=== PATIENT | male | born 1960 | race Caucasian/White ===

== ENCOUNTER → 2021-10-05 | Outpatient (CLI) | payer MEDICARE, OTHER ==
[2021-10-05 11:25] LABS: Partial Thromboplastin Time 24.7 sec (22.0-30.0); Prothrombin Time 10.7 sec (9.0-12.0)
[2021-10-05 14:18] LABS: Basophils # (A) 0.08 X 10*3/uL (0.00-0.10); Basophils % (A) 0.9 %; Eosinophils # (A) 0.23 X 10*3/uL (0.04-0.35); Eosinophils % (A) 2.4 %; HCT 45.1 % (39.6-50.0); HGB 14.7 g/dL (13.0-17.0); Lymphocytes # (A) 2.25 X 10*3/uL (0.90-5.00); MCH 28.7 pg (27.0-32.0); MCHC 32.6 g/dL (32.0-37.0); MCV 88.1 fL (80.0-97.0); Mean Platelet Volume 10.3 fL (9.5-12.2); Monocytes # (A) 0.49 X 10*3/uL (0.20-1.00); Monocytes % (A) 5.2 %; Neutrophils # (A) 6.27 X 10*3/uL (1.80-7.70); Neutrophils % (A) 66.8 %; Platelet Count 202 X 10*3/uL (140-440); RBC 5.12 X 10*6/uL (4.40-5.60); WBC 9.39 X 10*3/uL (4.50-10.00)
[2021-10-05 14:54] LABS: African American GFR (CKD) 130.3 (60.0-200.0); Albumin 3.9 g/dL (3.8-4.9); Albumin/Globulin Ratio 1.47 (1.60-3.17); Anion Gap 12.8 mmol/L (10.00-18.00); BUN/Creat Ratio 35.96 Ratio (12.00-20.00); Blood Urea Nitrogen 20.5 mg/dL (9.0-27.0); Calcium 9.9 mg/dL (8.7-10.3); Carbon Dioxide 24.4 mmol/L (20.0-27.5); Globulin 2.7 g/dL (1.6-3.3); Non-African American GFR(CKD) 112.4 (60.0-200.0); Potassium 5.1 mmol/L (3.5-5.5); Total Bilirubin 0.4 mg/dL (0.30-1.20); Total Protein 6.5 g/dL (6.2-8.2)
== END | disposition home or self-care (01) ==
LOC: LABWHC1 09:34
PROVIDERS: ATTEND Orthopaedic Surgery
DX: Z01.812 Encounter for preprocedural laboratory examination (principal); R35.0 Frequency of micturition; Z79.01 Long term (current) use of anticoagulants
CPT/HCPCS: 36415; 80053; 85025; 85610; 85730; 87070

== ENCOUNTER 2021-10-12 05:35 | Day surgery (SDC) | payer MEDICARE, OTHER ==
[2021-10-07 13:50] VITALS: BMI 24.3
[~2021-10-12 05:35] MED LIST: ACETAMINOPHEN TAB 500 MG TAB PO PRN; DEXAMETHASONE SOD PHOSPHATE 4 MG/ML 1 ML VIAL IV ONE; GABAPENTIN 300 MG CAP PO PRN; MELOXICAM 7.5 MG TAB PO PRN; ONDANSETRON 4 MG/2 ML VIAL IVP ONE; TRANEXAMIC ACID 1,000 MG in SODIUM CHLORIDE 0.9% 100 ML IVPB PRN
[2021-10-12] MEDS ORDERED: LIDOCAINE 1% (10MG/ML) FOR IV START INTRADERMA ONE (06:20)
[2021-10-12] MEDS: LACTATED RINGERS 1,000 ML IV SCH ×2 (06:20→11:21)
[2021-10-12 06:28] LABS: Glucose,Whole Blood 186 mg/dL (75-99)
[2021-10-12] MEDS ORDERED: .fentaNYL (PF) 50 MCG/ML 2 ML AMP ONE (06:53)
[2021-10-12] MEDS ORDERED: SODIUM CHLORIDE 0.9% IRRIG 1,000 ML BTL IRRIGATION ONE (06:53)
[2021-10-12] MEDS ORDERED: ROCURONIUM 10 MG/ML (5 ML VIAL) IV ONE (06:53)
[2021-10-12] MEDS ORDERED: HEPARIN SODIUM,PORCINE 10,000 UNIT/ML 1 ML VIAL ONE (06:53)
[2021-10-12] MEDS ORDERED: PROPOFOL 10 MG/ML 20 ML VIAL IV ONE (06:53)
[2021-10-12] MEDS ORDERED: SODIUM CHLORIDE 0.9% 100 ML BAG ONE (06:53)
[2021-10-12] MEDS ORDERED: TRANEXAMIC ACID 1,000 MG/10 ML VIAL ONE (06:53)
[2021-10-12] MEDS ORDERED: LIDOCAINE 1% INJ 10MG/ML (20 ML MDV) ONE (06:53)
[2021-10-12] MEDS ORDERED: MIDAZOLAM 2 MG/2 ML VIAL ONE (06:53)
[2021-10-12] MEDS ORDERED: GLYCOPYRROLATE 0.2 MG/ML 2 ML VIAL ONE (06:53)
[2021-10-12] MEDS ORDERED: NEOSTIGMINE 1 MG/ML 10 ML VIAL ONE (06:53)
[2021-10-12] MEDS ORDERED: HYDROmorphone 0.5 MG/0.5 ML SYRINGE IVP PRN ×2 (07:00→08:58)
[2021-10-12] MEDS ORDERED: ROPIVACAINE/EPI/CLONIDINE/KET 50 ML SYRINGE MISCELLANE PRN (07:29)
[2021-10-12] MEDS ORDERED: LACTATED RINGERS 1,000 ML IV ONE (08:01)
--- NOTE | 2021-10-12 08:39 | P.OP ---
Date of Procedure: 10/12/21 Preoperative Diagnosis: Severe osteoarthritis right hip Postoperative Diagnosis: Severe osteoarthritis right hip Procedure(s) Performed: Right total hip arthroplasty with a direct anterior approach Implants: [employer]hew Polarstem standard size 6 [employer]hew R3, 3 hole hemispherical acetabular shell, 58 mm [employer]hew Reflection 6.5 mm cancellus screw, 25 mm 2 [employer]hew OR30, 44 mm ID, 58 mm OD, Oxinium dual mobility liner [employer]hew OR30, 28 mm ID, 44 mm OD, XLPE Dual mobility insert [employer]hew Oxinium femoral head 28 m, +8 All components were press-fit. The articulation is Oxinium on polyethylene. Anesthesia: GETA Surgeon: Roddy Velázquez [place] Wrapper Maker #1: Lissette Spicer Estimated Blood Loss (ml): 300 (126 mL returned with Cell Saver) Pathology: other (Femoral head) Condition: stable Disposition: PACU Indications for Procedure: After failure of conservative treatment we discussed the surgical and nonsurgical treatment options at length. Patient wishes to proceed with a total hip arthroplasty with a direct anterior approach. Complications specific to this procedure were discussed at length, including but not limited to infection, leg length discrepancy, dislocation, nerve injury, and fracture. Covid-19 was also discussed at length with the patient, and they are aware of the current policies and procedures. The patient was given the option of delaying surgery, but they elect to proceed knowing these risks. Patient is aware of all these complications and informed consent was obtained Operative Findings: The operative findings are consistent with severe osteoarthritis of the right hip Description of Procedure: Patient was seen and evaluated in the preoperative area and the consent was reviewed. The operative site was marked with a skin marker. The patient was then brought to the operating room and given preoperative antibiotics intravenously. 1 g of Tranexamic acid was also given intravenously. A general anesthetic was administered by the anesthesia department. The patient was then placed on the [place] table with the bony prominences well-padded. The hip area was then prepped with a ChloraPrep solution and draped in the usual sterile fashion. A universal timeout was then performed, which confirmed the patient's name, surgical site, ALLERGIES, and procedure being performed on the consent. Next the incision site was located at 1 cm distal and 2 cm lateral to the anterior superior iliac spine. The skin and subcutaneous tissues were sharply incised. Incision was carefully dissected down to the fascia overlying the tensor fascia roseline muscle. This fascia was then incised in line with the incision. Care was taken to stay laterally in order to avoid injuring the lateral femoral cutaneous nerve. Next, using blunt finger dissection, the tensor fascia roseline muscle was dissected off its investing fascia. The muscle was then carefully retracted laterally with a cobra retractor over the lateral neck of the femur. Next, the circumflex vessels were identified and cauterized using the AquaMantis device. The anterior hip capsule was then exposed. The capsule was then opened and an inverted T fashion. Cobra retractors were then placed intracapsularly. The retractors were maintained intracapsular throughout the procedure. The proximal femur was then visualized. Fluoroscopic x-rays were then taken in order to evaluate the preoperative leg lengths. A small amount of traction was placed on the leg. The femoral neck was then osteotomized appropriate level above the lesser trochanter. A small wedge of bone was then removed from the remaining femoral head. Next, using a corkscrew the femoral head was removed from the acetabulum. On gross visual inspection, the femoral head had complete loss of articular cartilage and multiple periarticular osteophytes. The femoral head was then measured. Attention was then turned to the acetabulum. The acetabulum was exposed and any remaining labrum was excised. Sequential reaming of the acetabulum was performed using fluoroscopic guidance until there was a good bed of bleeding cancellus bone. When the appropriate size was reached, a trial was then placed. The position and fit of the trial was checked with fluoroscopy. The trial was then removed. Then, using fluoroscopic guidance, the final implant was impacted at 20 of anteversion and 40 of abduction, and fully seated in the acetabulum. 2 screws were then placed in the acetabulum. Again fluoroscopy was used to check position of the screws. Next, the liner was then impacted, with a 20 elevated liner located in the anterior superior quadrant. Component locking was confirmed. Attention was then directed to the femur. With the aid of the [place] table, the femur was externally rotated to approximately 130, extended, and adducted under the opposite leg. A side hook was then placed under the proximal femur, and the side hook elevator was used to elevate the proximal femur while releasing the capsule. Retractors were then placed. A capsular release was performed, as well as a release of the conjoined tendon, which afforded excellent visualization of the proximal femur. Next, a box osteotome was used to lateralize the proximal femur. A retail pharmacy merchandiser was then used to locate the femoral canal. Sequential broaching was then performed with appropriate size which afforded excellent fixation in the proximal femur. A trial was then placed with appropriate head and neck, and the hip was gently reduced with the aid of the [place] table. Fluoroscopy was then used to check position of the components, as well as to ensure equal leg lengths. The hip was then gently dislocated and the trials were then removed. Final implants were then impacted and the hip was again reduced. Final fluoroscopic x-rays confirmed that the components were in anatomic position, as well as equal leg lengths. The hip was also taken through range of motion, and found to be stable. The hip was then copiously irrigated with antibiotic solution with pulsatile lavage. The hip was then irrigated with Irrisept solution. The soft tissues were then injected with a ropivacaine solution, which consisted of 246.25 mg of ropivacaine, 0.5 mg of epinephrine, 30 mg of Toradol, 80 g of clonidine, and 48.45 mL of sterile water, for a total of 100 mL of fluid injected. A second dose of 1 g of Tranexamic acid was also given intravenously. Any blood collected by Cell Saver was then returned to the patient at this time. The fascia was then closed with 2-0 strata fix suture. The subcutaneous tissue was closed with 3-0 Vicryl. The subcuticular tissue was closed with 3-0 strata fix suture. The skin was then closed with Exofin skin glue. After the glue and dried, and Optifoam silver impregnated dressing was applied. The patient was then transferred to the recovery room in stable condition. The college sports assistant NANCY Atkins was required due to the complexity of surgery, and the need for skilled quality control assistant for positioning, draping, exposure, retraction, and closure of the wound.
--- NOTE | 2021-10-12 08:41 | XR ---
Fluoroscopy History: RIGHT ANTERIOR HIP 51 sec fl time used rt anterior hip
[2021-10-12] MEDS ORDERED: HYDROmorphone 0.2 MG/1 ML SYRINGE IVP PRN (08:58)
[2021-10-12] MEDS ORDERED: NALOXONE 0.4 MG/ML 1 ML VIAL IV PRN (08:58)
[2021-10-12] MEDS ORDERED: HYDROmorphone 1 MG/ML 1 ML SYRINGE IVP PRN (08:58)
[2021-10-12] MEDS ORDERED: ONDANSETRON 4 MG/2 ML VIAL IVP PRN (08:58)
[2021-10-12] MEDS ORDERED: MAGNESIUM HYDROXIDE 2,400 MG/10 ML CUP PO PRN (08:58)
[2021-10-12] MEDS ORDERED: HYDROcodone/APAP 7.5-325MG 1 EACH TAB PO PRN (09:00)
--- NOTE | 2021-10-12 09:20 | XR ---
EXAMINATION TYPE: XR Hip Limited RT DATE OF EXAM: 10/12/2021 CLINICAL HISTORY: Postoperative evaluation TECHNIQUE: Single portable view of the right hip was submitted. FINDINGS: Noted are changes of total hip arthroplasty with femoral and acetabular components appearin g well seated. Alignment is anatomic. Postsurgical soft tissue changes are evident. IMPRESSION: Satisfactory postoperative alignment
[2021-10-12 09:28] LABS: Glucose,Whole Blood 195 mg/dL (75-99)
[2021-10-12] MEDS ORDERED: SODIUM CHLORIDE 0.9% 1,000 ML IV ONE ×2 (10:33)
[2021-10-12] MEDS: SODIUM CHLORIDE 0.9% 1,000 ML IV SCH ×2 (11:20→20:20)
[2021-10-12 11:31] LABS: Glucose,Whole Blood 228 mg/dL (75-99)
[2021-10-12] MEDS ORDERED: CIPROFLOXACIN HCL 500 MG TAB PO SCH (12:00)
[2021-10-12] MEDS: INSULIN ASPART (NovoLOG) 100 UNIT/ML VIAL SQ SCH ×3 (12:16→23:45)
--- NOTE | 2021-10-12 15:28 | P.CONS ---
History of Present Illness - Reason for Consult Consult date: 10/12/21 Medical management Requesting physician: Roddy Velázquez - Chief Complaint Right hip pain - History of Present Illness This is a 60-year-old patient who follows with visiting physicians . Patient for last few months has been at rehab. He was seen by Dr. Velázquez in March 2021. He was scheduled for right hip surgery then. He subsequently fell a couple of times and not able to walk any longer. He was at [facility]. He's had trouble in the right hip for at least 9 years. Had been using a cane but prior to surgery using a wheelchair. He tried physical therapy. Patient today has undergone right total hip arthroplasty. Pain control. No nausea vomiting. No chest pain or shortness of breath. Chronic stable medical conditions include diabetes, hyperlipidemia, rheumatoid arthritis, gout, chronic gait discussion. Review of systems: GEN.: None EYES: None HEENT: None NECK: None RESPIRATORY: None CARDIOVASCULAR: None GASTROINTESTINAL: None GENITOURINARY: None MUSCULOSKELETAL: Joint pains LYMPHATICS: None HEMATOLOGICAL: None PSYCHIATRY: None NEUROLOGICAL: Using a wheelchair Past medical history to include: Diabetes mellitus, hyperlipidemia, rheumatoid arthritis, gout anxiety depression Social history: No alcohol. Patient did smoke occasional cigars but none since since earlier this year. Family history: Cancer Physical examination: VITAL SIGNS: 98, 97, 16, 99/69, 97% room air GENERAL: BMI 24.4, laying in bed, awake, tired. EYES: Pupils equal. Conjunctiva normal. HEENT: External appearance of nose and ears normal, oral cavity grossly normal. NECK: JVD not raised; masses not palpable. HEART: First and second heart sounds are normal; no edema. LUNGS: Respiratory rate normal; clear to auscultation. ABDOMEN: Soft, nontender, liver spleen not palpable, no masses palpable. PSYCH: Alert and oriented x3; mood and affect normal. MUSCULAR skeletal: Dressing over the right hip. Incision site. Evidence of OA. NEUROLOGICAL: Cranial nerves grossly intact; no facial asymmetry, power and sensation grossly intact. LYMPHATICS: No lymph nodes palpable in the axilla and neck INVESTIGATIONS, reviewed in the clinical context: Blood work from October 05: WBC 9.3 hemoglobin 14.7 weight is 2020 sodium 137 potassium 5.1 BUN 20.5 creatinine 0.6 Potassium today 4.5 UA: Negative Coronavirus [PCR]: Not detected Assessment and plan: -Right total hip arthroplasty for severe osteoarthritis Pain control. DVT prophylaxis. -Depression and anxiety not otherwise specified Zoloft 100 mg daily: Trazodone 100 mg daily at bedtime -Diabetes mellitus type 2 and oral hypoglycemic Glucophage 5 mg twice a day. Follow Accu-Cheks -Essential hypertension Currently blood pressure during the lower side. Hold lisinopril -Hyperlipidemia Lipitor 20 mg daily at bedtime Home medications resumed. Hold lisinopril. Follow blood pressure. Xarelto to be resumed when okay with orthopedics. Care was discussed with the patient. Questions answered. Thank you Dr. Velázquez Past Medical History Past Medical History: Diabetes Mellitus, Hyperlipidemia, Rheumatoid Arthritis (RA) Additional Past Medical History / Comment(s): gout, fussion margarito hips- can not move them. unable to bear wt. mostly bedridden-tranfers with mechanical lift, uses bedpan or depends due to inablity to move. per [facility]- on rx for uti. History of Any Multi-Drug Resistant Organisms: None Reported Past Surgical History: EPS Additional Past Surgical History / Comment(s): rt ear surgery Past Anesthesia/Blood Transfusion Reactions: No Reported Reaction Past Psychological History: Anxiety, Depression Smoking Status: Former smoker Past Alcohol Use History: None Reported Additional Past Alcohol Use History / Comment(s): smoked occ. cigars but not since earlier 2020 Past Drug Use History: None Reported - Past Family History Father Family Medical History: Cancer Medications and Allergies Home Medications Medication Instructions Recorded Confirmed Type Atorvastatin [Lipitor] 20 mg PO HS 10/07/21 10/07/21 History Ciprofloxacin HCl [Cipro] 500 mg PO Q12H 10/07/21 10/07/21 History Multivitamins, Thera [Multivitamin 1 tab PO DAILY 10/07/21 10/07/21 History (formulary)] Rivaroxaban [Xarelto] 20 mg PO DAILY 10/07/21 10/07/21 History Sertraline [Zoloft] 100 mg PO QAM 10/07/21 10/07/21 History lisinopriL 10 mg PO QAM 10/07/21 10/07/21 History metFORMIN HCL [Glucophage] 500 mg PO BID 10/07/21 10/07/21 History traZODone HCL 100 mg PO HS 10/07/21 10/07/21 History Calcium Carbonate/Vitamin D3 1 each PO DAILY 10/12/21 10/12/21 History [Calcium 600 mg-Vit D3 5 mcg (200 unit)] HYDROcodone/APAP 7.5-325MG [[place] 1 - 2 tab PO Q6H PRN #32 tab 10/12/21 Rx 7.5-325] Sennosides [Senokot] 2 tab PO DAILY PRN #60 tablet 10/12/21 Rx Allergies Allergy/AdvReac Type Severity Reaction Status Date / Time Penicillins Allergy Unknown Verified 10/12/21 06:21 Physical Exam Vitals: Vital Signs Temp Pulse Pulse Pulse Resp BP BP 10/12/21 14:06 98 F 97 16 99/69 10/12/21 13:00 101 H 108/73 10/12/21 12:45 92 102/72 10/12/21 12:30 90 117/75 10/12/21 12:15 86 114/80 10/12/21 12:00 83 102/69 10/12/21 11:45 80 103/62 10/12/21 11:30 91 110/69 10/12/21 11:15 97.5 F L 66 16 100/65 10/12/21 10:45 80 16 98/65 10/12/21 10:30 78 16 95/60 10/12/21 10:15 77 16 90/56 10/12/21 10:00 78 16 87/54 10/12/21 09:45 79 17 87/51 10/12/21 09:30 81 16 92/56 10/12/21 09:15 82 16 90/55 10/12/21 09:00 80 16 98/56 10/12/21 08:47 96.8 F L 79 14 104/65 10/12/21 06:20 97.8 F 95 16 124/69 Pulse Ox 10/12/21 14:06 97 10/12/21 13:00 98 10/12/21 12:45 95 10/12/21 12:30 99 10/12/21 12:15 92 L 10/12/21 12:00 91 L 10/12/21 11:45 90 L 10/12/21 11:30 93 L 10/12/21 11:15 98 10/12/21 10:45 97 10/12/21 10:30 98 10/12/21 10:15 97 10/12/21 10:00 97 10/12/21 09:45 99 10/12/21 09:30 98 10/12/21 09:15 98 10/12/21 09:00 99 10/12/21 08:47 100 10/12/21 06:20 99 Intake and Output 10/12/21 10/12/21 10/12/21 06:59 14:59 22:59 Intake Total 1050 1336 Output Total 300 Balance 1050 1036 Intake: IV 1050 1100 Oral 236 Output: Estimated Blood Loss 300 Other: Weight 86.183 kg Results CBC & Chem 7: 10/12/21 06:25 Labs: Abnormal Lab Results - Last 24 Hours (Table) 10/12/21 10/12/21 10/12/21 Range/Units 06:24 09:26 11:30 POC Glucose (mg/dL) 186 H 195 H 228 H (75-99) mg/dL
[2021-10-12 16:14] LABS: Glucose,Whole Blood 318 mg/dL (75-99)
[2021-10-12] MEDS: metFORMIN 500 MG TAB PO SCH (16:58)
[2021-10-12] MEDS ORDERED: RIVAROXABAN 20 MG TAB PO SCH (17:30)
[2021-10-12] MEDS: traZODone HCL 100 MG TAB PO SCH (20:19)
[2021-10-12] MEDS: SENNOSIDES-DOCUSATE SODIUM 1 EACH TAB PO SCH (20:19)
[2021-10-12] MEDS: ATORVASTATIN 20 MG TAB PO SCH (20:19)
[2021-10-12 20:57] LABS: Glucose,Whole Blood 277 mg/dL (75-99)
[2021-10-13] MEDS: HYDROcodone/APAP 7.5-325MG 1 EACH TAB PO PRN ×2 (07:30→20:53)
[2021-10-13 07:36] LABS: Glucose,Whole Blood 231 mg/dL (75-99)
[2021-10-13] MEDS: INSULIN ASPART (NovoLOG) 100 UNIT/ML VIAL SQ SCH ×4 (07:57→20:49)
[2021-10-13] MEDS: RIVAROXABAN 20 MG TAB PO SCH (07:58)
[2021-10-13] MEDS: CALCIUM CARB-VIT D 500 MG-5 MCG TAB PO SCH (07:58)
[2021-10-13] MEDS: SERTRALINE 100 MG TAB PO SCH (07:58)
[2021-10-13] MEDS: MULTIVITAMINS, THERA 1 EACH TAB PO SCH (07:58)
[2021-10-13] MEDS: metFORMIN 500 MG TAB PO SCH ×2 (07:58→17:11)
[2021-10-13 09:17] LABS: Basophils # (A) 0.03 X 10*3/uL (0.00-0.10); Basophils % (A) 0.3 %; Eosinophils # (A) 0.12 X 10*3/uL (0.04-0.35); Eosinophils % (A) 1.1 %; HCT 33.7 % (39.6-50.0); HGB 10.6 g/dL (13.0-17.0); Lymphocytes # (A) 1.48 X 10*3/uL (0.90-5.00); Lymphocytes % (A) 13.1 %; MCH 28.5 pg (27.0-32.0); MCHC 31.5 g/dL (32.0-37.0); MCV 90.6 fL (80.0-97.0); Mean Platelet Volume 9.9 fL (9.5-12.2); Monocytes % (A) 9.7 %; Neutrophils # (A) 8.52 X 10*3/uL (1.80-7.70); Neutrophils % (A) 75.2 %; Platelet Count 143 X 10*3/uL (140-440); RBC 3.72 X 10*6/uL (4.40-5.60); RDW 14.2 % (11.5-14.5); WBC 11.32 X 10*3/uL (4.50-10.00)
[2021-10-13 12:14] LABS: Glucose,Whole Blood 268 mg/dL (75-99)
[2021-10-13] MEDS: SODIUM CHLORIDE 0.9% 1,000 ML IV SCH (12:22)
[2021-10-13] MEDS: LACTATED RINGERS 1,000 ML IV SCH (12:22)
--- NOTE | 2021-10-13 12:31 | P.PN ---
Subjective Progress Note Date: 10/13/21 This is a 60-year-old male who is status post right total hip arthroplasty. This is postoperative day #1 and patient is seen and evaluated at bedside with Dr. Roddy Velázquez. Per nursing, the patient hasn't been able to void on his own. Otherwise, the patient denies any new complaints today. Objective - Vital Signs Vital signs: Vital Signs Temp 98.4 F 10/13/21 07:44 Pulse 75 10/13/21 07:44 Resp 17 10/13/21 07:44 BP 95/60 10/13/21 07:44 Pulse Ox 97 10/13/21 07:44 Intake & Output 10/12/21 10/13/21 10/13/21 18:59 06:59 18:59 Intake Total 2162 Output Total 300 450 350 Balance 1862 -450 -350 Weight 86.183 kg Intake: IV 1100 Intake, IV Titration 50 Amount ceFAZolin 2 gm In Sodium 50 Chloride 0.9% 50 ml @ 100 mls/hr IVPB Q8H [facility] Rx#: [id number] Oral 1012 Output: Urine 450 350 Straight 450 350 Estimated Blood Loss 300 Other: Voiding Method Urinal Urinal # Voids 1 - Exam Vital signs are stable. Patient is in no acute distress and is alert and oriented 3. Calf is soft and nontender to palpation. Dressing is clean, dry, and intact. Patient has full foot and ankle motion without pain or difficulty. Sensation intact. Neurovascular status and circulatory status are intact. - Labs CBC & Chem 7: 10/13/21 03:49 10/12/21 06:25 Labs: Abnormal Lab Results - Last 24 Hours (Table) 10/12/21 10/12/21 10/13/21 Range/Units 16:13 20:55 03:49 WBC 11.32 H (4.50-10.00) X 10*3/uL RBC 3.72 L (4.40-5.60) X 10*6/uL Hgb 10.6 L (13.0-17.0) g/dL Hct 33.7 L (39.6-50.0) % MCHC 31.5 L (32.0-37.0) g/dL Immature Gran # 0.07 H (0.00-0.04) X 10*3/uL Neutrophils # 8.52 H (1.80-7.70) X 10*3/uL Monocytes # 1.10 H (0.20-1.00) X 10*3/uL POC Glucose (mg/dL) 318 H 277 H (75-99) mg/dL 10/13/21 10/13/21 Range/Units 07:35 12:12 WBC (4.50-10.00) X 10*3/uL RBC (4.40-5.60) X 10*6/uL Hgb (13.0-17.0) g/dL Hct (39.6-50.0) % MCHC (32.0-37.0) g/dL Immature Gran # (0.00-0.04) X 10*3/uL Neutrophils # (1.80-7.70) X 10*3/uL Monocytes # (0.20-1.00) X 10*3/uL POC Glucose (mg/dL) 231 H 268 H (75-99) mg/dL Assessment and Plan (1) Osteoarthritis of right hip Current Visit: Yes Status: Acute Code(s): M16.11 - UNILATERAL PRIMARY OSTEOARTHRITIS, RIGHT HIP SNOMED Code(s): 195874653077059 (2) S/P total right hip arthroplasty Current Visit: Yes Status: Acute Code(s): Z96.641 - PRESENCE OF RIGHT ART IFICIAL HIP JOINT SNOMED Code(s): 602231941444 Plan: Continue routine postop care and pain control. Resume Xarelto. Weightbearing as tolerated with a walker/lift. Leave dressing in place for 7 days. Appreciate input from medicine. Anticipate discharge back to [facility] tomorrow
--- NOTE | 2021-10-13 15:00 | P.PN ---
Progress Note - Text Progress Note Date: 10/13/21 - Chief Complaint Right hip pain This is a 60-year-old patient who follows with visiting physicians . Patient for last few months has been at rehab. He was seen by Dr. Velázquez in March 2021. He was scheduled for right hip surgery then. He subsequently fell a couple of times and not able to walk any longer. He was at rehab [facility]. He's had trouble in the right hip for at least 9 years. Had been using a cane but prior to surgery using a wheelchair. He tried physical therapy. Patient today has undergone right total hip arthroplasty. Pain control. No nausea vomiting. No chest pain or shortness of breath. Chronic stable medical conditions include diabetes, hyperlipidemia, rheumatoid arthritis, gout, chronic gait discussion. October 13: Did eat to breakfast. No chest pain or shortness of breath. Tired. Did work with physical therapy. Blood pressure running on the lower side. Review of systems: Was done for constitutional, cardiovascular, GI, pulmonary. relevant finding as above Active Medications Hydrocodone Bitart/Acetaminophen (Hydrocodone/Apap 7.5-325mg 1 Each Tab) 1 each PO Q6H PRN PRN Reason: Pain Scale 1 to 5 Stop: 11/11/21 09:01 Last Admin: 10/13/21 07:30 Dose: 1 each Documented by: Hydrocodone Bitart/Acetaminophen (Hydrocodone/Apap 7.5-325mg 1 Each Tab) 2 each PO Q6H PRN PRN Reason: Pain Scale 6 to 10 Stop: 11/11/21 09:01 Atorvastatin Calcium (Atorvastatin 20 Mg Tab) 20 mg PO HS [facility] Last Admin: 10/12/21 20:19 Dose: 20 mg Documented by: Calcium Carbonate (Calcium Carb-Vit D 500 Mg-5 Mcg Tab) 1 each PO DAILY [facility] Last Admin: 10/13/21 07:58 Dose: 1 each Documented by: Ferrous Sulfate (Ferrous Sulfate 325 Mg Tab) 325 mg PO BID-W/MEALS [facility] Hydromorphone HCl (Hydromorphone 0.2 Mg/1 Ml Syringe) 0.2 mg IVP Q3HR PRN PRN Reason: Pain Scale 1 to 3 Stop: 11/11/21 08:59 Hydromorphone HCl (Hydromorphone 0.5 Mg/0.5 Ml Syringe) 0.5 mg IVP Q3HR PRN PRN Reason: Pain Scale 4 to 6 Stop: 11/11/21 08:59 Hydromorphone HCl (Hydromorphone 1 Mg/Ml 1 Ml Syringe) 1 mg IVP Q3HR PRN PRN Reason: Pain Scale 7 to 10 Stop: 11/11/21 08:59 Lactated Ringer's (Lactated Ringers) 1,000 mls @ 20 mls/hr IV .Q24H [facility] Stop: 11/10/21 17:31 Last Admin: 10/13/21 12:22 Dose: Not Given Documented by: Sodium Chloride (Saline 0.9%) 1,000 mls @ 65 mls/hr IV .[id number] [facility] Stop: 11/11/21 09:01 Last Admin: 10/13/21 12:22 Dose: Not Given Documented by: Insulin Aspart (Insulin Aspart (Novolog) 100 Unit/Ml Vial) 0 unit SQ ACHS [facility]; Protocol Last Admin: 10/13/21 12:22 Dose: 4 unit Documented by: Magnesium Hydroxide (Magnesium Hydroxide 2,400 Mg/10 Ml Cup) 2,400 mg PO DAILY PRN PRN Reason: Constipation Stop: 11/11/21 08:59 Metformin HCl (Metformin 500 Mg Tab) 500 mg PO BID-W/MEALS [facility] Last Admin: 10/13/21 07:58 Dose: 500 mg Documented by: Multivitamins (Multivitamins, Thera 1 Each Tab) 1 each PO DAILY [facility] Last Admin: 10/13/21 07:58 Dose: 1 each Documented by: Naloxone HCl (Naloxone 0.4 Mg/Ml 1 Ml Vial) 0.2 mg IV Q2M PRN PRN Reason: Opioid Reversal Stop: 11/11/21 08:59 Ondansetron HCl (Ondansetron 4 Mg/2 Ml Vial) 4 mg IVP Q8H PRN PRN Reason: Nausea And Vomiting Stop: 11/11/21 08:59 Rivaroxaban (Rivaroxaban 20 Mg Tab) 20 mg PO DAILY [facility]; Protocol Stop: 11/12/21 09:01 Last Admin: 10/13/21 07:58 Dose: 20 mg Documented by: Senna/Docusate Sodium (Sennosides-Docusate Sodium 1 Each Tab) 2 each PO HS [facility] Stop: 11/11/21 21:01 Last Admin: 10/12/21 20:19 Dose: 2 each Documented by: Sertraline HCl (Sertraline 100 Mg Tab) 100 mg PO [facility] Last Admin: 10/13/21 07:58 Dose: 100 mg Documented by: Trazodone HCl (Trazodone Hcl 100 Mg Tab) 100 mg PO [facility] Last Admin: 10/12/21 20:19 Dose: 100 mg Documented by: Past medical history to include: Diabetes mellitus, hyperlipidemia, rheumatoid arthritis, gout anxiety depression Social history: No alcohol. Patient did smoke occasional cigars but none since since earlier this year. Family history: Cancer Physical examination: VITAL SIGNS: 98.4, 75, 17, 95 x 60, 97% room air GENERAL: Sitting up in a chair, tired. EYES: Pupils equal. Conjunctiva normal. HEENT: External appearance of nose and ears normal, oral cavity grossly normal. NECK: JVD not raised; masses not palpable. HEART: First and second heart sounds are normal; no edema. LUNGS: Respiratory rate normal; clear to auscultation. ABDOMEN: Soft, nontender, liver spleen not palpable, no masses palpable. PSYCH: Alert and oriented x3; mood and affect normal. MUSCULAR skeletal: Dressing over the right hip. Incision site. Evidence of OA. INVESTIGATIONS, reviewed in the clinical context: October 13: White count 11.3 hemoglobin 10.6 platelets 143. Accu-Chek 231, 268 Blood work from October 05: WBC 9.3 hemoglobin 14.7 weight is 2020 sodium 137 potassium 5.1 BUN 20.5 cre atinine 0.6 Potassium today 4.5 UA: Negative Coronavirus [PCR]: Not detected Assessment and plan: -Right total hip arthroplasty for severe osteoarthritis Pain control. DVT prophylaxis. -Depression and anxiety not otherwise specified Zoloft 100 mg daily: Trazodone 100 mg daily at bedtime -Diabetes mellitus type 2 and oral hypoglycemic, uncontrolled with hyperglycemia Increase Glucophage 1000 mg twice a day. Follow Accu-Cheks -Essential hypertension, continues to run low Hold lisinopril -Acute postprocedure blood loss anemia expected from surgery Follow H&H. Add ferrous sulfate -Hyperlipidemia Lipitor 20 mg daily at bedtime Repeat H&H in the morning. Add ferrous sulfate. Continue to hold lisinopril. Discussed with the patient. Thank you Dr. Velázquez
[2021-10-13 17:04] LABS: Glucose,Whole Blood 221 mg/dL (75-99)
[2021-10-13] MEDS: FERROUS SULFATE 325 MG TAB PO SCH (17:11)
[2021-10-13 20:15] LABS: Glucose,Whole Blood 193 mg/dL (75-99)
[2021-10-13] MEDS: traZODone HCL 100 MG TAB PO SCH (20:49)
[2021-10-13] MEDS: SENNOSIDES-DOCUSATE SODIUM 1 EACH TAB PO SCH (20:49)
[2021-10-13] MEDS: ATORVASTATIN 20 MG TAB PO SCH (20:50)
[2021-10-13] MEDS ORDERED: INSULIN ASPART (NovoLOG) 100 UNIT/ML VIAL SQ SCH (22:31)
[2021-10-14 06:23] LABS: African American GFR (CKD) >90 (>60 ml/min/1.73 sqM); Anion Gap 4 mmol/L; Blood Urea Nitrogen 26 mg/dL (9-20); Calcium 8.2 mg/dL (8.4-10.2); Carbon Dioxide 26 mmol/L (22-30); Chloride 103 mmol/L (98-107); Glucose 153 mg/dL (74-99); Non-African American GFR(CKD) >90 (>60 ml/min/1.73 sqM); Potassium 4.1 mmol/L (3.5-5.1); Sodium 133 mmol/L (137-145)
[2021-10-14 07:11] LABS: Glucose,Whole Blood 175 mg/dL (75-99)
[2021-10-14] MEDS: INSULIN ASPART (NovoLOG) 100 UNIT/ML VIAL SQ SCH ×3 (08:10→17:16)
[2021-10-14] MEDS: CALCIUM CARB-VIT D 500 MG-5 MCG TAB PO SCH (08:11)
[2021-10-14] MEDS: MULTIVITAMINS, THERA 1 EACH TAB PO SCH (08:11)
[2021-10-14] MEDS: RIVAROXABAN 20 MG TAB PO SCH (08:11)
[2021-10-14] MEDS: FERROUS SULFATE 325 MG TAB PO SCH ×2 (08:11→17:17)
[2021-10-14] MEDS: metFORMIN 500 MG TAB PO SCH ×2 (08:11→17:17)
[2021-10-14] MEDS: SERTRALINE 100 MG TAB PO SCH (08:11)
[2021-10-14] MEDS: SODIUM CHLORIDE 0.9% 1,000 ML IV SCH (08:12)
[2021-10-14 11:43] LABS: Glucose,Whole Blood 187 mg/dL (75-99)
[2021-10-14] MEDS: HYDROcodone/APAP 7.5-325MG 1 EACH TAB PO PRN (14:08)
[2021-10-14 14:38] VITALS: BP 100/66; PULSE 104; RESP 17; TEMP 98.3
--- NOTE | 2021-10-14 16:03 | P.DS ---
Providers Expected date of discharge: 10/14/21 Attending physician: Roddy Velázquez Consults: 10/12/21 08:58 Consult Physician Routine Consulting Provider: Matthew Antony Consult Reason/Comments: medical management Do you want consulting provider notified?: Yes Primary care physician: Clint Baez MD - Discharge Diagnosis(es) (1) Osteoarthritis of right hip Current Visit: Yes Status: Acute (2) S/P total right hip arthroplasty Current Visit: Yes Status: Acute Hospital Course: This is a 60-year-old male with known history of degenerative arthritis of the right hip. The patient presents for evaluation. After discussion and consideration patient elects to proceed with total hip arthroplasty with direct anterior approach. The patient is seen preoperatively by primary care physician and cleared for surgery. Patient is admitted to [facility] on 10/12/2021 for total hip arthroplasty with direct anterior approach. The procedure is performed without complication or sequelae. The patient is doing fairly well postoperatively. He did have difficulty voiding on his own on postoperative day #1. Martin catheter was placed. Labs and vital signs are stable. On postoperative day #2 patient's dressing is clean, dry and intact. He has full foot and ankle motion without difficulty or pain. Neurovascular status to the lower extremity is intact. Patient is discharged to home in good condition if cleared medically. He will be discharged to [facility] with the martin catheter. We will hopefully be able to discontinue the catheter at rehabilitation. Please see med rec for accurate list of home medications. Patient Condition at Discharge: Stable Plan - Discharge Summary Discharge Rx Participant: No New Discharge Prescriptions: New Sennosides [Senokot] 2 tab PO DAILY PRN #60 tablet PRN Reason: Constipation INSULIN ASPART (NovoLOG) [NovoLOG (formulary)] 0 unit SQ ACHS ml HYDROcodone/APAP 7.5-325MG [[place] 7.5-325] 1 - 2 tab PO Q6H PRN #32 tab PRN Reason: Pain metFORMIN HCL [Glucophage] 1,000 mg PO BID-W/MEALS tab Ferrous Sulfate [Iron (65 MG Elemental)] 325 mg PO BID-W/MEALS tab Continue Atorvastatin [Lipitor] 20 mg PO HS traZODone HCL 100 mg PO HS Rivaroxaban [Xarelto] 20 mg PO DAILY Sertraline [Zoloft] 100 mg PO QAM Calcium Carbonate/Vitamin D3 [Calcium 600 mg-Vit D3 5 mcg (200 unit)] 1 each PO DAILY Multivitamins, Thera [Multivitamin (formulary)] 1 tab PO DAILY Discontinued lisinopriL 10 mg PO QAM Ciprofloxacin HCl [Cipro] 500 mg PO Q12H metFORMIN HCL [Glucophage] 500 mg PO BID Discharge Medication List Atorvastatin [Lipitor] 20 mg PO HS 10/07/21 [History] Multivitamins, Thera [Multivitamin (formulary)] 1 tab PO DAILY 10/07/21 [History] Rivaroxaban [Xarelto] 20 mg PO DAILY 10/07/21 [History] Sertraline [Zoloft] 100 mg PO QAM 10/07/21 [History] traZODone HCL 100 mg PO HS 10/07/21 [History] Calcium Carbonate/Vitamin D3 [Calcium 600 mg-Vit D3 5 mcg (200 unit)] 1 each PO DAILY 10/12/21 [History] HYDROcodone/APAP 7.5-325MG [[place] 7.5-325] 1 - 2 tab PO Q6H PRN #32 tab 10/12/21 [Rx] Sennosides [Senokot] 2 tab PO DAILY PRN #60 tablet 10/12/21 [Rx] Ferrous Sulfate [Iron (65 MG Elemental)] 325 mg PO BID-W/MEALS tab 10/14/21 [Rx] INSULIN ASPART (NovoLOG) [NovoLOG (formulary)] 0 unit SQ ACHS ml 10/14/21 [Rx] metFORMIN HCL [Glucophage] 1,000 mg PO BID-W/MEALS tab 10/14/21 [Rx] Follow up Appointment(s)/Referral(s): Ever Bermudez MD [REFERRING] - 1 Week [address]ody Velázquez DO [Doctor of Osteopathic Medicine] - 2 Weeks Activity/Diet/Wound Care/Special Instructions: Weightbearing as tolerated with walker. Leave dressing intact. Dressing may be removed by home care nurse or by patient in 7 days. Then change dressing twice daily until follow up. May shower with initial dressing intact and after removal. If dressing become saturated, please remove. Please resume Xarelto. Recommend use of compression stockings daily until follow up to help prevent swelling and blood clots. May remove at night before sleeping. Please follow-up with [facility] in 2 weeks and call with any questions or concerns, . Discharge Disposition: TRANSFER TO SNF/ECF
[2021-10-14 16:32] LABS: Glucose,Whole Blood 213 mg/dL (75-99)
--- NOTE | 2021-10-14 21:25 | P.PN ---
Progress Note - Text Progress Note Date: 10/14/21 - Chief Complaint Right hip pain This is a 60-year-old patient who follows with visiting physicians . Patient for last few months has been at rehab. He was seen by Dr. Velázquez in March 2021. He was scheduled for right hip surgery then. He subsequently fell a couple of times and not able to walk any longer. [facility]. He's had trouble in the right hip for at least 9 years. Had been using a cane but prior to surgery using a wheelchair. He tried physical therapy. Patient today has undergone right total hip arthroplasty. Pain control. No nausea vomiting. No chest pain or shortness of breath. Chronic stable medical conditions include diabetes, hyperlipidemia, rheumatoid arthritis, gout, chronic gait discussion. October 13: Did eat to breakfast. No chest pain or shortness of breath. Tired. Did work with physical therapy. Blood pressure running on the lower side. October 14: Sitting up. Comfortable. Breathing to the ER today. Pain control. Oral intake good. No chest pain or shortness of breath. Review of systems: Was done for constitutional, cardiovascular, GI, pulmonary. relevant finding as above Current medications reviewed in today's electronic records Past medical history to include: Diabetes mellitus, hyperlipidemia, rheumatoid arthritis, gout anxiety depression Social history: No alcohol. Patient did smoke occasional cigars but none since since earlier this year. Family history: Cancer Physical examination: VITAL SIGNS: 98.2, 100, 20, 99.63, 98% room air GENERAL: Sitting up in a chair, comfortable EYES: Pupils equal. Conjunctiva normal. HEENT: External appearance of nose and ears normal, oral cavity grossly normal. NECK: JVD not raised; masses not palpable. HEART: First and second heart sounds are normal; no edema. LUNGS: Respiratory rate normal; clear to auscultation. ABDOMEN: Soft, nontender, liver spleen not palpable, no masses palpable. PSYCH: Alert and oriented x3; mood and affect normal. MUSCULAR skeletal: Dressing over the right hip. Incision site. Evidence of OA. INVESTIGATIONS, reviewed in the clinical context: October 14: Potassium 4.1 creatinine 0.76 October 13: White count 11.3 hemoglobin 10.6 platelets 143. Accu-Chek 231, 268 Blood work from October 05: WBC 9.3 hemoglobin 14.7 weight is 2020 sodium 137 potassium 5.1 BUN 20.5 creatinine 0.6 Potassium today 4.5 UA: Negative Coronavirus [PCR]: Not detected Assessment and plan: -Right total hip arthroplasty for severe osteoarthritis Pain control. DVT prophylaxis. -Depression and anxiety not otherwise specified Zoloft 100 mg daily: Trazodone 100 mg daily at bedtime -Diabetes mellitus type 2 and oral hypoglycemic, uncontrolled with hyperglycemia Glucophage 1000 mg twice a day. Follow Accu-Cheks -Essential hypertension, continues to run low Hold lisinopril -Acute postprocedure blood loss anemia expected from surgery Follow H&H. Add ferrous sulfate -Hyperlipidemia Lipitor 20 mg daily at bedtime Patient to return to ECF. Thank you Dr. Velázquez
== END 2021-10-14 18:25 ==
LOC: OR 05:35 → 4SSUR 08:46 → OR 10-14 18:25
PROVIDERS: ATTEND Orthopaedic Surgery
DX: M16.11 Unilateral primary osteoarthritis, right hip (principal); M25.751 Osteophyte, right hip; I10 Essential (primary) hypertension; E78.5 Hyperlipidemia, unspecified; R00.2 Palpitations; E11.9 Type 2 diabetes mellitus without complications; Z20.822 Contact with and (suspected) exposure to COVID-19; N40.0 Benign prostatic hyperplasia without lower urinary tract symptoms; M06.9 Rheumatoid arthritis, unspecified; F41.9 Anxiety disorder, unspecified; Z87.891 Personal history of nicotine dependence; R63.4 Abnormal weight loss; Z97.3 Presence of spectacles and contact lenses; Z98.890 Other specified postprocedural states; Z87.440 Personal history of urinary (tract) infections; Z83.3 Family history of diabetes mellitus; Z82.49 Family history of ischemic heart disease and other diseases of the circulatory system; Z80.9 Family history of malignant neoplasm, unspecified; Z79.4 Long term (current) use of insulin; Z79.01 Long term (current) use of anticoagulants; Z79.899 Other long term (current) drug therapy; Z88.6 Allergy status to analgesic agent; Z88.0 Allergy status to penicillin
CPT/HCPCS: 97530 ×2; 97162; 97166; 86891; 80048; 84132; 85025; 88300; 87635; 73501; 27130; C1776; J2250; J1644; J1100; J2710; J0690; J2405; J2001; J3010; J2704; 86850; 86900; 86901

== ENCOUNTER 2022-01-19 09:24 | Day surgery (SDC) | payer MEDICARE, OTHER ==
[2022-01-15 12:19] VITALS: BMI 24.5
[~2022-01-19 09:24] MED LIST changes: -GABAPENTIN 300 MG CAP PO PRN; +HEPARIN SODIUM,PORCINE/PF 5,000 UNIT/0.5 ML SYRINGE SQ PRN; +HYDROmorphone 0.5 MG/0.5 ML SYRINGE IVP PRN; +LACTATED RINGERS 1,000 ML IV SCH; -MELOXICAM 7.5 MG TAB PO PRN; +Pre Op ABX Message 1 EACH MISC MISCELLANE ONE; -TRANEXAMIC ACID 1,000 MG in SODIUM CHLORIDE 0.9% 100 ML IVPB PRN
[2022-01-19 10:34] VITALS: TEMP 97
[2022-01-19 10:44] LABS: Glucose,Whole Blood 133 mg/dL (75-99)
[2022-01-19] MEDS ORDERED: MIDAZOLAM 2 MG/2 ML VIAL ONE (11:00)
[2022-01-19] MEDS ORDERED: LIDOCAINE 1% INJ 10MG/ML (20 ML MDV) ONE (11:00)
[2022-01-19] MEDS ORDERED: fentaNYL (PF) 50 MCG/ML 2 ML AMP ONE (11:00)
[2022-01-19] MEDS ORDERED: PROPOFOL 10 MG/ML 20 ML VIAL IV ONE (11:00)
[2022-01-19] MEDS ORDERED: SODIUM CHLORIDE 0.9% 100 ML with ceFAZolin 2,000 MG IV ONE ×2 (11:18)
[2022-01-19] MEDS ORDERED: BUPIVACAIN-EPI 0.25%-1:200,000 30 ML VIAL SQ ONE ×2 (11:19)
[2022-01-19] MEDS ORDERED: NALOXONE 0.4 MG/ML 1 ML VIAL IV PRN (11:51)
--- NOTE | 2022-01-19 11:53 | P.OP ---
Date of Procedure: 01/19/22 Procedure(s) Performed: PREOPERATIVE DIAGNOSIS: Muscular weakness POSTOPERATIVE DIAGNOSIS: Same PROCEDURE: Left quadriceps muscle biopsy SURGEON: Estevan EBL: 5 mL ANESTHESIA: Sedation plus local COMPLICATIONS: None OPERATIVE PROCEDURE: Patient placed in the operative table in the supine position. He was sedated per anesthesia. The left eye was prepped and draped sterilely. A longitudinal incision was made overlying the left thigh. The subcutaneous fat and fascia were divided using electrocautery. The quadriceps muscle was dissected with a right angle or since. A 3 cm x 1 cm length of muscle was excised sharply. This was then cut into 3 pieces and placed in the appropriate containers for sampling. Small area of bleeding was controlled with a 3-0 Vicryl stitch. Subcutaneous sutures were closed with 3-0 Vicryl sutures and the skin with a running 4-0 Monocryl subcuticular suture. Skin glue and sterile dressings were then applied. DISPOSITION: Stable to recovery room
[2022-01-19 12:20] VITALS: BP 128/81; PULSE 76; RESP 18
== END 2022-01-19 12:47 ==
LOC: OR 09:24
PROVIDERS: ATTEND Surgery
DX: M62.81 Muscle weakness (generalized) (principal); Z20.822 Contact with and (suspected) exposure to COVID-19; I10 Essential (primary) hypertension; E78.5 Hyperlipidemia, unspecified; E11.9 Type 2 diabetes mellitus without complications; N42.9 Disorder of prostate, unspecified; Z79.84 Long term (current) use of oral hypoglycemic drugs; Z79.01 Long term (current) use of anticoagulants
CPT/HCPCS: 20205; 87635; J2250; J1100; J2405; J0690; J2001; J3010; J2704; J1644

== ENCOUNTER 2025-04-09 20:53 | Inpatient (IN) | payer MEDICARE, OTHER ==
--- NOTE | 2025-04-09 21:42 | ED ---
General Adult HPI - General Chief complaint: Recheck/Abnormal Lab/Rx Stated complaint: blood in urine Time Seen by Provider: 04/09/25 21:30 Source: EMS Mode of arrival: EMS Limitations: altered mental status - History of Present Illness Initial comments: This patient is a 64-year-old man sent here from [facility] to have evaluation for suspected urinary tract infection. It was reported that they had attempted to place a catheter at the [facility] and it had resulted in no urine output and then when the catheter was taken out there was bleeding from the urethral meatus. The patient himself states that he normally does not have a urinary catheter in. He states that 1 was placed today because he had large amount of scrotal edema and could not use the urinal in the bed. He states that when they attempted to place the catheter there was some pain at the time of placement. The patient states that he also feels shaky. He denies other pain. No dyspnea or cough. He denies having fever but states that he does feel chilled. -: hour(s) Radiation: other (Urethra) Quality: sharp Consistency: now resolved Improves with: none Worsens with: none Associated Symptoms: fever/chills Treatments Prior to Arrival: none - Related Data Home Medications Medication Instructions Recorded Confirmed Dulaglutide [Trulicity] 4.5 mg SQ TH 04/10/25 04/10/25 Gabapentin [Neurontin] 100 mg PO TID 04/10/25 04/10/25 Insulin Glargine,Hum.rec.anlog 40 unit SQ DAILY 04/10/25 04/10/25 [Insulin Glargine Solostar] Insulin Lispro-Aabc [Lyumjev See Protocol SQ ACHS 04/10/25 04/10/25 Kwikpen U-100] Loperamide [Imodium] 2 - 4 mg PO QID PRN 04/10/25 04/10/25 Loratadine 10 mg PO DAILY 04/10/25 04/10/25 Phenyleph/Pramoxin/Glycr/W.pet 1 applic RECTAL Q6H PRN 04/10/25 04/10/25 [Preparation H Cream] Promethazine [Phenergan] 25 mg PO Q6H PRN 04/10/25 04/10/25 gemfibroziL [Lopid] 600 mg PO BID 04/10/25 04/10/25 lisinopriL [Zestril] 20 mg PO DAILY 04/10/25 04/10/25 Previous Rx's Medication Instructions Recorded Acetaminophen Tab [Tylenol] 650 mg PO Q6HR PRN tab 04/22/25 Aspirin 81 mg PO DAILY tab 04/22/25 Atorvastatin [Lipitor] 40 mg PO HS tab 04/22/25 Folic Acid 1 mg PO DAILY tab 04/22/25 Magnesium Oxide [Mag-Ox] 400 mg PO DAILY tab 04/22/25 Sodium Bicarbonate Tab 650 mg PO DAILY tab 04/22/25 Tamsulosin [Flomax] 0.4 mg PO PC-SUPPER cap 04/22/25 Torsemide [Demadex] 20 mg PO DAILY #0 04/22/25 Allergies Allergy/AdvReac Type Severity Reaction Status Date / Time Penicillins Allergy Unknown Verified 04/22/25 17:11 Review of Systems ROS Statement: Those systems with pertinent positive or pertinent negative responses have been documented in the HPI. ROS Other: All systems not noted in ROS Statement are negative. Constitutional: Reports: chills, weakness. Denies: fever Respiratory: Denies: cough, dyspnea Cardiovascular: Reports: edema (Chronic). Denies: chest pain, palpitations Gastrointestinal: Denies: abdominal pain, nausea, vomiting, diarrhea Genitourinary: Reports: as per HPI, hematuria, other (Scrotal edema). Denies: dysuria, frequency, testicular pain, testicular mass Musculoskeletal: Denies: back pain Skin: Denies: rash Neurological: Denies: headache, weakness Past Medical History Past Medical History: Diabetes Mellitus, GERD/Reflux, Hyperlipidemia, Hypertensi on, Osteoarthritis (OA), Prostate Disorder, Rheumatoid Arthritis (RA), Skin Disorder Additional Past Medical History / Comment(s): NO BP MEDS., GOUT., IRON DEFICIENCY ANEMIA, OPEN AREA ON COCCYX (SUPERFICIAL)., INCONTINENT, NEEDS [facility]ORENE LIFT FOR TRANSFERS. , RESIDES AT [facility] History of Any Multi-Drug Resistant Organisms: None Reported Past Surgical History: Ear Surgery, Joint Replacement Additional Past Surgical History / Comment(s): 10/12/21 TOTAL RIGHT HIP ANTERIOR APPROACH, 11/10/21 I & D RIGHT HIP INCISION. Past Anesthesia/Blood Transfusion Reactions: Unable to Obtain Past Psychological History: No Psychological Hx Reported Smoking Status: Never smoker Past Alcohol Use History: Unable to Obtain Past Drug Use History: None Reported General Exam Limitations: no limitations General appearance: alert, in no apparent distress Head exam: Present: atraumatic, normocephalic Eye exam: Present: normal appearance. Absent: scleral icterus, conjunctival injection Neck exam: Present: normal inspection Respiratory exam: Present: normal lung sounds bilaterally. Absent: respiratory distress, wheezes, rales, rhonchi, stridor Cardiovascular Exam: Present: tachycardia, normal heart sounds. Absent: systolic murmur, diastolic murmur, rubs, gallop GI/Abdominal exam: Present: soft. Absent: distended, tenderness, guarding, rebound, rigid, mass Extremities exam: Present: normal capillary refill, pedal edema. Absent: calf tenderness Neurological exam: Present: alert. Absent: motor sensory deficit Skin exam: Present: warm, dry, intact, normal color, other (Decubitus ulcers). Absent: rash Course Vital Signs 04/09/25 04/09/25 04/10/25 20:56 22:03 00:00 Temperature 98.6 F Pulse Rate 117 H 98 114 H Pulse Rate [ Training Manager ] Respiratory 20 16 20 Rate Blood Pressure 140/69 140/69 121/68 Blood Pressure [Right Arm] O2 Sat by Pulse 97 96 97 Oximetry 04/10/25 04/10/25 04/10/25 01:04 05:33 09:42 Temperature 99.2 F Pulse Rate 112 H 107 H Pulse Rate [ 111 H Training Manager ] Respiratory 19 18 20 Rate Blood Pressure 112/66 134/71 Blood Pressure 138/103 [Right Arm] O2 Sat by Pulse 96 96 95 Oximetry 04/10/25 04/10/25 04/10/25 14:00 19:54 20:00 Temperature 102.5 F H 99.6 F Pulse Rate Pulse Rate [ 128 H 117 H 112 H Training Manager ] Respiratory 20 20 Rate Blood Pressure Blood Pressure 130/70 98/64 [Right Arm] O2 Sat by Pulse 95 96 Oximetry EKG Findings - EKG Results: EKG: interpreted by ERMDiana, sinus rhythm, normal axis, normal QRS, normal ST/T, no acute changes EKG shows: tachycardia (Rate 121 bpm) Medical Decision Making - Medical Decision Making The patient had chest x-ray that I interpreted as negative for acute infiltrate, pneumothorax, congestive heart failure Was pt. sent in by a medical professional or institution (, NANCY, [employer] CONSULTANT, urgent care, hospital, or fpc...) When possible be specific @ -[The patient is sent from fpc to have evaluation for decreased urine output Did you speak to anyone other than the patient for history (EMS, parent, family, police, friend...)? What history was obtained from this source @ -[No] Did you review nursing and triage notes (agree or disagree)? Why? @ -[I reviewed and agree with nursing and triage notes] Were old charts reviewed (outside hosp., previous admission, EMS record, old EKG, old radiological studies, urgent care reports/EKG's, fpc records)? Report findings @ -[S, old charts were reviewed] Differential Diagnosis (chest pain, altered mental status, abdominal pain women, abdominal pain men, vaginal bleeding, weakness, fever, dyspnea, syncope, headache, dizziness, GI bleed, back pain, seizure, CVA, palpatations, mental health, musculoskeletal)? @ -[Differential: Hypoglycemia, shock, sepsis, hyponatremia, anemia, infection, MD, ETOH, adverse medicine reaction, overdose, stroke, this is not meant to be an all-inclusive list. EKG interpreted by me (3pts min.). @ -[I interpreted as above] X-rays interpreted by me (1pt min.). @ -[I interpreted as above CT interpreted by me (1pt min.). @ -[None done] U/S interpreted by me (1pt. min.). @ -[None done] What testing was considered but not performed or refused? (CT, X-rays, U/S, labs)? Why? @ -[None] What meds were considered but not given or refused? Why? @ -[None] Did you discuss the management of the patient with other professionals (professionals i.e. NANCY Mcnulty, [employer] CONSULTANT, lab, RT, psych nurse, public health social worker, campus manager, teacher, commercial credit officer, case planner)? Give summary @ -[Case discussed with admitting physician and treatment recommendations incorporated Was smoking cessation discussed for >3mins.? @ -[No] Was critical care preformed (if so, how long)? @ -[Yes, 35 minutes Were there social determinants of health that impacted care today? How? (Homele ssness, low income, unemployed, alcoholism, drug addiction, transportation, low edu. Level, literacy, decrease access to med. care, [place] [facility], rehab)? @ -[No] Was there de-escalation of care discussed even if they declined (Discuss DNR or withdrawal of care, Hospice)? DNR status @ -[No] What co-morbidities impacted this encounter? (DM, HTN, Smoking, COPD, CAD, Cancer, CVA, ARF, Chemo, Hep., AIDS, mental health diagnosis, sleep apnea, morbid obesity)? @ -[Diabetes, hypertension Was patient admitted / discharged? Hospital course, mention meds given and route, prescriptions, significant lab abnormalities, going to OR and other pertinent info. @ -[This patient is 64-year-old man sent from [facility] to have evaluation after not having urinary output despite East catheter placement. The patient is found to have urinary tract infection and probable sepsis. The patient is started on antibiotic and fluid. Patient will be admitted for further evaluation and treatment Undiagnosed new problem with uncertain prognosis? @ -[No] Drug Therapy requiring intensive monitoring for toxicity (Heparin, Nitro, Insulin, Cardizem)? @ -[No] Were any procedures done? @ -[No] Diagnosis/symptom? @ -Acute urinary tract infection Sepsis Acute kidney injury Acute, or Chronic, or Acute on Chronic? @ -[Acute Uncomplicated (without systemic symptoms) or Complicated (systemic symptoms)? @ -[Uncomplicated Side effects of treatment? @ -[No] Exacerbation, Progression, or Severe Exacerbation? @ -[No] Poses a threat to life or bodily function? How? (Chest pain, USA, MD, pneumonia, PE, COPD, DKA, ARF, appy, cholecystitis, CVA, Diverticulitis, Homicidal, Suicidal, threat to staff... and all critical care pts) @ -[Yes there is significant risk of morbidity and mortality related to severe infection/sepsis All treatments are based on ideal body weight as in ED triage - Lab Data Result diagrams: 04/20/25 09:03 04/22/25 05:58 Lab Results 04/09/25 04/09/25 04/09/25 Range/Units 21:54 21:54 21:54 WBC 16.08 H (4.50-10.00) 10*3/uL RBC 3.58 L (4.40-5.60) 10*6/uL Hgb 10.1 L (13.0-17.0) g/dL Hct 30.7 L (39.6-50.0) % MCV 85.8 (80.0-97.0) fL MCH 28.2 (27.0-32.0) pg MCHC 32.9 (32.0-37.0) g/dL Plt Count 148 (140-440) 10*3/uL MPV 9.9 (9.5-12.2) fL Immature Gran % (Auto) 0.6 % Neutrophils % 93.0 % Lymphocytes % 1.6 % Monocytes % 4.5 % Eosinophils % 0.1 % Basophils % 0.2 % Immature Gran # 0.10 H (0.00-0.04) 10*3/uL Neutrophils # 14.96 H (1.80-7.70) 10*3/uL Lymphocytes # 0.25 L (0.90-5.00) 10*3/uL Monocytes # 0.72 (0.20-1.00) 10*3/uL Eosinophils # 0.01 L (0.04-0.35) 10*3/uL Basophils # 0.04 (0.00-0.10) 10*3/uL PT 12.1 (10.0-12.5) sec INR 1.1 (<1.2) APTT 22.6 (22.0-30.0) sec Sodium 133 L (137-145) mmol/L Potassium 4.8 (3.5-5.1) mmol/L Chloride 108 H (98-107) mmol/L Carbon Dioxide 12 L (22-30) mmol/L Anion Gap 13 mmol/L BUN 49 H (9-20) mg/dL Creatinine 2.73 H (0.66-1.25) mg/dL Est GFR (CKD-EPI)AfAm 27 (>60 ml/min/1.73 sqM) Est GFR (CKD-EPI)NonAf 24 (>60 ml/min/1.73 sqM) Glucose 199 H (74-99) mg/dL Plasma Lactic Acid Jose (0.7-2.0) mmol/L Calcium 8.1 L (8.4-10.2) mg/dL Total Bilirubin 0.8 (0.2-1.3) mg/dL AST 20 (17-59) U/L ALT 14 (4-49) U/L Alkaline Phosphatase 98 (38-126) U/L Troponin I (0.000-0.034) ng/mL Total Protein 5.7 L (6.3-8.2) g/dL Albumin 2.7 L (3.5-5.0) g/dL Urine Color Urine Appearance (Clear) Urine pH (5.0-8.0) Ur Specific [place] (1.001-1.035) Urine Protein (Negative) Urine Glucose (UA) (Negative) Urine Ketones (Negative) Urine Blood (Negative) Urine Nitrite (Negative) Urine Bilirubin (Negative) Urine Urobilinogen (<2.0) mg/dL Ur Leukocyte Esterase (Negative) Urine RBC (0-5) /hpf Urine WBC (0-5) /hpf Ur Squamous Epith Cells (0-4) /hpf Urine Bacteria (None) /hpf Urine Mucus (None) /hpf 04/09/25 04/09/25 04/10/25 Range/Units 21:54 21:54 00:52 WBC (4.50-10.00) 10*3/uL RBC (4.40-5.60) 10*6/uL Hgb (13.0-17.0) g/dL Hct (39.6-50.0) % MCV (80.0-97.0) fL MCH (27.0-32.0) pg MCHC (32.0-37.0) g/dL Plt Count (140-440) 10*3/uL MPV (9.5-12.2) fL Immature Gran % (Auto) % Neutrophils % % Lymphocytes % % Monocytes % % Eosinophils % % Basophils % % Immature Gran # (0.00-0.04) 10*3/uL Neutrophils # (1.80-7.70) 10*3/uL Lymphocytes # (0.90-5.00) 10*3/uL Monocytes # (0.20-1.00) 10*3/uL Eosinophils # (0.04-0.35) 10*3/uL Basophils # (0.00-0.10) 10*3/uL PT (10.0-12.5) sec INR (<1.2) APTT (22.0-30.0) sec Sodium (137-145) mmol/L Potassium (3.5-5.1) mmol/L Chloride (98-107) mmol/L Carbon Dioxide (22-30) mmol/L Anion Gap mmol/L BUN (9-20) mg/dL Creatinine (0.66-1.25) mg/dL Est GFR (CKD-EPI)AfAm (>60 ml/min/1.73 sqM) Est GFR (CKD-EPI)NonAf (>60 ml/min/1.73 sqM) Glucose (74-99) mg/dL Plasma Lactic Acid Jose 1.6 (0.7-2.0) mmol/L Calcium (8.4-10.2) mg/dL Total Bilirubin (0.2-1.3) mg/dL AST (17-59) U/L ALT (4-49) U/L Alkaline Phosphatase (38-126) U/L Troponin I <0.012 (0.000-0.034) ng/mL Total Protein (6.3-8.2) g/dL Albumin (3.5-5.0) g/dL Urine Color Red Urine Appearance Turbid (Clear) Urine pH 6.0 (5.0-8.0) Ur Specific [place] 1.016 (1.001-1.035) Urine Protein 3+ H (Negative) Urine Glucose (UA) 3+ H (Negative) Urine Ketones Negative (Negative) Urine Blood Large H (Negative) Urine Nitrite Negative (Negative) Urine Bilirubin Negative (Negative) Urine Urobilinogen <2.0 (<2.0) mg/dL Ur Leukocyte Esterase Small H (Negative) Urine RBC >182 H (0-5) /hpf Urine WBC 76 H (0-5) /hpf Ur Squamous Epith Cells 4 (0-4) /hpf Urine Bacteria Occasional H (None) /hpf Urine Mucus Rare H (None) /hpf 04/10/25 Range/Units 01:00 WBC (4.50-10.00) 10*3/uL RBC (4.40-5.60) 10*6/uL Hgb (13.0-17.0) g/dL Hct (39.6-50.0) % MCV (80.0-97.0) fL MCH (27.0-32.0) pg MCHC (32.0-37.0) g/dL Plt Count (140-440) 10*3/uL MPV (9.5-12.2) fL Immature Gran % (Auto) % Neutrophils % % Lymphocytes % % Monocytes % % Eosinophils % % Basophils % % Immature Gran # (0.00-0.04) 10*3/uL Neutrophils # (1.80-7.70) 10*3/uL Lymphocytes # (0.90-5.00) 10*3/uL Monocytes # (0.20-1.00) 10*3/uL Eosinophils # (0.04-0.35) 10*3/uL Basophils # (0.00-0.10) 10*3/uL PT (10.0-12.5) sec INR (<1.2) APTT (22.0-30.0) sec Sodium (137-145) mmol/L Potassium (3.5-5.1) mmol/L Chloride (98-107) mmol/L Carbon Dioxide (22-30) mmol/L Anion Gap mmol/L BUN (9-20) mg/dL Creatinine (0.66-1.25) mg/dL Est GFR (CKD-EPI)AfAm (>60 ml/min/1.73 sqM) Est GFR (CKD-EPI)NonAf (>60 ml/min/1.73 sqM) Glucose (74-99) mg/dL Plasma Lactic Acid Jose (0.7-2.0) mmol/L Calcium (8.4-10.2) mg/dL Total Bilirubin (0.2-1.3) mg/dL AST (17-59) U/L ALT (4-49) U/L Alkaline Phosphatase (38-126) U/L Troponin I <0.012 (0.000-0.034) ng/mL Total Protein (6.3-8.2) g/dL Albumin (3.5-5.0) g/dL Urine Color Urine Appearance (Clear) Urine pH (5.0-8.0) Ur Specific [place] (1.001-1.035) Urine Protein (Negative) Urine Glucose (UA) (Negative) Urine Ketones (Negative) Urine Blood (Negative) Urine Nitrite (Negative) Urine Bilirubin (Negative) Urine Urobilinogen (<2.0) mg/dL Ur Leukocyte Esterase (Negative) Urine RBC (0-5) /hpf Urine WBC (0-5) /hpf Ur Squamous Epith Cells (0-4) /hpf Urine Bacteria (None) /hpf Urine Mucus (None) /hpf Disposition Clinical Impression: Sepsis, UTI (urinary tract infection) Disposition: ADMITTED IP TO THIS HOSP Condition: Good Is patient prescribed a controlled substance at d/c from ED?: No
[2025-04-09 22:11] LABS: Basophils # (A) 0.04 10*3/uL (0.00-0.10); Basophils % (A) 0.2 %; Eosinophils # (A) 0.01 10*3/uL (0.04-0.35); Eosinophils % (A) 0.1 %; HCT 30.7 % (39.6-50.0); HGB 10.1 g/dL (13.0-17.0); Lymphocytes # (A) 0.25 10*3/uL (0.90-5.00); Lymphocytes % (A) 1.6 %; MCH 28.2 pg (27.0-32.0); MCHC 32.9 g/dL (32.0-37.0); MCV 85.8 fL (80.0-97.0); Mean Platelet Volume 9.9 fL (9.5-12.2); Monocytes # (A) 0.72 10*3/uL (0.20-1.00); Monocytes % (A) 4.5 %; Neutrophils # (A) 14.96 10*3/uL (1.80-7.70); Platelet Count 148 10*3/uL (140-440); RBC 3.58 10*6/uL (4.40-5.60); RDW 14.6 % (11.5-14.5); WBC 16.08 10*3/uL (4.50-10.00)
[2025-04-09] MEDS: LACTATED RINGERS 1,000 ML IV SCH ×2 (22:16→23:35)
[2025-04-09 22:24] LABS: INR 1.1 (<1.2); Partial Thromboplastin Time 22.6 sec (22.0-30.0); Prothrombin Time 12.1 sec (10.0-12.5)
[2025-04-09 22:27] LABS: ALT 14 U/L (4-49); AST 20 U/L (17-59); African American GFR (CKD) 27 (>60 ml/min/1.73 sqM); Albumin 2.7 g/dL (3.5-5.0); Alkaline Phosphatase 98 U/L (38-126); Anion Gap 13 mmol/L; Blood Urea Nitrogen 49 mg/dL (9-20); Calcium 8.1 mg/dL (8.4-10.2); Carbon Dioxide 12 mmol/L (22-30); Chloride 108 mmol/L (98-107); Glucose 199 mg/dL (74-99); Non-African American GFR(CKD) 24 (>60 ml/min/1.73 sqM); Potassium 4.8 mmol/L (3.5-5.1); Sodium 133 mmol/L (137-145); Total Bilirubin 0.8 mg/dL (0.2-1.3); Total Protein 5.7 g/dL (6.3-8.2)
--- NOTE | 2025-04-09 22:44 | XR ---
EXAMINATION TYPE: XR chest 1V portable DATE OF EXAM: 04/09/2025 9:55 PM COMPARISON: None. CLINICAL INDICATION: Male, 64 years old with history of Fever, TECHNIQUE: XR chest 1V portable view(s) obtained. FINDINGS: The heart size is mildly prominent. The pulmonary vasculature is mildly prominent. There appears to be diffuse alveolar infiltrate present. Atypical pneumonia could be considered. IMPRESSION: 1. Clinical correlation recommended for congestive heart failure. [facility], , 04/09/2025 10:42 PM
[2025-04-10 01:58] LABS: Appearance,Urine Turbid (Clear); Bacteria,Urine Occasional /hpf; Bilirubin,Urine Negative (Negative); Blood,Urine Large (Negative); Color,Urine Red; Glucose,Urine (UA) 3+ (Negative); Ketones,Urine Negative (Negative); Leukocyte Esterase,Urine Small (Negative); Mucus,Urine Rare /hpf; Nitrite,Urine Negative (Negative); Protein,Urine 3+ (Negative); RBC,Urine >182 /hpf (0-5); Specific Gravity,Urine 1.016 (1.001-1.035); Squamous Epithelial Cell,Urine 4 /hpf (0-4); Urobilinogen,Urine <2.0 mg/dL (<2.0); WBC,Urine 76 /hpf (0-5)
--- NOTE | 2025-04-10 08:06 | P.HPIM ---
History of Present Illness H&P Date: 04/10/25 History of Presenting Illness: Patient is a pleasant 64-year-old male with a past medical history hypertension, hyperlipidemia, CHF on daily diuretic with torsemide, insulin-dependent diabetes mellitus, CKD stage IIIb, anemia, chronic diarrhea on daily Imodium, BPH with urinary incontinence, and rheumatoid arthritis. He is a resident of [facility] and is wheelchair/bedbound requiring Jessi lift for transfers at baseline. He presented to our facility secondary to reports of concerns of urinary tract infection, scrotal edema, and urinary retention. Per transfer documentation, a East catheter was placed and patient pulled out resulting in significant bleeding from meatus. Patient alert and oriented x 3 and currently reports feeling urinary retention and need to urinate but unable at this time. Bladder scan completed at bedside resulting at he reported 151 mL at this time. Patient does have noted dribbling of urine and positive hematuria. He denies having any scrotal pain. He has been using urinal and small amounts. Patient also reports feeling shaky but denies any known fevers, chills, diaphoresis, headache, lightheadedness, dizziness, chest pain, palpitations, shortness of breath, abdominal pain or discomfort, nausea, vomiting, or experiencing any numbness/weakness/tingling in his extremities. Upon arrival to our facility, patient underwent evaluation in the emergency department. Vital signs upon arrival show blood pressure 140/69, heart rate 117, respiratory rate 20, temp 98.6 F, and SpO2 of 97% on room air. EKG completed showing sinus tachycardia 121 bpm. Chest x-ray showing mild pulmonary vascular congestion consistent with mild CHF. Labs completed and reviewed. CBC showing leukocytosis with WBC count of 16.08 and normocytic anemia with hemoglobin of 10.1. Coagulation profile unremarkable. BMP showing hyponatremia with sodium of 133 and high anion gap metabolic acidosis with chloride of 108, bicarb of 12, and anion gap of 13 and renal function consistent with known CKD with BUN of 49, creatinine 2.73, and GFR of 24 with baseline creatinine around 2.7. Blood glucose 199. Lactic acid 1.6. Liver profile unremarkable with exception of low total protein of 5.7 and albumin of 2.7. Troponin was negative at less than 0.012. Urinalysis red in color turbid appearance positive for protein, glucose, blood, leukocyte esterase, greater than 182 RBCs and 76 WBCs. Patient was started on IV antibiotics with Rocephin and admitted under services with consultation to urology. We were notified of admission at 6:53 AM. Review of systems: Pertinent positives and negatives as discussed in HPI, a complete review of systems was performed and all other systems are negative. Physical exam: Vital signs reviewed and stable. General: Nontoxic, no distress and appears stated age. Derm: Skin warm and dry, normal coloration for ethnicity. Head: Atraumatic, normocephalic and symmetric. Eyes: EOM's intact, no lid lag, and anicteric sclera Mouth: no lip lesions, mucus membranes moist Cardiovascular: regular rate and rhythm with normal S1S2, no murmur, positive posterior tibial pulses bilaterally, and cap refill < 2 seconds. Lungs: Respirations even, regular, and unlabored on room air. Lungs CTA bilaterally, no rhonchi, no rales, no wheezing, and no accessory muscle usage. GI/: soft, nontender to palpation, no guarding, no appreciable organomegaly. Scrotal edema present. Patient denied tenderness to scrotum on exam. Ext: ROM intact. No gross muscle atrophy, bilateral lower extremity edema, no contractures Neuro: Speech clear, face symmetrical and CN II-XII grossly intact with no noted focal neuro deficits Psych: Alert and oriented to person, place, time, and situation. Appropriate and pleasant affect. Assessment and Plan of Care: Urinary retention Penile trauma secondary to forceful removal of East catheter Acute hematuria Possible UTI Leukocytosis, suspect reactive however cannot rule out infectious process Sinus tachycardia, likely secondary to above BPH -Continue IV antibiotic with Rocephin 1 g daily pending urine culture results. -Bladder scan and monitor closely for urinary retention. Will hold off on insertion of East catheter pending evaluation by urology as long as urinary retention is not greater than 350 cc -Urology consulted, appreciate recommendation -Close monitoring of I's and O's -Will start patient on Flomax 0.4 mg daily. Insulin-dependent diabetes mellitus with hyperglycemia -Hold Trulicity and metformin. Continue insulin glargine 40 units daily along with glycemic protocol and NovoLog sliding scale. Congestive heart failure, unknown type as no echo is on file Hypertension Hyperlipidemia Continue daily medication regiment with fenofibrate 160 mg daily, lisinopril 20 mg daily, and torsemide 40 mg daily CKD stage IIIb Anemia of chronic disease Currently at baseline. Will monitor closely Pressure ulcer of sacrum/coccyx, present on admission Consult placed to wound care. Data and imaging reviewed: As stated above in HPI The patient is admitted with an anticipated greater than 2 midnight stay for evaluation of penile trauma with acute hematuria and UTI CODE STATUS: Full code DVT prophylaxis: OPAL mckenzie and SCDs Anticipated discharge date: Pending clinical course Anticipated discharge place: Return to [facility] Patient was seen independently by Nurse Practitioner. This document was prepared using [employer] dictation software. Please allow for errors in database programmer analyst while rare they do occur. Florentino Sun NP rendered care for this patient independently, reviewed the findings and plan as documented in the note above and agree with plan. I did not physically speak with or examine the patient on this date. Past Medical History Past Medical History: Diabetes Mellitus, GERD/Reflux, Hyperlipidemia, Hypertension, Osteoarthritis (OA), Prostate Disorder, Rheumatoid Arthritis (RA), Skin Disorder Additional Past Medical History / Comment(s): NO BP MEDS., GOUT., IRON DEFICIENCY ANEMIA, OPEN AREA ON COCCYX (SUPERFICIAL)., INCONTINENT, NEEDS JESSI LIFT FOR TRANSFERS. , RESIDES AT [facility] History of Any Multi-Drug Resistant Organisms: None Reported Past Surgical History: Ear Surgery, Joint Replacement Additional Past Surgical History / Comment(s): 10/12/21 TOTAL RIGHT HIP ANTERIOR APPROACH, 11/10/21 I & D RIGHT HIP INCISION. Past Anesthesia/Blood Transfusion Reactions: Unable to Obtain Past Psychological History: No Psychological Hx Reported Smoking Status: Never smoker Past Alcohol Use History: Unable to Obtain Past Drug Use History: None Reported Medications and Allergies Home Medications Medication Instructions Recorded Confirmed Type metFORMIN HCL [Glucophage] 1,000 mg PO BID 11/09/21 04/10/25 History Ibuprofen [Motrin] 600 mg PO Q8H PRN 01/15/22 04/10/25 History Cephalexin [Keflex] 500 mg PO Q8H 04/10/25 04/10/25 History Dulaglutide [Trulicity] 4.5 mg SQ TH 04/10/25 04/10/25 History Gabapentin [Neurontin] 100 mg PO TID 04/10/25 04/10/25 History Insulin Glargine,Hum.rec.anlog 40 unit SQ DAILY 04/10/25 04/10/25 History [Insulin Glargine Solostar] Insulin Lispro-Aabc [Lyumjev See Protocol SQ ACHS 04/10/25 04/10/25 History Kwikpen U-100] Loperamide [Imodium] 2 - 4 mg PO QID PRN 04/10/25 04/10/25 History Loratadine 10 mg PO DAILY 04/10/25 04/10/25 History Phenyleph/Pramoxin/Glycr/W.pet 1 applic RECTAL Q6H PRN 04/10/25 04/10/25 History [Preparation H Cream] Promethazine [Phenergan] 25 mg PO Q6H PRN 04/10/25 04/10/25 History Torsemide [Demadex] 40 mg PO DAILY 04/10/25 04/10/25 History gemfibroziL [Lopid] 600 mg PO BID 04/10/25 04/10/25 History lisinopriL [Zestril] 20 mg PO DAILY 04/10/25 04/10/25 History Allergies Allergy/AdvReac Type Severity Reaction Status Date / Time Penicillins Allergy Unknown Verified 04/10/25 08:15 Physical Exam Vitals: Vital Signs Temp Pulse Resp BP Pulse Ox 04/10/25 05:33 107 H 18 134/71 96 04/10/25 01:04 112 H 19 112/66 96 04/10/25 00:00 114 H 20 121/68 97 04/09/25 22:03 98 16 140/69 96 04/09/25 20:56 98.6 F 117 H 20 140/69 97 Intake and Output 04/09/25 04/10/25 04/10/25 22:59 06:59 14:59 Other: Voiding Method Urinal Weight 127.006 kg Results CBC & Chem 7: 04/10/25 08:27 04/10/25 08:27 Labs: Abnormal Lab Results - Last 24 Hours (Table) 04/09/25 04/09/25 04/10/25 Range/Units 21:54 21:54 00:52 WBC 16.08 H (4.50-10.00) 10*3/uL RBC 3.58 L (4.40-5.60) 10*6/uL Hgb 10.1 L (13.0-17.0) g/dL Hct 30.7 L (39.6-50.0) % Immature Gran # 0.10 H (0.00-0.04) 10*3/uL Neutrophils # 14.96 H (1.80-7.70) 10*3/uL Lymphocytes # 0.25 L (0.90-5.00) 10*3/uL Eosinophils # 0.01 L (0.04-0.35) 10*3/uL Sodium 133 L (137-145) mmol/L Chloride 108 H (98-107) mmol/L Carbon Dioxide 12 L (22-30) mmol/L BUN 49 H (9-20) mg/dL Creatinine 2.73 H (0.66-1.25) mg/dL Glucose 199 H (74-99) mg/dL Calcium 8.1 L (8.4-10.2) mg/dL Total Protein 5.7 L (6.3-8.2) g/dL Albumin 2.7 L (3.5-5.0) g/dL Urine Protein 3+ H (Negative) Urine Glucose (UA) 3+ H (Negative) Urine Blood Large H (Negative) Ur Leukocyte Esterase Small H (Negative) Urine RBC >182 H (0-5) /hpf Urine WBC 76 H (0-5) /hpf Urine Bacteria Occasional H (None) /hpf Urine Mucus Rare H (None) /hpf
[2025-04-10 08:37] LABS: HCT 26.7 % (39.6-50.0); MCH 28.9 pg (27.0-32.0); MCHC 33.7 g/dL (32.0-37.0); MCV 85.9 fL (80.0-97.0); Platelet Count 117 10*3/uL (140-440); RBC 3.11 10*6/uL (4.40-5.60); RDW 14.6 % (11.5-14.5); WBC 9.62 10*3/uL (4.50-10.00)
[2025-04-10 08:54] LABS: African American GFR (CKD) 27 (>60 ml/min/1.73 sqM); Anion Gap 11 mmol/L; Blood Urea Nitrogen 49 mg/dL (9-20); Calcium 7.5 mg/dL (8.4-10.2); Carbon Dioxide 14 mmol/L (22-30); Chloride 109 mmol/L (98-107); Glucose 207 mg/dL (74-99); Magnesium 1.3 mg/dL (1.6-2.3); Non-African American GFR(CKD) 23 (>60 ml/min/1.73 sqM); Potassium 4.4 mmol/L (3.5-5.1); Sodium 134 mmol/L (137-145)
[2025-04-10] MEDS: LOPERAMIDE 2 MG CAP PO STA (09:26)
[2025-04-10] MEDS: HEPARIN SODIUM,PORCINE 5,000 UNIT/ML 1 ML VIAL SQ SCH (09:27)
[2025-04-10] MEDS ORDERED: BENZOCAINE 20% HEMORRHOIDAL OINT 28GM RECTAL PRN (14:17)
[2025-04-10] MEDS ORDERED: PROMETHAZINE 25 MG TAB PO PRN (14:17)
[2025-04-10] MEDS ORDERED: DEXTROSE 50% SYRINGE 50 ML IVP PRN ×2 (14:19)
[2025-04-10] MEDS: TORSEMIDE 20 MG TAB PO SCH (14:45)
[2025-04-10] MEDS: GABAPENTIN 100 MG CAP PO SCH (15:50)
[2025-04-10] MEDS: ACETAMINOPHEN TAB 325 MG TAB PO PRN (15:50)
--- NOTE | 2025-04-10 16:13 | P.CON ---
Consult Note - . Consult date: 04/10/25 Assessment/Plan:: wound care consultation: Reason for consultation: Sacral decubitus and ulcer left heel Date of consultation: 04/10/2025 History chief complaint: This 64-year-old gentleman is a nonambulatory patient, essentially bedbound at [facility]. He has reported ulcers on his sacrum and posterior left heel. The patient has a plethora of medical issues including diabetes, dyslipidemia, hyper tension, rheumatoid arthritis, and he appears to be bedbound for reasons that are not readily apparent. He is severely obese. Relevant examination: The patient has an ulcer over the upper portion of his sacrum about 3 cm in length and about 0.5 cm in width. It is about 0.3 cm in depth. There is a smaller ulceration almost punctate on the posterior aspect of the left heel. Recommendation: I have discussed treatment with the nursing staff. The biggest issue with the heel is to maintain heel protection. He does have heel protecting foam boots to do so. likewise the sacral wound is best dealt with if 1 can maintain some offloading utilizing wedges as much as possible switching from [id number] and utilizing a Roho cushion when necessary. Both wounds could at this time be dealt with utilizing [employer] silver and covered with bordered foam for protection. If there are any further questions in regards to wound care during his hospitalization, please feel free to contact us in wound care
[2025-04-10 17:57] LABS: Glucose,Whole Blood 181 mg/dL (70-110)
[2025-04-10] MEDS: TAMSULOSIN 0.4 MG CAP.ER.24H PO SCH (18:35)
[2025-04-10] MEDS: INSULIN LISPRO (HumaLOG) 100 UNIT/ML 10 mL VL SQ SCH (18:35)
[2025-04-10] MEDS: ACETAMINOPHEN IV (For NPO) 1,000 MG in EMPTY BAG 1 BAG IVPB ONE (20:16)
[2025-04-10 20:35] LABS: Glucose,Whole Blood 234 mg/dL (70-110)
[2025-04-11 06:17] LABS: Glucose,Whole Blood 205 mg/dL (70-110)
[2025-04-11] MEDS: INSULIN GLARGINE (LANTUS) 100 UNIT/ML SYR SQ SCH (06:23)
[2025-04-11 06:53] LABS: HCT 26.7 % (39.6-50.0); HGB 8.6 g/dL (13.0-17.0); MCH 27.9 pg (27.0-32.0); MCHC 32.2 g/dL (32.0-37.0); MCV 86.7 fL (80.0-97.0); Mean Platelet Volume 10.2 fL (9.5-12.2); Platelet Count 106 10*3/uL (140-440); RBC 3.08 10*6/uL (4.40-5.60); RDW 14.8 % (11.5-14.5)
[2025-04-11 07:19] LABS: African American GFR (CKD) 20 (>60 ml/min/1.73 sqM); Anion Gap 12 mmol/L; Blood Urea Nitrogen 55 mg/dL (9-20); Calcium 7.7 mg/dL (8.4-10.2); Carbon Dioxide 14 mmol/L (22-30); Chloride 106 mmol/L (98-107); Glucose 188 mg/dL (74-99); Magnesium 1.5 mg/dL (1.6-2.3); Non-African American GFR(CKD) 18 (>60 ml/min/1.73 sqM); Potassium 4.5 mmol/L (3.5-5.1); Sodium 132 mmol/L (137-145)
[2025-04-11] MEDS: FENOFIBRATE 160 MG TAB PO SCH (08:58)
[2025-04-11] MEDS: lisinopriL 20 MG TAB PO SCH (09:02)
[2025-04-11] MEDS ORDERED: ONDANSETRON 4 MG/2 ML VIAL IVP PRN (09:21)
--- NOTE | 2025-04-11 10:07 | XR ---
EXAMINATION TYPE: XR chest 1V portable DATE OF EXAM: 04/11/2025 9:55 AM COMPARISON: 04/09/2025 CLINICAL INDICATION: Male, 64 years old with history of possible aspiration, TECHNIQUE: XR chest 1V portable view(s) obtained. FINDINGS: The heart size is mildly prominent. The pulmonary vasculature is normal. There may be some minimal alveolar infiltrate present. No suspicious focal consolidation is evident. Follow-up can be performed as clinically indicated. IMPRESSION: 1. Clinical consideration for mild congestive heart failure. [facility], , 04/11/2025 10:05 AM
[2025-04-11] MEDS: SODIUM CHLORIDE 0.9% 1,000 ML IV ONE (10:44)
--- NOTE | 2025-04-11 11:35 | P.GSCN ---
History of Present Illness Consult date: 04/11/25 Reason for Consult: Gross hematuria, traumatic East removal History of present illness: This is a 64-year-old male multiple comorbidities he currently resides in a fpc. Patient had a East catheter inserted for scrotal edema, subseq uently the patient traumatically removed his catheter and noticed to be having gross hematuria. He is incontinent of urine and he has been able to void after catheter removal. He indicated his gross hematuria has resolved now. No previous known history of urinary retention. The catheter was placed for scrotal edema. Since dramatically moving the catheter his postvoid residuals have been trending down most recently was 30 mL. No previous history of gross hematuria. Review of Systems - Constitutional Denies fever, Denies weight loss - Cardiovascular Reports leg edema, Denies chest pain - Respiratory Denies cough, Denies 7 - Gastrointestinal Reports as per HPI - Genitourinary Reports hematuria, Denies dysuria - Integumentary Denies rash, Denies unusual bruising - Neurological Denies headaches, Denies syncope Past Medical History Past Medical History: Diabetes Mellitus, GERD/Reflux, Hyperlipidemia, Hypertension, Osteoarthritis (OA), Prostate Disorder, Rheumatoid Arthritis (RA), Skin Disorder Additional Past Medical History / Comment(s): NO BP MEDS., GOUT., IRON DEFICIENCY ANEMIA, OPEN AREA ON COCCYX (SUPERFICIAL)., INCONTINENT, NEEDS LORENE LIFT FOR TRANSFERS. , RESIDES AT [facility] History of Any Multi-Drug Resistant Organisms: None Reported Past Surgical History: Ear Surgery, Joint Replacement Additional Past Surgical History / Comment(s): 10/12/21 TOTAL RIGHT HIP ANTERIOR APPROACH, 11/10/21 I & D RIGHT HIP INCISION. Past Anesthesia/Blood Transfusion Reactions: Unable to Obtain Past Psychological History: No Psychological Hx Reported Smoking Status: Never smoker Past Alcohol Use History: Unable to Obtain Past Drug Use History: None Reported Medications and Allergies Home Medications Medication Instructions Recorded Confirmed Type metFORMIN HCL [Glucophage] 1,000 mg PO BID 11/09/21 04/10/25 History Ibuprofen [Motrin] 600 mg PO Q8H PRN 01/15/22 04/10/25 History Cephalexin [Keflex] 500 mg PO Q8H 04/10/25 04/10/25 History Dulaglutide [Trulicity] 4.5 mg SQ TH 04/10/25 04/10/25 History Gabapentin [Neurontin] 100 mg PO TID 04/10/25 04/10/25 History Insulin Glargine,Hum.rec.anlog 40 unit SQ DAILY 04/10/25 04/10/25 History [Insulin Glargine Solostar] Insulin Lispro-Aabc [Lyumjev See Protocol SQ ACHS 04/10/25 04/10/25 History Kwikpen U-100] Loperamide [Imodium] 2 - 4 mg PO QID PRN 04/10/25 04/10/25 History Loratadine 10 mg PO DAILY 04/10/25 04/10/25 History Phenyleph/Pramoxin/Glycr/W.pet 1 applic RECTAL Q6H PRN 04/10/25 04/10/25 History [Preparation H Cream] Promethazine [Phenergan] 25 mg PO Q6H PRN 04/10/25 04/10/25 History Torsemide [Demadex] 40 mg PO DAILY 04/10/25 04/10/25 History gemfibroziL [Lopid] 600 mg PO BID 04/10/25 04/10/25 History lisinopriL [Zestril] 20 mg PO DAILY 04/10/25 04/10/25 History Allergies Allergy/AdvReac Type Severity Reaction Status Date / Time Penicillins Allergy Unknown Verified 04/10/25 08:15 Surgical - Exam Vital Signs Temp Pulse Resp BP Pulse Ox 98.6 F 117 H 20 140/69 97 04/09/25 20:56 04/09/25 20:56 04/09/25 20:56 04/09/25 20:56 04/09/25 20:56 - General no distress, no pain - Eyes normal ocular movement, no pale - ENT normal nares, normal mucosa - Respiratory normal expansion, normal respiratory effort - Abdomen Abdomen: soft, non tender, no distended - Genitourinary Scrotal edema, penis is buried secondary to scrotal edema. No blood noticed at the meatus Results - Labs 04/11/25 05:41 04/11/25 05:41 Abnormal Lab Results - Last 24 Hours (Table) 04/10/25 04/10/25 04/11/25 Range/Units 17:56 20:34 05:41 RBC (4.40-5.60) 10*6/uL Hgb (13.0-17.0) g/dL Hct (39.6-50.0) % Plt Count (140-440) 10*3/uL Sodium (137-145) mmol/L Carbon Dioxide (22-30) mmol/L BUN (9-20) mg/dL Creatinine (0.66-1.25) mg/dL Glucose (74-99) mg/dL POC Glucose (mg/dL) 181 H 234 H (70-110) mg/dL Hemoglobin A1c 6.6 H (<=6.0) % Plasma Lactic Acid Jose (0.7-2.0) mmol/L Calcium (8.4-10.2) mg/dL Magnesium (1.6-2.3) mg/dL 04/11/25 04/11/25 04/11/25 Range/Units 05:41 05:41 06:16 RBC 3.08 L (4.40-5.60) 10*6/uL Hgb 8.6 L (13.0-17.0) g/dL Hct 26.7 L (39.6-50.0) % Plt Count 106 L (140-440) 10*3/uL Sodium 132 L (137-145) mmol/L Carbon Dioxide 14 L (22-30) mmol/L BUN 55 H (9-20) mg/dL Creatinine 3.50 H (0.66-1.25) mg/dL Glucose 188 H (74-99) mg/dL POC Glucose (mg/dL) 205 H (70-110) mg/dL Hemoglobin A1c (<=6.0) % Plasma Lactic Acid Jose (0.7-2.0) mmol/L Calcium 7.7 L (8.4-10.2) mg/dL Magnesium 1.5 L (1.6-2.3) mg/dL 04/11/25 Range/Units 09:21 RBC (4.40-5.60) 10*6/uL Hgb (13.0-17.0) g/dL Hct (39.6-50.0) % Plt Count (140-440) 10*3/uL Sodium (137-145) mmol/L Carbon Dioxide (22-30) mmol/L BUN (9-20) mg/dL Creatinine (0.66-1.25) mg/dL Glucose (74-99) mg/dL POC Glucose (mg/dL) (70-110) mg/dL Hemoglobin A1c (<=6.0) % Plasma Lactic Acid Jose 3.4 H* (0.7-2.0) mmol/L Calcium (8.4-10.2) mg/dL Magnesium (1.6-2.3) mg/dL Microbiology - Last 24 Hours (Table) 04/09/25 21:54 Blood Culture Gram Stain - Preliminary Blood Blood Culture - Preliminary Proteus mirabilis Molecular ID Diabetes panel 04/11/25 04/11/25 Range/Units 05:41 05:41 Sodium 132 L (137-145) mmol/L Potassium 4.5 (3.5-5.1) mmol/L Chloride 106 (98-107) mmol/L Carbon Dioxide 14 L (22-30) mmol/L BUN 55 H (9-20) mg/dL Creatinine 3.50 H (0.66-1.25) mg/dL Glucose 188 H (74-99) mg/dL Hemoglobin A1c 6.6 H (<=6.0) % Calcium 7.7 L (8.4-10.2) mg/dL Calcium panel 04/11/25 Range/Units 05:41 Calcium 7.7 L (8.4-10.2) mg/dL Pituitary panel 04/11/25 Range/Units 05:41 Sodium 132 L (137-145) mmol/L Potassium 4.5 (3.5-5.1) mmol/L Chloride 106 (98-107) mmol/L Carbon Dioxide 14 L (22-30) mmol/L BUN 55 H (9-20) mg/dL Creatinine 3.50 H (0.66-1.25) mg/dL Glucose 188 H (74-99) mg/dL Calcium 7.7 L (8.4-10.2) mg/dL Adrenal panel 04/11/25 Range/Units 05:41 Sodium 132 L (137-145) mmol/L Potassium 4.5 (3.5-5.1) mmol/L Chloride 106 (98-107) mmol/L Carbon Dioxide 14 L (22-30) mmol/L BUN 55 H (9-20) mg/dL Creatinine 3.50 H (0.66-1.25) mg/dL Glucose 188 H (74-99) mg/dL Calcium 7.7 L (8.4-10.2) mg/dL Assessment and Plan Assessment: 64-year-old male with history of scrotal edema, traumatic East catheter remov al, his catheter was placed for scrotal edema. He is incontinent of urine at baseline, his PVR are now within normal limits. Hematuria has resolved. From urology standpoint do not recommend reinserting the catheter, can continue with Flomax. His scrotal edema is from fluid overload management per primary.
[2025-04-11 11:49] LABS: Glucose,Whole Blood 194 mg/dL (70-110)
[2025-04-11] MEDS: LACTATED RINGERS 1,000 ML IV ONE ×2 (12:10→14:00)
--- NOTE | 2025-04-11 13:18 | P.PN ---
Subjective Progress Note Date: 04/11/25 Hospital Course: Patient is a pleasant 64-year-old male with a past medical history hypertension, hyperlipidemia, CHF on daily diuretic with torsemide, insulin-dependent diabetes mellitus, CKD stage IIIb, anemia, chronic diarrhea on daily Imodium, BPH with urinary incontinence, and rheumatoid arthritis. He is a resident of [facility] and is wheelchair/bedbound requiring Jessi lift for transfers at baseline. He presented to our facility secondary to reports of concerns of urinary tract infection, scrotal edema, and urinary retention. Per transfer documentation, a East catheter was placed and patient pulled out resulting in significant bleeding from meatus. Patient alert and oriented x 3 and currently reports feeling urinary retention and need to urinate but unable at this time. Bladder scan completed at bedside resulting at he reported 151 mL at this time. Patient does have noted dribbling of urine and positive hematuria. He denies having any scrotal pain. He has been using urinal and small amounts. Patient also reports feeling shaky but denies any known fevers, chills, diaphoresis, headache, lightheadedness, dizziness, chest pain, palpitations, shortness of breath, abdominal pain or discomfort, nausea, vomiting, or experiencing any numbness/weakness/tingling in his extremities. Upon arrival to our facility, patient underwent evaluation in the emergency department. Vital signs upon arrival show blood pressure 140/69, heart rate 117, respiratory rate 20, temp 98.6 F, and SpO2 of 97% on room air. EKG completed showing sinus tachycardia 121 bpm. Chest x-ray showing mild pulmonary vascular congestion consistent with mild CHF. Labs completed and reviewed. CBC showing leukocytosis with WBC count of 16.08 and normocytic anemia with hemoglobin of 10.1. Coagulation profile unremarkable. BMP showing hyponatremia with sodium of 133 and high anion gap metabolic acidosis with chloride of 108, bicarb of 12, and anion gap of 13 and renal function consistent with known CKD with BUN of 49, creatinine 2.73, and GFR of 24 with baseline creatinine around 2.7. Blood glucose 199. Lactic acid 1.6. Liver profile unremarkable with exception of low total protein of 5.7 and albumin of 2.7. Troponin was negative at less than 0.012. Urinalysis red in color turbid appearance positive for protein, glucose, blood, leukocyte esterase, greater than 182 RBCs and 76 WBCs. Patient was started on IV antibiotics with Rocephin and admitted under services with consultation to urology. Urinary retention improved and bladder scans currently showing less than 30 cc. Patient reports continued urinary incontinence (but this is his baseline) and currently denies difficulties with urination or feeling as though he is retaining. Renal function worsening from yesterday with BUN of 49, creatinine 2.79 and today BUN of 55, creatinine 3.50, GFR of 18. Nephrology consulted. Blood culture preliminarily positive for Proteus mirabillis. Patient is on Rocephin 2 g daily. Infectious disease consulted. Physical exam: Patient seen and fully evaluated at bedside this morning. He reports having chills and rigors throughout the night and morning along with episodes of diaphoresis. Oral temp personally checked at bedside at this time and was 99.9 F, but patient did have a document elevated temp as high as 102.5 F over the past 24 hours. He denies having abdominal pain or discomfort or suprapubic pain at this time. He reports that he was having some mild back pain but is improved with repositioning and assisted with pillow beneath him. He did have an episode of nausea and vomiting this morning. RN notified provider stating she was concerned that patient asked related and a chest x-ray was completed again showing mild congestive heart failure with no suspicious focal consolidation or signs of aspiration. Patient denies shortness of breath, dysphagia, chest pain or tightness or any other complaints at this time. Updated patient on lab findings of worsening renal function and plan of care going forward. All questions answered at this time. Vital signs reviewed and stable. General: Nontoxic, no distress and appears stated age. Derm: Skin warm and dry, normal coloration for ethnicity. Head: Atraumatic, normocephalic and symmetric. Eyes: EOM's intact, no lid lag, and anicteric sclera Mouth: no lip lesions, mucus membranes moist Cardiovascular: regular rate and rhythm with normal S1S2, no murmur, positive posterior tibial pulses bilaterally, and cap refill < 2 seconds. Lungs: Respirations even, regular, and unlabored on room air. Lungs CTA bilaterally, no rhonchi, no rales, no wheezing, and no accessory muscle usage. GI/: soft, nontender to palpation, no guarding, no appreciable organomegaly. Scrotal edema present. Ext: ROM intact. No gross muscle atrophy, 2+ bilateral lower extremity edema and venous stasis dermatitis, no contractures Neuro: Speech clear, face symmetrical and CN II-XII grossly intact with no noted focal neuro deficits Psych: Alert and oriented to person, place, time, and situation. Appropriate and pleasant affect. Assessment and Plan of Care: Acute hematuria Pyelonephritis with Sepsis on arrival Bacteremia, likely secondary to above Leukocytosis and pyrexia, likely secondary to above Sinus tachycardia, likely secondary to above BPH with urinary incontinence Urinary retention, resolved -Continue IV antibiotic with Rocephin 2 g daily pending urine culture results. -Blood culture preliminarily positive for Proteus mirabillis. -Consult placed to infectious disease -Bladder scan and monitor closely for urinary retention. Will hold off on insertion of East catheter pending evaluation by urology as long as urinary retention is not greater than 350 cc -Urology consulted, discussed plan of care in detail with Dr. Nick -Close monitoring of I's and O's -Continue Flomax 0.4 mg daily. Acute kidney injury on CKD stage IIIb High anion gap metabolic acidosis Anemia of chronic disease Hold lisinopril secondary to acute kidney injury and mild hypotension. At this time we will continue torsemide 40 mg daily, pending further recommendations from consulting analyst. Order placed for ultrasound kidneys/ureters/bladder. Consult placed to nephrology, appreciate recommendations Strict monitoring of I's and O's. Hypomagnesemia Magnesium 1.5. Orders placed for magnesium sulfate 2 g IVPB. We will continue to monitor closely with repeat a.m. labs and place additional orders if indicated based upon these findings. Insulin-dependent diabetes mellitus with hyperglycemia -Hold Trulicity and metformin. Continue insulin glargine 40 units daily along with glycemic protocol and NovoLog sliding scale. Chronic Congestive heart failure, unknown type as no echo report is available for review at our facility Hypertension Hyperlipidemia Continue daily medication regiment with fenofibrate 160 mg daily and torsemide 40 mg daily. Lisinopril held at this time secondary to worsening renal function and hypotension. Pressure ulcer of sacrum/coccyx and left heel, present on admission Consult placed to wound care. Data and imaging reviewed: Labs completed and reviewed. CBC showing bicytopenia with hemoglobin of 8.6 and platelet count of 106. BMP showing hyponatremia with sodium of 132 and continued but improving high anion gap metabolic acidosis with chloride of 106, bicarb of 14, and anion gap of 12 with worsening renal function with BUN of 55, creatinine 3.50, GFR of 18. Blood glucose 188. Hemoglobin A1c 6.6. Calcium was low at 7.7 with corrected calcium of 8.7. Magnesium low at 1.5. Chest x-ray ordered and reviewed secondary to RN reports of concerns of aspiration. Chest x-ray showing mild congestive heart failure with no s ignificant changes from admission. Physical assessment also showing no signs of aspiration lungs clear patient denies dysphagia, CP, or SOB but does admit to episode of nausea and vomiting this morning. Vital signs reviewed. Blood pressure 103/63, respiratory rate tachypneic at 28, heart rate 121, temp 98.7 F, and SpO2 of 91% on room air. CODE STATUS: Full code DVT prophylaxis: OPAL mckenzie and SCDs Anticipated discharge date: Pending clinical course Anticipated discharge place: Return to [facility] Patient was seen independently by Nurse Practitioner. This document was prepared using [employer] dictation software. Please allow for errors in director of environmental services while rare they do occur. Florentino Sun NP rendered care for this patient independently, reviewed the findings and plan as documented in the note above and agree with plan. I did not physically speak with or examine the patient on this date. Objective - Vital Signs Vital signs: Vital Signs Temp 98.9 F 04/11/25 04:00 Pulse 90 04/11/25 04:00 Resp 20 04/11/25 04:00 BP 114/80 04/11/25 04:00 Pulse Ox 95 04/11/25 04:00 FiO2 Intake & Output 04/10/25 04/11/25 04/11/25 18:59 06:59 18:59 Intake Total 237 Balance 237 Weight 141.5 kg Intake: Oral 237 Other: # Bowel Movements 1 - Labs CBC & Chem 7: 04/11/25 05:41 04/11/25 05:41 Labs: Abnormal Lab Results - Last 24 Hours (Table) 04/10/25 04/10/25 04/10/25 Range/Units 08:27 08:27 17:56 RBC 3.11 L (4.40-5.60) 10*6/uL Hgb 9.0 L (13.0-17.0) g/dL Hct 26.7 L (39.6-50.0) % RDW 14.6 H (11.5-14.5) % Plt Count 117 L (140-440) 10*3/uL MPV 9.0 L (9.5-12.2) fL Sodium 134 L (137-145) mmol/L Chloride 109 H (98-107) mmol/L Carbon Dioxide 14 L (22-30) mmol/L BUN 49 H (9-20) mg/dL Creatinine 2.79 H (0.66-1.25) mg/dL Glucose 207 H (74-99) mg/dL POC Glucose (mg/dL) 181 H (70-110) mg/dL Calcium 7.5 L (8.4-10.2) mg/dL Magnesium 1.3 L (1.6-2.3) mg/dL 04/10/25 04/11/25 04/11/25 Range/Units 20:34 05:41 05:41 RBC 3.08 L (4.40-5.60) 10*6/uL Hgb 8.6 L (13.0-17.0) g/dL Hct 26.7 L (39.6-50.0) % RDW (11.5-14.5) % Plt Count 106 L (140-440) 10*3/uL MPV (9.5-12.2) fL Sodium 132 L (137-145) mmol/L Chloride (98-107) mmol/L Carbon Dioxide 14 L (22-30) mmol/L BUN 55 H (9-20) mg/dL Creatinine 3.50 H (0.66-1.25) mg/dL Glucose 188 H (74-99) mg/dL POC Glucose (mg/dL) 234 H (70-110) mg/dL Calcium 7.7 L (8.4-10.2) mg/dL Magnesium 1.5 L (1.6-2.3) mg/dL 04/11/25 Range/Units 06:16 RBC (4.40-5.60) 10*6/uL Hgb (13.0-17.0) g/dL Hct (39.6-50.0) % RDW (11.5-14.5) % Plt Count (140-440) 10*3/uL MPV (9.5-12.2) fL Sodium (137-145) mmol/L Chloride (98-107) mmol/L Carbon Dioxide (22-30) mmol/L BUN (9-20) mg/dL Creatinine (0.66-1.25) mg/dL Glucose (74-99) mg/dL POC Glucose (mg/dL) 205 H (70-110) mg/dL Calcium (8.4-10.2) mg/dL Magnesium (1.6-2.3) mg/dL Microbiology - Last 24 Hours (Table) 04/09/25 21:54 Blood Culture Gram Stain - Preliminary Blood Blood Culture - Preliminary Molecular ID
[2025-04-11] MEDS: MAGNESIUM SULFATE-D5W PMX 1 GM in DEXTROSE/WATER 1 100ML.BAG IVPB SCH (13:21)
--- NOTE | 2025-04-11 14:09 | P.PN ---
Progress Note - Text Progress Note Date: 04/11/25 Indication: Hypotension, sepsis Received notification from RN at 11:58 PM that patient's blood pressure decreased from previous 103/68 down to 75/51 with manual pressure of 80/50 and that patient was asymptomatic. Order placed for 1 L bolus of lactated Ringer's and instructed RN to repeat manual pressure. Again notified at 1:20 PM that patient's blood pressure is now hypotensive 80/50 manually and 85/56 with automatic cuff. Order placed for an additional 1 L lactated Ringer's bolus and went to bedside to assess patient. Lactate drawn this morning resulting at 3.4 with repeat lactate of 2.6 for 1 L bolus will repeat after additional bolus. Patient currently resting comfortably in bed despite hypotensive pressure showing no signs of acute distress. Discussed with patient concerns for severe sepsis secondary to UTI and bacteremia. Patient Financial Services Manager consult placed and plan of care discussed with Dr. Villar and at bedside. Will trend lactate and monitor for resolution. Patient to be placed on bicarb infusion at 75 cc/h with 2 A of bicarb. East catheter to be inserted, discussed with urology and patient to have a coud catheter placed. General: Nontoxic, no distress and appears stated age. Derm: Skin warm and dry, normal coloration for ethnicity. Head: Atraumatic, normocephalic and symmetric. Eyes: EOM's intact, no lid lag, and anicteric sclera Mouth: no lip lesions, mucus membranes moist Cardiovascular: regular rate and rhythm with normal S1S2, no murmur, positive posterior tibial pulses bilaterally, and cap refill < 2 seconds. Lungs: Respirations even, regular, and unlabored on room air. Lungs CTA bilaterally, no rhonchi, no rales, no wheezing, and no accessory muscle usage. GI/: soft, nontender to palpation, no guarding, no appreciable organomegaly. Scrotal edema present. Ext: ROM intact. No gross muscle atrophy, 2+ bilateral lower extremity edema and venous stasis dermatitis, no contractures Neuro: Speech clear, face symmetrical and CN II-XII grossly intact with no noted focal neuro deficits Psych: Alert and oriented to person, place, time, and situation. Appropriate and pleasant affect. Assessment and plan: Severe sepsis secondary to UTI and bacteremia Plan: - Order placed for an additional 1 L lactated Ringer's along - Bicarb infusion -Continued close monitoring of lactic acidosis for resolution -Continue close monitoring of blood pressures, if worsen or patient becomes symptomatic will likely need transfer to ICU - Consult placed to foreign service teacher and discussed plan of care in detail at bedside with patient. - Continue IV antibiotics with Rocephin 2 g daily. Patient was seen independently by Nurse Practitioner. This document was prepared using [employer] dictation software. Please allow for errors in medical transcription radiology while rare they do occur. A Total of 35 minutes of critical care time was spent on the complex care of th is patient.
--- NOTE | 2025-04-11 14:40 | P.NPCON ---
History of Present Illness - Reason for Consult acute renal failure - History of Present Illness Patient is a 64-year-old male with history of hypertension, CHF, chronic kidney disease stage IIIa with previous creatinine 1.3 in May 2024 and as high as 3.1 on 09/17/2024 most likely from acute kidney injury. Patient is admitted from [facility] due to significant scrotal edema and concern for urinary retention and urine infection. Patient initially had a East catheter placed however he had pulled it out and had developed hematuria which has now improved. Postvoid residual was only 30 mL. Patient was noted to have bacteremia with blood cultures growing Proteus mirabilis Blood pressure has been low with systolic in the 90s Serum creatinine was 2.7 and increased to 3.5 today. CO2 was 14. Lactic acid is elevated at 3.4. Patient denies shortness of breath. Chest x-ray on admission showed findings of mild CHF Past Medical History Past Medical History: Diabetes Mellitus, GERD/Reflux, Hyperlipidemia, Hypertension, Osteoarthritis (OA), Prostate Disorder, Rheumatoid Arthritis (RA), Skin Disorder Additional Past Medical History / Comment(s): NO BP MEDS., GOUT., IRON DEFICIENCY ANEMIA, OPEN AREA ON COCCYX (SUPERFICIAL)., INCONTINENT, NEEDS LORENE LIFT FOR TRANSFERS. , RESIDES AT [facility] History of Any Multi-Drug Resistant Organisms: None Reported Past Surgical History: Ear Surgery, Joint Replacement Additional Past Surgical History / Comment(s): 10/12/21 TOTAL RIGHT HIP ANTERIOR APPROACH, 11/10/21 I & D RIGHT HIP INCISION. Past Anesthesia/Blood Transfusion Reactions: Unable to Obtain Past Psychological History: No Psychological Hx Reported Smoking Status: Never smoker Past Alcohol Use History: Unable to Obtain Past Drug Use History: None Reported Medications and Allergies Home Medications Medication Instructions Recorded Confirmed Type metFORMIN HCL [Glucophage] 1,000 mg PO BID 11/09/21 04/10/25 History Ibuprofen [Motrin] 600 mg PO Q8H PRN 01/15/22 04/10/25 History Cephalexin [Keflex] 500 mg PO Q8H 04/10/25 04/10/25 History Dulaglutide [Trulicity] 4.5 mg SQ TH 04/10/25 04/10/25 History Gabapentin [Neurontin] 100 mg PO TID 04/10/25 04/10/25 History Insulin Glargine,Hum.rec.anlog 40 unit SQ DAILY 04/10/25 04/10/25 History [Insulin Glargine Solostar] Insulin Lispro-Aabc [Lyumjev See Protocol SQ ACHS 04/10/25 04/10/25 History Kwikpen U-100] Loperamide [Imodium] 2 - 4 mg PO QID PRN 04/10/25 04/10/25 History Loratadine 10 mg PO DAILY 04/10/25 04/10/25 History Phenyleph/Pramoxin/Glycr/W.pet 1 applic RECTAL Q6H PRN 04/10/25 04/10/25 History [Preparation H Cream] Promethazine [Phenergan] 25 mg PO Q6H PRN 04/10/25 04/10/25 History Torsemide [Demadex] 40 mg PO DAILY 04/10/25 04/10/25 History gemfibroziL [Lopid] 600 mg PO BID 04/10/25 04/10/25 History lisinopriL [Zestril] 20 mg PO DAILY 04/10/25 04/10/25 History Allergies Allergy/AdvReac Type Severity Reaction Status Date / Time Penicillins Allergy Unknown Verified 04/10/25 08:15 Physical Exam Vitals: Vital Signs Temp Pulse Resp BP BP BP BP 04/11/25 13:33 70/50 78/52 04/11/25 13:18 97.4 F L 80/50 85/56 04/11/25 12:06 80/50 04/11/25 11:55 97.5 F L 109 H 24 80/55 04/11/25 08:41 98.7 F 121 H 28 H 103/63 04/11/25 04:00 98.9 F 90 20 114/80 04/10/25 23:39 98.8 F 104 H 22 109/66 04/10/25 20:00 112 H 04/10/25 19:54 99.6 F 117 H 20 98/64 Pulse Ox 04/11/25 13:33 04/11/25 13:18 04/11/25 12:06 04/11/25 11:55 96 04/11/25 08:41 91 L 04/11/25 04:00 95 04/10/25 23:39 95 04/10/25 20:00 04/10/25 19:54 96 Intake and Output 04/10/25 04/11/25 04/11/25 22:59 06:59 14:59 Intake Total 237 0 Output Total 400 Balance 237 -400 Intake: Oral 237 0 Output: Urine 400 Other: # Voids 0 # Bowel Movements 1 1 Weight 127.006 kg 141.5 kg Patient is awake, comfortable, no acute distress Examination of the heart S1 and S2 Examination of the lungs decreased breath sounds at the bases Abdomen is soft obese Examination lower extremity shows edema 3+ bilaterally with chronic skin changes and scrotal edema Results - Lab Results Most recent lab results Calcium 7.7 mg/dL (8.4-10.2) L 04/11/25 05:41 Magnesium 1.5 mg/dL (1.6-2.3) L 04/11/25 05:41 04/11/25 05:41 04/11/25 05:41 Assessment and Plan Assessment: 1. Acute kidney injury, ATN, nonoliguric secondary to hypotension and sepsis. UA suggestive of UTI. Check ultrasound of the kidneys 2. Gram-negative bacteremia from urinary tract infection maintained on IV antibiotics, hemodynamically stable 3. Metabolic acidosis associated with acute kidney injury and lactic acidosis 4. Hypomagnesemia 5. Anemia with no active bleeding noted, recent episode of hematuria after patient pulling out East catheter Plan: Start IV bicarb, decreased to 50 cc an hour due to significant edema Patient receiving fluid bolus currently Add oral sodium bicarb Continue with antibiotics May continue without East catheter
--- NOTE | 2025-04-11 14:44 | US ---
EXAMINATION TYPE: US kidneys/renal and bladder DATE OF EXAM: 04/11/2025 COMPARISON: NONE CLINICAL INDICATION: Male, 64 years old with history of GENARO on CKD; GENARO on CKD TECHNIQUE: Grayscale imaging of the bilateral kidneys and urinary bladder: FINDINGS: EXAM MEASUREMENTS: Right Kidney: 12.5 x 6.8 x 6.0 cm Left Kidney: 11.2 x 6.0 x 5.2 cm Right Kidney: portions visualized wnl Left Kidney: portions visualized wnl Bladder: not visualized Bilateral Jets seen: No Exam very limited due to patient body habitus and bowel gas. IMPRESSION: 1. Renal ultrasound as visualized appears unremarkable [facility] Victoria Drake, , 04/11/2025 2:41 PM
[2025-04-11] MEDS: DEXTROSE 5% IN WATER 1,000 ML with SODIUM BICARB (1 MEQ/ML) 50 ML IV SCH (15:13)
--- NOTE | 2025-04-11 15:44 | P.CNPUL ---
History of Present Illness Consult date: 04/11/25 Chief complaint: Hypotension History of present illness: This is a morbidly obese 64-year-old male patient, group home resident who resides at the [facility]. The patient is essentially bedridden. He states that his legs have given up and the patient has not walked for the past 1 year at least. The patient is morbidly obese. The patient also has history of hypertension and hyperlipidemia and history of congestive heart failure in addit ion to significant diabetes mellitus and chronic stage III kidney disease.. He also suffers from chronic anemia and chronic lower extremity edema and urinary retention related to BPH and rheumatoid arthritis. The patient is essentially bedbound requiring a Jessi lift to be transferred around. The patient apparently had a East catheter inserted at the group home and this catheter was accidentally pulled out and the patient sustained some bleeding through his urethral meatus. He was still producing some urine with positive hematuria. Denies having any scrotal pain. His urine output was quite minimal. At the same time, the patient generalized weakness and fatigue and increased chills and shakiness and there was no documented temperature. The patient was found to be initially normotensive. Tachycardic. His chest x-ray showed mild pulm vascular congestion and his white cell count was elevated at 16 with a hemoglobin 10.1 and a platelet count of 148. Normal coagulation profile. He did have an acute on top of chronic kidney injury and initial creatinine was at 2.7 and this mo rning is up to 3.5. He also has an anion gap metabolic acidosis with serum bicarb of 14 and a gap of 12. Most recent sodium is at 142 and potassium is at 4.5. Initial lactic acid level was 1.6) of 2.6. UA is obviously abnormal consistent with blood and elevated white cells and there is also +3 protein, +3 glucose and occasional bacteria. I was involved in the patient's case as the patient became progressively more hypotensive and septic. Blood pressure is on the positive for Proteus mirabilis and the patient was started on IV Rocephin given 2 g. He was already given a liter of normal saline and liter of lactated Ringer. At time of arrival to the bedside, the patient had a blood pressure of 85/56. He was on room air oxygen. Heart rate was 109. He was afebrile. He was awake and alert and communicating. He did have increased edema lower extremity and some superficial wounds in his lower extremities with fluid seeping out and weeping skin. He had a stage II heel ulcer and a stage II coccygeal ulcer. His troponins were negative. Patient was seen by urology and recommendations were not to put a East catheter especially with his recent traumatic incidents with a East catheter removal. Review of Systems Constitutional: Reports chills, Reports daytime sleepiness, Reports fatigue, Reports lethargy, Reports poor appetite, Reports weakness, Reports weight gain Eyes: denies as per HPI, denies blurred vision, denies bulging eye, denies decreased vision, denies diplopia, denies discharge, denies dry eye, denies irritation, denies itching, denies pain, denies photophobia, denies loss of peripheral vision, denies loss of vision, denies tunnel vision/blind spots Ears: deny: decreased hearing, ear discharge, earache, tinnitus Ears, nose, mouth and throat: Reports as per HPI Breasts: absent: as per HPI, gynecomastia Cardiovascular: Reports as per HPI Respiratory: Reports as per HPI Gastrointestinal: Reports as per HPI Genitourinary: Reports flank pain, Reports hematuria, Reports urinary frequency, Reports urinary hesitancy, Reports urinary retention Musculoskeletal: bilateral: ankle swelling, absent: ankle pain, ankle stiffness, as per HPI, elbow pain, elbow stiffness, elbow swelling, foot pain, foot stiffness, foot swelling, hand pain, hand stiffness, hand swelling, hip pain, hip stiffness, hip swelling, knee pain, knee stiffness, knee swelling, shoulder pain, shoulder stiffness, shoulder swelling, wrist pain, wrist stiffness, wrist swelling Integumentary: Reports as per HPI, Reports wounds Neurological: Reports as per HPI, Reports gait dysfunction Psychiatric: Reports as per HPI Endocrine: Reports fatigue Hematologic/Lymphatic: Reports as per HPI Allergic/Immunologic: Reports as per HPI Past Medical History Past Medical History: Diabetes Mellitus, GERD/Reflux, Hyperlipidemia, Hypertension, Osteoarthritis (OA), Prostate Disorder, Rheumatoid Arthritis (RA), Skin Disorder Additional Past Medical History / Comment(s): NO BP MEDS., GOUT., IRON DEFICIENCY ANEMIA, OPEN AREA ON COCCYX (SUPERFICIAL)., INCONTINENT, NEEDS JESSI LIFT FOR TRANSFERS. , RESIDES AT [facility] History of Any Multi-Drug Resistant Organisms: None Reported Past Surgical History: Ear Surgery, Joint Replacement Additional Past Surgical History / Comment(s): 10/12/21 TOTAL RIGHT HIP ANTERIOR APPROACH, 11/10/21 I & D RIGHT HIP INCISION. Past Anesthesia/Blood Transfusion Reactions: Unable to Obtain Past Psychological History: No Psychological Hx Reported Smoking Status: Never smoker Past Alcohol Use History: Unable to Obtain Past Drug Use History: None Reported Medications and Allergies Home Medications Medication Instructions Recorded Confirmed Type metFORMIN HCL [Glucophage] 1,000 mg PO BID 11/09/21 04/10/25 History Ibuprofen [Motrin] 600 mg PO Q8H PRN 01/15/22 04/10/25 History Cephalexin [Keflex] 500 mg PO Q8H 04/10/25 04/10/25 History Dulaglutide [Trulicity] 4.5 mg SQ TH 04/10/25 04/10/25 History Gabapentin [Neurontin] 100 mg PO TID 04/10/25 04/10/25 History Insulin Glargine,Hum.rec.anlog 40 unit SQ DAILY 04/10/25 04/10/25 History [Insulin Glargine Solostar] Insulin Lispro-Aabc [Lyumjev See Protocol SQ ACHS 04/10/25 04/10/25 History Kwikpen U-100] Loperamide [Imodium] 2 - 4 mg PO QID PRN 04/10/25 04/10/25 History Loratadine 10 mg PO DAILY 04/10/25 04/10/25 History Phenyleph/Pramoxin/Glycr/W.pet 1 applic RECTAL Q6H PRN 04/10/25 04/10/25 History [Preparation H Cream] Promethazine [Phenergan] 25 mg PO Q6H PRN 04/10/25 04/10/25 History Torsemide [Demadex] 40 mg PO DAILY 04/10/25 04/10/25 History gemfibroziL [Lopid] 600 mg PO BID 04/10/25 04/10/25 History lisinopriL [Zestril] 20 mg PO DAILY 04/10/25 04/10/25 History Allergies Allergy/AdvReac Type Severity Reaction Status Date / Time Penicillins Allergy Unknown Verified 04/10/25 08:15 Physical Exam Vitals: Vital Signs Temp Pulse Resp BP BP BP BP 04/11/25 13:33 70/50 78/52 04/11/25 13:18 97.4 F L 80/50 85/56 04/11/25 12:06 80/50 04/11/25 11:55 97.5 F L 109 H 24 80/55 04/11/25 08:41 98.7 F 121 H 28 H 103/63 04/11/25 04:00 98.9 F 90 20 114/80 04/10/25 23:39 98.8 F 104 H 22 109/66 04/10/25 20:00 112 H 04/10/25 19:54 99.6 F 117 H 20 98/64 Pulse Ox 04/11/25 13:33 04/11/25 13:18 04/11/25 12:06 04/11/25 11:55 96 04/11/25 08:41 91 L 04/11/25 04:00 95 04/10/25 23:39 95 04/10/25 20:00 04/10/25 19:54 96 Intake and Output 04/11/25 04/11/25 04/11/25 06:59 14:59 22:59 Intake Total 0 Output Total 400 Balance -400 Intake: Oral 0 Output: Urine 400 Other: # Voids 0 # Bowel Movements 1 1 Weight 141.5 kg Vital signs reviewed and stable. Morbidly obese and the patient is currently on room air oxygen, awake and alert and communicating. He is morbidly obese with a BMI of 42.3. Does not seem to be in any respiratory distress. General: Nontoxic, no distress and appears stated age. Derm: Skin warm and dry, normal coloration for ethnicity. Head: Atraumatic, normocephalic and symmetric. Eyes: EOM's intact, no lid lag, and anicteric sclera Mouth: no lip lesions, mucus membranes moist Cardiovascular: regular rate and rhythm with normal S1S2, no murmur, positive posterior tibial pulses bilaterally, and cap refill < 2 seconds. Lungs: Respirations even, regular, and unlabored on room air. Lungs CTA bilaterally, no rhonchi, no rales, no wheezing, and no accessory muscle usage. GI/: soft, nontender to palpation, no guarding, no appreciable organomegaly. Scrotal edema present. Patient denied tenderness to scrotum on exam. Ext: ROM intact. No gross muscle atrophy, bilateral lower extremity edema, no contractures, stage II left heel ulcer, noninfected and another stage I-II sacral decub ulcer. Neuro: Speech clear, face symmetrical and CN II-XII grossly intact with no noted focal neuro deficits Psych: Alert and oriented to person, place, time, and situation. Appropriate and pleasant affect. Results - Laboratory Findings CBC and BMP: 04/11/25 05:41 04/11/25 05:41 PT/INR, D-dimer PT 12.1 sec (10.0-12.5) 04/09/25 21:54 INR 1.1 (<1.2) 04/09/25 21:54 Abnormal lab findings: Abnormal Labs 04/09/25 04/09/25 04/10/25 21:54 21:54 00:52 WBC 16.08 H RBC 3.58 L Hgb 10.1 L Hct 30.7 L RDW Plt Count MPV Immature Gran # 0.10 H Neutrophils # 14.96 H Lymphocytes # 0.25 L Eosinophils # 0.01 L Sodium 133 L Chloride 108 H Carbon Dioxide 12 L BUN 49 H Creatinine 2.73 H Glucose 199 H POC Glucose (mg/dL) Hemoglobin A1c Plasma Lactic Acid Jose Calcium 8.1 L Magnesium Total Protein 5.7 L Albumin 2.7 L Urine Protein 3+ H Urine Glucose (UA) 3+ H Urine Blood Large H Ur Leukocyte Esterase Small H Urine RBC >182 H Urine WBC 76 H Urine Bacteria Occasional H Urine Mucus Rare H 04/10/25 04/10/25 04/10/25 08:27 08:27 17:56 WBC RBC 3.11 L Hgb 9.0 L Hct 26.7 L RDW 14.6 H Plt Count 117 L MPV 9.0 L Immature Gran # Neutrophils # Lymphocytes # Eosinophils # Sodium 134 L Chloride 109 H Carbon Dioxide 14 L BUN 49 H Creatinine 2.79 H Glucose 207 H POC Glucose (mg/dL) 181 H Hemoglobin A1c Plasma Lactic Acid Jose Calcium 7.5 L Magnesium 1.3 L Total Protein Albumin Urine Protein Urine Glucose (UA) Urine Blood Ur Leukocyte Esterase Urine RBC Urine WBC Urine Bacteria Urine Mucus 04/10/25 04/11/25 04/11/25 20:34 05:41 05:41 WBC RBC 3.08 L Hgb 8.6 L Hct 26.7 L RDW Plt Count 106 L MPV Immature Gran # Neutrophils # Lymphocytes # Eosinophils # Sodium Chloride Carbon Dioxide BUN Creatinine Glucose POC Glucose (mg/dL) 234 H Hemoglobin A1c 6.6 H Plasma Lactic Acid Jose Calcium Magnesium Total Protein Albumin Urine Protein Urine Glucose (UA) Urine Blood Ur Leukocyte Esterase Urine RBC Urine WBC Urine Bacteria Urine Mucus 04/11/25 04/11/25 04/11/25 05:41 06:16 09:21 WBC RBC Hgb Hct RDW Plt Count MPV Immature Gran # Neutrophils # Lymphocytes # Eosinophils # Sodium 132 L Chloride Carbon Dioxide 14 L BUN 55 H Creatinine 3.50 H Glucose 188 H POC Glucose (mg/dL) 205 H Hemoglobin A1c Plasma Lactic Acid Jose 3.4 H* Calcium 7.7 L Magnesium 1.5 L Total Protein Albumin Urine Protein Urine Glucose (UA) Urine Blood Ur Leukocyte Esterase Urine RBC Urine WBC Urine Bacteria Urine Mucus 04/11/25 04/11/25 11:47 13:01 WBC RBC Hgb Hct RDW Plt Count MPV Immature Gran # Neutrophils # Lymphocytes # Eosinophils # Sodium Chloride Carbon Dioxide BUN Creatinine Glucose POC Glucose (mg/dL) 194 H Hemoglobin A1c Plasma Lactic Acid Jose 2.6 H* Calcium Magnesium Total Protein Albumin Urine Protein Urine Glucose (UA) Urine Blood Ur Leukocyte Esterase Urine RBC Urine WBC Urine Bacteria Urine Mucus Assessment and Plan Plan: Acute gram-negative sepsis with Proteus Mirabella's, likely of urinary source. The patient has a soft blood pressure. His most recent systolic blood pressure in the mid 80s. Tachycardia is improving and the patient has a mild degree of sinus tachycardia. He was given a total of 2 L of IV fluid including a liter of lactated Ringer and a liter of normal saline and was started on IV Rocephin. No altered mentation. Lactic acid level is currently at 2.6. Acute leukocytosis secondary to above Acute on top of chronic kidney disease, likely secondary to urinary retention and ultrasound of the kidneys obtained on 04/11/2025 showed no evidence of any hydronephrosis. East catheter was removed and the this was a traumatic East catheter insertion/removal complicated by some hematuria. Patient is currently oliguric. Nephrology on the case. Rule out underlying ATN secondary urine tract infection/sepsis None anion gap metabolic acidosis secondary to above Anemia of chronic disease Thrombocytopenia Hematuria, due to complicated insertion/removal of East catheter. Morbid obesity with a BMI of 42.3 Chronic lower extremity edema with lower extremity skin ulceration and weeping skin in addition to a stage II heel ulcer on the left and decub ulcer. Congestive heart failure, baseline left leg ejection fraction is unknown, echocardiogram is in progress Diabetes mellitus type 2 Chronic stage III kidney disease BPH Rheumatoid arthritis Bedridden and the patient has been nonambulatory for the past 1 year and the patient is a group home resident Hyperlipidemia Osteoarthritis Gout Obstructive sleep apnea Plan Will give the patient another liter of normal saline and following this we will start the patient on bicarb infusion and a rate of 75 cc an hour Continue IV Rocephin Monitor hemodynamics and maintain ICU care if there is no stabilization and his blood pressure and requiring pressors. For now, he is being monitored very closely on the telemetry and is for now. Blood cultures were noted Echocardiogram Patient currently on room air oxygen Avoid nephrotoxic agents and consult nephrology. No evidence of any hydronephrosis. Consult with urology regarding the possibility and need for another East catheter insertion. Continue Lantus insulin 40 units daily and sliding scale coverage Consult urology and nephrology CODE STATUS is full and will continue to follow. Time with Patient: Greater than 30
[2025-04-11 17:00] LABS: Glucose,Whole Blood 231 mg/dL (70-110)
[2025-04-11] MEDS: DEXTROSE 5% IN WATER 1,000 ML with SODIUM BICARB (1 MEQ/ML) 150 ML IV SCH (18:18)
[2025-04-11] MEDS: MIDODRINE 5 MG TAB PO SCH (18:31)
[2025-04-11 19:52] LABS: Glucose,Whole Blood 285 mg/dL (70-110)
--- NOTE | 2025-04-11 22:23 | P.CONS ---
History of Present Illness - Reason for Consult Consult date: 04/11/25 UTI sepsis bacteremia Requesting physician: Florentino Sun - Chief Complaint blood in the urine x 1 day on admission - History of Present Illness Patient is a 64-year-old male with a past medical history significant for Diabetes Mellitus, GERD/Reflux, Hyperlipidemia, Hypertension, Osteoarthritis (OA), Prostate Disorder, Rheumatoid Arthritis (RA), Skin Disorder resident of the local [facility] resident patient did have a chronic indwelling East catheter which apparently got accidentally pulled out and the patient did have some bleeding from the urethral meatus with the patient has been brought into the hospital on presentation to the hospital patient was initially febrile subsequently he did spike a fever yesterday afternoon of 102.5 F patient was tachycardic mildly hypertensive but not hypoxic no need for supplemental oxygen patient did have elevated lactic acid did have elevated white count of 16.08 BUN and creatinine has been elevated liver enzymes are normal urine has been positive patient blood cultures came back positive with Proteus that apparently sensitive pathogen patient started on Rocephin 2 g daily infectious he was consulted for further management of antibiotic therapy most information has been obtained from review the chart as the patient himself adamantly good historian, patient did have renal ultrasound unremarkable Review of Systems Positive points has been mentioned in HPI complete review could not be obtained because of his underlying mental status Past Medical History Past Medical History: Diabetes Mellitus, GERD/Reflux, Hyperlipidemia, Hypertensi on, Osteoarthritis (OA), Prostate Disorder, Rheumatoid Arthritis (RA), Skin Disorder Additional Past Medical History / Comment(s): NO BP MEDS., GOUT., IRON DEFICIENCY ANEMIA, OPEN AREA ON COCCYX (SUPERFICIAL)., INCONTINENT, NEEDS LORENE LIFT FOR TRANSFERS. , RESIDES AT [facility] History of Any Multi-Drug Resistant Organisms: None Reported Past Surgical History: Ear Surgery, Joint Replacement Additional Past Surgical History / Comment(s): 10/12/21 TOTAL RIGHT HIP ANTERIOR APPROACH, 11/10/21 I & D RIGHT HIP INCISION. Past Anesthesia/Blood Transfusion Reactions: Unable to Obtain Past Psychological History: No Psychological Hx Reported Smoking Status: Never smoker Past Alcohol Use History: Unable to Obtain Past Drug Use History: None Reported Medications and Allergies Home Medications Medication Instructions Recorded Confirmed Type metFORMIN HCL [Glucophage] 1,000 mg PO BID 11/09/21 04/10/25 History Ibuprofen [Motrin] 600 mg PO Q8H PRN 01/15/22 04/10/25 History Cephalexin [Keflex] 500 mg PO Q8H 04/10/25 04/10/25 History Dulaglutide [Trulicity] 4.5 mg SQ TH 04/10/25 04/10/25 History Gabapentin [Neurontin] 100 mg PO TID 04/10/25 04/10/25 History Insulin Glargine,Hum.rec.anlog 40 unit SQ DAILY 04/10/25 04/10/25 History [Insulin Glargine Solostar] Insulin Lispro-Aabc [Lyumjev See Protocol SQ ACHS 04/10/25 04/10/25 History Kwikpen U-100] Loperamide [Imodium] 2 - 4 mg PO QID PRN 04/10/25 04/10/25 History Loratadine 10 mg PO DAILY 04/10/25 04/10/25 History Phenyleph/Pramoxin/Glycr/W.pet 1 applic RECTAL Q6H PRN 04/10/25 04/10/25 History [Preparation H Cream] Promethazine [Phenergan] 25 mg PO Q6H PRN 04/10/25 04/10/25 History Torsemide [Demadex] 40 mg PO DAILY 04/10/25 04/10/25 History gemfibroziL [Lopid] 600 mg PO BID 04/10/25 04/10/25 History lisinopriL [Zestril] 20 mg PO DAILY 04/10/25 04/10/25 History Allergies Allergy/AdvReac Type Severity Reaction Status Date / Time Penicillins Allergy Unknown Verified 04/10/25 08:15 Physical Exam Vitals: Vital Signs Temp Pulse Resp BP Pulse Ox 04/11/25 08:41 98.7 F 121 H 28 H 103/63 91 L 04/11/25 04:00 98.9 F 90 20 114/80 95 04/10/25 23:39 98.8 F 104 H 22 109/66 95 04/10/25 20:00 112 H 04/10/25 19:54 99.6 F 117 H 20 98/64 96 04/10/25 14:00 102.5 F H 128 H 20 130/70 95 Intake and Output 04/10/25 04/11/25 04/11/25 22:59 06:59 14:59 Intake Total 237 0 Output Total 400 Balance 237 -400 Intake: Oral 237 0 Output: Urine 400 Other: # Voids 0 # Bowel Movements 1 1 Weight 127.006 kg 141.5 kg GENERAL DESCRIPTION: Middle-age male lying in bed, no distress. No tachypnea or accessory muscle of respiration use. HEENT: Shows Pallor , no scleral icterus. Oral mucous membrane is dry. Neck trachea central LUNGS: Unlabored breathing. He has breath on the base HEART: S1, S2, regular rate and rhythm. No loud murmur ABDOMEN: Soft, no tenderness , guarding or rigidity, no organomegaly EXTREMITIES swelling to bilateral lower extremity SKIN: No rash, no masses palpable. NEUROLOGICAL: The patient is sleepy but arousable Results CBC & Chem 7: 04/11/25 05:41 04/11/25 05:41 Labs: Abnormal Lab Results - Last 24 Hours (Table) 04/10/25 04/10/25 04/11/25 Range/Units 17:56 20:34 05:41 RBC (4.40-5.60) 10*6/uL Hgb (13.0-17.0) g/dL Hct (39.6-50.0) % Plt Count (140-440) 10*3/uL Sodium (137-145) mmol/L Carbon Dioxide (22-30) mmol/L BUN (9-20) mg/dL Creatinine (0.66-1.25) mg/dL Glucose (74-99) mg/dL POC Glucose (mg/dL) 181 H 234 H (70-110) mg/dL Hemoglobin A1c 6.6 H (<=6.0) % Plasma Lactic Acid Jose (0.7-2.0) mmol/L Calcium (8.4-10.2) mg/dL Magnesium (1.6-2.3) mg/dL 04/11/25 04/11/25 04/11/25 Range/Units 05:41 05:41 06:16 RBC 3.08 L (4.40-5.60) 10*6/uL Hgb 8.6 L (13.0-17.0) g/dL Hct 26.7 L (39.6-50.0) % Plt Count 106 L (140-440) 10*3/uL Sodium 132 L (137-145) mmol/L Carbon Dioxide 14 L (22-30) mmol/L BUN 55 H (9-20) mg/dL Creatinine 3.50 H (0.66-1.25) mg/dL Glucose 188 H (74-99) mg/dL POC Glucose (mg/dL) 205 H (70-110) mg/dL Hemoglobin A1c (<=6.0) % Plasma Lactic Acid Jose (0.7-2.0) mmol/L Calcium 7.7 L (8.4-10.2) mg/dL Magnesium 1.5 L (1.6-2.3) mg/dL 04/11/25 04/11/25 Range/Units 09:21 11:47 RBC (4.40-5.60) 10*6/uL Hgb (13.0-17.0) g/dL Hct (39.6-50.0) % Plt Count (140-440) 10*3/uL Sodium (137-145) mmol/L Carbon Dioxide (22-30) mmol/L BUN (9-20) mg/dL Creatinine (0.66-1.25) mg/dL Glucose (74-99) mg/dL POC Glucose (mg/dL) 194 H (70-110) mg/dL Hemoglobin A1c (<=6.0) % Plasma Lactic Acid Jose 3.4 H* (0.7-2.0) mmol/L Calcium (8.4-10.2) mg/dL Magnesium (1.6-2.3) mg/dL Microbiology - Last 24 Hours (Table) 04/09/25 21:54 Blood Culture Gram Stain - Preliminary Blood Blood Culture - Preliminary Proteus mirabilis Molecular ID Assessment and Plan (1) Bacteremia Current Visit: Yes Status: Acute Code(s): R78.81 - BACTEREMIA SNOMED Code(s): 4096510 (2) Penicillin allergy Current Visit: Yes Status: Acute Code(s): Z88.0 - ALLERGY STATUS TO PENICILLIN SNOMED Code(s): 27517261 (3) Sepsis Current Visit: Yes Status: Acute Code(s): A41.9 - SEPSIS, UNSPECIFIED ORGANISM SNOMED Code(s): 86395017 (4) UTI (urinary tract infection) Current Visit: Yes Status: Acute Code(s): N39.0 - URINARY TRACT INFECTION, SITE NOT SPECIFIED SNOMED Code(s): 93181032 Plan: 1patient with sepsis in this patient who did have fever tachycardia hypotension elevated white count elevated lactic acid meeting currently//sepsis now with evidence of gram-negative bacteremia source likely urinary 2-penicillin allergy that we will limit number of antibiotic safe use 2-patient will be treated with Rocephin 2 g daily while waiting for the culture to finalize We will follow on clinical condition and cultures to further adjust medication if needed Thank you for this consultation we will follow the patient along with you Dictation was produced using [employer] dictation software. please excuse any grammatical, word or spelling errors. Time with Patient: Less than 30
[2025-04-12 05:57] LABS: Glucose,Whole Blood 212 mg/dL (70-110)
[2025-04-12] MEDS ORDERED: TORSEMIDE 20 MG TAB PO SCH (09:00)
[2025-04-12 11:57] LABS: Glucose,Whole Blood 212 mg/dL (70-110)
--- NOTE | 2025-04-12 12:40 | P.PN ---
Subjective East catheter was placed yesterday for accurate I's and O's. Urine is clear, no bleeding around the catheter. Objective - Vital Signs Vital signs: Vital Signs Temp 98.5 F 04/12/25 12:20 Pulse 109 H 04/12/25 12:20 Resp 14 04/12/25 12:20 BP 87/50 04/12/25 12:20 Pulse Ox 92 L 04/12/25 12:20 FiO2 Intake & Output 04/11/25 04/12/25 04/12/25 18:59 06:59 18:59 Intake Total 780 Output Total 450 Balance 330 Weight 145 kg Intake: Oral 780 Output: Urine 450 Other: Voiding Method Urinal Urinal # Voids 0 # Bowel Movements 1 - Constitutional General appearance: Present: no acute distress - Gastrointestinal General gastrointestinal: Present: soft. Absent: distended, tenderness - Labs CBC & Chem 7: 04/11/25 05:41 04/11/25 05:41 Labs: Abnormal Lab Results - Last 24 Hours (Table) 04/11/25 04/11/25 04/11/25 Range/Units 13:01 16:59 19:51 POC Glucose (mg/dL) 231 H 285 H (70-110) mg/dL Plasma Lactic Acid Jose 2.6 H* (0.7-2.0) mmol/L 04/12/25 04/12/25 Range/Units 05:55 11:55 POC Glucose (mg/dL) 212 H 212 H (70-110) mg/dL Plasma Lactic Acid Jose (0.7-2.0) mmol/L Microbiology - Last 24 Hours (Table) 04/11/25 00:52 Urine Culture - Preliminary Urine,Clean Catch Proteus mirabilis 04/09/25 21:54 Blood Culture Gram Stain - Preliminary Blood Blood Culture - Preliminary Proteus mirabilis Molecular ID Assessment and Plan Assessment: 64-year-old male with history of scrotal edema, traumatic Aest catheter removal, his catheter was placed for scrotal edema. He is incontinent of urine at baseline, hematuria has resolved. His scrotal edema is from fluid overload management per primary. East was reinserted to monitor I's and O's. Urine is clear. From urology standpoint the East catheter can be removed when no longer needed by the primary team
[2025-04-12 12:42] LABS: HCT 24.4 % (39.6-50.0); HGB 8.1 g/dL (13.0-17.0); MCH 28.1 pg (27.0-32.0); MCHC 33.2 g/dL (32.0-37.0); MCV 84.7 fL (80.0-97.0); RBC 2.88 10*6/uL (4.40-5.60); RDW 14.9 % (11.5-14.5); WBC 5.47 10*3/uL (4.50-10.00)
[2025-04-12 13:03] LABS: African American GFR (CKD) 21 (>60 ml/min/1.73 sqM); Anion Gap 13 mmol/L; Blood Urea Nitrogen 61 mg/dL (9-20); Calcium 7.3 mg/dL (8.4-10.2); Carbon Dioxide 12 mmol/L (22-30); Chloride 105 mmol/L (98-107); Glucose 177 mg/dL (74-99); Magnesium 1.5 mg/dL (1.6-2.3); Non-African American GFR(CKD) 18 (>60 ml/min/1.73 sqM); Potassium 3.6 mmol/L (3.5-5.1); Sodium 130 mmol/L (137-145)
[2025-04-12 14:02] LABS: Platelet Count 72 10*3/uL (140-440)
--- NOTE | 2025-04-12 14:11 | P.PN ---
Subjective Progress Note Date: 04/12/25 Hospital Course: Patient is a pleasant 64-year-old male with a past medical history hypertension, hyperlipidemia, CHF on daily diuretic with torsemide, insulin-dependent diabetes mellitus, CKD stage IIIb, anemia, chronic diarrhea on daily Imodium, BPH with urinary incontinence, and rheumatoid arthritis. He is a resident of [facility] and is wheelchair/bedbound requiring Jessi lift for transfers at baseline. He presented to our facility secondary to reports of concerns of urinary tract infection, scrotal edema, and urinary retention. Per transfer documentation, a East catheter was placed and patient pulled out resulting in significant bleeding from meatus. Upon arrival to our facility, patient underwent evaluation in the emergency department. Vital signs upon arrival show blood pressure 140/69, heart rate 117, respiratory rate 20, temp 98.6 F, and SpO2 of 97% on room air. EKG completed showing sinus tachycardia 121 bpm. Chest x-ray showing mild pulmonary vascular congestion consistent with mild CHF. Labs completed and reviewed. CBC showing leukocytosis with WBC count of 16.08 and normocytic anemia with hemoglobin of 10.1. Coagulation profile unremarkable. BMP showing hyponatremia with sodium of 133 and high anion gap metabolic acidosis with chloride of 108, bicarb of 12, and anion gap of 13 and renal function consistent with known CKD with BUN of 49, creatinine 2.73, and GFR of 24 with baseline creatinine around 2.7. Blood glucose 199. Lactic acid 1.6. Liver profile unremarkable with exception of low total protein of 5.7 and albumin of 2.7. Troponin was negative at less than 0.012. Urinalysis red in color turbid appearance positive for protein, glucose, blood, leukocyte esterase, greater than 182 RBCs and 76 WBCs. Patient was started on IV antibiotics with Rocephin and admitted under services with consultation to urology. Urinary retention improved and bladder scans currently showing less than 30 cc. Patient reports continued urinary incontinence (but this is his baseline) and currently denies difficulties with urination or feeling as though he is retaining. Renal function worsening from yesterday with BUN of 49, creatinine 2.79 and today BUN of 55, creatinine 3.50, GFR of 18. Nephrology consulted. Blood culture preliminarily positive for Proteus mirabillis. Patient is on Rocephin 2 g daily. Infectious disease consulted. On 04/11/25 patient's sepsis worsening and he developed GENARO on CKD with oliguria. His blood pressures also worsened with pt becoming significantly hypotensive with BP decreasing as low as 70/50. Pt was given fluid resuscitation, Retail Wireless Sales Consultant consulted and pt started on Bicarb infusion. After discussion with urology, Coude East catheter inserted for strict monitoring of I's and O's with worsening sepsis, GENARO and oliguria. Physical exam: Patient seen and fully evaluated at bedside this morning. He was resting comfortably in bed currently denies having any complaints at this time. Patient slightly agitated per RN patient refused morning lab draw. Discussed with patient importance of following up on his labs secondary to worsening sepsis, hypotension and acute kidney injury. Patient educated that he is on the bicarb infusion and we are monitoring his renal function closely. Patient states he is now in agreement to have labs drawn. Discussed with RN and will follow-up on results once available. Vital signs reviewed General: Nontoxic, no distress and appears stated age. Derm: Skin warm and dry, normal coloration for ethnicity. Head: Atraumatic, normocephalic and symmetric. Eyes: EOM's intact, no lid lag, and anicteric sclera Mouth: no lip lesions, mucus membranes moist Cardiovascular: regular rate and rhythm with normal S1S2, no murmur, positive posterior tibial pulses bilaterally, and cap refill < 2 seconds. Lungs: Respirations even, regular, and unlabored on room air. Lungs CTA bilaterally, no rhonchi, no rales, no wheezing, and no accessory muscle usage. GI/: soft, nontender to palpation, no guarding, no appreciable organomegaly. Scrotal edema present. Ext: ROM intact. No gross muscle atrophy, 2+ bilateral lower extremity edema and venous stasis dermatitis, no contractures Neuro: Speech clear, face symmetrical and CN II-XII grossly intact with no noted focal neuro deficits Psych: Alert and oriented to person, place, time, and situation. Appropriate and pleasant affect. Assessment and Plan of Care: UTI with Sepsis on arrival Bacteremia, likely secondary to above Thrombocytopenia, suspect reactive secondary to sepsis Sinus tachycardia, likely secondary to above Leukocytosis, resolved BPH with urinary incontinence Urinary retention, resolved Acute hematuria, resolved -Continue IV antibiotic with Rocephin 2 g daily pending urine culture results. -Blood culture preliminarily positive for Proteus mirabillis. -Infectious disease following, reviewed documentation in chart -On 04/11/25 patient's sepsis worsening and he developed GENARO on CKD with oliguria. His blood pressures also worsened with pt becoming significantly hypotensive with BP decreasing as low as 70/50. Pt was given fluid resuscitation, Retail Wireless Sales Consultant consulted and pt started on Bicarb infusion and oral midodrine. -Coude East catheter inserted for strict monitoring of I's and O's secondary to worsening sepsis, GENARO and oliguria. -Urology following, discussed plan of care in detail with Dr. Nick -Close monitoring of I's and O's -Continue Flomax 0.4 mg daily. Acute kidney injury on CKD stage IIIb, likely secondary to sepsis Oliguria High anion gap metabolic acidosis Acute on chronic anemia of chronic disease Hold lisinopril and torsemide secondary to acute kidney injury and mild hypotension. -Nephrology following Order placed for ultrasound kidneys/ureters/bladder. Consult placed to nephrology, appreciate recommendations Strict monitoring of I's and O's. Hypomagnesemia Magnesium 1.5. Orders placed for magnesium sulfate 2 g IVPB. We will continue to monitor closely with repeat a.m. labs and place additional orders if i ndicated based upon these findings. Insulin-dependent diabetes mellitus with hyperglycemia -Hold Trulicity and metformin. Continue insulin glargine 40 units daily along with glycemic protocol and NovoLog sliding scale. Chronic Congestive heart failure, unknown type as no echo report is available for review at our facility Hypertension Hyperlipidemia Continue daily medication regiment with fenofibrate 160 mg daily. Lisinopril and torsemide held at this time secondary to worsening renal function and hypotension. Pressure ulcer of sacrum/coccyx and left heel, present on admission Consult placed to wound care. Data and imaging reviewed: Labs are pending. Ultrasound kidneys/ureters/bladder was reviewed reporting to be unremarkable with no signs of hydronephrosis. Vital signs reviewed. Blood pressure 90/55, heart rate 98, respiratory rate 14, temp 98.2 F, and SpO2 of 95% on room air. CODE STATUS: Full code DVT prophylaxis: OPAL hose and SCDs Anticipated discharge date: Pending clinical course Anticipated discharge place: Return to [facility] Patient was seen independently by Nurse Practitioner. This document was prepared using [employer] dictation software. Please allow for errors in lead caster helper while rare they do occur. Florentino Sun NP rendered care for this patient independently, reviewed the findings and plan as documented in the note above and agree with plan. I did not physically speak with or examine the patient on this date. Objective - Vital Signs Vital signs: Vital Signs Temp 98.6 F 04/11/25 20:00 Pulse 100 04/12/25 03:32 Resp 16 04/12/25 03:32 BP 95/58 04/12/25 03:32 Pulse Ox 95 04/12/25 03:32 FiO2 Intake & Output 04/11/25 04/12/25 04/12/25 18:59 06:59 18:59 Intake Total 780 Output Total 450 Balance 330 Weight 145 kg Intake: Oral 780 Output: Urine 450 Other: Voiding Method Urinal Urinal # Voids 0 # Bowel Movements 1 - Labs CBC & Chem 7: 04/12/25 12:21 04/12/25 12:21 Labs: Abnormal Lab Results - Last 24 Hours (Table) 04/11/25 04/11/25 04/11/25 Range/Units 05:41 09:21 11:47 POC Glucose (mg/dL) 194 H (70-110) mg/dL Hemoglobin A1c 6.6 H (<=6.0) % Plasma Lactic Acid Jose 3.4 H* (0.7-2.0) mmol/L 04/11/25 04/11/25 04/11/25 Range/Units 13:01 16:59 19:51 POC Glucose (mg/dL) 231 H 285 H (70-110) mg/dL Hemoglobin A1c (<=6.0) % Plasma Lactic Acid Jose 2.6 H* (0.7-2.0) mmol/L 04/12/25 Range/Units 05:55 POC Glucose (mg/dL) 212 H (70-110) mg/dL Hemoglobin A1c (<=6.0) % Plasma Lactic Acid Jose (0.7-2.0) mmol/L Microbiology - Last 24 Hours (Table) 04/09/25 21:54 Blood Culture Gram Stain - Preliminary Blood Blood Culture - Preliminary Proteus mirabilis Molecular ID
[2025-04-12] MEDS: MAGNESIUM SULFATE-D5W PMX 1 GM in DEXTROSE/WATER 1 100ML.BAG IVPB SCH (14:37)
[2025-04-12] MEDS: MAGNESIUM OXIDE 400 MG TAB PO STA (15:59)
--- NOTE | 2025-04-12 16:26 | P.PN ---
Subjective Progress Note Date: 04/12/25 Principal diagnosis: Reason for follow-up is UTI/bacteremia Patient is a 64-year-old male with a past medical history significant for Diabetes Mellitus, GERD/Reflux, Hyperlipidemia, Hypertension, Osteoarthritis (OA), Prostate Disorder, Rheumatoid Arthritis (RA), Skin Disorder resident of the [facility] [place] [facility] resident patient did have a chronic indwelling East cath eter brought to the hospital after accidentally pulling out his East with hematuria did have a positive blood culture with Proteus probably this consultation. On today's evaluation that is 04/12/2025, the patient continues to be afebrile, the patient is on room air and breathing comfortably, the Pt is sleepy has been complaining of feeling cold did not answer any other question no vomiting or arlene rrhea has been reported by the nursing staff. Patient white count is 5.47, creatinine 3.47 blood and urine with Proteus that is intermediate to ceftriaxone Objective - Vital Signs Vital signs: Vital Signs Temp 98.5 F 04/12/25 12:20 Pulse 109 H 04/12/25 12:20 Resp 14 04/12/25 12:20 BP 87/50 04/12/25 12:20 Pulse Ox 92 L 04/12/25 12:20 FiO2 Intake & Output 04/11/25 04/12/25 04/12/25 18:59 06:59 18:59 Intake Total 780 Output Total 450 Balance 330 Weight 145 kg Intake: Oral 780 Output: Urine 450 Other: Voiding Method Urinal Urinal # Voids 0 # Bowel Movements 1 - Exam GENERAL DESCRIPTION: Middle-age male lying in bed in no distress RESPIRATORY SYSTEM: Unlabored breathing , decreased breath sounds at bases HEART: S1 S2 regular rate and rhythm , ABDOMEN: Soft , no tenderness EXTREMITIES: Diffuse swelling to bilateral lower extremity - Labs CBC & Chem 7: 04/12/25 12:21 04/12/25 12:21 Labs: Abnormal Lab Results - Last 24 Hours (Table) 04/11/25 04/11/25 04/11/25 Range/Units 13:01 16:59 19:51 RBC (4.40-5.60) 10*6/uL Hgb (13.0-17.0) g/dL Hct (39.6-50.0) % Sodium (137-145) mmol/L Carbon Dioxide (22-30) mmol/L BUN (9-20) mg/dL Creatinine (0.66-1.25) mg/dL Glucose (74-99) mg/dL POC Glucose (mg/dL) 231 H 285 H (70-110) mg/dL Plasma Lactic Acid Jose 2.6 H* (0.7-2.0) mmol/L Calcium (8.4-10.2) mg/dL Magnesium (1.6-2.3) mg/dL 04/12/25 04/12/25 04/12/25 Range/Units 05:55 11:55 12:21 RBC 2.88 L (4.40-5.60) 10*6/uL Hgb 8.1 L (13.0-17.0) g/dL Hct 24.4 L (39.6-50.0) % Sodium (137-145) mmol/L Carbon Dioxide (22-30) mmol/L BUN (9-20) mg/dL Creatinine (0.66-1.25) mg/dL Glucose (74-99) mg/dL POC Glucose (mg/dL) 212 H 212 H (70-110) mg/dL Plasma Lactic Acid Jose (0.7-2.0) mmol/L Calcium (8.4-10.2) mg/dL Magnesium (1.6-2.3) mg/dL 04/12/25 Range/Units 12:21 RBC (4.40-5.60) 10*6/uL Hgb (13.0-17.0) g/dL Hct (39.6-50.0) % Sodium 130 L (137-145) mmol/L Carbon Dioxide 12 L (22-30) mmol/L BUN 61 H (9-20) mg/dL Creatinine 3.47 H (0.66-1.25) mg/dL Glucose 177 H (74-99) mg/dL POC Glucose (mg/dL) (70-110) mg/dL Plasma Lactic Acid Jose (0.7-2.0) mmol/L Calcium 7.3 L (8.4-10.2) mg/dL Magnesium 1.5 L (1.6-2.3) mg/dL Microbiology - Last 24 Hours (Table) 04/11/25 00:52 Urine Culture - Preliminary Urine,Clean Catch Proteus mirabilis 04/09/25 21:54 Blood Culture Gram Stain - Preliminary Blood Blood Culture - Preliminary Proteus mirabilis Molecular ID Assessment and Plan (1) Bacteremia Current Visit: Yes Status: Acute Code(s): R78.81 - BACTEREMIA SNOMED Code(s): 2775105 (2) Penicillin allergy Current Visit: Yes Status: Acute Code(s): Z88.0 - ALLERGY STATUS TO PENICILLIN SNOMED Code(s): 98856815 (3) Sepsis Current Visit: Yes Status: Acute Code(s): A41.9 - SEPSIS, UNSPECIFIED ORGANISM SNOMED Code(s): 63050403 (4) UTI (urinary tract infection) Current Visit: Yes Status: Acute Code(s): N39.0 - URINARY TRACT INFECTION, SITE NOT SPECIFIED SNOMED Code(s): 17600819 Plan: 1patient with sepsis in this patient who did have fever tachycardia hypotension elevated white count elevated lactic acid meeting currently//sepsis now with evidence of gram-negative bacteremia source likely urinary 2-penicillin allergy that we will limit number of antibiotic safe use 2-patient culture have been now finalized with more resistant Proteus I will discontinue Rocephin and start the patient on cefepime, [employer] results has been discussed with the pharmacist Dictation was produced using [employer] dictation software. please excuse any grammatical, word or spelling errors. Time with Patient: Less than 30
--- NOTE | 2025-04-12 16:43 | P.PN ---
Subjective Patient is seen for follow-up for acute kidney injury. He is maintained on bicarb drip for significant metabolic acidosis. Blood pressure remains low with systolic in the 80s and 90s Started on midodrine yesterday Labs are pending from today No significant complaints today. No complaints of shortness of breath. Objective - Vital Signs Vital signs: Vital Signs Temp 98.6 F 04/12/25 15:56 Pulse 106 H 04/12/25 15:56 Resp 16 04/12/25 15:56 BP 87/55 04/12/25 15:56 Pulse Ox 91 L 04/12/25 15:56 FiO2 Intake & Output 04/11/25 04/12/25 04/12/25 18:59 06:59 18:59 Intake Total 780 Output Total 450 Balance 330 Weight 145 kg Intake: Oral 780 Output: Urine 450 Other: Voiding Method Urinal Urinal Indwelling Catheter # Voids 0 # Bowel Movements 1 - Exam Patient is awake, comfortable, no acute distress Obese Examination of the heart S1 and S2 Examination of the lungs decreased breath sounds at the bases Abdomen is soft obese Examination lower extremity shows edema 3+ bilaterally with chronic skin changes and scrotal edema - Labs CBC & Chem 7: 04/12/25 12:21 04/12/25 12:21 Labs: Abnormal Lab Results - Last 24 Hours (Table) 04/11/25 04/11/25 04/12/25 Range/Units 16:59 19:51 05:55 RBC (4.40-5.60) 10*6/uL Hgb (13.0-17.0) g/dL Hct (39.6-50.0) % Plt Count (140-440) 10*3/uL Sodium (137-145) mmol/L Carbon Dioxide (22-30) mmol/L BUN (9-20) mg/dL Creatinine (0.66-1.25) mg/dL Glucose (74-99) mg/dL POC Glucose (mg/dL) 231 H 285 H 212 H (70-110) mg/dL Calcium (8.4-10.2) mg/dL Magnesium (1.6-2.3) mg/dL 04/12/25 04/12/25 04/12/25 Range/Units 11:55 12:21 12:21 RBC 2.88 L (4.40-5.60) 10*6/uL Hgb 8.1 L (13.0-17.0) g/dL Hct 24.4 L (39.6-50.0) % Plt Count 72 L (140-440) 10*3/uL Sodium 130 L (137-145) mmol/L Carbon Dioxide 12 L (22-30) mmol/L BUN 61 H (9-20) mg/dL Creatinine 3.47 H (0.66-1.25) mg/dL Glucose 177 H (74-99) mg/dL POC Glucose (mg/dL) 212 H (70-110) mg/dL Calcium 7.3 L (8.4-10.2) mg/dL Magnesium 1.5 L (1.6-2.3) mg/dL Microbiology - Last 24 Hours (Table) 04/09/25 21:54 Blood Culture Gram Stain - Final Blood Blood Culture - Final Proteus mirabilis Molecular ID 04/11/25 00:52 Urine Culture - Preliminary Urine,Clean Catch Proteus mirabilis Assessment and Plan Assessment: 1. Acute kidney injury, ATN, nonoliguric secondary to hypotension and sepsis. UA suggestive of UTI. No obstruction noted on ultrasound of the kidneys 2. Gram-negative bacteremia from urinary tract infection maintained on IV antibiotics 3. Metabolic acidosis associated with acute kidney injury and lactic acidosis 4. Hypomagnesemia 5. Anemia with no active bleeding noted, recent episode of hematuria after p atient pulling out East catheter. Now resolved 6. Significant lower extremity edema and scrotal edema Plan: Continue with IV bicarb Follow-up on labs from today Increase midodrine Add oral sodium bicarb Continue with antibiotics May continue without East catheter
[2025-04-12 17:00] LABS: Glucose,Whole Blood 204 mg/dL (70-110)
[2025-04-12] MEDS: MIDODRINE 5 MG TAB PO SCH (17:38)
[2025-04-12] MEDS: CEFEPIME 2 GM in SODIUM CHLORIDE 0.9% 100 ML IVPB STA (17:40)
[2025-04-12 20:24] LABS: Glucose,Whole Blood 276 mg/dL (70-110)
[2025-04-12] MEDS: SODIUM BICARBONATE TAB 650 MG TAB PO SCH (20:27)
--- NOTE | 2025-04-12 21:10 | P.PN ---
Subjective Progress Note Date: 04/12/25 This is a morbidly obese 64-year-old male patient, senior living resident who resides at the [facility]. The patient is essentially bedridden. He states that his legs have given up and the patient has not walked for the past 1 year at least. The patient is morbidly obese. The patient also has history of hypertension and hyperlipidemia and history of congestive heart failure in addition to significant diabetes mellitus and chronic stage III kidney disease.. He also suffers from chronic anemia and chronic lower extremity edema and urinary retention related to BPH and rheumatoid arthritis. The patient is essentially bedbound requiring a Jessi lift to be transferred around. The patient apparently had a East catheter inserted at the senior living and this catheter was accidentally pulled out and the patient sustained some bleeding through his urethral meatus. He was still producing some urine with positive hematuria. Denies having any scrotal pain. His urine output was quite minimal. At the same time, the patient generalized weakness and fatigue and increased chills and shakiness and there was no documented temperature. The patient was found to be initially normotensive. Tachycardic. His chest x-ray showed mild pulm vascular congestion and his white cell count was elevated at 16 with a hemoglobin 10.1 and a platelet count of 148. Normal coagulation profile. He did have an acute on top of chronic kidney injury and initial creatinine was at 2.7 and this morning is up to 3.5. He also has an anion gap metabolic acidosis with serum bicarb of 14 and a gap of 12. Most recent sodium is at 142 and potassium is at 4.5. Initial lactic acid level was 1.6) of 2.6. UA is obvio usly abnormal consistent with blood and elevated white cells and there is also +3 protein, +3 glucose and occasional bacteria. I was involved in the patient's case as the patient became progressively more hypotensive and septic. Blood pressure is on the positive for Proteus mirabilis and the patient was started on IV Rocephin given 2 g. He was already given a liter of normal saline and liter of lactated Ringer. At time of arrival to the bedside, the patient had a blood pressure of 85/56. He was on room air oxygen. Heart rate was 109. He was afebrile. He was awake and alert and communicating. He did have increased edema lower extremity and some superficial wounds in his lower extremities with fluid seeping out and weeping skin. He had a stage II heel ulcer and a stage II coccygeal ulcer. His troponins were negative. Patient was seen by urology and recommendations were not to put a East catheter especially with his recent traumatic incidents with a East catheter removal. On 04/12/2025, the patient is being seen for a follow-up. On today's evaluation, the patient is arousable and awake. He remains overall lethargic and weak. Nevertheless, hemodynamically stable and the patient has not required any pressors. Most recent BP is 88/57 and a pulse ox 95% room air oxygen. The patient has a East catheter and the patient is producing urine output. BUN 61 with a creatinine of 3.4. Serum bicarbonate 12 with a sodium level of 130. Potassium is at 3.6. The white cell count of 5.4 with a hemoglobin of 8.1 and a platelet count of 72. The patient remains on IV cefepime. The patient remains on a bicarb infusion at rate of 75 cc an hour. He is afebrile. Urine culture is positive for Proteus mirabilis. Blood cultures also positive for Proteus mirabilis, sensitive to his IV cefepime. He continues to have increased edema lower extremities with weeping skin and wound care is being provided by infectious disease. Respiratory status is stable to the patient remains on room air oxygen with a pulse ox of 95%. He is afebrile. ID is on the case. Started on midodrine for a blood pressure between 80-90 systolic. Started on oral bicarb in addition. Urology is also on the case. He continues to have scrotal edema and a East catheter has been reinserted for accurate I's and O's. Urine is clear. Objective - Vital Signs Vital signs: Vital Signs Temp 98.2 F 04/12/25 09:02 Pulse 98 04/12/25 09:02 Resp 14 04/12/25 09:02 BP 90/55 04/12/25 09:02 Pulse Ox 95 04/12/25 09:02 FiO2 Intake & Output 04/11/25 04/12/25 04/12/25 18:59 06:59 18:59 Intake Total 780 Output Total 450 Balance 330 Weight 145 kg Intake: Oral 780 Output: Urine 450 Other: Voiding Method Urinal Urinal # Voids 0 # Bowel Movements 1 - Exam Vital signs reviewed and stable. Morbidly obese and the patient is currently on room air oxygen, awake and alert and communicating. He is morbidly obese with a BMI of 42.3. Does not seem to be in any respiratory distress. General: Nontoxic, no distress and appears stated age. Derm: Skin warm and dry, normal coloration for ethnicity. Head: Atraumatic, normocephalic and symmetric. Eyes: EOM's intact, no lid lag, and anicteric sclera Mouth: no lip lesions, mucus membranes moist Cardiovascular: regular rate and rhythm with normal S1S2, no murmur, positive posterior tibial pulses bilaterally, and cap refill < 2 seconds. Lungs: Respirations even, regular, and unlabored on room air. Lungs CTA bilaterally, no rhonchi, no rales, no wheezing, and no accessory muscle usage. GI/: soft, nontender to palpation, no guarding, no appreciable organomegaly. Scrotal edema present. Patient denied tenderness to scrotum on exam. Ext: ROM intact. No gross muscle atrophy, bilateral lower extremity edema, no contractures, stage II left heel ulcer, noninfected and another stage I-II sacral decub ulcer. Neuro: Speech clear, face symmetrical and CN II-XII grossly intact with no noted focal neuro deficits Psych: Alert and oriented to person, place, time, and situation. Appropriate and pleasant affect. - Labs CBC & Chem 7: 04/12/25 12:21 04/12/25 12:21 Labs: Abnormal Lab Results - Last 24 Hours (Table) 04/11/25 04/11/25 04/11/25 Range/Units 11:47 13:01 16:59 POC Glucose (mg/dL) 194 H 231 H (70-110) mg/dL Plasma Lactic Acid Jose 2.6 H* (0.7-2.0) mmol/L 04/11/25 04/12/25 Range/Units 19:51 05:55 POC Glucose (mg/dL) 285 H 212 H (70-110) mg/dL Plasma Lactic Acid Jose (0.7-2.0) mmol/L Microbiology - Last 24 Hours (Table) 04/09/25 21:54 Blood Culture Gram Stain - Preliminary Blood Blood Culture - Preliminary Proteus mirabilis Molecular ID Assessment and Plan Plan: Acute gram-negative sepsis with Proteus, likely of urinary source. The patient has a soft blood pressure. The patient has not required any pressors. Systolic blood pressure remains between 80s and 90s and the patient is producing adequate amount of urine output. The patient remains on IV fluid. East catheter is in place. The patient is currently on IV cefepime. Acute leukocytosis secondary to above, improved and the white cell count has normalized. Acute on top of chronic kidney disease, likely secondary to urinary retention and ultrasound of the kidneys obtained on 04/11/2025 showed no evidence of any hydronephrosis. East catheter was removed and the this was a traumatic East catheter insertion/removal complicated by some hematuria. Patient is currently oliguric. Nephrology on the case. Rule out underlying ATN secondary urine tract infection/sepsis, East catheter is in place and the patient has producing clear urine output and the patient is nonoliguric at this point. Nephrology and urology are both on the case. None anion gap metabolic acidosis secondary to above, currently on bicarb infusion Anemia of chronic disease Thrombocytopenia Hematuria, due to complicated insertion/removal of East catheter. East catheter was reinserted. No active hematuria. Morbid obesity with a BMI of 42.3 Chronic lower extremity edema with lower extremity skin ulceration and weeping skin in addition to a stage II heel ulcer on the left and decub ulcer. Congestive heart failure, baseline left leg ejection fraction is unknown, echocardiogram is in progress Diabetes mellitus type 2 Chronic stage III kidney disease BPH Rheumatoid arthritis Bedridden and the patient has been nonambulatory for the past 1 year and the patient is a senior living resident Hyperlipidemia Osteoarthritis Gout Obstructive sleep apnea Plan Continue bicarb infusion and a rate of 75 cc an hour, in addition to oral bicarb and repeat electrolytes in a.m. Continue IV cefepime Monitor hemodynamics and no need for pressors and the patient is is on midodrine. Blood cultures were noted Renal ultrasound shows no evidence of any hydronephrosis East catheter is in place Patient currently on room air oxygen Avoid nephrotoxic agents and consult nephrology. No evidence of any hydronephrosis. Consult with urology regarding the possibility and need for another East catheter insertion. Continue Lantus insulin 40 units daily and sliding scale coverage Consult urology and nephrology CODE STATUS is full and will continue to follow. Time with Patient: Greater than 30
[2025-04-13 03:51] LABS: Glucose,Whole Blood 218 mg/dL (70-110)
[2025-04-13] MEDS: LACTATED RINGERS 500 ML IV ONE (04:18)
[2025-04-13] MEDS: CEFEPIME 1 GM in SODIUM CHLORIDE 0.9% 50 ML IVPB SCH (05:05)
[2025-04-13 05:39] LABS: HCT 25.8 % (39.6-50.0); HGB 8.4 g/dL (13.0-17.0); MCH 27.6 pg (27.0-32.0); MCHC 32.6 g/dL (32.0-37.0); MCV 84.9 fL (80.0-97.0); RBC 3.04 10*6/uL (4.40-5.60); RDW 15.1 % (11.5-14.5)
[2025-04-13 05:54] LABS: Platelet Count 76 10*3/uL (140-440)
[2025-04-13 06:09] LABS: Glucose,Whole Blood 240 mg/dL (70-110)
[2025-04-13 06:11] LABS: African American GFR (CKD) 20 (>60 ml/min/1.73 sqM); Anion Gap 14 mmol/L; Blood Urea Nitrogen 64 mg/dL (9-20); Calcium 7.3 mg/dL (8.4-10.2); Carbon Dioxide 11 mmol/L (22-30); Chloride 103 mmol/L (98-107); Glucose 195 mg/dL (74-99); Magnesium 1.7 mg/dL (1.6-2.3); Non-African American GFR(CKD) 17 (>60 ml/min/1.73 sqM); Potassium 3.8 mmol/L (3.5-5.1); Sodium 128 mmol/L (137-145)
[2025-04-13 11:41] LABS: Glucose,Whole Blood 220 mg/dL (70-110)
[2025-04-13] MEDS: PSYLLIUM HUSK 100% 6 GM PACKET PO SCH (12:14)
[2025-04-13] MEDS: SODIUM BICARB 8.4% 50 ML SYR (1 MEQ/ML) IV STA (12:14)
--- NOTE | 2025-04-13 12:39 | P.PN ---
Subjective Progress Note Date: 04/13/25 This is a morbidly obese 64-year-old male patient, residential resident who resides at the [facility]. The patient is essentially bedridden. He states that his legs have given up and the patient has not walked for the past 1 year at least. The patient is morbidly obese. The patient also has history of hypertension and hyperlipidemia and history of congestive heart failure in addition to significant diabetes mellitus and chronic stage III kidney disease.. He also suffers from chronic anemia and chronic lower extremity edema and urinary retention related to BPH and rheumatoid arthritis. The patient is essentially bedbound requiring a Jessi lift to be transferred around. The patient apparently had a East catheter inserted at the residential and this catheter was accidentally pulled out and the patient sustained some bleeding through his urethral meatus. He was still producing some urine with positive hematuria. Denies having any scrotal pain. His urine output was quite minimal. At the same time, the patient generalized weakness and fatigue and increased chills and shakiness and there was no documented temperature. The patient was found to be initially normotensive. Tachycardic. His chest x-ray showed mild pulm vascular congestion and his white cell count was elevated at 16 with a hemoglobin 10.1 and a platelet count of 148. Normal coagulation profile. He did have an acute on top of chronic kidney injury and initial creatinine was at 2.7 and this morning is up to 3.5. He also has an anion gap metabolic acidosis with serum bicarb of 14 and a gap of 12. Most recent sodium is at 142 and potassium is at 4.5. Initial lactic acid level was 1.6) of 2.6. UA is obvio usly abnormal consistent with blood and elevated white cells and there is also +3 protein, +3 glucose and occasional bacteria. I was involved in the patient's case as the patient became progressively more hypotensive and septic. Blood pressure is on the positive for Proteus mirabilis and the patient was started on IV Rocephin given 2 g. He was already given a liter of normal saline and liter of lactated Ringer. At time of arrival to the bedside, the patient had a blood pressure of 85/56. He was on room air oxygen. Heart rate was 109. He was afebrile. He was awake and alert and communicating. He did have increased edema lower extremity and some superficial wounds in his lower extremities with fluid seeping out and weeping skin. He had a stage II heel ulcer and a stage II coccygeal ulcer. His troponins were negative. Patient was seen by urology and recommendations were not to put a East catheter especially with his recent traumatic incidents with a East catheter removal. On 04/12/2025, the patient is being seen for a follow-up. On today's evaluation, the patient is arousable and awake. He remains overall lethargic and weak. Nevertheless, hemodynamically stable and the patient has not required any pressors. Most recent BP is 88/57 and a pulse ox 95% room air oxygen. The patient has a East catheter and the patient is producing urine output. BUN 61 with a creatinine of 3.4. Serum bicarbonate 12 with a sodium level of 130. Potassium is at 3.6. The white cell count of 5.4 with a hemoglobin of 8.1 and a platelet count of 72. The patient remains on IV cefepime. The patient remains on a bicarb infusion at rate of 75 cc an hour. He is afebrile. Urine culture is positive for Proteus mirabilis. Blood cultures also positive for Proteus mirabilis, sensitive to his IV cefepime. He continues to have increased edema lower extremities with weeping skin and wound care is being provided by infectious disease. Respiratory status is stable to the patient remains on room air oxygen with a pulse ox of 95%. He is afebrile. ID is on the case. Started on midodrine for a blood pressure between 80-90 systolic. Started on oral bicarb in addition. Urology is also on the case. He continues to have scrotal edema and a East catheter has been reinserted for accurate I's and O's. Urine is clear. On 04/13/2025, patient is being seen for a follow-up. The patient is awake and alert and communicating. The biggest sluggish in his response still. Continues to be an anion gap metabolic acidosis. Serum bicarb is 11 with a gap of 14. BUN is 64 with a creatinine of 3.5 and no significant improvement in renal function over the past 24 hours. Nephrology on the case. The white cell count 6.5 with a hemoglobin 8.4. Less tachycardic. Room air oxygen with a pulse ox of 93%. Most recent BP is 93/58. Continues to have edema lower extremities bilaterally. Continues to be on IV antibiotics for Proteus septicemia the patient is currently on IV cefepime. Rest of the medications remain unchanged. On midodrine 10 mg p.o. 3 times daily. He is also on oral bicarb. He is receiving bicarb infusion at rate of 75 cc an hour and rate will be increased 225 cc an hour. Integration Director on the case. Urine output is still cloudy. Objective - Vital Signs Vital signs: Vital Signs Temp 98.4 F 04/13/25 04:00 Pulse 117 H 04/13/25 04:00 Resp 24 04/13/25 04:00 BP 111/62 04/13/25 06:39 Pulse Ox 90 L 04/13/25 04:00 FiO2 Intake & Output 04/12/25 04/13/25 04/13/25 18:59 06:59 18:59 Output Total 250 200 Balance -250 -200 Weight 144.5 kg Output: Urine 250 200 Other: Voiding Method Indwelling Catheter Indwelling Catheter - Exam Vital signs reviewed and stable. Morbidly obese and the patient is currently on room air oxygen, awake and alert and communicating. He is morbidly obese with a BMI of 42.3. Does not seem to be in any respiratory distress. General: Nontoxic, no distress and appears stated age. Derm: Skin warm and dry, normal coloration for ethnicity. Head: Atraumatic, normocephalic and symmetric. Eyes: EOM's intact, no lid lag, and anicteric sclera Mouth: no lip lesions, mucus membranes moist Cardiovascular: regular rate and rhythm with normal S1S2, no murmur, positive posterior tibial pulses bilaterally, and cap refill < 2 seconds. Lungs: Respirations even, regular, and unlabored on room air. Lungs CTA bilaterally, no rhonchi, no rales, no wheezing, and no accessory muscle usage. GI/: soft, nontender to palpation, no guarding, no appreciable organomegaly. Scrotal edema present. Patient denied tenderness to scrotum on exam. Ext: ROM intact. No gross muscle atrophy, bilateral lower extremity edema, no contractures, stage II left heel ulcer, noninfected and another stage I-II sacral decub ulcer. Neuro: Speech clear, face symmetrical and CN II-XII grossly intact with no noted focal neuro deficits Psych: Alert and oriented to person, place, time, and situation. Appropriate and pleasant affect. - Labs CBC & Chem 7: 04/13/25 05:16 04/13/25 05:16 Labs: Abnormal Lab Results - Last 24 Hours (Table) 04/12/25 04/12/25 04/12/25 Range/Units 11:55 12:21 12:21 RBC 2.88 L (4.40-5.60) 10*6/uL Hgb 8.1 L (13.0-17.0) g/dL Hct 24.4 L (39.6-50.0) % Plt Count 72 L (140-440) 10*3/uL Sodium 130 L (137-145) mmol/L Carbon Dioxide 12 L (22-30) mmol/L BUN 61 H (9-20) mg/dL Creatinine 3.47 H (0.66-1.25) mg/dL Glucose 177 H (74-99) mg/dL POC Glucose (mg/dL) 212 H (70-110) mg/dL Calcium 7.3 L (8.4-10.2) mg/dL Magnesium 1.5 L (1.6-2.3) mg/dL 04/12/25 04/12/25 04/13/25 Range/Units 16:59 20:22 03:50 RBC (4.40-5.60) 10*6/uL Hgb (13.0-17.0) g/dL Hct (39.6-50.0) % Plt Count (140-440) 10*3/uL Sodium (137-145) mmol/L Carbon Dioxide (22-30) mmol/L BUN (9-20) mg/dL Creatinine (0.66-1.25) mg/dL Glucose (74-99) mg/dL POC Glucose (mg/dL) 204 H 276 H 218 H (70-110) mg/dL Calcium (8.4-10.2) mg/dL Magnesium (1.6-2.3) mg/dL 04/13/25 04/13/25 04/13/25 Range/Units 05:16 05:16 06:08 RBC 3.04 L (4.40-5.60) 10*6/uL Hgb 8.4 L (13.0-17.0) g/dL Hct 25.8 L (39.6-50.0) % Plt Count 76 L (140-440) 10*3/uL Sodium 128 L (137-145) mmol/L Carbon Dioxide 11 L (22-30) mmol/L BUN 64 H (9-20) mg/dL Creatinine 3.59 H (0.66-1.25) mg/dL Glucose 195 H (74-99) mg/dL POC Glucose (mg/dL) 240 H (70-110) mg/dL Calcium 7.3 L (8.4-10.2) mg/dL Magnesium (1.6-2.3) mg/dL Microbiology - Last 24 Hours (Table) 04/09/25 21:54 Blood Culture Gram Stain - Final Blood Blood Culture - Final Proteus mirabilis Molecular ID 04/11/25 00:52 Urine Culture - Preliminary Urine,Clean Catch Proteus mirabilis Assessment and Plan Plan: Acute gram-negative sepsis with Proteus, likely of urinary source. The patient has positive blood culture with Proteus. The patient is currently on IV cefepime. The patient has not required any pressors. Systolic blood pressure remains between 80s and 90s and the patient is producing adequate amount of urine output. The patient remains on IV fluid. East catheter is in place. The patient is currently on IV cefepime. Acute leukocytosis secondary to above, improved and the white cell count has normalized. Acute on top of chronic kidney disease, likely secondary to urinary retention and ultrasound of the kidneys obtained on 04/11/2025 showed no evidence of any hydronephrosis. East catheter was removed and the this was a traumatic East catheter insertion/removal complicated by some hematuria. Patient is currently oliguric. Nephrology on the case. Rule out underlying ATN secondary urine tract infection/sepsis, East catheter is in place and the patient has producing clear urine output and the patient is nonoliguric at this point. Nephrology and urology are both on the case. Renal function continues to be impaired and the patient continues to produce urine output, nonbloody. Mild anion gap metabolic acidosis secondary to above, currently on bicarb infusion, lactic acid level is improved and is currently down to 1.3 Anemia of chronic disease Thrombocytopenia Hematuria, due to complicated insertion/removal of East catheter. East catheter was reinserted. No active hematuria. Morbid obesity with a BMI of 42.3 Chronic lower extremity edema with lower extremity skin ulceration and weeping skin in addition to a stage II heel ulcer on the left and decub ulcer. Congestive heart failure, baseline left leg ejection fraction is unknown, echocardiogram is in progress Diabetes mellitus type 2 Chronic stage III kidney disease BPH Rheumatoid arthritis Bedridden and the patient has been nonambulatory for the past 1 year and the patient is a residential resident Hyperlipidemia Osteoarthritis Gout Obstructive sleep apnea Plan Continue bicarb infusion and a rate of 125 cc an hour Continue IV cefepime Monitor hemodynamics and no need for pressors and the patient is is on midodrine. Blood cultures were noted Renal ultrasound shows no evidence of any hydronephrosis East catheter is in place Patient currently on room air oxygen Avoid nephrotoxic agents and consult nephrology. No evidence of any hydronephrosis. Consult with urology regarding the possibility and need for another East catheter insertion. Continue Lantus insulin 40 units daily and sliding scale coverage Consult urology and nephrology CODE STATUS is full and will continue to follow. Time with Patient: Greater than 30
--- NOTE | 2025-04-13 12:45 | P.PN ---
Subjective Patient is seen for follow-up for acute kidney injury. He is maintained on bicarb drip for significant metabolic acidosis which has not improved much. Blood pressure remains low with systolic in the 80s and 90s Blood cultures and urine cultures are growing Proteus Mirabella's Maintained on midodrine Urine output remains marginal with 450 mL charted for 24 hours. Patient refused midodrine earlier this morning No significant complaints today. No complaints of shortness of breath. Objective - Vital Signs Vital signs: Vital Signs Temp 99.0 F 04/13/25 09:30 Pulse 105 H 04/13/25 09:30 Resp 16 04/13/25 09:30 BP 93/58 04/13/25 09:30 Pulse Ox 93 L 04/13/25 09:30 FiO2 Intake & Output 04/12/25 04/13/25 04/13/25 18:59 06:59 18:59 Output Total 250 200 Balance -250 -200 Weight 144.5 kg Output: Urine 250 200 Other: Voiding Method Indwelling Catheter Indwelling Catheter Indwelling Catheter - Exam Patient is awake, comfortable, no acute distress Obese Examination of the heart S1 and S2 Examination of the lungs decreased breath sounds at the bases Abdomen is soft obese Examination lower extremity shows edema 3+ bilaterally with chronic skin changes and scrotal edema - Labs CBC & Chem 7: 04/13/25 05:16 04/13/25 05:16 Labs: Abnormal Lab Results - Last 24 Hours (Table) 04/12/25 04/12/25 04/12/25 Range/Units 12:21 12:21 16:59 RBC 2.88 L (4.40-5.60) 10*6/uL Hgb 8.1 L (13.0-17.0) g/dL Hct 24.4 L (39.6-50.0) % Plt Count 72 L (140-440) 10*3/uL Sodium 130 L (137-145) mmol/L Carbon Dioxide 12 L (22-30) mmol/L BUN 61 H (9-20) mg/dL Creatinine 3.47 H (0.66-1.25) mg/dL Glucose 177 H (74-99) mg/dL POC Glucose (mg/dL) 204 H (70-110) mg/dL Calcium 7.3 L (8.4-10.2) mg/dL Magnesium 1.5 L (1.6-2.3) mg/dL 04/12/25 04/13/25 04/13/25 Range/Units 20:22 03:50 05:16 RBC 3.04 L (4.40-5.60) 10*6/uL Hgb 8.4 L (13.0-17.0) g/dL Hct 25.8 L (39.6-50.0) % Plt Count 76 L (140-440) 10*3/uL Sodium (137-145) mmol/L Carbon Dioxide (22-30) mmol/L BUN (9-20) mg/dL Creatinine (0.66-1.25) mg/dL Glucose (74-99) mg/dL POC Glucose (mg/dL) 276 H 218 H (70-110) mg/dL Calcium (8.4-10.2) mg/dL Magnesium (1.6-2.3) mg/dL 04/13/25 04/13/25 04/13/25 Range/Units 05:16 06:08 11:39 RBC (4.40-5.60) 10*6/uL Hgb (13.0-17.0) g/dL Hct (39.6-50.0) % Plt Count (140-440) 10*3/uL Sodium 128 L (137-145) mmol/L Carbon Dioxide 11 L (22-30) mmol/L BUN 64 H (9-20) mg/dL Creatinine 3.59 H (0.66-1.25) mg/dL Glucose 195 H (74-99) mg/dL POC Glucose (mg/dL) 240 H 220 H (70-110) mg/dL Calcium 7.3 L (8.4-10.2) mg/dL Magnesium (1.6-2.3) mg/dL Microbiology - Last 24 Hours (Table) 04/09/25 21:54 Blood Culture Gram Stain - Final Blood Blood Culture - Final Proteus mirabilis Molecular ID 04/11/25 00:52 Urine Culture - Preliminary Urine,Clean Catch Proteus mirabilis Assessment and Plan Assessment: 1. Acute kidney injury, ATN, oliguric secondary to hypotension and sepsis. UA suggestive of UTI. No obstruction noted on ultrasound of the kidneys 2. Gram-negative bacteremia from urinary tract infection maintained on IV antibiotics 3. Metabolic acidosis associated with acute kidney injury and lactic acidosis, maintained on bicarb drip 4. Hypomagnesemia 5. Anemia with no active bleeding noted, recent episode of hematuria after patient pulling out East catheter. Now resolved 6. Significant lower extremity edema and scrotal edema Plan: Continue with IV bicarb, IV push sodium bicarb x 2 Repeat 1 L fluid bolus today Patient will need pressors if he continues to remain hypotensive. Continue with midodrine Continue oral sodium bicarb Discussed possible need for renal replacement therapy if renal function continues to decline Continue with antibiotics
--- NOTE | 2025-04-13 15:18 | P.PN ---
Subjective Progress Note Date: 04/13/25 Hospital Course: Patient is a pleasant 64-year-old male with a past medical history hypertension, hyperlipidemia, CHF on daily diuretic with torsemide, insulin-dependent diabetes mellitus, CKD stage IIIb, anemia, chronic diarrhea on daily Imodium, BPH with urinary incontinence, and rheumatoid arthritis. He is a resident of [facility] and is wheelchair/bedbound requiring Jessi lift for transfers at baseline. He presented to our facility secondary to reports of concerns of urinary tract infection, scrotal edema, and urinary retention. Per transfer documentation, a East catheter was placed and patient pulled out resulting in significant bleeding from meatus. Upon arrival to our facility, patient underwent evaluation in the emergency department. Vital signs upon arrival show blood pressure 140/69, heart rate 117, respiratory rate 20, temp 98.6 F, and SpO2 of 97% on room air. EKG completed showing sinus tachycardia 121 bpm. Chest x-ray showing mild pulmonary vascular congestion consistent with mild CHF. Labs completed and reviewed. CBC showing leukocytosis with WBC count of 16.08 and normocytic anemia with hemoglobin of 10.1. Coagulation profile unremarkable. BMP showing hyponatremia with sodium of 133 and high anion gap metabolic acidosis with chloride of 108, bicarb of 12, and anion gap of 13 and renal function consistent with known CKD with BUN of 49, creatinine 2.73, and GFR of 24 with baseline creatinine around 2.7. Blood glucose 199. Lactic acid 1.6. Liver profile unremarkable with exception of low total protein of 5.7 and albumin of 2.7. Troponin was negative at less than 0.012. Urinalysis red in color turbid appearance positive for protein, glucose, blood, leukocyte esterase, greater than 182 RBCs and 76 WBCs. Patient was started on IV antibiotics with Rocephin and admitted under services with consultation to urology. Urinary retention improved and bladder scans currently showing less than 30 cc. Patient reports continued urinary incontinence (but this is his baseline) and currently denies difficulties with urination or feeling as though he is retaining. Renal function worsening from yesterday with BUN of 49, creatinine 2.79 and today BUN of 55, creatinine 3.50, GFR of 18. Nephrology consulted. Blood culture preliminarily positive for Proteus mirabillis. Patient is on Rocephin 2 g daily. Infectious disease consulted. On 04/11/25 patient's sepsis worsening and he developed GENARO on CKD with oliguria. His blood pressures also worsened with pt becoming significantly hypotensive with BP decreasing as low as 70/50. Pt was given fluid resuscitation, Casting Finisher consulted and pt started on Bicarb infusion. After discussion with urology, Coude East catheter inserted for strict monitoring of I's and O's with worsening sepsis, GENARO and oliguria. Physical exam: Patient seen and fully evaluated at bedside this morning. He was resting in bed, appears comfortable. He denies having any pain or complaints at this time. Patient updated on blood culture and urine culture findings and continued plan of care. All questions answered at this time. Patient asked provider to update his daughter this afternoon and inform patient will call and update her med plan. Patient denies having any further questions, needs, concerns, or complaints at this time. Vital signs reviewed General: Nontoxic, no distress and appears stated age. Derm: Skin warm and dry, normal coloration for ethnicity. Head: Atraumatic, normocephalic and symmetric. Eyes: EOM's intact, no lid lag, and anicteric sclera Mouth: no lip lesions, mucus membranes moist Cardiovascular: regular rate and rhythm with normal S1S2, no murmur, positive posterior tibial pulses bilaterally, and cap refill < 2 seconds. Lungs: Respirations even, regular, and unlabored on room air. Lungs CTA bilaterally, no rhonchi, no rales, no wheezing, and no accessory muscle usage. GI/: soft, nontender to palpation, no guarding, no appreciable organomegaly. Scrotal edema present. Ext: ROM intact. No gross muscle atrophy, 2+ bilateral lower extremity edema and venous stasis dermatitis, no contractures Neuro: Speech clear, face symmetrical and CN II-XII grossly intact with no noted focal neuro deficits Psych: Alert and oriented to person, place, time, and situation. Appropriate and pleasant affect. Assessment and Plan of Care: Proteus mirabillis UTI with Sepsis on arrival Proteus mirabillis Bacteremia, multidrug-resistant, secondary to above Hypotension and sinus tachycardia, secondary to sepsis Severe sepsis, secondary to above Thrombocytopenia, suspect reactive secondary to sepsis Leukocytosis, resolved BPH with urinary incontinence Urinary retention, resolved Acute hematuria, resolved -Blood culture and urine culture both resulting positive for multi drug resistant Proteus mirabillis. -Rocephin discontinued and patient started on cefepime 1 g every 12 hours per culture and sensitivity report. -Infectious disease following, reviewed documentation in chart -Continue bicarb infusion and midodrine increased to 10 mg 3 times daily -Coude East catheter inserted for strict monitoring of I's and O's secondary to worsening sepsis, GENARO and oliguria. -Urology following, discussed plan of care in detail with Dr. Nick -Close monitoring of I's and O's -Continue Flomax 0.4 mg daily. Acute kidney injury on CKD stage IIIb, likely secondary to sepsis and hypotension Oliguria High anion gap metabolic acidosis Acute on chronic anemia of chronic disease Hold lisinopril and torsemide secondary to acute kidney injury and mild hypotension. -Nephrology following, discussed plan of care with Dr. Packer. Ultrasound kidneys/ureters/bladder reported to be unremarkable. Strict monitoring of I's and O's. Documented output over the past 24 hours is 450 cc. -Continue bicarb infusion Hypomagnesemia Magnesium 1.7. Patient started on Mag-Ox 400 mg daily. We will continue to monitor closely with repeat a.m. labs and place additional orders if indicated based upon these findings. Insulin-dependent diabetes mellitus with hyperglycemia -Hold Trulicity and metformin. Continue insulin glargine 40 units daily along with glycemic protocol and NovoLog sliding scale. Chronic Congestive heart failure, unknown type as no echo report is available for review at our facility Hypertension Hyperlipidemia Continue daily medication regiment with fenofibrate 160 mg daily. Lisinopril and torsemide held at this time secondary to worsening renal function and hypotension. Pressure ulcer of sacrum/coccyx and left heel, present on admission Consult placed to wound care. Data and imaging reviewed: Morning labs reviewed. CBC showing bicytopenia with hemoglobin of 8.4 and platelet count of 76. BMP showing hyponatremia with sodium of 128, chloride 103, bicarb of 11, and anion gap of 14 with worsening renal function with BUN of 64, creatinine 3.59, and GFR of 17. Blood glucose was 195. Lactic acid was 1.3. Magnesium 1.7. Ultrasound kidneys/ureters/bladder was reviewed reporting to be unremarkable with no signs of hydronephrosis. Vital signs reviewed. Blood pressure 93/58, heart rate 105, respiratory rate 16, temp 99.0 F, and SpO2 of 93% on room air. CODE STATUS: Full code DVT prophylaxis: OPAL mckenzie and SCDs Anticipated discharge date: Pending clinical course Anticipated discharge place: Return to [facility] Patient was seen independently by Nurse Practitioner. This document was prepared using [employer] dictation software. Please allow for errors in photographers' model while rare they do occur. Florentino Sun NP rendered care for this patient independently, reviewed the findings and plan as documented in the note above and agree with plan. I did not physically speak with or examine the patient on this date. Objective - Vital Signs Vital signs: Vital Signs Temp 98.4 F 04/13/25 04:00 Pulse 117 H 04/13/25 04:00 Resp 24 04/13/25 04:00 BP 111/62 04/13/25 06:39 Pulse Ox 90 L 04/13/25 04:00 FiO2 Intake & Output 04/12/25 04/13/25 04/13/25 18:59 06:59 18:59 Output Total 250 200 Balance -250 -200 Weight 144.5 kg Output: Urine 250 200 Other: Voiding Method Indwelling Catheter Indwelling Catheter - Labs CBC & Chem 7: 04/13/25 05:16 04/13/25 05:16 Labs: Abnormal Lab Results - Last 24 Hours (Table) 04/12/25 04/12/25 04/12/25 Range/Units 11:55 12:21 12:21 RBC 2.88 L (4.40-5.60) 10*6/uL Hgb 8.1 L (13.0-17.0) g/dL Hct 24.4 L (39.6-50.0) % Plt Count 72 L (140-440) 10*3/uL Sodium 130 L (137-145) mmol/L Carbon Dioxide 12 L (22-30) mmol/L BUN 61 H (9-20) mg/dL Creatinine 3.47 H (0.66-1.25) mg/dL Glucose 177 H (74-99) mg/dL POC Glucose (mg/dL) 212 H (70-110) mg/dL Calcium 7.3 L (8.4-10.2) mg/dL Magnesium 1.5 L (1.6-2.3) mg/dL 04/12/25 04/12/25 04/13/25 Range/Units 16:59 20:22 03:50 RBC (4.40-5.60) 10*6/uL Hgb (13.0-17.0) g/dL Hct (39.6-50.0) % Plt Count (140-440) 10*3/uL Sodium (137-145) mmol/L Carbon Dioxide (22-30) mmol/L BUN (9-20) mg/dL Creatinine (0.66-1.25) mg/dL Glucose (74-99) mg/dL POC Glucose (mg/dL) 204 H 276 H 218 H (70-110) mg/dL Calcium (8.4-10.2) mg/dL Magnesium (1.6-2.3) mg/dL 04/13/25 04/13/25 04/13/25 Range/Units 05:16 05:16 06:08 RBC 3.04 L (4.40-5.60) 10*6/uL Hgb 8.4 L (13.0-17.0) g/dL Hct 25.8 L (39.6-50.0) % Plt Count 76 L (140-440) 10*3/uL Sodium 128 L (137-145) mmol/L Carbon Dioxide 11 L (22-30) mmol/L BUN 64 H (9-20) mg/dL Creatinine 3.59 H (0.66-1.25) mg/dL Glucose 195 H (74-99) mg/dL POC Glucose (mg/dL) 240 H (70-110) mg/dL Calcium 7.3 L (8.4-10.2) mg/dL Magnesium (1.6-2.3) mg/dL Microbiology - Last 24 Hours (Table) 04/09/25 21:54 Blood Culture Gram Stain - Final Blood Blood Culture - Final Proteus mirabilis Molecular ID 04/11/25 00:52 Urine Culture - Preliminary Urine,Clean Catch Proteus mirabilis
[2025-04-13 16:36] LABS: Glucose,Whole Blood 203 mg/dL (70-110)
[2025-04-13] MEDS: MAGNESIUM OXIDE 400 MG TAB PO SCH (17:34)
[2025-04-13 20:24] LABS: Glucose,Whole Blood 266 mg/dL (70-110)
[2025-04-14 06:16] LABS: Glucose,Whole Blood 203 mg/dL (70-110)
--- NOTE | 2025-04-14 08:39 | P.PN ---
Subjective Progress Note Date: 04/13/25 Principal diagnosis: Reason for follow-up is UTI/bacteremia Patient is a 64-year-old male with a past medical history significant for Diabetes Mellitus, GERD/Reflux, Hyperlipidemia, Hypertension, Osteoarthritis (OA), Prostate Disorder, Rheumatoid Arthritis (RA), Skin Disorder resident of the [facility] resident patient did have a chronic indwelling East cath eter brought to the hospital after accidentally pulling out his East with hematuria did have a positive blood culture with Proteus probably this consultation. On today's evaluation that is 04/13/2024, patient did have a temperature of 98.4 F this morning, the patient is more awake this morning and denies having any chills, patient is on 2 L nasal oxygen and breathing comfortably no chest pain or cough, the patient did not have any nausea vomiting abdominal pain or any diarrhea. Patient white count 6.50 blood and urine with a Proteus Mirabelis Objective - Vital Signs Vital signs: Vital Signs Temp 99.0 F 04/13/25 09:30 Pulse 105 H 04/13/25 09:30 Resp 16 04/13/25 09:30 BP 93/58 04/13/25 09:30 Pulse Ox 93 L 04/13/25 09:30 FiO2 Intake & Output 04/12/25 04/13/25 04/13/25 18:59 06:59 18:59 Output Total 250 200 Balance -250 -200 Weight 144.5 kg Output: Urine 250 200 Other: Voiding Method Indwelling Catheter Indwelling Catheter Indwelling Catheter - Exam GENERAL DESCRIPTION: Middle-age male lying in bed in no distress RESPIRATORY SYSTEM: Unlabored breathing , decreased breath sounds at bases HEART: S1 S2 regular rate and rhythm , ABDOMEN: Soft , no tenderness EXTREMITIES: Diffuse swelling to bilateral lower extremity - Labs CBC & Chem 7: 04/13/25 05:16 04/13/25 05:16 Labs: Abnormal Lab Results - Last 24 Hours (Table) 04/12/25 04/12/25 04/12/25 Range/Units 12:21 16:59 20:22 RBC (4.40-5.60) 10*6/uL Hgb (13.0-17.0) g/dL Hct (39.6-50.0) % Plt Count 72 L (140-440) 10*3/uL Sodium (137-145) mmol/L Carbon Dioxide (22-30) mmol/L BUN (9-20) mg/dL Creatinine (0.66-1.25) mg/dL Glucose (74-99) mg/dL POC Glucose (mg/dL) 204 H 276 H (70-110) mg/dL Calcium (8.4-10.2) mg/dL 04/13/25 04/13/25 04/13/25 Range/Units 03:50 05:16 05:16 RBC 3.04 L (4.40-5.60) 10*6/uL Hgb 8.4 L (13.0-17.0) g/dL Hct 25.8 L (39.6-50.0) % Plt Count 76 L (140-440) 10*3/uL Sodium 128 L (137-145) mmol/L Carbon Dioxide 11 L (22-30) mmol/L BUN 64 H (9-20) mg/dL Creatinine 3.59 H (0.66-1.25) mg/dL Glucose 195 H (74-99) mg/dL POC Glucose (mg/dL) 218 H (70-110) mg/dL Calcium 7.3 L (8.4-10.2) mg/dL 04/13/25 04/13/25 Range/Units 06:08 11:39 RBC (4.40-5.60) 10*6/uL Hgb (13.0-17.0) g/dL Hct (39.6-50.0) % Plt Count (140-440) 10*3/uL Sodium (137-145) mmol/L Carbon Dioxide (22-30) mmol/L BUN (9-20) mg/dL Creatinine (0.66-1.25) mg/dL Glucose (74-99) mg/dL POC Glucose (mg/dL) 240 H 220 H (70-110) mg/dL Calcium (8.4-10.2) mg/dL Microbiology - Last 24 Hours (Table) 04/09/25 21:54 Blood Culture Gram Stain - Final Blood Blood Culture - Final Proteus mirabilis Molecular ID 04/11/25 00:52 Urine Culture - Preliminary Urine,Clean Catch Proteus mirabilis Assessment and Plan (1) Bacteremia Current Visit: Yes Status: Acute Code(s): R78.81 - BACTEREMIA SNOMED Code (s): 6596664 (2) Penicillin allergy Current Visit: Yes Status: Acute Code(s): Z88.0 - ALLERGY STATUS TO PENICILLIN SNOMED Code(s): 43018255 (3) Sepsis Current Visit: Yes Status: Acute Code(s): A41.9 - SEPSIS, UNSPECIFIED ORGANISM SNOMED Code(s): 39840379 (4) UTI (urinary tract infection) Current Visit: Yes Status: Acute Code(s): N39.0 - URINARY TRACT INFECTION, SITE NOT SPECIFIED SNOMED Code(s): 97906657 Plan: 1patient with sepsis in this patient who did have fever tachycardia hypotension elevated white count elevated lactic acid meeting currently//sepsis now with evidence of gram-negative bacteremia source likely urinary 2-penicillin allergy that we will limit number of antibiotic safe use 2-patient blood and urine culture have been finalized with more resistant Proteus, for the patient is currently being treated with cefepime to continue and monitor clinical course closely Dictation was produced using [employer] dictation software. please excuse any grammatical, word or spelling errors. Time with Patient: Less than 30
[2025-04-14 12:02] LABS: Glucose,Whole Blood 193 mg/dL (70-110)
[2025-04-14 12:18] LABS: HCT 24.9 % (39.6-50.0); HGB 8.3 g/dL (13.0-17.0); Immature Platelet Fraction 1.8 % (1.1-6.1); MCHC 33.3 g/dL (32.0-37.0); MCV 84.1 fL (80.0-97.0); Mean Platelet Volume 10.8 fL (9.5-12.2); RBC 2.96 10*6/uL (4.40-5.60); RDW 15.2 % (11.5-14.5); WBC 9.67 10*3/uL (4.50-10.00)
[2025-04-14 12:21] LABS: Platelet Count 81 10*3/uL (140-440)
[2025-04-14 12:32] LABS: African American GFR (CKD) 22 (>60 ml/min/1.73 sqM); Anion Gap 10 mmol/L; Blood Urea Nitrogen 65 mg/dL (9-20); Carbon Dioxide 16 mmol/L (22-30); Chloride 104 mmol/L (98-107); Glucose 181 mg/dL (74-99); Magnesium 1.9 mg/dL (1.6-2.3); Non-African American GFR(CKD) 19 (>60 ml/min/1.73 sqM); Potassium 3.5 mmol/L (3.5-5.1); Sodium 130 mmol/L (137-145)
--- NOTE | 2025-04-14 13:03 | P.PN ---
Subjective Progress Note Date: 04/14/25 Hospital Course: Patient is a pleasant 64-year-old male with a past medical history hypertension, hyperlipidemia, CHF on daily diuretic with torsemide, insulin-dependent diabetes mellitus, CKD stage IIIb, anemia, chronic diarrhea on daily Imodium, BPH with urinary incontinence, and rheumatoid arthritis. He is a resident of [facility] and is wheelchair/bedbound requiring Jessi lift for transfers at baseline. He presented to our facility secondary to reports of concerns of urinary tract infection, scrotal edema, and urinary retention. Per transfer documentation, a East catheter was placed and patient pulled out resulting in significant bleeding from meatus. Upon arrival to our facility, patient underwent evaluation in the emergency department. Vital signs upon arrival show blood pressure 140/69, heart rate 117, respiratory rate 20, temp 98.6 F, and SpO2 of 97% on room air. EKG completed showing sinus tachycardia 121 bpm. Chest x-ray showing mild pulmonary vascular congestion consistent with mild CHF. Labs completed and reviewed. CBC showing leukocytosis with WBC count of 16.08 and normocytic anemia with hemoglobin of 10.1. Coagulation profile unremarkable. BMP showing hyponatremia with sodium of 133 and high anion gap metabolic acidosis with chloride of 108, bicarb of 12, and anion gap of 13 and renal function consistent with known CKD with BUN of 49, creatinine 2.73, and GFR of 24 with baseline creatinine around 2.7. Blood glucose 199. Lactic acid 1.6. Liver profile unremarkable with exception of low total protein of 5.7 and albumin of 2.7. Troponin was negative at less than 0.012. Urinalysis red in color turbid appearance positive for protein, glucose, blood, leukocyte esterase, greater than 182 RBCs and 76 WBCs. Patient was started on IV antibiotics with Rocephin and admitted under services with consultation to urology. Urinary retention improved and bladder scans currently showing less than 30 cc. Patient reports continued urinary incontinence (but this is his baseline) and currently denies difficulties with urination or feeling as though he is retaining. Renal function worsening from yesterday with BUN of 49, creatinine 2.79 and today BUN of 55, creatinine 3.50, GFR of 18. Nephrology consulted. Blood culture preliminarily positive for Proteus mirabillis. Patient is on Rocephin 2 g daily. Infectious disease consulted. On 04/11/25 patient's sepsis worsening and he developed GENARO on CKD with oliguria. His blood pressures also worsened with pt becoming significantly hypotensive with BP decreasing as low as 70/50. Pt was given fluid resuscitation, Puttier consulted and pt started on Bicarb infusion. After discussion with urology, Coude East catheter inserted for strict monitoring of I's and O's with worsening sepsis, GENARO and oliguria. Physical exam: Patient seen and fully evaluated at bedside this morning. He was resting in bed, appears comfortable. He reported some mild discomfort this morning and was assisted with repositioning in bed. He reports repositioning relieve discomfort. East catheter remains in place with cloudy yellow urine in tubing and collection bag. Patient continues to deny having any headache, lightheadedness, dizziness, chest pain, palpitations, shortness of breath, abdominal pain, nausea or vomiting. Orders were previously placed for Silvestre wraps to bilateral lower extremities and elevation, however RN reports patient refused. Discussed with patient strong recommendations of Silvestre wraps to bilateral lower extremities with mild elevation to assist with chronic lower extremity edema and seepage. Patient states he is in agreement and will allow RN to wrap legs this morning. Vital signs reviewed and stable General: Nontoxic, no distress and appears stated age. Derm: Skin warm and dry, normal coloration for ethnicity. Head: Atraumatic, normocephalic and symmetric. Eyes: EOM's intact, no lid lag, and anicteric sclera Mouth: no lip lesions, mucus membranes moist Cardiovascular: regular rate and rhythm with normal S1S2, no murmur, positive posterior tibial pulses bilaterally, and cap refill < 2 seconds. Lungs: Respirations even, regular, and unlabored on room air. Lungs CTA bilaterally, no rhonchi, no rales, no wheezing, and no accessory muscle usage. GI/: soft, nontender to palpation, no guarding, no appreciable organomegaly. Ext: ROM intact. No gross muscle atrophy, 2+ bilateral lower extremity edema and venous stasis dermatitis, no contractures Neuro: Speech clear, face symmetrical and CN II-XII grossly intact with no noted focal neuro deficits Psych: Alert and oriented to person, place, time, and situation. Appropriate and pleasant affect. Assessment and Plan of Care: Proteus mirabillis UTI with Sepsis on arrival Proteus mirabillis Bacteremia, multidrug-resistant, secondary to above Hypotension and sinus tachycardia, secondary to sepsis Severe sepsis, secondary to above Thrombocytopenia, suspect reactive secondary to sepsis Leukocytosis, resolved BPH with urinary incontinence Urinary retention, resolved Acute hematuria, resolved -Blood culture and urine culture both resulting positive for multi drug resistant Proteus mirabillis. -Rocephin discontinued and patient started on cefepime 1 g every 12 hours per culture and sensitivity report. -Infectious disease following, reviewed documentation in chart -Continue bicarb infusion and midodrine 10 mg 3 times daily -Coude East catheter inserted on 04/11/2025 for strict monitoring of I's and O's secondary to worsening sepsis, GENARO and oliguria. -Urology following, reviewed documentation in chart -Close monitoring of I's and O's -Continue Flomax 0.4 mg daily. Acute kidney injury on CKD stage IIIb, likely secondary to sepsis and hypotension Oliguria High anion gap metabolic acidosis Acute on chronic anemia of chronic disease Hold lisinopril and torsemide secondary to acute kidney injury and mild hypotension. -Nephrology following, discussed plan of care with Dr. Packer and an additional amp of bicarb to be administered today in addition to continuation of bicarb infusion Ultrasound kidneys/ureters/bladder reported to be unremarkable. Strict monitoring of I's and O's. Documented output over the past 24 hours is 750 cc. -Continue bicarb infusion Hypomagnesemia Magnesium 1.9 this morning.. Continue Mag-Ox 400 mg daily. We will continue to monitor closely with repeat a.m. labs and place additional orders if indicated based upon these findings. Insulin-dependent diabetes mellitus with hyperglycemia -Hold Trulicity and metformin. Continue insulin glargine 40 units daily along with glycemic protocol and NovoLog sliding scale. Chronic Congestive heart failure, unknown type as no echo report is available for review at our facility Chronic lower extremity edema Hypertension Hyperlipidemia Continue daily medication regiment with fenofibrate 160 mg daily. Lisinopril and torsemide held at this time secondary to worsening renal function and hy potension. Silvestre wraps to bilateral legs for compression and recommend elevation Pressure ulcer of sacrum/coccyx and left heel, present on admission Consult placed to wound care. Data and imaging reviewed: Morning labs reviewed. CBC showing bicytopenia with hemoglobin of 8.3 and platelet count of 81. BMP showing hyponatremia with sodium of 130, chloride 104, bicarb 16, and anion gap of 10 with renal function showing BUN of 65, creatinine 3.30, GFR of 19. Blood glucose 181. Magnesium 1.9. Vital signs reviewed. Blood pressure 108/65, heart rate 94, respiratory rate 16, temp 98.2 F, and SpO2 of 94% on room air CODE STATUS: Full code DVT prophylaxis: OPAL magaly and SCDs Anticipated discharge date: Pending clinical course Anticipated discharge place: Return to [facility] Patient was seen independently by Nurse Practitioner. This document was prepared using [email or web address] dictation software. Please allow for errors in regional retail sales manager while rare they do occur. Florentino Sun NP rendered care for this patient independently, reviewed the f indings and plan as documented in the note above and agree with plan. I did not physically speak with or examine the patient on this date. Objective - Vital Signs Vital signs: Vital Signs Temp 98.2 F 04/14/25 08:05 Pulse 94 04/14/25 08:05 Resp 16 04/14/25 08:05 BP 108/65 04/14/25 08:05 Pulse Ox 94 L 04/14/25 08:05 FiO2 Intake & Output 04/13/25 04/14/25 04/14/25 18:59 06:59 18:59 Weight 150.5 kg Other: Voiding Method Indwelling Catheter Indwelling Catheter Indwelling Catheter - Labs CBC & Chem 7: 04/14/25 11:49 04/14/25 11:49 Labs: Abnormal Lab Results - Last 24 Hours (Table) 04/13/25 04/13/25 04/13/25 Range/Units 11:39 16:34 20:22 POC Glucose (mg/dL) 220 H 203 H 266 H (70-110) mg/dL 04/14/25 Range/Units 06:15 POC Glucose (mg/dL) 203 H (70-110) mg/dL Microbiology - Last 24 Hours (Table) 04/11/25 00:52 Urine Culture - Final Urine,Clean Catch Proteus mirabilis
--- NOTE | 2025-04-14 13:30 | P.PN ---
Subjective Patient is seen for follow-up for acute kidney injury. He is maintained on bicarb drip for significant metabolic acidosis Blood pressure has improved. Blood cultures and urine cultures are growing Proteus Mirabillis Maintained on midodrine Urine output has improved. Serum creatinine improved to 3.3 today Objective - Vital Signs Vital signs: Vital Signs Temp 98.2 F 04/14/25 11:45 Pulse 92 04/14/25 11:45 Resp 20 04/14/25 11:45 BP 108/65 04/14/25 11:45 Pulse Ox 93 L 04/14/25 11:45 FiO2 Intake & Output 04/13/25 04/14/25 04/14/25 18:59 06:59 18:59 Output Total 750 Balance -750 Weight 150.5 kg Output: Urine 750 Other: Voiding Method Indwelling Catheter Indwelling Catheter Indwelling Catheter - Exam Patient is awake, comfortable, no acute distress Obese Examination of the heart S1 and S2 Examination of the lungs decreased breath sounds at the bases Abdomen is soft obese Examination lower extremity shows edema 3+ bilaterally with chronic skin changes and scrotal edema - Labs CBC & Chem 7: 04/14/25 11:49 04/14/25 11:49 Labs: Abnormal Lab Results - Last 24 Hours (Table) 04/13/25 04/13/25 04/14/25 Range/Units 16:34 20:22 06:15 RBC (4.40-5.60) 10*6/uL Hgb (13.0-17.0) g/dL Hct (39.6-50.0) % Plt Count (140-440) 10*3/uL Sodium (137-145) mmol/L Carbon Dioxide (22-30) mmol/L BUN (9-20) mg/dL Creatinine (0.66-1.25) mg/dL Glucose (74-99) mg/dL POC Glucose (mg/dL) 203 H 266 H 203 H (70-110) mg/dL Calcium (8.4-10.2) mg/dL 04/14/25 04/14/25 04/14/25 Range/Units 11:49 11:49 12:00 RBC 2.96 L (4.40-5.60) 10*6/uL Hgb 8.3 L (13.0-17.0) g/dL Hct 24.9 L (39.6-50.0) % Plt Count 81 L (140-440) 10*3/uL Sodium 130 L (137-145) mmol/L Carbon Dioxide 16 L (22-30) mmol/L BUN 65 H (9-20) mg/dL Creatinine 3.30 H (0.66-1.25) mg/dL Glucose 181 H (74-99) mg/dL POC Glucose (mg/dL) 193 H (70-110) mg/dL Calcium 7.0 L (8.4-10.2) mg/dL Microbiology - Last 24 Hours (Table) 04/11/25 00:52 Urine Culture - Final Urine,Clean Catch Proteus mirabilis Assessment and Plan Assessment: 1. Acute kidney injury, ATN, oliguric secondary to hypotension and sepsis. UA suggestive of UTI. No obstruction noted on ultrasound of the kidneys 2. Gram-negative bacteremia from urinary tract infection maintained on IV antibiotics cultures are growing Proteus Mirabillis 3. Metabolic acidosis associated with acute kidney injury and lactic acidosis, maintained on bicarb drip 4. Hypomagnesemia 5. Anemia with no active bleeding noted, recent episode of hematuria after patient pulling out East catheter. Now resolved 6. Significant lower extremity edema and scrotal edema Plan: Continue with IV bicarb Continue with midodrine Continue oral sodium bicarb Continue with antibiotics Repeat labs in a.m.
--- NOTE | 2025-04-14 14:38 | P.PN ---
Subjective Progress Note Date: 04/14/25 This is a morbidly obese 64-year-old male patient, residential resident who resides at the [facility]. The patient is essentially bedridden. He states that his legs have given up and the patient has not walked for the past 1 year at least. The patient is morbidly obese. The patient also has history of hypertension and hyperlipidemia and history of congestive heart failure in addition to significant diabetes mellitus and chronic stage III kidney disease.. He also suffers from chronic anemia and chronic lower extremity edema and urinary retention related to BPH and rheumatoid arthritis. The patient is essentially bedbound requiring a Jessi lift to be transferred around. The patient apparently had a East catheter inserted at the residential and this catheter was accidentally pulled out and the patient sustained some bleeding through his urethral meatus. He was still producing some urine with positive hematuria. Denies having any scrotal pain. His urine output was quite minimal. At the same time, the patient generalized weakness and fatigue and increased chills and shakiness and there was no documented temperature. The patient was found to be initially normotensive. Tachycardic. His chest x-ray showed mild pulm vascular congestion and his white cell count was elevated at 16 with a hemoglobin 10.1 and a platelet count of 148. Normal coagulation profile. He did have an acute on top of chronic kidney injury and initial creatinine was at 2.7 and this morning is up to 3.5. He also has an anion gap metabolic acidosis with serum bicarb of 14 and a gap of 12. Most recent sodium is at 142 and potassium is at 4.5. Initial lactic acid level was 1.6) of 2.6. UA is obvio usly abnormal consistent with blood and elevated white cells and there is also +3 protein, +3 glucose and occasional bacteria. I was involved in the patient's case as the patient became progressively more hypotensive and septic. Blood pressure is on the positive for Proteus mirabilis and the patient was started on IV Rocephin given 2 g. He was already given a liter of normal saline and liter of lactated Ringer. At time of arrival to the bedside, the patient had a blood pressure of 85/56. He was on room air oxygen. Heart rate was 109. He was afebrile. He was awake and alert and communicating. He did have increased edema lower extremity and some superficial wounds in his lower extremities with fluid seeping out and weeping skin. He had a stage II heel ulcer and a stage II coccygeal ulcer. His troponins were negative. Patient was seen by urology and recommendations were not to put a East catheter especially with his recent traumatic incidents with a East catheter removal. On 04/12/2025, the patient is being seen for a follow-up. On today's evaluation, the patient is arousable and awake. He remains overall lethargic and weak. Nevertheless, hemodynamically stable and the patient has not required any pressors. Most recent BP is 88/57 and a pulse ox 95% room air oxygen. The patient has a East catheter and the patient is producing urine output. BUN 61 with a creatinine of 3.4. Serum bicarbonate 12 with a sodium level of 130. Potassium is at 3.6. The white cell count of 5.4 with a hemoglobin of 8.1 and a platelet count of 72. The patient remains on IV cefepime. The patient remains on a bicarb infusion at rate of 75 cc an hour. He is afebrile. Urine culture is positive for Proteus mirabilis. Blood cultures also positive for Proteus mirabilis, sensitive to his IV cefepime. He continues to have increased edema lower extremities with weeping skin and wound care is being provided by infectious disease. Respiratory status is stable to the patient remains on room air oxygen with a pulse ox of 95%. He is afebrile. ID is on the case. Started on midodrine for a blood pressure between 80-90 systolic. Started on oral bicarb in addition. Urology is also on the case. He continues to have scrotal edema and a East catheter has been reinserted for accurate I's and O's. Urine is clear. On 04/13/2025, patient is being seen for a follow-up. The patient is awake and alert and communicating. The biggest sluggish in his response still. Continues to be an anion gap metabolic acidosis. Serum bicarb is 11 with a gap of 14. BUN is 64 with a creatinine of 3.5 and no significant improvement in renal function over the past 24 hours. Nephrology on the case. The white cell count 6.5 with a hemoglobin 8.4. Less tachycardic. Room air oxygen with a pulse ox of 93%. Most recent BP is 93/58. Continues to have edema lower extremities bilaterally. Continues to be on IV antibiotics for Proteus septicemia the patient is currently on IV cefepime. Rest of the medications remain unchanged. On midodrine 10 mg p.o. 3 times daily. He is also on oral bicarb. He is receiving bicarb infusion at rate of 75 cc an hour and rate will be increased 225 cc an hour. [employer] on the case. Urine output is still cloudy. 04/14/2025, the patient is being seen for a follow-up. Hemodynamically stable. No fever or chills. Producing adequate amount of urine output. He remains on room air oxygen. No signs of any respiratory distress. 1 seconds at 9.6 with a hemoglobin 8.3 and a platelet count of 81. Sodium is at 130, potassium is 3.5, bicarb is at 16, BUN is 65 with a creatinine of 3.3. The urine culture in the blood patient was positive for Proteus mirabilis and the patient remains on IV cefepime. No other significant events overnight. He continues to produce adequate amount of urine output. Lower extremities are swollen and they are appropriately wrapped. Nephrology on the case. Objective - Vital Signs Vital signs: Vital Signs Temp 98.2 F 04/14/25 08:05 Pulse 94 04/14/25 08:05 Resp 16 04/14/25 08:05 BP 108/65 04/14/25 08:05 Pulse Ox 94 L 04/14/25 08:05 FiO2 Intake & Output 04/13/25 04/14/25 04/14/25 18:59 06:59 18:59 Weight 150.5 kg Other: Voiding Method Indwelling Catheter Indwelling Catheter Indwelling Catheter - Exam Vital signs reviewed and stable. Morbidly obese and the patient is currently on room air oxygen, awake and alert and communicating. He is morbidly obese with a BMI of 42.3. Does not seem to be in any respiratory distress. General: Nontoxic, no distress and appears stated age. Derm: Skin warm and dry, normal coloration for ethnicity. Head: Atraumatic, normocephalic and symmetric. Eyes: EOM's intact, no lid lag, and anicteric sclera Mouth: no lip lesions, mucus membranes moist Cardiovascular: regular rate and rhythm with normal S1S2, no murmur, positive posterior tibial pulses bilaterally, and cap refill < 2 seconds. Lungs: Respirations even, regular, and unlabored on room air. Lungs CTA bilaterally, no rhonchi, no rales, no wheezing, and no accessory muscle usage. GI/: soft, nontender to palpation, no guarding, no appreciable organomegaly. Scrotal edema present. Patient denied tenderness to scrotum on exam. Ext: ROM intact. No gross muscle atrophy, bilateral lower extremity edema, no contractures, stage II left heel ulcer, noninfected and another stage I-II sacral decub ulcer. Neuro: Speech clear, face symmetrical and CN II-XII grossly intact with no noted focal neuro deficits Psych: Alert and oriented to person, place, time, and situation. Appropriate and pleasant affect. - Labs CBC & Chem 7: 04/14/25 11:49 04/14/25 11:49 Labs: Abnormal Lab Results - Last 24 Hours (Table) 04/13/25 04/13/25 04/13/25 Range/Units 11:39 16:34 20:22 POC Glucose (mg/dL) 220 H 203 H 266 H (70-110) mg/dL 04/14/25 Range/Units 06:15 POC Glucose (mg/dL) 203 H (70-110) mg/dL Microbiology - Last 24 Hours (Table) 04/11/25 00:52 Urine Culture - Final Urine,Clean Catch Proteus mirabilis Assessment and Plan Plan: Acute gram-negative sepsis with Proteus, likely of urinary source. The patient has positive blood culture with Proteus. The patient is currently on IV cefepime. The patient has not required any pressors. Systolic blood pressure remains between 80s and 90s and the patient is producing adequate amount of urine output. The patient remains on IV fluid. East catheter is in place. The patient is currently on IV cefepime. Acute leukocytosis secondary to above, improved and the white cell count has normalized. Acute on top of chronic kidney disease, likely secondary to urinary retention and ultrasound of the kidneys obtained on 04/11/2025 showed no evidence of any hydronephrosis. East catheter was removed and the this was a traumatic East catheter insertion/removal complicated by some hematuria. Patient is currently oliguric. Nephrology on the case. Rule out underlying ATN secondary urine tract infection/sepsis, East catheter is in place and the patient has producing clear urine output and the patient is nonoliguric at this point. Nephrology and urology are both on the case. Renal function continues to be impaired and the patient continues to produce urine output, nonbloody. Mild anion gap metabolic acidosis secondary to above, currently on bicarb infusion, lactic acid level is improved and is currently down to 1.3 Anemia of chronic disease Thrombocytopenia Hematuria, due to complicated insertion/removal of East catheter. East catheter was reinserted. No active hematuria. Morbid obesity with a BMI of 42.3 Chronic lower extremity edema with lower extremity skin ulceration and weeping skin in addition to a stage II heel ulcer on the left and decub ulcer. Congestive heart failure, baseline left leg ejection fraction is unknown, echocardiogram is in progress Diabetes mellitus type 2 Chronic stage III kidney disease BPH Rheumatoid arthritis Bedridden and the patient has been nonambulatory for the past 1 year and the patient is a residential resident Hyperlipidemia Osteoarthritis Gout Obstructive sleep apnea Plan Continue bicarb infusion and a rate of 125 cc an hour Continue IV cefepime Monitor hemodynamics and no need for pressors and the patient is is on midodrine. Blood cultures were noted Renal ultrasound shows no evidence of any hydronephrosis East catheter is in place Patient currently on room air oxygen Avoid nephrotoxic agents and consult nephrology. No evidence of any hydronephrosis. Consult with urology regarding the possibility and need for another East cath eter insertion. Continue Lantus insulin 40 units daily and sliding scale coverage Consult urology and nephrology CODE STATUS is full and will continue to follow. Time with Patient: Greater than 30
[2025-04-14 16:45] LABS: Glucose,Whole Blood 232 mg/dL (70-110)
[2025-04-14 20:31] LABS: Glucose,Whole Blood 210 mg/dL (70-110)
[2025-04-15 06:09] LABS: Glucose,Whole Blood 181 mg/dL (70-110)
--- NOTE | 2025-04-15 08:43 | CDI ---
Documentation Clarification Form Date: 04/15/2025 08:28:55 AM From: Sarah Burgos RN CCDS Phone: [phone] Admit Date: 04/10/2025 03:16:00 AM Patient Name: Marcos Conti Visit Number: [id number] Discharge Date: ATTENTION: The Clinical Documentation Specialists (CDI) and [facility] Coding Staff appreciate your assistance in clarifying documentation. Please respond to the clarification below the line at the bottom and electronically sign. The CDI & [facility] Coding staff will review the response and follow-up if needed. Please note: Queries are made part of the Legal Health Record. If you have any questions, please contact the author of this message via ITS. Doctor: Rahul Beasley A Left heel pressure ulcer is documented 04/10, Wound care consult. Additional clarification regarding the stage of the pressure ulcer is requested. History/Risk Factors: 64 year old male presented to the ED for concerns of UTI, scrotal edema and urinary retention. Medical History: Pressure ulcers, Wheelchair / bedbound requiring Jessi lift for transfers at baseline, CHF, CKD 3B, Anemia, Chronic diarrhea, BPH and DM. 04/10 Clinical Indicators: Location: Left Heel Wound description: There is a smaller ulceration almost punctate on the posterior aspect of the left heel. Wound care consult, 04/10 Treatment: Heel protecting foam boots, Float heels. Foam gel fiber with foam with border Offloading Q2H Please clarify the stage of pressure ulcer left heel , if known: [ ] Stage 1 Pressure Ulcer left heel [ x ] Stage 2 Pressure Ulcer left heel [ ] Other condition, please specify [ ] Unable to determine Clinical Definitions: Stage 1 Pressure Ulcer: intact skin, non-blanching redness of local area Stage 2 Pressure Ulcer: Partial thickness, loss of dermis, pink wound bed Stage 3 Pressure Ulcer: Full thickness tissue loss Stage 4 Pressure Ulcer: Full thickness tissue loss with exposed bone, tendon, or muscle. Unstageable pressure ulcer: Full thickness tissue loss in which the base of the ulcer is covered by slough (yellow, pandey, naik, green or brown) and/or eschar (pandey, brown or black) in the wound bed. (Template Last Revised: January 2021) MTDD
--- NOTE | 2025-04-15 08:47 | CDI ---
Documentation Clarification Form Date: 04/15/2025 07:54:00 AM From: Sarah Burgos RN CCDS Phone: [phone] Admit Date: 04/10/2025 03:16:00 AM Patient Name: Marcos Conti Visit Number: [id number] Discharge Date: ATTENTION: The Clinical Documentation Specialists (CDI) and [facility] Coding Staff appreciate your assistance in clarifying documentation. Please respond to the clarification below the line at the bottom and electronically sign. The CDI & [facility] Coding staff will review the response and follow-up if needed. Please note: Queries are made part of the Legal Health Record. If you have any questions, please contact the author of this message via ITS. Doctor: Rahul Beasley A Sacrum pressure ulcer is documented 04/10, Wound care consult. Additional clarification regarding the stage of the pressure ulcer is requested. History/Risk Factors: 64 year old male presented to the ED for concerns of UTI, scrotal edema and urinary retention. Medical History: Pressure ulcers, Wheelchair / bedbound requiring Jessi lift for transfers at baseline, CHF, CKD 3B, Anemia, Chronic diarrhea, BPH and DM. 04/10 HP. Clinical Indicators: Location: Sacrum Wound description: 3cm in length, 0.5cm in width and 0.3cm in depth Treatment: Offloading utilizing wedges switching from side to side, Opitcell silver and covered with bordered foam for protection. Absorbant under pad checking hourly, Offloading Q2H Please clarify the stage of pressure ulcer of the sacrum, if known: [ ] Stage 1 Pressure Ulcer Sacrum [ ] Stage 2 Pressure Ulcer Sacrum [ x ] Other condition, please specify _Stage III pressure ulcer [ ] Unable to determine Clinical Definitions: Stage 1 Pressure Ulcer: intact skin, non-blanching redness of local area Stage 2 Pressure Ulcer: Partial thickness, loss of dermis, pink wound bed Stage 3 Pressure Ulcer: Full thickness tissue loss Stage 4 Pressure Ulcer: Full thickness tissue loss with exposed bone, tendon, or muscle. Unstageable pressure ulcer: Full thickness tissue loss in which the base of the ulcer is covered by slough (yellow, pandey, naik, green or brown) and/or eschar (pandey, brown or black) in the wound bed. (Template Last Revised: January 2021) MTDD
[2025-04-15 10:56] LABS: HCT 26.4 % (39.6-50.0); HGB 8.7 g/dL (13.0-17.0); MCV 84.9 fL (80.0-97.0); Mean Platelet Volume 9.8 fL (9.5-12.2); RBC 3.11 10*6/uL (4.40-5.60); RDW 15.3 % (11.5-14.5)
[2025-04-15 11:07] LABS: African American GFR (CKD) 24 (>60 ml/min/1.73 sqM); Anion Gap 9 mmol/L; Blood Urea Nitrogen 68 mg/dL (9-20); Calcium 7.4 mg/dL (8.4-10.2); Carbon Dioxide 19 mmol/L (22-30); Chloride 103 mmol/L (98-107); Glucose 153 mg/dL (74-99); Magnesium 1.8 mg/dL (1.6-2.3); Non-African American GFR(CKD) 20 (>60 ml/min/1.73 sqM); Potassium 3.5 mmol/L (3.5-5.1); Sodium 131 mmol/L (137-145)
[2025-04-15 11:27] LABS: Glucose,Whole Blood 162 mg/dL (70-110)
--- NOTE | 2025-04-15 11:41 | CA ---
Transthoracic Echo Report Name: Marcos Conti Age: 64 Gender: M : 1960 Exam Date: 04/15/2025 09:11 Exam Location: [facility] [place] [facility] Ht (in): 72 Wt (lb): 318 Ordering Physician: Florentino Sun Attending/Referring Phys: Compressor Station Operator Nayeli Hall RDCS Procedure CPT: Indications: bacteremia, r/o vegitative growth Cardiac Hx: Technical Quality: Fair Contrast 1: Total Dose (mL): Contrast 2: Total Dose (mL): MEASUREMENTS (Male / Female) Normal Values 2D ECHO LV Diastolic Diameter PLAX 5.7 cm 4.2 - 5.9 / 3.9 - 5.3 cm LV Systolic Diameter PLAX 4.2 cm IVS Diastolic Thickness 1.4 cm 0.6 - 1.0 / 0.6 - 0.9 cm LVPW Diastolic Thickness 1.5 cm 0.6 - 1.0 / 0.6 - 0.9 cm LV Relative Wall Thickness 0.5 RV Internal Dim ED PLAX 3.4 cm LA Systolic Diameter LX 4.3 cm 3.0 - 4.0 / 2.7 - 3.8 cm LV Diastolic Volume MOD 4C 188.3 cm??? LV Systolic Volume MOD 4C 111.2 cm??? LV Ejection Fraction MOD 4C 41.0 % LV Cardiac Index MOD 4C 2254.2 cm???/min???m??? LV Diastolic Length 4C 10.5 cm LV Systolic Length 4C 9.1 cm LV Diastolic Volume MOD 2C 221.6 cm??? LV Systolic Volume MOD 2C 115.4 cm??? LV Ejection Fraction MOD 2C 47.9 % LV Cardiac Index MOD 2C 3102.4 cm???/min???m??? LV Diastolic Length 2C 10.6 cm LV Systolic Length 2C 9.1 cm LA Volume 123.5 cm??? 18 - 58 / 22 - 52 cm??? LA Volume Index 44.5 cm???/m??? 16 - 28 cm???/m??? M-MODE Aortic Root Diameter MM 3.5 cm AV Cusp Separation MM 2.2 cm DOPPLER AV Peak Velocity 192.6 cm/s AV Peak Gradient 14.8 mmHg MV Area PHT 3.9 cm??? Mitral E Point Velocity 118.4 cm/s Mitral A Point Velocity 141.9 cm/s Mitral E to A Ratio 0.8 MV Deceleration Time 193.2 ms TR Peak Velocity 281.3 cm/s TR Peak Gradient 31.6 mmHg Right Ventricular Systolic Press 36.6 mmHg FINDINGS Left Ventricle Left ventricular ejection fraction is estimated at 50-55. Left ventricular systolic function borderline normal %. Left ventricular cavity size normal. Moderate concentric left ventricular hypertrophy. False chordae in the left ventricle (normal variant). Right Ventricle Normal right ventricular size. Mild pulmonary hypertension. Right Atrium Right atrium not well visualized. No right atrial thrombus or mass seen. Left Atrium Mildly increased left atrial diameter. Severely increased left atrial volume. Moderately increased left atrial area. Mitral Valve Structurally normal mitral valve. Mitral annular calcification. Mild mitral regurgitation. Aortic Valve Trileaflet aortic valve. Aortic valve sclerosis. No aortic valve stenosis or regurgitation. Tricuspid Valve Structurally normal tricuspid valve. Mild tricuspid regurgitation. Pulmonic Valve Structurally normal pulmonic valve. Trace pulmonic regurgitation. Pericardium No pericardial effusion. Aorta Normal size aortic root and proximal ascending aorta. CONCLUSIONS 1. Left ventricular systolic function borderline normal 2. Mild mitral and tricuspid regurgitation with mild pulmonary hypertension 3. No evidence of vegetation. Previewed by: Dr. Melani Doshi MD (Electronically Signed) Final Date: 15 April 2025 11:40
[2025-04-15 11:44] VITALS: BMI 45.0
[2025-04-15 12:18] LABS: Platelet Count 88 10*3/uL (140-440)
--- NOTE | 2025-04-15 13:24 | P.PN ---
Subjective Progress Note Date: 04/14/25 Principal diagnosis: Reason for follow-up is UTI/bacteremia Patient is a 64-year-old male with a past medical history significant for Diabetes Mellitus, GERD/Reflux, Hyperlipidemia, Hypertension, Osteoarthritis (OA), Prostate Disorder, Rheumatoid Arthritis (RA), Skin Disorder resident [facility] the local [facility] resident patient did have a chronic indwelling East cath eter brought to the hospital after accidentally pulling out his East with hematuria did have a positive blood culture with Proteus probably this consultation. On today's evaluation that is 04/14/2025, Patient is afebrile patient is currently on 2 L nasal oxygen and breathing comfortably, the patient denies any chest pain or cough, the patient denies any nausea vomiting did not have any abdominal pain and no diarrhea Patient white count is 9.67, creatinine 3.30 Objective - Vital Signs Vital signs: Vital Signs Temp 98.2 F 04/14/25 11:45 Pulse 92 04/14/25 11:45 Resp 20 04/14/25 11:45 BP 108/65 04/14/25 11:45 Pulse Ox 93 L 04/14/25 11:45 FiO2 Intake & Output 04/13/25 04/14/25 04/14/25 18:59 06:59 18:59 Output Total 750 Balance -750 Weight 150.5 kg Output: Urine 750 Other: Voiding Method Indwelling Catheter Indwelling Catheter Indwelling Catheter - Exam GENERAL DESCRIPTION: Middle-age male lying in bed in no distress RESPIRATORY SYSTEM: Unlabored breathing , decreased breath sounds at bases HEART: S1 S2 regular rate and rhythm , ABDOMEN: Soft , no tenderness EXTREMITIES: Diffuse swelling to bilateral lower extremity - Labs CBC & Chem 7: 04/15/25 10:35 04/15/25 10:35 Labs: Abnormal Lab Results - Last 24 Hours (Table) 04/13/25 04/14/25 04/14/25 Range/Units 20:22 06:15 11:49 RBC 2.96 L (4.40-5.60) 10*6/uL Hgb 8.3 L (13.0-17.0) g/dL Hct 24.9 L (39.6-50.0) % Plt Count 81 L (140-440) 10*3/uL Sodium (137-145) mmol/L Carbon Dioxide (22-30) mmol/L BUN (9-20) mg/dL Creatinine (0.66-1.25) mg/dL Glucose (74-99) mg/dL POC Glucose (mg/dL) 266 H 203 H (70-110) mg/dL Calcium (8.4-10.2) mg/dL 04/14/25 04/14/25 04/14/25 Range/Units 11:49 12:00 16:43 RBC (4.40-5.60) 10*6/uL Hgb (13.0-17.0) g/dL Hct (39.6-50.0) % Plt Count (140-440) 10*3/uL Sodium 130 L (137-145) mmol/L Carbon Dioxide 16 L (22-30) mmol/L BUN 65 H (9-20) mg/dL Creatinine 3.30 H (0.66-1.25) mg/dL Glucose 181 H (74-99) mg/dL POC Glucose (mg/dL) 193 H 232 H (70-110) mg/dL Calcium 7.0 L (8.4-10.2) mg/dL Assessment and Plan (1) Bacteremia Current Visit: Yes Status: Acute Code(s): R78.81 - BACTEREMIA SNOMED Code(s): 9560933 (2) Penicillin allergy Current Visit: Yes Status: Acute Code(s): Z88.0 - ALLERGY STATUS TO PENICILLIN SNOMED Code(s): 50912191 (3) Sepsis Current Visit: Yes Status: Acute Code(s): A41.9 - SEPSIS, UNSPECIFIED ORGANISM SNOMED Code(s): 72584408 (4) UTI (urinary tract infection) Current Visit: Yes Status: Acute Code(s): N39.0 - URINARY TRACT INFECTION, SITE NOT SPECIFIED SNOMED Code(s): 19892894 Plan: 1patient with sepsis in this patient who did have fever tachycardia hypotension elevated white count elevated lactic acid meeting currently//sepsis now with evidence of gram-negative bacteremia source likely urinary 2-penicillin allergy that we will limit number of antibiotic safe use 2-patient blood and urine culture have been finalized with more resistant Proteus 3- the patient is currently being treated with cefepime to continue and continue supportive care Dictation was produced using [employer] dictation software. please excuse any gra mmatical, word or spelling errors. Time with Patient: Less than 30
[2025-04-15] MEDS ORDERED: bisacodyL 5 MG TABLET.DR PO PRN (14:37)
--- NOTE | 2025-04-15 14:40 | P.PN ---
Subjective Progress Note Date: 04/15/25 Hospital Course: Patient is a pleasant 64-year-old male with a past medical history hypertension, hyperlipidemia, CHF on daily diuretic with torsemide, insulin-dependent diabetes mellitus, CKD stage IIIb, anemia, chronic diarrhea on daily Imodium, BPH with urinary incontinence, and rheumatoid arthritis. He is a resident of [facility] and is wheelchair/bedbound requiring Jessi lift for transfers at baseline. He presented to our facility secondary to reports of concerns of urinary tract infection, scrotal edema, and urinary retention. Per transfer documentation, a East catheter was placed and patient pulled out resulting in significant bleeding from meatus. Upon arrival to our facility, patient underwent evaluation in the emergency department. Vital signs upon arrival show blood pressure 140/69, heart rate 117, respiratory rate 20, temp 98.6 F, and SpO2 of 97% on room air. EKG completed showing sinus tachycardia 121 bpm. Chest x-ray showing mild pulmonary vascular congestion consistent with mild CHF. Labs completed and reviewed. CBC showing leukocytosis with WBC count of 16.08 and normocytic anemia with hemoglobin of 10.1. Coagulation profile unremarkable. BMP showing hyponatremia with sodium of 133 and high anion gap metabolic acidosis with chloride of 108, bicarb of 12, and anion gap of 13 and renal function consistent with known CKD with BUN of 49, creatinine 2.73, and GFR of 24 with baseline creatinine around 2.7. Blood glucose 199. Lactic acid 1.6. Liver profile unremarkable with exception of low total protein of 5.7 and albumin of 2.7. Troponin was negative at less than 0.012. Urinalysis red in color turbid appearance positive for protein, glucose, blood, leukocyte esterase, greater than 182 RBCs and 76 WBCs. Patient was started on IV antibiotics with Rocephin and admitted under services with consultation to urology. Urinary retention improved and bladder scans currently showing less than 30 cc. Patient reports continued urinary incontinence (but this is his baseline) and currently denies difficulties with urination or feeling as though he is retaining. Renal function worsening from yesterday with BUN of 49, creatinine 2.79 and today BUN of 55, creatinine 3.50, GFR of 18. Nephrology consulted. Blood culture preliminarily positive for Proteus mirabillis. Patient is on Rocephin 2 g daily. Infectious disease consulted. On 04/11/25 patient's sepsis worsening and he developed GENARO on CKD with oliguria. His blood pressures also worsened with pt becoming significantly hypotensive with BP decreasing as low as 70/50. Pt was given fluid resuscitation, Small Business Representative consulted and pt started on Bicarb infusion. After discussion with urology, Coude East catheter inserted for strict monitoring of I's and O's with worsening sepsis, GENARO and oliguria. Physical exam: Patient seen and fully evaluated at bedside this morning. He was resting in bed, appears comfortable but patient is requesting a new bed stating hospital bed is uncomfortable. Patient again assisted with repositioning for comfort. Patient still has not allowed nursing staff to wrap lower extremities and encouraged again today to place Silvestre wraps to lower extremities to assist with swelling. Patient denies having any headache, lightheadedness, dizziness, chest pain, palpitations, shortness of breath, cough or congestion, abdominal pain, or any other complaints. Patient now having sufficient urinary output and last bowel movement was 04/12/2025. Vital signs reviewed and stable General: Nontoxic, no distress and appears stated age. Derm: Skin warm and dry, normal coloration for ethnicity. Head: Atraumatic, normocephalic and symmetric. Eyes: EOM's intact, no lid lag, and anicteric sclera Mouth: no lip lesions, mucus membranes moist Cardiovascular: regular rate and rhythm with normal S1S2, no murmur, positive posterior tibial pulses bilaterally, and cap refill < 2 seconds. Lungs: Respirations even, regular, and unlabored on room air. Lungs CTA bilaterally, no rhonchi, no rales, no wheezing, and no accessory muscle usage. GI/: soft, nontender to palpation, no guarding, no appreciable organomegaly. Ext: ROM intact. No gross muscle atrophy, 2+ bilateral lower extremity edema and venous stasis dermatitis, no contractures Neuro: Speech clear, face symmetrical and CN II-XII grossly intact with no noted focal neuro deficits Psych: Alert and oriented to person, place, time, and situation. Appropriate and pleasant affect. Assessment and Plan of Care: Proteus mirabillis UTI with Sepsis on arrival Proteus mirabillis Bacteremia, multidrug-resistant, secondary to above Hypotension and sinus tachycardia, secondary to sepsis Severe sepsis, secondary to above Thrombocytopenia, suspect reactive secondary to sepsis Leukocytosis BPH with chronic urinary incontinence Urinary retention, resolved Acute hematuria, resolved -Blood culture and urine culture both resulting positive for multi drug resistant Proteus mirabillis. -Rocephin discontinued and patient started on cefepime 1 g every 12 hours per culture and sensitivity report. -Infectious disease following, reviewed documentation in chart -Continue bicarb infusion and midodrine 10 mg 3 times daily -Coude East catheter inserted on 04/11/2025 for strict monitoring of I's and O's secondary to worsening sepsis, GENARO and oliguria. -Urology following, reviewed documentation in chart -Close monitoring of I's and O's -Continue Flomax 0.4 mg daily. Acute kidney injury on CKD stage IIIb, likely secondary to sepsis and hypotension Oliguria, resolved High anion gap metabolic acidosis Acute on chronic anemia of chronic disease Hold lisinopril and torsemide secondary to acute kidney injury and mild hypotension. -Nephrology following, Reviewed documentation in chart. Ultrasound kidneys/ureters/bladder reported to be unremarkable. Strict monitoring of I's and O's. Documented output over the past 24 hours is 2250 cc. -Continue bicarb infusion Hypomagnesemia Magnesium 1.9 this morning.. Continue Mag-Ox 400 mg daily. We will continue to monitor closely with repeat a.m. labs and place additional orders if indicated based upon these findings. Insulin-dependent diabetes mellitus with hyperglycemia -Hold Trulicity and metformin. Continue insulin glargine 40 units daily along with glycemic protocol and NovoLog sliding scale. Chronic Congestive heart failure, unknown type as no echo report is available for review at our facility Chronic lower extremity edema Hypertension Hyperlipidemia Continue daily medication regiment with fenofibrate 160 mg daily. Lisinopril and torsemide held at this time secondary to worsening renal function and hypotension. Silvestre wraps to bilateral legs for compression and recommend elevation Pressure ulcer of sacrum/coccyx and left heel, present on admission Consult placed to wound care. Data and imaging reviewed: Morning labs reviewed. CBC showing bicytopenia with hemoglobin of 8.7 and platelet count of 88. BMP showing hyponatremia with sodium of 131, chloride 103, bicarb 19, and anion gap of 9 with renal function showing BUN of 68, creatinine 3.09, GFR of 20. Blood glucose 153. Magnesium 1.8. Vital signs reviewed. Blood pressure 119/71, heart rate 87, respiratory rate 18, temp 97.5 F, and SpO2 of 99% on 2 L CODE STATUS: Full code DVT prophylaxis: OPAL mckenzie and SCDs Anticipated discharge date: Pending clinical course Anticipated discharge place: Return to [facility] Patient was seen independently by Nurse Practitioner. This document was prepared using [employer] dictation software. Please allow for errors in tray filler while rare they do occur. Florentino Sun NP rendered care for this patient independently, reviewed the findings and plan as documented in the note above and agree with plan. I did not physically speak with or examine the patient on this date. Objective - Vital Signs Vital signs: Vital Signs Temp 97.5 F L 04/15/25 11:59 Pulse 85 04/15/25 11:59 Resp 18 04/15/25 11:59 BP 138/73 04/15/25 11:59 Pulse Ox 99 04/15/25 11:59 FiO2 Intake & Output 04/14/25 04/15/25 04/15/25 18:59 06:59 18:59 Intake Total 540 Output Total 750 1500 1450 Balance -750 -960 -1450 Weight 150.5 kg Intake: Oral 540 Output: Urine 750 1500 1450 Other: Voiding Method Indwelling Catheter Indwelling Catheter Indwelling Catheter - Labs CBC & Chem 7: 04/15/25 10:35 04/15/25 10:35 Labs: Abnormal Lab Results - Last 24 Hours (Table) 04/14/25 04/14/25 04/15/25 Range/Units 16:43 20:30 06:07 WBC (4.50-10.00) 10*3/uL RBC (4.40-5.60) 10*6/uL Hgb (13.0-17.0) g/dL Hct (39.6-50.0) % Plt Count (140-440) 10*3/uL Sodium (137-145) mmol/L Carbon Dioxide (22-30) mmol/L BUN (9-20) mg/dL Creatinine (0.66-1.25) mg/dL Glucose (74-99) mg/dL POC Glucose (mg/dL) 232 H 210 H 181 H (70-110) mg/dL Calcium (8.4-10.2) mg/dL 04/15/25 04/15/25 04/15/25 Range/Units 10:35 10:35 11:26 WBC 10.20 H (4.50-10.00) 10*3/uL RBC 3.11 L (4.40-5.60) 10*6/uL Hgb 8.7 L (13.0-17.0) g/dL Hct 26.4 L (39.6-50.0) % Plt Count 88 L (140-440) 10*3/uL Sodium 131 L (137-145) mmol/L Carbon Dioxide 19 L (22-30) mmol/L BUN 68 H (9-20) mg/dL Creatinine 3.09 H (0.66-1.25) mg/dL Glucose 153 H (74-99) mg/dL POC Glucose (mg/dL) 162 H (70-110) mg/dL Calcium 7.4 L (8.4-10.2) mg/dL Microbiology - Last 24 Hours (Table) 04/13/25 20:26 Blood Culture - Preliminary Blood
--- NOTE | 2025-04-15 15:36 | P.PN ---
Subjective Progress Note Date: 04/15/25 This is a morbidly obese 64-year-old male patient, senior care resident who resides at the [facility]. The patient is essentially bedridden. He states that his legs have given up and the patient has not walked for the past 1 year at least. The patient is morbidly obese. The patient also has history of hypertension and hyperlipidemia and history of congestive heart failure in addition to significant diabetes mellitus and chronic stage III kidney disease.. He also suffers from chronic anemia and chronic lower extremity edema and urinary retention related to BPH and rheumatoid arthritis. The patient is essentially bedbound requiring a Jessi lift to be transferred around. The patient apparently had a East catheter inserted at the senior care and this catheter was accidentally pulled out and the patient sustained some bleeding through his urethral meatus. He was still producing some urine with positive hematuria. Denies having any scrotal pain. His urine output was quite minimal. At the same time, the patient generalized weakness and fatigue and increased chills and shakiness and there was no documented temperature. The patient was found to be initially normotensive. Tachycardic. His chest x-ray showed mild pulm vascular congestion and his white cell count was elevated at 16 with a hemoglobin 10.1 and a platelet count of 148. Normal coagulation profile. He did have an acute on top of chronic kidney injury and initial creatinine was at 2.7 and this morning is up to 3.5. He also has an anion gap metabolic acidosis with serum bicarb of 14 and a gap of 12. Most recent sodium is at 142 and potassium is at 4.5. Initial lactic acid level was 1.6) of 2.6. UA is obviou sly abnormal consistent with blood and elevated white cells and there is also +3 protein, +3 glucose and occasional bacteria. I was involved in the patient's case as the patient became progressively more hypotensive and septic. Blood pressure is on the positive for Proteus mirabilis and the patient was started on IV Rocephin given 2 g. He was already given a liter of normal saline and liter of lactated Ringer. At time of arrival to the bedside, the patient had a blood pressure of 85/56. He was on room air oxygen. Heart rate was 109. He was afebrile. He was awake and alert and communicating. He did have increased edema lower extremity and some superficial wounds in his lower extremities with fluid seeping out and weeping skin. He had a stage II heel ulcer and a stage II coccygeal ulcer. His troponins were negative. Patient was seen by urology and recommendations were not to put a East catheter especially with his recent traumatic incidents with a East catheter removal. On 04/12/2025, the patient is being seen for a follow-up. On today's evaluation, the patient is arousable and awake. He remains overall lethargic and weak. Nevertheless, hemodynamically stable and the patient has not required any pressors. Most recent BP is 88/57 and a pulse ox 95% room air oxygen. The patient has a East catheter and the patient is producing urine output. BUN 61 with a creatinine of 3.4. Serum bicarbonate 12 with a sodium level of 130. Potassium is at 3.6. The white cell count of 5.4 with a hemoglobin of 8.1 and a platelet count of 72. The patient remains on IV cefepime. The patient remains on a bicarb infusion at rate of 75 cc an hour. He is afebrile. Urine culture is positive for Proteus mirabilis. Blood cultures also positive for Proteus mirabilis, sensitive to his IV cefepime. He continues to have increased edema lower extremities with weeping skin and wound care is being provided by infectious disease. Respiratory status is stable to the patient remains on room air oxygen with a pulse ox of 95%. He is afebrile. ID is on the case. Started on midodrine for a blood pressure between 80-90 systolic. Started on oral bicarb in addition. Urology is also on the case. He continues to have scrotal edema and a East catheter has been reinserted for accurate I's and O's. Urine is clear. On 04/13/2025, patient is being seen for a follow-up. The patient is awake and alert and communicating. The biggest sluggish in his response still. Continues to be an anion gap metabolic acidosis. Serum bicarb is 11 with a gap of 14. BUN is 64 with a creatinine of 3.5 and no significant improvement in renal function over the past 24 hours. Nephrology on the case. The white cell count 6.5 with a hemoglobin 8.4. Less tachycardic. Room air oxygen with a pulse ox of 93%. Most recent BP is 93/58. Continues to have edema lower extremities bilaterally. Continues to be on IV antibiotics for Proteus septicemia the patient is currently on IV cefepime. Rest of the medications remain unchanged. On midodrine 10 mg p.o. 3 times daily. He is also on oral bicarb. He is receiving bicarb infusion at rate of 75 cc an hour and rate will be increased 225 cc an hour. Associate Professor Of History on the case. Urine output is still cloudy. 04/14/2025, the patient is being seen for a follow-up. Hemodynamically stable. No fever or chills. Producing adequate amount of urine output. He remains on room air oxygen. No signs of any respiratory distress. 1 seconds at 9.6 with a hemoglobin 8.3 and a platelet count of 81. Sodium is at 130, potassium is 3.5, bicarb is at 16, BUN is 65 with a creatinine of 3.3. The urine culture in the blood patient was positive for Proteus mirabilis and the patient remains on IV cefepime. No other significant events overnight. He continues to produce adequate amount of urine output. Lower extremities are swollen and they are a ppropriately wrapped. Nephrology on the case. The patient is seen today April 15, 2025 in follow-up on the regular medical floor. He is currently awake and alert in no acute distress. He is maintaining O2 saturations in the 90s on 2 L/min per nasal cannula. His blood and urine cultures are positive for Proteus mirabilis. Follow-up blood culture pending. White count 10.2. Hemoglobin 8.7. Platelets 88,000. Sodium 131. Potassium 3.5. Bicarb 19. BUN 68. Creatinine 3.09. Glucose 153. He remains on cefepime. Continued on D5W with 1 amp of bicarb at 125 mL/h. Heparin for DVT prophylaxis. Sodium bicarbonate tablets. Objective - Vital Signs Vital signs: Vital Signs Temp 97.5 F L 04/15/25 11:59 Pulse 85 04/15/25 11:59 Resp 18 04/15/25 11:59 BP 138/73 04/15/25 11:59 Pulse Ox 99 04/15/25 11:59 FiO2 Intake & Output 04/14/25 04/15/25 04/15/25 18:59 06:59 18:59 Intake Total 540 Output Total 750 1500 1450 Balance -750 -960 -1450 Weight 150.5 kg Intake: Oral 540 Output: Urine 750 1500 1450 Other: Voiding Method Indwelling Catheter Indwelling Catheter Indwelling Catheter - Exam GENERAL EXAM: Alert, morbidly obese 64-year-old male, on room air oxygen, comfortable in no apparent distress. HEAD: Normocephalic. EYES: Normal reaction of pupils, equal size. NOSE: Clear with pink turbinates. THROAT: No erythema or exudates. NECK: No masses, no JVD. CHEST: No chest wall deformity. LUNGS: Equal air entry with no crackles, wheeze, rhonchi or dullness. CVS: S1 and S2 normal with no audible murmur, regular rhythm. ABDOMEN: No hepatosplenomegaly, normal bowel sounds, no guarding or rigidity. SPINE: No scoliosis or deformity SKIN: No rashes. Stage I-II sacral decubitus ulcer CENTRAL NERVOUS SYSTEM: No focal deficits, tone is normal in all 4 extremities. EXTREMITIES: Stage II left heel ulcer. There is 1-2+ peripheral edema. No clubbing, no cyanosis. Peripheral pulses are intact. - Labs CBC & Chem 7: 04/15/25 10:35 04/15/25 10:35 Labs: Abnormal Lab Results - Last 24 Hours (Table) 04/14/25 04/14/25 04/15/25 Range/Units 16:43 20:30 06:07 WBC (4.50-10.00) 10*3/uL RBC (4.40-5.60) 10*6/uL Hgb (13.0-17.0) g/dL Hct (39.6-50.0) % Plt Count (140-440) 10*3/uL Sodium (137-145) mmol/L Carbon Dioxide (22-30) mmol/L BUN (9-20) mg/dL Creatinine (0.66-1.25) mg/dL Glucose (74-99) mg/dL POC Glucose (mg/dL) 232 H 210 H 181 H (70-110) mg/dL Calcium (8.4-10.2) mg/dL 04/15/25 04/15/25 04/15/25 Range/Units 10:35 10:35 11:26 WBC 10.20 H (4.50-10.00) 10*3/uL RBC 3.11 L (4.40-5.60) 10*6/uL Hgb 8.7 L (13.0-17.0) g/dL Hct 26.4 L (39.6-50.0) % Plt Count 88 L (140-440) 10*3/uL Sodium 131 L (137-145) mmol/L Carbon Dioxide 19 L (22-30) mmol/L BUN 68 H (9-20) mg/dL Creatinine 3.09 H (0.66-1.25) mg/dL Glucose 153 H (74-99) mg/dL POC Glucose (mg/dL) 162 H (70-110) mg/dL Calcium 7.4 L (8.4-10.2) mg/dL Microbiology - Last 24 Hours (Table) 04/13/25 20:26 Blood Culture - Preliminary Blood Assessment and Plan Assessment: Acute gram-negative sepsis with Proteus secondary to urinary tract infection from Proteus mirabilis. The patient has positive blood culture with Proteus. The patient is currently on IV cefepime. The patient remains on IV fluid. East catheter is in place. Acute leukocytosis secondary to above, improved and the white cell count has normalized. Acute on top of chronic kidney disease, likely secondary to urinary retention and ultrasound of the kidneys obtained on 04/11/2025 showed no evidence of any hydronephrosis. East catheter was removed and the this was a traumatic East catheter insertion/removal complicated by some hematuria. Patient is currently oliguric. Nephrology on the case. Rule out underlying ATN secondary urine tract infection/sepsis, East catheter is in place and the patient has producing clear urine output and the patient is nonoliguric at this point. Nephrology and urology are both on the case. Renal function continues to be impaired and the patient continues to produce urine output, nonbloody. Mild anion gap metabolic acidosis secondary to above, currently on bicarb infusion, lactic acid level is improved and is currently down to 1.3 Anemia of chronic disease Thrombocytopenia Hematuria, due to complicated insertion/removal of East catheter. East catheter was reinserted. No active hematuria. Morbid obesity with a BMI of 45.0 kg/m Chronic lower extremity edema with lower extremity skin ulceration and weeping skin in addition to a stage II heel ulcer on the left and decub ulcer. Congestive heart failure, baseline left leg ejection fraction is unknown, echocardiogram is in progress Diabetes mellitus type 2 Chronic stage III kidney disease BPH Rheumatoid arthritis Hyperlipidemia Osteoarthritis Gout Obstructive sleep apnea Bedridden and the patient has been nonambulatory for the past 1 year and the patient is a senior care resident Plan: The patient was seen and evaluated Microbiology, labs and medications reviewed Remains on cefepime Remains on D5W with 1 amp of bicarb at 125 mL/h Remains on bicarbonate tablets Heparin for DVT prophylaxis Plan will be to return to [facility] at discharge I have personally seen and examined the patient, performed the documentation and the assessment and plan as written. Number of minutes spent on the visit: 10 Dictation was produced using [employer] dictation software. Please excuse any grammatical, word or spelling errors.
--- NOTE | 2025-04-15 15:53 | P.PN ---
Subjective Patient is seen for follow-up for acute kidney injury. He is maintained on bicarb drip for significant metabolic acidosis Blood pressure has improved. Blood cultures and urine cultures are growing Proteus Mirabillis Maintained on midodrine Urine output has improved. Serum creatinine improved to 3.0 today Patient is requesting an air mattress Objective - Vital Signs Vital signs: Vital Signs Temp 97.5 F L 04/15/25 11:59 Pulse 85 04/15/25 11:59 Resp 18 04/15/25 11:59 BP 138/73 04/15/25 11:59 Pulse Ox 99 04/15/25 11:59 FiO2 Intake & Output 04/14/25 04/15/25 04/15/25 18:59 06:59 18:59 Intake Total 540 Output Total 750 1500 1450 Balance -750 -960 -1450 Weight 150.5 kg Intake: Oral 540 Output: Urine 750 1500 1450 Other: Voiding Method Indwelling Catheter Indwelling Catheter Indwelling Catheter - Exam Patient is awake, comfortable, no acute distress Obese Examination of the heart S1 and S2 Examination of the lungs decreased breath sounds at the bases Abdomen is soft obese Examination lower extremity shows edema 3+ bilaterally with chronic skin changes and scrotal edema - Labs CBC & Chem 7: 04/15/25 10:35 04/15/25 10:35 Labs: Abnormal Lab Results - Last 24 Hours (Table) 04/14/25 04/14/25 04/15/25 Range/Units 16:43 20:30 06:07 WBC (4.50-10.00) 10*3/uL RBC (4.40-5.60) 10*6/uL Hgb (13.0-17.0) g/dL Hct (39.6-50.0) % Plt Count (140-440) 10*3/uL Sodium (137-145) mmol/L Carbon Dioxide (22-30) mmol/L BUN (9-20) mg/dL Creatinine (0.66-1.25) mg/dL Glucose (74-99) mg/dL POC Glucose (mg/dL) 232 H 210 H 181 H (70-110) mg/dL Calcium (8.4-10.2) mg/dL 04/15/25 04/15/25 04/15/25 Range/Units 10:35 10:35 11:26 WBC 10.20 H (4.50-10.00) 10*3/uL RBC 3.11 L (4.40-5.60) 10*6/uL Hgb 8.7 L (13.0-17.0) g/dL Hct 26.4 L (39.6-50.0) % Plt Count 88 L (140-440) 10*3/uL Sodium 131 L (137-145) mmol/L Carbon Dioxide 19 L (22-30) mmol/L BUN 68 H (9-20) mg/dL Creatinine 3.09 H (0.66-1.25) mg/dL Glucose 153 H (74-99) mg/dL POC Glucose (mg/dL) 162 H (70-110) mg/dL Calcium 7.4 L (8.4-10.2) mg/dL Microbiology - Last 24 Hours (Table) 04/13/25 20:26 Blood Culture - Preliminary Blood Assessment and Plan Assessment: 1. Acute kidney injury, ATN, oliguric secondary to hypotension and sepsis. UA suggestive of UTI. No obstruction noted on ultrasound of the kidneys 2. Gram-negative bacteremia from urinary tract infection maintained on IV antibiotics cultures are growing Proteus Mirabillis 3. Metabolic acidosis associated with acute kidney injury and lactic acidosis, maintained on bicarb drip 4. Hypomagnesemia 5. Anemia with no active bleeding noted, recent episode of hematuria after patient pulling out East catheter. Now resolved 6. Significant lower extremity edema and scrotal edema Plan: Continue with IV bicarb Continue with midodrine Continue oral sodium bicarb Continue with antibiotics Repeat labs in a.m.
--- NOTE | 2025-04-15 16:12 | XR ---
EXAMINATION TYPE: XR chest 1V portable DATE OF EXAM: 04/15/2025 4:08 PM COMPARISON: Chest radiographs from 04/11/2025 TECHNIQUE: XR chest 1V portable Portable AP radiograph of the chest. CLINICAL INDICATION:Male, 64 years old with history of Hypoxemia; FINDINGS: Patient is rotated with limits evaluation. Lungs/Pleura: There is no evidence of pleural effusion, focal consolidation, or pneumothorax. Pulmonary vascularity: Mild pulmonary vascular congestion. Heart/mediastinum: Cardiomediastinal silhouette is enlarged and stable. Musculoskeletal: No acute osseous pathology. IMPRESSION: Cardiomegaly and mild pulmonary vascular congestion. Correlate with BNP for congestive heart failure. [facility], , 04/15/2025 4:10 PM
[2025-04-15 16:21] LABS: Glucose,Whole Blood 131 mg/dL (70-110)
[2025-04-15 19:51] LABS: Glucose,Whole Blood 188 mg/dL (70-110)
[2025-04-15] MEDS: polyethylene glycoL 3350 17 GM POWD.PACK PO SCH (20:54)
[2025-04-16 06:14] LABS: Glucose,Whole Blood 157 mg/dL (70-110)
[2025-04-16 07:34] LABS: African American GFR (CKD) 26 (>60 ml/min/1.73 sqM); Anion Gap 8 mmol/L; Blood Urea Nitrogen 66 mg/dL (9-20); Calcium 7.1 mg/dL (8.4-10.2); Carbon Dioxide 20 mmol/L (22-30); Chloride 105 mmol/L (98-107); Glucose 145 mg/dL (74-99); Magnesium 1.8 mg/dL (1.6-2.3); Non-African American GFR(CKD) 23 (>60 ml/min/1.73 sqM); Potassium 3.6 mmol/L (3.5-5.1); Sodium 133 mmol/L (137-145)
[2025-04-16 07:43] LABS: HCT 24.2 % (39.6-50.0); HGB 7.9 g/dL (13.0-17.0); MCHC 32.6 g/dL (32.0-37.0); MCV 85.8 fL (80.0-97.0); Mean Platelet Volume 9.7 fL (9.5-12.2); RBC 2.82 10*6/uL (4.40-5.60); RDW 15.7 % (11.5-14.5); WBC 8.47 10*3/uL (4.50-10.00)
[2025-04-16 07:54] LABS: Platelet Count 90 10*3/uL (140-440)
[2025-04-16 11:36] LABS: Glucose,Whole Blood 170 mg/dL (70-110)
--- NOTE | 2025-04-16 13:00 | P.PN ---
Subjective Progress Note Date: 04/16/25 This is a morbidly obese 64-year-old male patient, longterm resident who resides at the [facility]. The patient is essentially bedridden. He states that his legs have given up and the patient has not walked for the past 1 year at least. The patient is morbidly obese. The patient also has history of hypertension and hyperlipidemia and history of congestive heart failure in addition to significant diabetes mellitus and chronic stage III kidney disease.. He also suffers from chronic anemia and chronic lower extremity edema and urinary retention related to BPH and rheumatoid arthritis. The patient is essentially bedbound requiring a Jessi lift to be transferred around. The patient apparently had a East catheter inserted at the longterm and this catheter was accidentally pulled out and the patient sustained some bleeding through his urethral meatus. He was still producing some urine with positive hematuria. Denies having any scrotal pain. His urine output was quite minimal. At the same time, the patient generalized weakness and fatigue and increased chills and shakiness and there was no documented temperature. The patient was found to be initially normotensive. Tachycardic. His chest x-ray showed mild pulm vascular congestion and his white cell count was elevated at 16 with a hemoglobin 10.1 and a platelet count of 148. Normal coagulation profile. He did have an acute on top of chronic kidney injury and initial creatinine was at 2.7 and this morning is up to 3.5. He also has an anion gap metabolic acidosis with serum bicarb of 14 and a gap of 12. Most recent sodium is at 142 and potassium is at 4.5. Initial lactic acid level was 1.6) of 2.6. UA is obviou sly abnormal consistent with blood and elevated white cells and there is also +3 protein, +3 glucose and occasional bacteria. I was involved in the patient's case as the patient became progressively more hypotensive and septic. Blood pressure is on the positive for Proteus mirabilis and the patient was started on IV Rocephin given 2 g. He was already given a liter of normal saline and liter of lactated Ringer. At time of arrival to the bedside, the patient had a blood pressure of 85/56. He was on room air oxygen. Heart rate was 109. He was afebrile. He was awake and alert and communicating. He did have increased edema lower extremity and some superficial wounds in his lower extremities with fluid seeping out and weeping skin. He had a stage II heel ulcer and a stage II coccygeal ulcer. His troponins were negative. Patient was seen by urology and recommendations were not to put a East catheter especially with his recent traumatic incidents with a East catheter removal. On 04/12/2025, the patient is being seen for a follow-up. On today's evaluation, the patient is arousable and awake. He remains overall lethargic and weak. Nevertheless, hemodynamically stable and the patient has not required any pressors. Most recent BP is 88/57 and a pulse ox 95% room air oxygen. The patient has a East catheter and the patient is producing urine output. BUN 61 with a creatinine of 3.4. Serum bicarbonate 12 with a sodium level of 130. Potassium is at 3.6. The white cell count of 5.4 with a hemoglobin of 8.1 and a platelet count of 72. The patient remains on IV cefepime. The patient remains on a bicarb infusion at rate of 75 cc an hour. He is afebrile. Urine culture is positive for Proteus mirabilis. Blood cultures also positive for Proteus mirabilis, sensitive to his IV cefepime. He continues to have increased edema lower extremities with weeping skin and wound care is being provided by infectious disease. Respiratory status is stable to the patient remains on room air oxygen with a pulse ox of 95%. He is afebrile. ID is on the case. Started on midodrine for a blood pressure between 80-90 systolic. Started on oral bicarb in addition. Urology is also on the case. He continues to have scrotal edema and a East catheter has been reinserted for accurate I's and O's. Urine is clear. On 04/13/2025, patient is being seen for a follow-up. The patient is awake and alert and communicating. The biggest sluggish in his response still. Continues to be an anion gap metabolic acidosis. Serum bicarb is 11 with a gap of 14. BUN is 64 with a creatinine of 3.5 and no significant improvement in renal function over the past 24 hours. Nephrology on the case. The white cell count 6.5 with a hemoglobin 8.4. Less tachycardic. Room air oxygen with a pulse ox of 93%. Most recent BP is 93/58. Continues to have edema lower extremities bilaterally. Continues to be on IV antibiotics for Proteus septicemia the patient is currently on IV cefepime. Rest of the medications remain unchanged. On midodrine 10 mg p.o. 3 times daily. He is also on oral bicarb. He is receiving bicarb infusion at rate of 75 cc an hour and rate will be increased 225 cc an hour. General Farmer on the case. Urine output is still cloudy. 04/14/2025, the patient is being seen for a follow-up. Hemodynamically stable. No fever or chills. Producing adequate amount of urine output. He remains on room air oxygen. No signs of any respiratory distress. 1 seconds at 9.6 with a hemoglobin 8.3 and a platelet count of 81. Sodium is at 130, potassium is 3.5, bicarb is at 16, BUN is 65 with a creatinine of 3.3. The urine culture in the blood patient was positive for Proteus mirabilis and the patient remains on IV cefepime. No other significant events overnight. He continues to produce adequate amount of urine output. Lower extremities are swollen and they are a ppropriately wrapped. Nephrology on the case. The patient is seen today April 15, 2025 in follow-up on the regular medical floor. He is currently awake and alert in no acute distress. He is maintaining O2 saturations in the 90s on 2 L/min per nasal cannula. His blood and urine cultures are positive for Proteus mirabilis. Follow-up blood culture pending. White count 10.2. Hemoglobin 8.7. Platelets 88,000. Sodium 131. Potassium 3.5. Bicarb 19. BUN 68. Creatinine 3.09. Glucose 153. He remains on cefepime. Continued on D5W with 1 amp of bicarb at 125 mL/h. Heparin for DVT prophylaxis. Sodium bicarbonate tablets. The patient is seen today April 16, 2025 in follow-up on the regular medical floor. He is currently resting in bed. Awake and alert in no acute distress. Maintaining good O2 saturations in the high 90s on 2 L/min per nasal cannula. He is afebrile. Hemodynamically stable. Chest x-ray shows cardiomegaly and mild pulmonary vascular congestion. Blood culture was positive for Proteus mirabilis. Urine culture positive for Proteus mirabilis follow-up blood culture reveals no growth. White count 8.4. Hemoglobin 7.9. Platelets 90,000. Sodium 133. Potassium 3.6. Bicarb 20. BUN 66. Creatinine 2.82. Glucose 145. He remains on cefepime. Heparin for DVT prophylaxis. Remains on D5W with 1 amp of sodium bicarbonate at 125 mL/h. Remains on sodium bicarbonate tablets. Objective - Vital Signs Vital signs: Vital Signs Temp 97.6 F 04/15/25 20:00 Pulse 87 04/16/25 12:20 Resp 16 04/16/25 12:20 BP 153/78 04/16/25 12:20 Pulse Ox 96 04/16/25 12:20 FiO2 Intake & Output 04/15/25 04/16/25 04/16/25 18:59 06:59 18:59 Intake Total 360 200 222 Output Total 2100 2380 1100 Balance -5560 -0398 -927 Weight 150.5 kg 149 kg Intake: Oral 360 200 222 Output: Urine 2100 2380 1100 Post Void Residual 0 Other: Voiding Method Indwelling Catheter Indwelling Catheter Indwelling Catheter - Exam GENERAL EXAM: Alert, obese 64-year-old male, resting in bed, on 2 L nasal cannula, comfortable in no apparent distress. HEAD: Normocephalic. EYES: Normal reaction of pupils, equal size. NOSE: Clear with pink turbinates. THROAT: No erythema or exudates. NECK: No masses, no JVD. CHEST: No chest wall deformity. LUNGS: Equal air entry with faint crackles in the posterior bases. CVS: S1 and S2 normal with no audible murmur, regular rhythm. ABDOMEN: No hepatosplenomegaly, normal bowel sounds, no guarding or rigidity. SPINE: No scoliosis or deformity SKIN: No rashes. Stage I-II sacral decubitus ulcer CENTRAL NERVOUS SYSTEM: No focal deficits, tone is normal in all 4 extremities. EXTREMITIES: Stage II left heel ulcer. There is 1-2+ peripheral edema. No clubbing, no cyanosis. Peripheral pulses are intact. - Labs CBC & Chem 7: 04/16/25 05:57 04/16/25 05:57 Labs: Abnormal Lab Results - Last 24 Hours (Table) 04/15/25 04/15/25 04/16/25 Range/Units 16:20 19:49 05:57 RBC 2.82 L (4.40-5.60) 10*6/uL Hgb 7.9 L (13.0-17.0) g/dL Hct 24.2 L (39.6-50.0) % Plt Count 90 L (140-440) 10*3/uL Sodium (137-145) mmol/L Carbon Dioxide (22-30) mmol/L BUN (9-20) mg/dL Creatinine (0.66-1.25) mg/dL Glucose (74-99) mg/dL POC Glucose (mg/dL) 131 H 188 H (70-110) mg/dL Calcium (8.4-10.2) mg/dL 04/16/25 04/16/25 04/16/25 Range/Units 05:57 06:12 11:34 RBC (4.40-5.60) 10*6/uL Hgb (13.0-17.0) g/dL Hct (39.6-50.0) % Plt Count (140-440) 10*3/uL Sodium 133 L (137-145) mmol/L Carbon Dioxide 20 L (22-30) mmol/L BUN 66 H (9-20) mg/dL Creatinine 2.82 H (0.66-1.25) mg/dL Glucose 145 H (74-99) mg/dL POC Glucose (mg/dL) 157 H 170 H (70-110) mg/dL Calcium 7.1 L (8.4-10.2) mg/dL Microbiology - Last 24 Hours (Table) 04/13/25 20:26 Blood Culture - Preliminary Blood Assessment and Plan Assessment: Acute gram-negative sepsis with Proteus secondary to urinary tract infection from Proteus mirabilis. The patient has positive blood culture with Proteus. The patient is currently on IV cefepime. The patient remains on IV fluid. East catheter is in place. Acute leukocytosis secondary to above, improved and the white cell count has normalized. Acute on top of chronic kidney disease, likely secondary to urinary retention and ultrasound of the kidneys obtained on 04/11/2025 showed no evidence of any hydronephrosis. East catheter was removed and the this was a traumatic East catheter insertion/removal complicated by some hematuria. Patient is currently oliguric. Nephrology on the case. Rule out underlying ATN secondary urine tract infection/sepsis, East catheter is in place and the patient has producing clear urine output and the patient is nonoliguric at this point. Nephrology and urology are both on the case. Renal function continues to be impaired and the patient continues to produce urine output, nonbloody. Mild anion gap metabolic acidosis secondary to above, currently on bicarb infusion, lactic acid level is improved and is currently down to 1.3 Anemia of chronic disease Thrombocytopenia Hematuria, due to complicated insertion/removal of East catheter. East catheter was reinserted. No active hematuria. Morbid obesity with a BMI of 45.0 kg/m Chronic lower extremity edema with lower extremity skin ulceration and weeping skin in addition to a stage II heel ulcer on the left and decub ulcer. Congestive heart failure, baseline left leg ejection fraction is unknown, echocardiogram is in progress Diabetes mellitus type 2 Chronic stage III kidney disease BPH Rheumatoid arthritis Hyperlipidemia Osteoarthritis Gout Obstructive sleep apnea Bedridden and the patient has been nonambulatory for the past 1 year and the patient is a longterm resident Plan: The patient was seen and evaluated Chest x-ray, microbiology, labs and medications reviewed Remains on cefepime per ID service Remains on D5W with 1 amp of bicarb at 125 mL/h Remains on bicarbonate tablets Heparin for DVT prophylaxis Titrate down/off the FiO2 as tolerated Plan will be to return to [facility] I have personally seen and examined the patient, performed the documentation and the assessment and plan as written. Number of minutes spent on the visit: 10 Dictation was produced using [employer] dictation software. Please excuse any grammatical, word or spelling errors.
--- NOTE | 2025-04-16 13:11 | P.PN ---
Subjective Patient is seen for follow-up for acute kidney injury. He is maintained on bicarb drip for significant metabolic acidosis Blood pressure has improved. Blood cultures and urine cultures are growing Proteus Mirabillis Maintained on midodrine Urine output has improved. Serum creatinine improved to 2.8 today Objective - Vital Signs Vital signs: Vital Signs Temp 97.6 F 04/15/25 20:00 Pulse 87 04/16/25 12:20 Resp 16 04/16/25 12:20 BP 153/78 04/16/25 12:20 Pulse Ox 96 04/16/25 12:20 FiO2 Intake & Output 04/15/25 04/16/25 04/16/25 18:59 06:59 18:59 Intake Total 360 200 222 Output Total 2100 2380 1100 Balance -1740 -2180 -878 Weight 150.5 kg 149 kg Intake: Oral 360 200 222 Output: Urine 2100 2380 1100 Post Void Residual 0 Other: Voiding Method Indwelling Catheter Indwelling Catheter Indwelling Catheter - Exam Patient is awake, comfortable, no acute distress Obese Examination of the heart S1 and S2 Examination of the lungs decreased breath sounds at the bases Abdomen is soft obese Examination lower extremity shows edema 3+ bilaterally with chronic skin changes and scrotal edema - Labs CBC & Chem 7: 04/16/25 05:57 04/16/25 05:57 Labs: Abnormal Lab Results - Last 24 Hours (Table) 04/15/25 04/15/25 04/16/25 Range/Units 16:20 19:49 05:57 RBC 2.82 L (4.40-5.60) 10*6/uL Hgb 7.9 L (13.0-17.0) g/dL Hct 24.2 L (39.6-50.0) % Plt Count 90 L (140-440) 10*3/uL Sodium (137-145) mmol/L Carbon Dioxide (22-30) mmol/L BUN (9-20) mg/dL Creatinine (0.66-1.25) mg/dL Glucose (74-99) mg/dL POC Glucose (mg/dL) 131 H 188 H (70-110) mg/dL Calcium (8.4-10.2) mg/dL 04/16/25 04/16/25 04/16/25 Range/Units 05:57 06:12 11:34 RBC (4.40-5.60) 10*6/uL Hgb (13.0-17.0) g/dL Hct (39.6-50.0) % Plt Count (140-440) 10*3/uL Sodium 133 L (137-145) mmol/L Carbon Dioxide 20 L (22-30) mmol/L BUN 66 H (9-20) mg/dL Creatinine 2.82 H (0.66-1.25) mg/dL Glucose 145 H (74-99) mg/dL POC Glucose (mg/dL) 157 H 170 H (70-110) mg/dL Calcium 7.1 L (8.4-10.2) mg/dL Microbiology - Last 24 Hours (Table) 04/13/25 20:26 Blood Culture - Preliminary Blood Assessment and Plan Assessment: 1. Acute kidney injury, ATN, oliguric secondary to hypotension and sepsis. UA suggestive of UTI. No obstruction noted on ultrasound of the kidneys 2. Gram-negative bacteremia from urinary tract infection maintained on IV antibiotics cultures are growing Proteus Mirabillis 3. Metabolic acidosis associated with acute kidney injury and lactic acidosis, maintained on bicarb drip 4. Hypomagnesemia 5. Anemia with no active bleeding noted, recent episode of hematuria after patient pulling out East catheter. Now resolved 6. Significant lower extremity edema and scrotal edema Plan: Continue with IV bicarb for 1 more day Continue with midodrine Continue oral sodium bicarb Continue with antibiotics Repeat labs in a.m.
--- NOTE | 2025-04-16 14:04 | P.PN ---
Subjective Progress Note Date: 04/16/25 Hospital Course: Patient is a pleasant 64-year-old male with a past medical history hypertension, hyperlipidemia, CHF on daily diuretic with torsemide, insulin-dependent diabetes mellitus, CKD stage IIIb, anemia, chronic diarrhea on daily Imodium, BPH with urinary incontinence, and rheumatoid arthritis. He is a resident of [facility] and is wheelchair/bedbound requiring Jessi lift for transfers at baseline. He presented to our facility secondary to reports of concerns of urinary tract infection, scrotal edema, and urinary retention. Per transfer documentation, a East catheter was placed and patient pulled out resulting in significant bleeding from meatus. Upon arrival to our facility, patient underwent evaluation in the emergency department. Vital signs upon arrival show blood pressure 140/69, heart rate 117, respiratory rate 20, temp 98.6 F, and SpO2 of 97% on room air. EKG completed showing sinus tachycardia 121 bpm. Chest x-ray showing mild pulmonary vascular congestion consistent with mild CHF. Labs completed and reviewed. CBC showing leukocytosis with WBC count of 16.08 and normocytic anemia with hemoglobin of 10.1. Coagulation profile unremarkable. BMP showing hyponatremia with sodium of 133 and high anion gap metabolic acidosis with chloride of 108, bicarb of 12, and anion gap of 13 and renal function consistent with known CKD with BUN of 49, creatinine 2.73, and GFR of 24 with baseline creatinine around 2.7. Blood glucose 199. Lactic acid 1.6. Liver profile unremarkable with exception of low total protein of 5.7 and albumin of 2.7. Troponin was negative at less than 0.012. Urinalysis red in color turbid appearance positive for protein, glucose, blood, leukocyte esterase, greater than 182 RBCs and 76 WBCs. Patient was started on IV antibiotics with Rocephin and admitted under services with consultation to urology. Urinary retention improved and bladder scans currently showing less than 30 cc. Patient reports continued urinary incontinence (but this is his baseline) and currently denies difficulties with urination or feeling as though he is retaining. Renal function worsening from yesterday with BUN of 49, creatinine 2.79 and today BUN of 55, creatinine 3.50, GFR of 18. Nephrology consulted. Blood culture preliminarily positive for Proteus mirabillis. Patient is on Rocephin 2 g daily. Infectious disease consulted. On 04/11/25 patient's sepsis worsening and he developed GENARO on CKD with oliguria. His blood pressures also worsened with pt becoming significantly hypotensive with BP decreasing as low as 70/50. Pt was given fluid resuscitation, Windows Server Engineer consulted and pt started on Bicarb infusion. After discussion with urology, Coude East catheter inserted for strict monitoring of I's and O's with worsening sepsis, GENARO and oliguria. Physical exam: Patient seen and fully evaluated at bedside this morning. Patient resting in bed, he initially seems slightly confused asking repeated questions but when evaluated was answering all questions appropriately and was alert and oriented x 4. Patient denies having any headache, lightheadedness, dizziness, chest pain, palpitations, shortness of breath, abdominal pain, nausea, vomiting, or any other complaints at this time. Vital signs reviewed and stable General: Nontoxic, no distress and appears stated age. Derm: Skin warm and dry, normal coloration for ethnicity. Head: Atraumatic, normocephalic and symmetric. Eyes: EOM's intact, no lid lag, and anicteric sclera Mouth: no lip lesions, mucus membranes moist Cardiovascular: regular rate and rhythm with normal S1S2, no murmur, positive posterior tibial pulses bilaterally, and cap refill < 2 seconds. Lungs: Respirations even, regular, and unlabored on room air. Lungs CTA bilaterally, no rhonchi, no rales, no wheezing, and no accessory muscle usage. GI/: soft, nontender to palpation, no guarding, no appreciable organomegaly. East catheter remains in place. Ext: ROM intact. No gross muscle atrophy, 2-3+ bilateral lower extremity edema and venous stasis dermatitis, no contractures Neuro: Speech clear, face symmetrical and CN II-XII grossly intact with no noted focal neuro deficits Psych: Alert and oriented to person, place, time, and situation. Appropriate and pleasant affect. Assessment and Plan of Care: Proteus mirabillis UTI with Sepsis on arrival Proteus mirabillis Bacteremia, multidrug-resistant, secondary to above Hypotension and sinus tachycardia, secondary to sepsis Severe sepsis, secondary to above Thrombocytopenia, suspect reactive secondary to sepsis Leukocytosis BPH with chronic urinary incontinence Urinary retention, resolved Acute hematuria, resolved -Blood culture and urine culture both resulting positive for multi drug resistant Proteus mirabillis. Repeat blood culture drawn 04/13/2025 showing no growth to date. -Continue cefepime 1 g every 12 hours per culture and sensitivity report. -Infectious disease following, discussed plan of care with Dr. Lee -Continue bicarb infusion and midodrine 10 mg 3 times daily -Coude East catheter inserted on 04/11/2025 for strict monitoring of I's and O's secondary to worsening sepsis, GENARO and oliguria. -Urology following, reviewed documentation in chart -Close monitoring of I's and O's -Continue Flomax 0.4 mg daily. -Windows Server Engineer team continues to follow along as well, reviewed documentation in chart. - Echocardiogram completed negative for vegetative growth. Acute kidney injury on CKD stage IIIb, likely secondary to sepsis and hypotension Oliguria, resolved High anion gap metabolic acidosis Acute on chronic anemia of chronic disease, likely secondary to renal function and dilution from IV fluid received throughout hospitalization Hold lisinopril and torsemide secondary to acute kidney injury and mild hypotension. -Nephrology following, discussed plan of care with Dr. Packer. Patient to be maintained on bicarb infusion and midodrine at this time. Ultrasound kidneys/ureters/bladder reported to be unremarkable. Strict monitoring of I's and O's. Documented output over the past 24 hours is 4480 cc. -Continue bicarb infusion and sodium bicarb tablets 650 mg 3 times daily Hypomagnesemia Magnesium 1.9 this morning.. Continue Mag-Ox 400 mg daily. We will continue to monitor closely with repeat a.m. labs and place additional orders if indicated based upon these findings. Insulin-dependent diabetes mellitus with hyperglycemia -Hold Trulicity and metformin. Continue insulin glargine 40 units daily along with glycemic protocol and NovoLog sliding scale. Chronic diastolic congestive heart failure Chronic lower extremity edema Hypertension Hyperlipidemia Continue daily medication regiment with fenofibrate 160 mg daily. Lisinopril and torsemide held at this time secondary to worsening renal function and hypotension. Echocardiogram was completed showing a preserved EF of 50 to 55% with mild mitral and tricuspid regurgitation and mild pulmonary hypertension. No evidence of vegetation.. Silvestre wraps to bilateral legs for compression and recommend elevation Pressure ulcer of sacrum/coccyx and left heel, present on admission Consult placed to wound care. Data and imaging reviewed: Morning labs reviewed. CBC showing bicytopenia with hemoglobin of 7.9 and platelet count of 98. BMP showing sodium 133, chloride 105, bicarb 20, and anion gap of 8 with BUN of 66, creatinine 2.82, GFR of 23. Blood glucose 145. Magnesium 1.8. Vital signs reviewed. Blood pressure 143/69, heart rate 81, respiratory 16, temp 97.6 F, and SpO2 of 98% on 2 L. -Documented output over the past 24 hours is 4480 cc. Echocardiogram was completed showing a preserved EF of 50 to 55% with mild mitral and tricuspid regurgitation and mild pulmonary hypertension. No evidence of vegetation.. CODE STATUS: Full code DVT prophylaxis: OPAL lyonshyun and SCDs Anticipated discharge date: Pending clinical course Anticipated discharge place: Return to [facility] Patient was seen independently by Nurse Practitioner. This document was prepared using [employer] dictation software. Please allow for errors in cone tender while rare they do occur. Florentino Sun NP rendered care for this patient independently, reviewed the findings and plan as documented in the note above and agree with plan. I did not physically speak with or examine the patient on this date. Objective - Vital Signs Vital signs: Vital Signs Temp 97.6 F 04/15/25 20:00 Pulse 81 04/16/25 08:39 Resp 16 04/16/25 08:39 BP 143/69 04/16/25 08:39 Pulse Ox 98 04/16/25 08:39 FiO2 Intake & Output 04/15/25 04/16/25 04/16/25 18:59 06:59 18:59 Intake Total 360 200 Output Total 2100 2380 500 Balance -1740 -2180 -500 Weight 150.5 kg 149 kg Intake: Oral 360 200 Output: Urine 2100 2380 500 Post Void Residual 0 Other: Voiding Method Indwelling Catheter Indwelling Catheter - Labs CBC & Chem 7: 04/16/25 05:57 04/16/25 05:57 Labs: Abnormal Lab Results - Last 24 Hours (Table) 04/15/25 04/15/25 04/15/25 Range/Units 10:35 10:35 11:26 WBC 10.20 H (4.50-10.00) 10*3/uL RBC 3.11 L (4.40-5.60) 10*6/uL Hgb 8.7 L (13.0-17.0) g/dL Hct 26.4 L (39.6-50.0) % Plt Count 88 L (140-440) 10*3/uL Sodium 131 L (137-145) mmol/L Carbon Dioxide 19 L (22-30) mmol/L BUN 68 H (9-20) mg/dL Creatinine 3.09 H (0.66-1.25) mg/dL Glucose 153 H (74-99) mg/dL POC Glucose (mg/dL) 162 H (70-110) mg/dL Calcium 7.4 L (8.4-10.2) mg/dL 04/15/25 04/15/25 04/16/25 Range/Units 16:20 19:49 05:57 WBC (4.50-10.00) 10*3/uL RBC 2.82 L (4.40-5.60) 10*6/uL Hgb 7.9 L (13.0-17.0) g/dL Hct 24.2 L (39.6-50.0) % Plt Count 90 L (140-440) 10*3/uL Sodium (137-145) mmol/L Carbon Dioxide (22-30) mmol/L BUN (9-20) mg/dL Creatinine (0.66-1.25) mg/dL Glucose (74-99) mg/dL POC Glucose (mg/dL) 131 H 188 H (70-110) mg/dL Calcium (8.4-10.2) mg/dL 04/16/25 04/16/25 Range/Units 05:57 06:12 WBC (4.50-10.00) 10*3/uL RBC (4.40-5.60) 10*6/uL Hgb (13.0-17.0) g/dL Hct (39.6-50.0) % Plt Count (140-440) 10*3/uL Sodium 133 L (137-145) mmol/L Carbon Dioxide 20 L (22-30) mmol/L BUN 66 H (9-20) mg/dL Creatinine 2.82 H (0.66-1.25) mg/dL Glucose 145 H (74-99) mg/dL POC Glucose (mg/dL) 157 H (70-110) mg/dL Calcium 7.1 L (8.4-10.2) mg/dL Microbiology - Last 24 Hours (Table) 04/13/25 20:26 Blood Culture - Preliminary Blood
[2025-04-16 16:39] LABS: Glucose,Whole Blood 201 mg/dL (70-110)
--- NOTE | 2025-04-16 17:02 | P.PN ---
Subjective Progress Note Date: 04/15/25 Principal diagnosis: Reason for follow-up is UTI/bacteremia Patient is a 64-year-old male with a past medical history significant for Diabetes Mellitus, GERD/Reflux, Hyperlipidemia, Hypertension, Osteoarthritis (OA), Prostate Disorder, Rheumatoid Arthritis (RA), Skin Disorder [facility] patient did have a chronic indwelling East cath eter brought to the hospital after accidentally pulling out his East with hematuria did have a positive blood culture with Proteus probably this consultation. On today's evaluation that is 04/15/2025, patient has been afebrile, patient is breathing comfortably and is currently on 2 L nasal cannula oxygen, patient denies having any chest pain and cough, patient denies nausea vomiting or diarrhea and no abdominal pain. Patient white count is 10.20 creatinine 3.09 Objective - Vital Signs Vital signs: Vital Signs Temp 97.5 F L 04/15/25 11:59 Pulse 85 04/15/25 11:59 Resp 18 04/15/25 11:59 BP 138/73 04/15/25 11:59 Pulse Ox 99 04/15/25 11:59 FiO2 Intake & Output 04/14/25 04/15/25 04/15/25 18:59 06:59 18:59 Intake Total 540 Output Total 750 1500 875 Balance -750 -960 -875 Weight 150.5 kg Intake: Oral 540 Output: Urine 750 1500 875 Other: Voiding Method Indwelling Catheter Indwelling Catheter Indwelling Catheter - Exam GENERAL DESCRIPTION: Middle-age male lying in bed in no distress RESPIRATORY SYSTEM: Unlabored breathing , decreased breath sounds at bases HEART: S1 S2 regular rate and rhythm , ABDOMEN: Soft , no tenderness EXTREMITIES: Diffuse swelling to bilateral lower extremity - Labs CBC & Chem 7: 04/16/25 05:57 04/16/25 05:57 Labs: Abnormal Lab Results - Last 24 Hours (Table) 04/14/25 04/14/25 04/15/25 Range/Units 16:43 20:30 06:07 WBC (4.50-10.00) 10*3/uL RBC (4.40-5.60) 10*6/uL Hgb (13.0-17.0) g/dL Hct (39.6-50.0) % Plt Count (140-440) 10*3/uL Sodium (137-145) mmol/L Carbon Dioxide (22-30) mmol/L BUN (9-20) mg/dL Creatinine (0.66-1.25) mg/dL Glucose (74-99) mg/dL POC Glucose (mg/dL) 232 H 210 H 181 H (70-110) mg/dL Calcium (8.4-10.2) mg/dL 04/15/25 04/15/25 04/15/25 Range/Units 10:35 10:35 11:26 WBC 10.20 H (4.50-10.00) 10*3/uL RBC 3.11 L (4.40-5.60) 10*6/uL Hgb 8.7 L (13.0-17.0) g/dL Hct 26.4 L (39.6-50.0) % Plt Count 88 L (140-440) 10*3/uL Sodium 131 L (137-145) mmol/L Carbon Dioxide 19 L (22-30) mmol/L BUN 68 H (9-20) mg/dL Creatinine 3.09 H (0.66-1.25) mg/dL Glucose 153 H (74-99) mg/dL POC Glucose (mg/dL) 162 H (70-110) mg/dL Calcium 7.4 L (8.4-10.2) mg/dL Microbiology - Last 24 Hours (Table) 04/13/25 20:26 Blood Culture - Preliminary Blood Assessment and Plan (1) Bacteremia Current Visit: Yes Status: Acute Code(s): R78.81 - BACTEREMIA SNOMED Code(s): 7306290 (2) Penicillin allergy Current Visit: Yes Status: Acute Code(s): Z88.0 - ALLERGY STATUS TO PENICILLIN SNOMED Code(s): 24169875 (3) Sepsis Current Visit: Yes Status: Acute Code(s): A41.9 - SEPSIS, UNSPECIFIED ORGANISM SNOMED Code(s): 94972023 (4) UTI (urinary tract infection) Current Visit: Yes Status: Acute Code(s): N39.0 - URINARY TRACT INFECTION, SITE NOT SPECIFIED SNOMED Code(s): 74858027 Plan: 1patient with sepsis in this patient who did have fever tachycardia hypotension elevated white count elevated lactic acid meeting currently//sepsis now with evidence of gram-negative bacteremia source likely urinary 2-penicillin allergy that we will limit number of antibiotic safe use 2-patient blood and urine culture have been finalized with more resistant Proteus 3-patient to continue with the cefepime and monitor clinical course closely Dictation was produced using [employer] dictation software. please excuse any grammatical, word or spelling errors. Time with Patient: Less than 30
--- NOTE | 2025-04-16 17:03 | P.PN ---
Subjective Progress Note Date: 04/16/25 Principal diagnosis: Reason for follow-up is UTI/bacteremia Patient is a 64-year-old male with a past medical history significant for Diabetes Mellitus, GERD/Reflux, Hyperlipidemia, Hypertension, Osteoarthritis (OA), Prostate Disorder, Rheumatoid Arthritis (RA), Skin Disorder resident of the local group home resident patient did have a chronic indwelling East cath eter brought to the hospital after accidentally pulling out his East with hematuria did have a positive blood culture with Proteus probably this consultation. On today's evaluation that is 04/16/2025, Patient is afebrile this morning patient denies having any chest pain shortness of breath or cough, the patient is currently on 2 L nasal oxygen, patient denies any abdominal pain no diarrhea no nausea no vomiting Patient white count is 8.47, creatinine is 2.82 Objective - Vital Signs Vital signs: Vital Signs Temp 97.7 F 04/16/25 15:58 Pulse 82 04/16/25 15:58 Resp 18 04/16/25 15:58 BP 161/76 04/16/25 15:58 Pulse Ox 98 04/16/25 15:58 FiO2 Intake & Output 04/15/25 04/16/25 04/16/25 18:59 06:59 18:59 Intake Total 360 200 222 Output Total 2099 2379 2024 Balance -1740 2180 -1803 Weight 150.5 kg 149 kg Intake: Oral 360 200 222 Output: Urine 2099 2379 2024 Post Void Residual 0 Other: Voiding Method Indwelling Catheter Indwelling Catheter Indwelling Catheter - Exam GENERAL DESCRIPTION: Middle-age male lying in bed in no distress RESPIRATORY SYSTEM: Unlabored breathing , decreased breath sounds at bases HEART: S1 S2 regular rate and rhythm , ABDOMEN: Soft , no tenderness EXTREMITIES: Diffuse swelling to bilateral lower extremity - Labs CBC & Chem 7: 04/16/25 05:57 04/16/25 05:57 Labs: Abnormal Lab Results - Last 24 Hours (Table) 04/15/25 04/16/25 04/16/25 Range/Units 19:49 05:57 05:57 RBC 2.82 L (4.40-5.60) 10*6/uL Hgb 7.9 L (13.0-17.0) g/dL Hct 24.2 L (39.6-50.0) % Plt Count 90 L (140-440) 10*3/uL Sodium 133 L (137-145) mmol/L Carbon Dioxide 20 L (22-30) mmol/L BUN 66 H (9-20) mg/dL Creatinine 2.82 H (0.66-1.25) mg/dL Glucose 145 H (74-99) mg/dL POC Glucose (mg/dL) 188 H (70-110) mg/dL Calcium 7.1 L (8.4-10.2) mg/dL 04/16/25 04/16/25 04/16/25 Range/Units 06:12 11:34 16:37 RBC (4.40-5.60) 10*6/uL Hgb (13.0-17.0) g/dL Hct (39.6-50.0) % Plt Count (140-440) 10*3/uL Sodium (137-145) mmol/L Carbon Dioxide (22-30) mmol/L BUN (9-20) mg/dL Creatinine (0.66-1.25) mg/dL Glucose (74-99) mg/dL POC Glucose (mg/dL) 157 H 170 H 201 H (70-110) mg/dL Calcium (8.4-10.2) mg/dL Microbiology - Last 24 Hours (Table) 04/13/25 20:26 Blood Culture - Preliminary Blood Assessment and Plan (1) Bacteremia Current Visit: Yes Status: Acute Code(s): R78.81 - BACTEREMIA SNOMED Code(s): 2969789 (2) Penicillin allergy Current Visit: Yes Status: Acute Code(s): Z88.0 - ALLERGY STATUS TO PENICILLIN SNOMED Code(s): 86536567 (3) Sepsis Current Visit: Yes Status: Acute Code(s): A41.9 - SEPSIS, UNSPECIFIED ORGANISM SNOMED Code(s): 80210113 (4) UTI (urinary tract infection) Current Visit: Yes Status: Acute Code(s): N39.0 - URINARY TRACT INFECTION, SITE NOT SPECIFIED SNOMED Code(s): 01648004 Plan: 1patient with sepsis in this patient who did have fever tachycardia hypotension elevated white count elevated lactic acid meeting currently//sepsis now with evidence of gram-negative bacteremia source likely urinary 2-penicillin allergy that we will limit number of antibiotic safe use 2-patient blood and urine culture have been finalized with more resistant Proteus 3-patient is afebrile white count has normalized, patient to continue cefepime and monitor clinical course closely Dictation was produced using [employer] dictation software. please excuse any grammatical, word or spelling errors. Time with Patient: Less than 30
[2025-04-16 20:06] LABS: Glucose,Whole Blood 170 mg/dL (70-110)
[2025-04-17] MEDS: HYDROcodone/APAP 5-325MG 1 EACH TAB PO PRN (03:33)
[2025-04-17 06:17] LABS: Glucose,Whole Blood 162 mg/dL (70-110)
[2025-04-17 09:04] LABS: HCT 25.9 % (39.6-50.0); HGB 8.2 g/dL (13.0-17.0); MCH 27.8 pg (27.0-32.0); MCHC 31.7 g/dL (32.0-37.0); MCV 87.8 fL (80.0-97.0); Mean Platelet Volume 9.6 fL (9.5-12.2); Platelet Count 119 10*3/uL (140-440); RBC 2.95 10*6/uL (4.40-5.60); RDW 15.5 % (11.5-14.5)
[2025-04-17 09:34] LABS: African American GFR (CKD) 29 (>60 ml/min/1.73 sqM); Anion Gap 11 mmol/L; Blood Urea Nitrogen 61 mg/dL (9-20); Calcium 7.5 mg/dL (8.4-10.2); Carbon Dioxide 22 mmol/L (22-30); Chloride 103 mmol/L (98-107); Glucose 125 mg/dL (74-99); Magnesium 1.7 mg/dL (1.6-2.3); Non-African American GFR(CKD) 25 (>60 ml/min/1.73 sqM); Potassium 3.3 mmol/L (3.5-5.1); Sodium 136 mmol/L (137-145)
[2025-04-17 11:40] LABS: Glucose,Whole Blood 92 mg/dL (70-110)
--- NOTE | 2025-04-17 12:19 | P.PN ---
Subjective Progress Note Date: 04/17/25 Principal diagnosis: Reason for follow-up is UTI/bacteremia Patient is a 64-year-old male with a past medical history significant for Diabetes Mellitus, GERD/Reflux, Hyperlipidemia, Hypertension, Osteoarthritis (OA), Prostate Disorder, Rheumatoid Arthritis (RA), Skin Disorder resident of the local [facility] resident patient did have a chronic indwelling East cath eter brought to the hospital after accidentally pulling out his East with hematuria did have a positive blood culture with Proteus probably this consultation. On today's evaluation that is 04/17/2025,the patient denies any fever or any chills, patient is breathing comfortably on 2 L nasal cannula oxygen, the patient denies chest pain shortness of breath and no significant cough, patient denies abdominal pain, no nausea vomiting or diarrhea patient constantly saying his head is messed up. Patient white count 6.50, creatinine 2.63 blood culture repeat has been negative Objective - Vital Signs Vital signs: Vital Signs Temp 97.8 F 04/17/25 09:45 Pulse 78 04/17/25 09:45 Resp 18 04/17/25 09:45 BP 153/82 04/17/25 09:45 Pulse Ox 97 04/17/25 09:45 FiO2 Intake & Output 04/16/25 04/17/25 04/17/25 18:59 06:59 18:59 Intake Total 222 10 10 Output Total 2024 2049 1100 Balance -1803 -2039 -1090 Weight 145.5 kg Intake: IV 10 10 Invasive Line 3 10 10 Oral 222 0 Output: Urine 2024 2049 1100 Post Void Residual 0 Other: Voiding Method Indwelling Catheter Indwelling Catheter Indwelling Catheter - Exam GENERAL DESCRIPTION: Middle-age male lying in bed in no distress RESPIRATORY SYSTEM: Unlabored breathing , decreased breath sounds at bases HEART: S1 S2 regular rate and rhythm , ABDOMEN: Soft , no tenderness EXTREMITIES: Diffuse swelling to bilateral lower extremity - Labs CBC & Chem 7: 04/17/25 07:47 04/17/25 07:47 Labs: Abnormal Lab Results - Last 24 Hours (Table) 04/16/25 04/16/25 04/17/25 Range/Units 16:37 20:04 06:14 RBC (4.40-5.60) 10*6/uL Hgb (13.0-17.0) g/dL Hct (39.6-50.0) % MCHC (32.0-37.0) g/dL Plt Count (140-440) 10*3/uL Sodium (137-145) mmol/L Potassium (3.5-5.1) mmol/L BUN (9-20) mg/dL Creatinine (0.66-1.25) mg/dL Glucose (74-99) mg/dL POC Glucose (mg/dL) 201 H 170 H 162 H (70-110) mg/dL Calcium (8.4-10.2) mg/dL 04/17/25 04/17/25 Range/Units 07:47 07:47 RBC 2.95 L (4.40-5.60) 10*6/uL Hgb 8.2 L (13.0-17.0) g/dL Hct 25.9 L (39.6-50.0) % MCHC 31.7 L (32.0-37.0) g/dL Plt Count 119 L (140-440) 10*3/uL Sodium 136 L (137-145) mmol/L Potassium 3.3 L (3.5-5.1) mmol/L BUN 61 H (9-20) mg/dL Creatinine 2.63 H (0.66-1.25) mg/dL Glucose 125 H (74-99) mg/dL POC Glucose (mg/dL) (70-110) mg/dL Calcium 7.5 L (8.4-10.2) mg/dL Microbiology - Last 24 Hours (Table) 04/13/25 20:26 Blood Culture - Preliminary Blood Assessment and Plan (1) Bacteremia Current Visit: Yes Status: Acute Code(s): R78.81 - BACTEREMIA SNOMED Code(s): 3371259 (2) Penicillin allergy Current Visit: Yes Status: Acute Code(s): Z88.0 - ALLERGY STATUS TO PENICILLIN SNOMED Code(s): 87245469 (3) Sepsis Current Visit: Yes Status: Acute Code(s): A41.9 - SEPSIS, UNSPECIFIED ORGANISM SNOMED Code(s): 53633147 (4) UTI (urinary tract infection) Current Visit: Yes Status: Acute Code(s): N39.0 - URINARY TRACT INFECTION, SITE NOT SPECIFIED SNOMED Code(s): 11435226 Plan: 1patient with sepsis in this patient who did have fever tachycardia hypotension elevated white count elevated lactic acid meeting currently//sepsis now with evidence of gram-negative bacteremia source likely urinary 2-penicillin allergy that we will limit number of antibiotic safe use 2-patient blood and urine culture have been finalized with more resistant Proteus 3-patient is afebrile white count has normalized, 4patient to continue cefepime, patient will likely need midline and continue on IV cefepime on discharge as no oral option available Dictation was produced using [employer] dictation software. please excuse any gramm atical, word or spelling errors. Time with Patient: Less than 30
--- NOTE | 2025-04-17 13:15 | P.PN ---
Subjective Progress Note Date: 04/17/25 Hospital Course: Patient is a pleasant 64-year-old male with a past medical history hypertension, hyperlipidemia, CHF on daily diuretic with torsemide, insulin-dependent diabetes mellitus, CKD stage IIIb, anemia, chronic diarrhea on daily Imodium, BPH with urinary incontinence, and rheumatoid arthritis. He is a resident of [facility] and is wheelchair/bedbound requiring Jessi lift for transfers at baseline. He presented to our facility secondary to reports of concerns of urinary tract infection, scrotal edema, and urinary retention. Per transfer documentation, a East catheter was placed and patient pulled out resulting in significant bleeding from meatus. Upon arrival to our facility, patient underwent evaluation in the emergency department. Vital signs upon arrival show blood pressure 140/69, heart rate 117, respiratory rate 20, temp 98.6 F, and SpO2 of 97% on room air. EKG completed showing sinus tachycardia 121 bpm. Chest x-ray showing mild pulmonary vascular congestion consistent with mild CHF. Labs completed and reviewed. CBC showing leukocytosis with WBC count of 16.08 and normocytic anemia with hemoglobin of 10.1. Coagulation profile unremarkable. BMP showing hyponatremia with sodium of 133 and high anion gap metabolic acidosis with chloride of 108, bicarb of 12, and anion gap of 13 and renal function consistent with known CKD with BUN of 49, creatinine 2.73, and GFR of 24 with baseline creatinine around 2.7. Blood glucose 199. Lactic acid 1.6. Liver profile unremarkable with exception of low total protein of 5.7 and albumin of 2.7. Troponin was negative at less than 0.012. Urinalysis red in color turbid appearance positive for protein, glucose, blood, leukocyte esterase, greater than 182 RBCs and 76 WBCs. Patient was started on IV antibiotics with Rocephin and admitted under services with consultation to urology. Urinary retention improved and bladder scans currently showing less than 30 cc. Patient reports continued urinary incontinence (but this is his baseline) and currently denies difficulties with urination or feeling as though he is retaining. Renal function worsening from yesterday with BUN of 49, creatinine 2.79 and today BUN of 55, creatinine 3.50, GFR of 18. Nephrology consulted. Blood culture preliminarily positive for Proteus mirabillis. Patient is on Rocephin 2 g daily. Infectious disease consulted. On 04/11/25 patient's sepsis worsening and he developed GENARO on CKD with oliguria. His blood pressures also worsened with pt becoming significantly hypotensive with BP decreasing as low as 70/50. Pt was given fluid resuscitation, Bereavement Coordinator consulted and pt started on Bicarb infusion. After discussion with urology, Coude East catheter inserted for strict monitoring of I's and O's with worsening sepsis, GENARO and oliguria. Physical exam: Patient seen and fully evaluated at bedside this morning. Patient resting in bed talking with RN at bedside. he remains alert and oriented x 4 but continues to have recurrent episodes of agitation in which nursing staff report patient being noncompliant with care, hygiene, and some medications. Patient still does not have Silvestre wrap's to lower extremities as he has been refusing. Again discussed importance of compression wraps to lower extremities with patient and he currently is in agreement, patient preparing to get a bed bath and then Silvestre wrap to be applied. Patient denies having any headache, lightheadedness, dizziness, chest pain, palpitations, shortness of breath, abdominal pain, nausea, vomiting, or any other complaints at this time. Vital signs reviewed and stable General: Nontoxic, no distress and appears stated age. Derm: Skin warm and dry, normal coloration for ethnicity. Head: Atraumatic, normocephalic and symmetric. Eyes: EOM's intact, no lid lag, and anicteric sclera Mouth: no lip lesions, mucus membranes moist Cardiovascular: regular rate and rhythm with normal S1S2, no murmur, positive posterior tibial pulses bilaterally, and cap refill < 2 seconds. Lungs: Respirations even, regular, and unlabored on room air. Lungs CTA bilaterally, no rhonchi, no rales, no wheezing, and no accessory muscle usage. GI/: soft, nontender to palpation, no guarding, no appreciable organomegaly. East catheter remains in place. Ext: ROM intact. No gross muscle atrophy, 2-3+ bilateral lower extremity edema and venous stasis dermatitis, no contractures Neuro: Speech clear, face symmetrical and CN II-XII grossly intact with no noted focal neuro deficits Psych: Alert and oriented to person, place, time, and situation. Appropriate and pleasant affect. Assessment and Plan of Care: Proteus mirabillis UTI with Sepsis on arrival Proteus mirabillis Bacteremia, multidrug-resistant, secondary to above Hypotension and sinus tachycardia, secondary to sepsis Severe sepsis, secondary to above Thrombocytopenia, suspect reactive secondary to sepsis Leukocytosis BPH with chronic urinary incontinence Urinary retention, resolved Acute hematuria, resolved -Blood culture and urine culture both resulting positive for multi drug resistant Proteus mirabillis. Repeat blood culture drawn 04/13/2025 showing no growth to date. -Continue cefepime 1 g every 12 hours per culture and sensitivity report. -Infectious disease following, discussed plan of care with Dr. Lee stating patient will likely need midline with plans to discharge on IV cefepime -Continue bicarb infusion and midodrine 10 mg 3 times daily -Coude East catheter inserted on 04/11/2025 for strict monitoring of I's and O's secondary to worsening sepsis, GENARO and oliguria. -Urology evaluated and cleared patient from their perspective for discharge. -Close monitoring of I's and O's -Continue Flomax 0.4 mg daily. -Bereavement Coordinator team continues to follow along as well, reviewed documentation in chart. -Echocardiogram completed negative for vegetative growth. Acute kidney injury on CKD stage IIIb, likely secondary to sepsis and hypotension; Improving Oliguria, resolved High anion gap metabolic acidosis; Improving Acute on chronic anemia of chronic disease, likely secondary to renal function and dilution from IV fluid received throughout hospitalization Hold lisinopril and torsemide secondary to acute kidney injury and mild hypoten silviano. -Nephrology following, discussed plan of care with Dr. Packer. Patient to be maintained on bicarb infusion and midodrine at this time. Ultrasound kidneys/ureters/bladder reported to be unremarkable. Strict monitoring of I's and O's. Documented output over the past 24 hours is 4075 cc. -Continue bicarb infusion and sodium bicarb tablets 650 mg 3 times daily Hypomagnesemia Magnesium 1.7 this morning.. Continue Mag-Ox 400 mg daily and placed order for magnesium sulfate 1 g IVPB. We will continue to monitor closely with repeat a.m. labs and place additional orders if indicated based upon these findings. Hypokalemia - Potassium 3.3. Order placed for K-Dur 40 mEq p.o. x 1 dose. We will continue to monitor closely with repeat a.m. labs and place additional orders if indicated based upon these findings. Insulin-dependent diabetes mellitus with hyperglycemia -Hold Trulicity and metformin. Continue insulin glargine 40 units daily along with glycemic protocol and NovoLog sliding scale. Chronic diastolic congestive heart failure Chronic lower extremity edema Hypertension Hyperlipidemia Continue daily medication regiment with fenofibrate 160 mg daily. Lisinopril and torsemide held at this time secondary to worsening renal function and hypotension. Echocardiogram was completed showing a preserved EF of 50 to 55% with mild mitral and tricuspid regurgitation and mild pulmonary hypertension. No evidence of vegetation.. Silvestre wraps to bilateral legs for compression and recommend elevation Pressure ulcer of sacrum/coccyx and left heel, present on admission Consult placed to wound care. Data and imaging reviewed: Morning labs reviewed. CBC showing bicytopenia with hemoglobin of 8.2 and platelet count of 119. BMP showing sodium 136, chloride 103, bicarb 22, and anion gap of 11 with BUN of 61, creatinine 2.63, GFR of 25. Blood glucose 125. Magnesium 1.7 and potassium 3.3. Vital signs reviewed. Blood pressure 153/82, heart rate 78, respiratory rate 18, temp 97.8 F, and SpO2 of 97% on 2 L. -Documented output over the past 24 hours is 4075 cc. CODE STATUS: Full code DVT prophylaxis: OPAL mckenzie and SCDs Anticipated discharge date: Pending clinical course Anticipated discharge place: Return to [facility] Patient was seen independently by Nurse Practitioner. This document was prepared using [employer] dictation software. Please allow for errors in automotive brake adjuster while rare they do occur. Florentino Sun NP rendered care for this patient independently, reviewed the findings and plan as documented in the note above and agree with plan. I did not physically speak with or examine the patient on this date. Objective - Vital Signs Vital signs: Vital Signs Temp 97.6 F 04/17/25 02:00 Pulse 85 04/17/25 02:00 Resp 19 04/17/25 02:00 BP 158/75 04/17/25 02:00 Pulse Ox 96 04/17/25 02:00 FiO2 Intake & Output 04/16/25 04/17/25 04/17/25 18:59 06:59 18:59 Intake Total 222 10 0 Output Total 2024 2049 Balance -1802 -2039 0 Weight 145.5 kg Intake: IV 10 Invasive Line 3 10 Oral 222 0 Output: Urine 2024 2049 Post Void Residual 0 Other: Voiding Method Indwelling Catheter Indwelling Catheter - Labs CBC & Chem 7: 04/17/25 07:47 04/17/25 07:47 Labs: Abnormal Lab Results - Last 24 Hours (Table) 04/16/25 04/16/25 04/16/25 Range/Units 11:34 16:37 20:04 POC Glucose (mg/dL) 170 H 201 H 170 H (70-110) mg/dL 04/17/25 Range/Units 06:14 POC Glucose (mg/dL) 162 H (70-110) mg/dL Microbiology - Last 24 Hours (Table) 04/13/25 20:26 Blood Culture - Preliminary Blood
--- NOTE | 2025-04-17 15:08 | P.PN ---
Subjective Progress Note Date: 04/17/25 This is a morbidly obese 64-year-old male patient, retirement resident who resides at the [facility]. The patient is essentially bedridden. He states that his legs have given up and the patient has not walked for the past 1 year at least. The patient is morbidly obese. The patient also has history of hypertension and hyperlipidemia and history of congestive heart failure in addition to significant diabetes mellitus and chronic stage III kidney disease.. He also suffers from chronic anemia and chronic lower extremity edema and urinary retention related to BPH and rheumatoid arthritis. The patient is essentially bedbound requiring a Jessi lift to be transferred around. The patient apparently had a East catheter inserted at the retirement and this catheter was accidentally pulled out and the patient sustained some bleeding through his urethral meatus. He was still producing some urine with positive hematuria. Denies having any scrotal pain. His urine output was quite minimal. At the same time, the patient generalized weakness and fatigue and increased chills and shakiness and there was no documented temperature. The patient was found to be initially normotensive. Tachycardic. His chest x-ray showed mild pulm vascular congestion and his white cell count was elevated at 16 with a hemoglobin 10.1 and a platelet count of 148. Normal coagulation profile. He did have an acute on top of chronic kidney injury and initial creatinine was at 2.7 and this morning is up to 3.5. He also has an anion gap metabolic acidosis with serum bicarb of 14 and a gap of 12. Most recent sodium is at 142 and potassium is at 4.5. Initial lactic acid level was 1.6) of 2.6. UA is obviou sly abnormal consistent with blood and elevated white cells and there is also +3 protein, +3 glucose and occasional bacteria. I was involved in the patient's case as the patient became progressively more hypotensive and septic. Blood pressure is on the positive for Proteus mirabilis and the patient was started on IV Rocephin given 2 g. He was already given a liter of normal saline and liter of lactated Ringer. At time of arrival to the bedside, the patient had a blood pressure of 85/56. He was on room air oxygen. Heart rate was 109. He was afebrile. He was awake and alert and communicating. He did have increased edema lower extremity and some superficial wounds in his lower extremities with fluid seeping out and weeping skin. He had a stage II heel ulcer and a stage II coccygeal ulcer. His troponins were negative. Patient was seen by urology and recommendations were not to put a East catheter especially with his recent traumatic incidents with a East catheter removal. On 04/12/2025, the patient is being seen for a follow-up. On today's evaluation, the patient is arousable and awake. He remains overall lethargic and weak. Nevertheless, hemodynamically stable and the patient has not required any pressors. Most recent BP is 88/57 and a pulse ox 95% room air oxygen. The patient has a East catheter and the patient is producing urine output. BUN 61 with a creatinine of 3.4. Serum bicarbonate 12 with a sodium level of 130. Potassium is at 3.6. The white cell count of 5.4 with a hemoglobin of 8.1 and a platelet count of 72. The patient remains on IV cefepime. The patient remains on a bicarb infusion at rate of 75 cc an hour. He is afebrile. Urine culture is positive for Proteus mirabilis. Blood cultures also positive for Proteus mirabilis, sensitive to his IV cefepime. He continues to have increased edema lower extremities with weeping skin and wound care is being provided by infectious disease. Respiratory status is stable to the patient remains on room air oxygen with a pulse ox of 95%. He is afebrile. ID is on the case. Started on midodrine for a blood pressure between 80-90 systolic. Started on oral bicarb in addition. Urology is also on the case. He continues to have scrotal edema and a East catheter has been reinserted for accurate I's and O's. Urine is clear. On 04/13/2025, patient is being seen for a follow-up. The patient is awake and alert and communicating. The biggest sluggish in his response still. Continues to be an anion gap metabolic acidosis. Serum bicarb is 11 with a gap of 14. BUN is 64 with a creatinine of 3.5 and no significant improvement in renal function over the past 24 hours. Nephrology on the case. The white cell count 6.5 with a hemoglobin 8.4. Less tachycardic. Room air oxygen with a pulse ox of 93%. Most recent BP is 93/58. Continues to have edema lower extremities bilaterally. Continues to be on IV antibiotics for Proteus septicemia the patient is currently on IV cefepime. Rest of the medications remain unchanged. On midodrine 10 mg p.o. 3 times daily. He is also on oral bicarb. He is receiving bicarb infusion at rate of 75 cc an hour and rate will be increased 225 cc an hour. Hoisting Engineer Pile Driving on the case. Urine output is still cloudy. 04/14/2025, the patient is being seen for a follow-up. Hemodynamically stable. No fever or chills. Producing adequate amount of urine output. He remains on room air oxygen. No signs of any respiratory distress. 1 seconds at 9.6 with a hemoglobin 8.3 and a platelet count of 81. Sodium is at 130, potassium is 3.5, bicarb is at 16, BUN is 65 with a creatinine of 3.3. The urine culture in the blood patient was positive for Proteus mirabilis and the patient remains on IV cefepime. No other significant events overnight. He continues to produce adequate amount of urine output. Lower extremities are swollen and they are a ppropriately wrapped. Nephrology on the case. The patient is seen today April 15, 2025 in follow-up on the regular medical floor. He is currently awake and alert in no acute distress. He is maintaining O2 saturations in the 90s on 2 L/min per nasal cannula. His blood and urine cultures are positive for Proteus mirabilis. Follow-up blood culture pending. White count 10.2. Hemoglobin 8.7. Platelets 88,000. Sodium 131. Potassium 3.5. Bicarb 19. BUN 68. Creatinine 3.09. Glucose 153. He remains on cefepime. Continued on D5W with 1 amp of bicarb at 125 mL/h. Heparin for DVT prophylaxis. Sodium bicarbonate tablets. The patient is seen today April 16, 2025 in follow-up on the regular medical floor. He is currently resting in bed. Awake and alert in no acute distress. Maintaining good O2 saturations in the high 90s on 2 L/min per nasal cannula. He is afebrile. Hemodynamically stable. Chest x-ray shows cardiomegaly and mild pulmonary vascular congestion. Blood culture was positive for Proteus mirabilis. Urine culture positive for Proteus mirabilis follow-up blood culture reveals no growth. White count 8.4. Hemoglobin 7.9. Platelets 90,000. Sodium 133. Potassium 3.6. Bicarb 20. BUN 66. Creatinine 2.82. Glucose 145. He remains on cefepime. Heparin for DVT prophylaxis. Remains on D5W with 1 amp of sodium bicarbonate at 125 mL/h. Remains on sodium bicarbonate tablets. The patient is seen today April 17, 2025 in follow-up on the selective care unit. He is currently resting in bed. Awake and alert in no acute distress. Maintaining O2 saturations in the 90s on 2 L/min per nasal cannula. He is afebrile. Hemodynamically stable. White count 6.5. Hemoglobin 8.2. Platelets 119. Sodium 136. Potassium 3.3. Bicarb 22. BUN 61. Creatinine 2.63. Glucose 125. Blood culture positive for Proteus mirabilis. Urine culture positive for Proteus mirabilis. Follow-up blood cultures showing no growth. He remains on cefepime. Continued on D5W with 1 amp of bicarb at 125 mL/h. Heparin for DVT prophylaxis. Remains on sodium bicarbonate tablets. Objective - Vital Signs Vital signs: Vital Signs Temp 97.8 F 04/17/25 09:45 Pulse 78 04/17/25 09:45 Resp 18 04/17/25 09:45 BP 153/82 04/17/25 09:45 Pulse Ox 97 04/17/25 09:45 FiO2 Intake & Output 04/16/25 04/17/25 04/17/25 18:59 06:59 18:59 Intake Total 222 10 10 Output Total 2024 2049 1100 Balance -1803 -2039 -1090 Weight 145.5 kg Intake: IV 10 10 Invasive Line 3 10 10 Oral 222 0 Output: Urine 2024 2049 1100 Post Void Residual 0 Other: Voiding Method Indwelling Catheter Indwelling Catheter Indwelling Catheter - Exam GENERAL EXAM: Awake, alert, obese 64-year-old male, resting in bed, on 2 L nasal cannula, in no apparent distress. HEAD: Normocephalic. EYES: Normal reaction of pupils, equal size. NOSE: Clear with pink turbinates. THROAT: No erythema or exudates. NECK: No masses, no JVD. CHEST: No chest wall deformity. LUNGS: Equal air entry with faint crackles in the posterior bases. CVS: S1 and S2 normal with no audible murmur, regular rhythm. ABDOMEN: No hepatosplenomegaly, normal bowel sounds, no guarding or rigidity. SPINE: No scoliosis or deformity SKIN: No rashes. Stage I-II sacral decubitus ulcer CENTRAL NERVOUS SYSTEM: No focal deficits, tone is normal in all 4 extremities. EXTREMITIES: Stage II left heel ulcer. There is 1-2+ peripheral edema. No clubbing, no cyanosis. Peripheral pulses are intact. - Labs CBC & Chem 7: 04/17/25 07:47 04/17/25 07:47 Labs: Abnormal Lab Results - Last 24 Hours (Table) 04/16/25 04/16/25 04/17/25 Range/Units 16:37 20:04 06:14 RBC (4.40-5.60) 10*6/uL Hgb (13.0-17.0) g/dL Hct (39.6-50.0) % MCHC (32.0-37.0) g/dL Plt Count (140-440) 10*3/uL Sodium (137-145) mmol/L Potassium (3.5-5.1) mmol/L BUN (9-20) mg/dL Creatinine (0.66-1.25) mg/dL Glucose (74-99) mg/dL POC Glucose (mg/dL) 201 H 170 H 162 H (70-110) mg/dL Calcium (8.4-10.2) mg/dL 04/17/25 04/17/25 Range/Units 07:47 07:47 RBC 2.95 L (4.40-5.60) 10*6/uL Hgb 8.2 L (13.0-17.0) g/dL Hct 25.9 L (39.6-50.0) % MCHC 31.7 L (32.0-37.0) g/dL Plt Count 119 L (140-440) 10*3/uL Sodium 136 L (137-145) mmol/L Potassium 3.3 L (3.5-5.1) mmol/L BUN 61 H (9-20) mg/dL Creatinine 2.63 H (0.66-1.25) mg/dL Glucose 125 H (74-99) mg/dL POC Glucose (mg/dL) (70-110) mg/dL Calcium 7.5 L (8.4-10.2) mg/dL Microbiology - Last 24 Hours (Table) 04/13/25 20:26 Blood Culture - Preliminary Blood Assessment and Plan Assessment: Acute gram-negative sepsis with Proteus secondary to urinary tract infection from Proteus mirabilis. The patient has positive blood culture with Proteus. The patient is currently on IV cefepime. The patient remains on IV fluid. East catheter is in place. Acute leukocytosis secondary to above, improved and the white cell count has normalized. Acute on top of chronic kidney disease, likely secondary to urinary retention and ultrasound of the kidneys obtained on 04/11/2025 showed no evidence of any hydronephrosis. East catheter was removed and the this was a traumatic East catheter insertion/removal complicated by some hematuria. Patient is currently oliguric. Nephrology on the case. Rule out underlying ATN secondary urine tract infection/sepsis, East catheter is in place and the patient has producing clear urine output and the patient is nonoliguric at this point. Nephrology and urology are both on the case. Renal function continues to be impaired and the patient continues to produce urine output, nonbloody. Mild anion gap metabolic acidosis secondary to above, currently on bicarb infusion, lactic acid level is improved and is currently down to 1.3 Anemia of chronic disease Thrombocytopenia Hematuria, due to complicated insertion/removal of East catheter. East catheter was reinserted. No active hematuria. Morbid obesity with a BMI of 45.0 kg/m Chronic lower extremity edema with lower extremity skin ulceration and weeping skin in addition to a stage II heel ulcer on the left and decub ulcer. Congestive heart failure, baseline left leg ejection fraction is unknown, echocardiogram is in progress Diabetes mellitus type 2 Chronic stage III kidney disease BPH Rheumatoid arthritis Hyperlipidemia Osteoarthritis Gout Obstructive sleep apnea Bedridden and the patient has been nonambulatory for the past 1 year and the patient is a retirement resident Plan: The patient was seen and evaluated Microbiology, labs and medications reviewed Remains on cefepime Remains on D5W with 1 amp of bicarb at 125 mL/h Remains on bicarbonate tablets Heparin for DVT prophylaxis Titrate down/off the FiO2 as tolerated Currently stable on 2 L nasal cannula Plan will be to return to [facility] at discharge I have personally seen and examined the patient, performed the documentation and the assessment and plan as written. Number of minutes spent on the visit: 10 Dictation was produced using [employer] dictation software. Please excuse any grammatical, word or spelling errors.
[2025-04-17] MEDS: MAGNESIUM SULFATE-D5W PMX 1 GM in DEXTROSE/WATER 1 100ML.BAG IVPB ONE (16:12)
[2025-04-17] MEDS: POTASSIUM CHLORIDE ER 20 MEQ TAB.ER PO STA (16:12)
[2025-04-17 16:37] LABS: Glucose,Whole Blood 107 mg/dL (70-110)
[2025-04-17 17:05] LABS: Glucose,Whole Blood 93 mg/dL (70-110)
--- NOTE | 2025-04-17 17:45 | CT ---
EXAMINATION TYPE: CODE STROKE: CT brain wo contr DATE OF EXAM: 04/17/2025 5:35 PM COMPARISON: None. CLINICAL INDICATION: Male, 64 years old with history of Neuro deficit, acute, stroke suspected, AMS, confusion TECHNIQUE: Brain: Axial CT images of the brain were obtained with coronal and sagittal reformats created and rev iewed. Contrast used: None. Oral contrast used: None. CT DLP: 1910.2 mGycm, Automated exposure control for dose reduction was used. FINDINGS: Brain: Extra-axial spaces: No abnormal extra-axial fluid collections. Ventricular system: Within normal limits Cerebral parenchyma: No acute intraparenchymal hemorrhage or mass effect. The naik-white junction is well differentiated. Cerebellum: Unremarkable. Mass effect: No evidence of midline shift. Intracranial vasculature: unremarkable Soft tissues: Normal. Calvarium/osseous structures: No depressed skull fracture. Paranasal sinuses and mastoid air cells: Mild scattered paranasal sinus disease. Visualized orbits: Orbital contents are intact. IMPRESSION: No acute intracranial process. [facility], , 04/17/2025 5:42 PM
--- NOTE | 2025-04-17 18:24 | CT ---
EXAMINATION TYPE: CODE STROKE: CTA head neck DATE OF EXAM: 04/17/2025 5:50 PM COMPARISON: None. CLINICAL INDICATION: Male, 64 years old with history of possible CVA; PHH, AMS, confusion. TECHNIQUE: Axially acquired helical CT angiogram of the head and neck was obtained with contrast. Axi al images are supplemented with 3D reconstructions and MIP images which were post-processed at an in dependent workstation. NASCET criteria used. Contrast used:65ml mL of Isovue 370 with IV Contrast, Oral contrast used: None. CT DLP: 610.9 mGycm, Automated exposure control for dose reduction was used. FINDINGS: CTA HEAD: No evidence of acute intracranial hemorrhage, mass effect, or midline shift. The ventricles, sulci, a nd cisterns are unremarkable. Vertebral arteries: The vertebral arteries are patent. Vertebral artery dominance: Codominant Basilar artery: The basilar artery is intact. The basilar artery bifurcation is normal. Internal Carotid arteries: The cervical, petrous, cavernous and supraclinoid segments are normal. TORI: Patent with no evidence of aneurysm. ACOM: Present without evidence of aneurysm. MCA: Patent with no evidence of aneurysm. ELDERLY COMPANION: Patent with no evidence of aneurysm. PCOM: Hypoplastic bilaterally. Dural sinuses: Patent. CTA NECK: Right Carotid System: The common carotid artery and external carotid artery are patent. The carotid bifurcation demonstrate s no evidence of hemodynamically significant stenosis. The remaining portions of the internal carotid artery demonstrate normal size without significant narrowing. Left Carotid System: The common carotid artery and external carotid artery are patent. The carotid bifurcation demonstrate s no evidence of hemodynamically significant stenosis. The remaining portions of the internal carotid artery demonstrate normal size without significant narrowing. Vertebral arteries are patent without evidence hemodynamically significant stenosis. There is a three-vessel aortic arch. The origins of the great vessels are patent. No evidence of hemo dynamically significant stenosis. Upper thorax: Small bilateral pleural effusions. Right apical anterior airspace opacities. IMPRESSION: 1. No evidence of dissection of the cervical internal carotid arteries or vertebral arteries. 2. No any evidence of significant stenosis at the carotid bifurcations. 3. No evidence of intracranial high-grade stenosis or intracranial aneurysm. 4. Right anterior apical airspace opacities correlate for pneumonia. 5. Small bilateral pleural effusions. [facility], , 04/17/2025 6:22 PM
[2025-04-17 20:17] LABS: Glucose,Whole Blood 108 mg/dL (70-110)
[2025-04-17] MEDS: ASPIRIN 81 MG PO SCH (20:35)
[2025-04-17] MEDS: ATORVASTATIN 40 MG TAB PO SCH (20:35)
[2025-04-17] MEDS: ASPIRIN 81 MG PO STA (20:45)
--- NOTE | 2025-04-17 21:30 | P.PN ---
Subjective Patient is seen for follow-up for acute kidney injury. He is maintained on bicarb drip for significant metabolic acidosis Blood pressure has improved. Blood cultures and urine cultures are growing Proteus Mirabillis Maintained on midodrine Urine output has improved. Serum creatinine improved to 2.6 today Objective - Vital Signs Vital signs: Vital Signs Temp 97.7 F 04/17/25 14:00 Pulse 78 04/17/25 14:00 Resp 18 04/17/25 14:00 BP 128/67 04/17/25 14:00 Pulse Ox 98 04/17/25 14:00 FiO2 Intake & Output 04/17/25 04/17/25 04/18/25 06:59 18:59 06:59 Intake Total 10 10 Output Total 2049 Balance -2039 Weight 145.5 kg Intake: IV 10 10 Invasive Line 3 10 10 Oral 0 Output: Urine 2049 Other: Voiding Method Indwelling Catheter Indwelling Catheter - Exam Patient is awake, comfortable, no acute distress Obese Examination of the heart S1 and S2 Examination of the lungs decreased breath sounds at the bases Abdomen is soft obese Examination lower extremity shows edema 3+ bilaterally with chronic skin changes and scrotal edema - Labs CBC & Chem 7: 04/17/25 07:47 04/17/25 07:47 Labs: Abnormal Lab Results - Last 24 Hours (Table) 04/17/25 04/17/25 04/17/25 Range/Units 06:14 07:47 07:47 RBC 2.95 L (4.40-5.60) 10*6/uL Hgb 8.2 L (13.0-17.0) g/dL Hct 25.9 L (39.6-50.0) % MCHC 31.7 L (32.0-37.0) g/dL Plt Count 119 L (140-440) 10*3/uL Sodium 136 L (137-145) mmol/L Potassium 3.3 L (3.5-5.1) mmol/L BUN 61 H (9-20) mg/dL Creatinine 2.63 H (0.66-1.25) mg/dL Glucose 125 H (74-99) mg/dL POC Glucose (mg/dL) 162 H (70-110) mg/dL Calcium 7.5 L (8.4-10.2) mg/dL Microbiology - Last 24 Hours (Table) 04/13/25 20:26 Blood Culture - Preliminary Blood Assessment and Plan Assessment: 1. Acute kidney injury, ATN, oliguric secondary to hypotension and sepsis. UA suggestive of UTI. No obstruction noted on ultrasound of the kidneys 2. Gram-negative bacteremia from urinary tract infection maintained on IV antibiotics cultures are growing Proteus Mirabillis 3. Metabolic acidosis associated with acute kidney injury and lactic acidosis, maintained on bicarb drip 4. Hypomagnesemia 5. Anemia with no active bleeding noted, recent episode of hematuria after patient pulling out East catheter. Now resolved 6. Significant lower extremity edema and scrotal edema Plan: DC bicarb drip and switch to Ringer lactate Continue with midodrine Continue oral sodium bicarb Continue with antibiotics Repeat labs in a.m.
[2025-04-18 06:13] LABS: Glucose,Whole Blood 110 mg/dL (70-110)
[2025-04-18 07:55] LABS: HCT 26.4 % (39.6-50.0); HGB 8.2 g/dL (13.0-17.0); MCHC 31.1 g/dL (32.0-37.0); MCV 86.8 fL (80.0-97.0); Mean Platelet Volume 9.3 fL (9.5-12.2); Platelet Count 142 10*3/uL (140-440); RBC 3.04 10*6/uL (4.40-5.60); RDW 15.4 % (11.5-14.5); WBC 7.29 10*3/uL (4.50-10.00)
[2025-04-18 08:12] LABS: African American GFR (CKD) 35 (>60 ml/min/1.73 sqM); Anion Gap 8 mmol/L; Blood Urea Nitrogen 59 mg/dL (9-20); Calcium 7.5 mg/dL (8.4-10.2); Carbon Dioxide 23 mmol/L (22-30); Chloride 104 mmol/L (98-107); Glucose 105 mg/dL (74-99); Magnesium 1.8 mg/dL (1.6-2.3); Non-African American GFR(CKD) 30 (>60 ml/min/1.73 sqM); Potassium 4.3 mmol/L (3.5-5.1); Sodium 135 mmol/L (137-145)
--- NOTE | 2025-04-18 09:52 | P.CNNES ---
History of Present Illness Consult date: 04/17/25 Requesting physician: Florentino Sun Reason for Consult: Stroke code History of Present Illness: Patient is a 64-year-old right-handed male, resident of [facility], who was brought to the hospital by ambulance initially on 04/09/2025 at 8:53 PM for a UTI, and excessive amount of hematuria after the pulled out his urinary ca theter. He has been in [facility] for treatment of wounds on his coccyx and heels. Patient is bedbound due to bilateral leg weakness from nerve damage resulting muscle atrophy. Patient states that he has been wheelchair bound for 3 years. Patient had a stroke code activated today. Last known well was 4:12 PM when he was in his usual state of health. At 5 PM when the nurse went in, noted there was right facial droop with NIH stroke scale of 16, which was mostly related to his chronic bilateral lower extremity weakness. He was not following directions not answering questions. Patient underwent stat CT head, which revealed no acute intracranial process. I personally reviewed CT head agree with the findings. CTA of head and neck revealed no evidence of dissection of the cervical internal carotid arteries or vertebral arteries. No evidence of significant stenosis at the carotid bifurcations. No evidence of intracranial high-grade stenosis or intracranial aneurysm. Right anterior apical airspace opacities, correlate for pneumonia. Small bilateral pleural effusions. After patient returned from CT/CTA, I evaluate to the patient, and his NIH stroke scale was 0. Patient was considered not a candidate for TNK. I discussed with Dr. Shah, who agreed with no TNK. No large vessel occlusion noted on CTA. Patient at present states that he feels "weird". On asking what he means, states "I don't know". Patient appears slightly encephalopathic. Patient at present is being treated for bacteremia, sepsis and a UTI. Infectious disease is following for gram-negative bacteremia. The blood and urine cultures have been finalized with Proteus. Patient is currently on cefepime. Patient has bilateral leg cellulitis. Review of Systems All pertinent positive and negative review of systems mentioned HPI, otherwise unremarkable. Past Medical History Past Medical History: Diabetes Mellitus, GERD/Reflux, Hyperlipidemia, Hypertension, Osteoarthritis (OA), Prostate Disorder, Rheumatoid Arthritis (RA), Skin Disorder Additional Past Medical History / Comment(s): NO BP MEDS., GOUT., IRON DEFICIENCY ANEMIA, OPEN AREA ON COCCYX (SUPERFICIAL)., INCONTINENT, NEEDS [employer]ENE [employer] FOR TRANSFERS. , RESIDES AT [facility] History of Any Multi-Drug Resistant Organisms: None Reported Past Surgical History: Ear Surgery, Joint Replacement Additional Past Surgical History / Comment(s): 10/12/21 TOTAL RIGHT HIP ANTERIOR APPROACH, 11/10/21 I & D RIGHT HIP INCISION. Past Anesthesia/Blood Transfusion Reactions: Unable to Obtain Past Psychological History: No Psychological Hx Reported Smoking Status: Never smoker Past Alcohol Use History: Unable to Obtain Past Drug Use History: None Reported Medications and Allergies Home Medications Medication Instructions Recorded Confirmed Type metFORMIN HCL [Glucophage] 1,000 mg PO BID 11/09/21 04/10/25 History Ibuprofen [Motrin] 600 mg PO Q8H PRN 01/15/22 04/10/25 History Cephalexin [Keflex] 500 mg PO Q8H 04/10/25 04/10/25 History Dulaglutide [Trulicity] 4.5 mg SQ TH 04/10/25 04/10/25 History Gabapentin [Neurontin] 100 mg PO TID 04/10/25 04/10/25 History Insulin Glargine,Hum.rec.anlog 40 unit SQ DAILY 04/10/25 04/10/25 History [Insulin Glargine Solostar] Insulin Lispro-Aabc [Lyumjev See Protocol SQ ACHS 04/10/25 04/10/25 History Kwikpen U-100] Loperamide [Imodium] 2 - 4 mg PO QID PRN 04/10/25 04/10/25 History Loratadine 10 mg PO DAILY 04/10/25 04/10/25 History Phenyleph/Pramoxin/Glycr/W.pet 1 applic RECTAL Q6H PRN 04/10/25 04/10/25 History [Preparation H Cream] Promethazine [Phenergan] 25 mg PO Q6H PRN 04/10/25 04/10/25 History Torsemide [Demadex] 40 mg PO DAILY 04/10/25 04/10/25 History gemfibroziL [Lopid] 600 mg PO BID 04/10/25 04/10/25 History lisinopriL [Zestril] 20 mg PO DAILY 04/10/25 04/10/25 History Allergies Allergy/AdvReac Type Severity Reaction Status Date / Time Penicillins Allergy Unknown Verified 04/10/25 08:15 Physical Examination - Vital Signs Vital Signs: Vital Signs Temp Pulse Resp BP Pulse Ox 04/17/25 09:45 97.8 F 78 18 153/82 97 04/17/25 02:00 97.6 F 85 19 158/75 96 04/16/25 20:00 97.7 F 58 L 19 145/75 95 Intake and Output 04/17/25 04/17/25 04/17/25 06:59 14:59 22:59 Intake Total 10 Output Total 1400 1100 625 Balance -1400 -1090 -625 Intake: IV 10 Invasive Line 3 10 Oral 0 Output: Urine 1400 1100 625 Other: Voiding Method Indwelling Catheter Weight 145.5 kg Patient is an elderly male, in no acute distress. He appears slightly encephalopathic. Patient is alert awake. He has slow mentation, delayed response. She states she is 63 years old and the current year is . He knows it is April. Speech and language functions are normal. Patient can name and repeat very well. No aphasia or dysarthria. Attention, concentration are moderately impaired and f und of knowledge is decreased due to encephalopathy. Detail cognitive function testing deferred. On cranial nerve examination, pupils are equal, round and reacting to light, visual hay are full on confrontation, with no neglect on double simultaneous stimulation. Extraocular muscles are intact with no nystagmus. Face is symmetric, tongue protrudes to the midline. Palatal elevation and sensation normal, hearing and shoulder shrug normal, facial sensation normal. On muscle strength testing, there is no pronator drift and the strength is normal in arms distally and proximally. patient appears to be paraplegic. No movement at the knees or ankles or toes. This is chronic for last 3 years. Deep tendon reflexes are symmetric 2 at the biceps and brachioradialis, 0 in the lower limbs. Plantars are flat. Sensory to touch is equal with no neglect on double simultaneous stimulation. Cerebellar function showed no ataxia for [id number] testing. No dysdiadochokinesia. Cannot check for [id number] testing on either side because of leg weakness. Tone and bulk of muscles normal. Gait deferred.. On general examination, there is no carotid bruit or murmur, S1-S2 audible. Chest is clear on consultation. Abdomen is soft nontender. No organomegaly, bowel sounds present. Patient has significant peripheral edema. He has possible cellulitis bilateral, right more than left. Results - Laboratory Findings CBC and BMP: 04/18/25 07:30 04/18/25 07:30 Abnormal Lab Findings: Abnormal Labs 04/09/25 04/09/25 04/10/25 21:54 21:54 00:52 WBC 16.08 H RBC 3.58 L Hgb 10.1 L Hct 30.7 L MCHC RDW Plt Count MPV Immature Gran # 0.10 H Neutrophils # 14.96 H Lymphocytes # 0.25 L Eosinophils # 0.01 L Sodium 133 L Potassium Chloride 108 H Carbon Dioxide 12 L BUN 49 H Creatinine 2.73 H Glucose 199 H POC Glucose (mg/dL) Hemoglobin A1c Plasma Lactic Acid Jose Calcium 8.1 L Magnesium Total Protein 5.7 L Albumin 2.7 L Urine Protein 3+ H Urine Glucose (UA) 3+ H Urine Blood Large H Ur Leukocyte Esterase Small H Urine RBC >182 H Urine WBC 76 H Urine Bacteria Occasional H Urine Mucus Rare H 04/10/25 04/10/25 04/10/25 08:27 08:27 17:56 WBC RBC 3.11 L Hgb 9.0 L Hct 26.7 L MCHC RDW 14.6 H Plt Count 117 L MPV 9.0 L Immature Gran # Neutrophils # Lymphocytes # Eosinophils # Sodium 134 L Potassium Chloride 109 H Carbon Dioxide 14 L BUN 49 H Creatinine 2.79 H Glucose 207 H POC Glucose (mg/dL) 181 H Hemoglobin A1c Plasma Lactic Acid Jose Calcium 7.5 L Magnesium 1.3 L Total Protein Albumin Urine Protein Urine Glucose (UA) Urine Blood Ur Leukocyte Esterase Urine RBC Urine WBC Urine Bacteria Urine Mucus 04/10/25 04/11/25 04/11/25 20:34 05:41 05:41 WBC RBC 3.08 L Hgb 8.6 L Hct 26.7 L MCHC RDW Plt Count 106 L MPV Immature Gran # Neutrophils # Lymphocytes # Eosinophils # Sodium Potassium Chloride Carbon Dioxide BUN Creatinine Glucose POC Glucose (mg/dL) 234 H Hemoglobin A1c 6.6 H Plasma Lactic Acid Jose Calcium Magnesium Total Protein Albumin Urine Protein Urine Glucose (UA) Urine Blood Ur Leukocyte Esterase Urine RBC Urine WBC Urine Bacteria Urine Mucus 04/11/25 04/11/2525 05:41 06:16 09:21 WBC RBC Hgb Hct MCHC RDW Plt Count MPV Immature Gran # Neutrophils # Lymphocytes # Eosinophils # Sodium 132 L Potassium Chloride Carbon Dioxide 14 L BUN 55 H Creatinine 3.50 H Glucose 188 H POC Glucose (mg/dL) 205 H Hemoglobin A1c Plasma Lactic Acid Jose 3.4 H* Calcium 7.7 L Magnesium 1.5 L Total Protein Albumin Urine Protein Urine Glucose (UA) Urine Blood Ur Leukocyte Esterase Urine RBC Urine WBC Urine Bacteria Urine Mucus 04/11/25 04/11/25 04/11/25 11:47 13:01 16:59 WBC RBC Hgb Hct MCHC RDW Plt Count MPV Immature Gran # Neutrophils # Lymphocytes # Eosinophils # Sodium Potassium Chloride Carbon Dioxide BUN Creatinine Glucose POC Glucose (mg/dL) 194 H 231 H Hemoglobin A1c Plasma Lactic Acid Jose 2.6 H* Calcium Magnesium Total Protein Albumin Urine Protein Urine Glucose (UA) Urine Blood Ur Leukocyte Esterase Urine RBC Urine WBC Urine Bacteria Urine Mucus 04/11/25 04/12/25 04/12/25 19:51 05:55 11:55 WBC RBC Hgb Hct MCHC RDW Plt Count MPV Immature Gran # Neutrophils # Lymphocytes # Eosinophils # Sodium Potassium Chloride Carbon Dioxide BUN Creatinine Glucose POC Glucose (mg/dL) 285 H 212 H 212 H Hemoglobin A1c Plasma Lactic Acid Jose Calcium Magnesium Total Protein Albumin Urine Protein Urine Glucose (UA) Urine Blood Ur Leukocyte Esterase Urine RBC Urine WBC Urine Bacteria Urine Mucus 04/12/25 04/12/25 04/12/25 12:21 12:21 16:59 WBC RBC 2.88 L Hgb 8.1 L Hct 24.4 L MCHC RDW Plt Count 72 L MPV Immature Gran # Neutrophils # Lymphocytes # Eosinophils # Sodium 130 L Potassium Chloride Carbon Dioxide 12 L BUN 61 H Creatinine 3.47 H Glucose 177 H POC Glucose (mg/dL) 204 H Hemoglobin A1c Plasma Lactic Acid Jose Calcium 7.3 L Magnesium 1.5 L Total Protein Albumin Urine Protein Urine Glucose (UA) Urine Blood Ur Leukocyte Esterase Urine RBC Urine WBC Urine Bacteria Urine Mucus 04/12/25 04/13/25 04/13/25 20:22 03:50 05:16 WBC RBC 3.04 L Hgb 8.4 L Hct 25.8 L MCHC RDW Plt Count 76 L MPV Immature Gran # Neutrophils # Lymphocytes # Eosinophils # Sodium Potassium Chloride Carbon Dioxide BUN Creatinine Glucose POC Glucose (mg/dL) 276 H 218 H Hemoglobin A1c Plasma Lactic Acid Jose Calcium Magnesium Total Protein Albumin Urine Protein Urine Glucose (UA) Urine Blood Ur Leukocyte Esterase Urine RBC Urine WBC Urine Bacteria Urine Mucus 04/13/25 04/13/25 04/13/25 05:16 06:08 11:39 WBC RBC Hgb Hct MCHC RDW Plt Count MPV Immature Gran # Neutrophils # Lymphocytes # Eosinophils # Sodium 128 L Potassium Chloride Carbon Dioxide 11 L BUN 64 H Creatinine 3.59 H Glucose 195 H POC Glucose (mg/dL) 240 H 220 H Hemoglobin A1c Plasma Lactic Acid Jose Calcium 7.3 L Magnesium Total Protein Albumin Urine Protein Urine Glucose (UA) Urine Blood Ur Leukocyte Esterase Urine RBC Urine WBC Urine Bacteria Urine Mucus 04/13/25 04/13/25 04/14/25 16:34 20:22 06:15 WBC RBC Hgb Hct MCHC RDW Plt Count MPV Immature Gran # Neutrophils # Lymphocytes # Eosinophils # Sodium Potassium Chloride Carbon Dioxide BUN Creatinine Glucose POC Glucose (mg/dL) 203 H 266 H 203 H Hemoglobin A1c Plasma Lactic Acid Jose Calcium Magnesium Total Protein Albumin Urine Protein Urine Glucose (UA) Urine Blood Ur Leukocyte Esterase Urine RBC Urine WBC Urine Bacteria Urine Mucus 04/14/25 04/14/25 04/14/25 11:49 11:49 12:00 WBC RBC 2.96 L Hgb 8.3 L Hct 24.9 L MCHC RDW Plt Count 81 L MPV Immature Gran # Neutrophils # Lymphocytes # Eosinophils # Sodium 130 L Potassium Chloride Carbon Dioxide 16 L BUN 65 H Creatinine 3.30 H Glucose 181 H POC Glucose (mg/dL) 193 H Hemoglobin A1c Plasma Lactic Acid Jose Calcium 7.0 L Magnesium Total Protein Albumin Urine Protein Urine Glucose (UA) Urine Blood Ur Leukocyte Esterase Urine RBC Urine WBC Urine Bacteria Urine Mucus 04/14/25 04/14/25 04/15/25 16:43 20:30 06:07 WBC RBC Hgb Hct MCHC RDW Plt Count MPV Immature Gran # Neutrophils # Lymphocytes # Eosinophils # Sodium Potassium Chloride Carbon Dioxide BUN Creatinine Glucose POC Glucose (mg/dL) 232 H 210 H 181 H Hemoglobin A1c Plasma Lactic Acid Jsoe Calcium Magnesium Total Protein Albumin Urine Protein Urine Glucose (UA) Urine Blood Ur Leukocyte Esterase Urine RBC Urine WBC Urine Bacteria Urine Mucus 04/15/25 04/15/25 04/15/25 10:35 10:35 11:26 WBC 10.20 H RBC 3.11 L Hgb 8.7 L Hct 26.4 L MCHC RDW Plt Count 88 L MPV Immature Gran # Neutrophils # Lymphocytes # Eosinophils # Sodium 131 L Potassium Chloride Carbon Dioxide 19 L BUN 68 H Creatinine 3.09 H Glucose 153 H POC Glucose (mg/dL) 162 H Hemoglobin A1c Plasma Lactic Acid Jose Calcium 7.4 L Magnesium Total Protein Albumin Urine Protein Urine Glucose (UA) Urine Blood Ur Leukocyte Esterase Urine RBC Urine WBC Urine Bacteria Urine Mucus 04/15/25 04/15/25 04/16/25 16:20 19:49 05:57 WBC RBC 2.82 L Hgb 7.9 L Hct 24.2 L MCHC RDW Plt Count 90 L MPV Immature Gran # Neutrophils # Lymphocytes # Eosinophils # Sodium Potassium Chloride Carbon Dioxide BUN Creatinine Glucose POC Glucose (mg/dL) 131 H 188 H Hemoglobin A1c Plasma Lactic Acid Jose Calcium Magnesium Total Protein Albumin Urine Protein Urine Glucose (UA) Urine Blood Ur Leukocyte Esterase Urine RBC Urine WBC Urine Bacteria Urine Mucus 04/16/25 04/16/25 04/16/25 05:57 06:12 11:34 WBC RBC Hgb Hct MCHC RDW Plt Count MPV Immature Gran # Neutrophils # Lymphocytes # Eosinophils # Sodium 133 L Potassium Chloride Carbon Dioxide 20 L BUN 66 H Creatinine 2.82 H Glucose 145 H POC Glucose (mg/dL) 157 H 170 H Hemoglobin A1c Plasma Lactic Acid Jose Calcium 7.1 L Magnesium Total Protein Albumin Urine Protein Urine Glucose (UA) Urine Blood Ur Leukocyte Esterase Urine RBC Urine WBC Urine Bacteria Urine Mucus 04/16/25 04/16/25 04/17/25 16:37 20:04 06:14 WBC RBC Hgb Hct MCHC RDW Plt Count MPV Immature Gran # Neutrophils # Lymphocytes # Eosinophils # Sodium Potassium Chloride Carbon Dioxide BUN Creatinine Glucose POC Glucose (mg/dL) 201 H 170 H 162 H Hemoglobin A1c Plasma Lactic Acid Jose Calcium Magnesium Total Protein Albumin Urine Protein Urine Glucose (UA) Urine Blood Ur Leukocyte Esterase Urine RBC Urine WBC Urine Bacteria Urine Mucus 04/17/25 04/17/25 07:47 07:47 WBC RBC 2.95 L Hgb 8.2 L Hct 25.9 L MCHC 31.7 L RDW Plt Count 119 L MPV Immature Gran # Neutrophils # Lymphocytes # Eosinophils # Sodium 136 L Potassium 3.3 L Chloride Carbon Dioxide BUN 61 H Creatinine 2.63 H Glucose 125 H POC Glucose (mg/dL) Hemoglobin A1c Plasma Lactic Acid Jose Calcium 7.5 L Magnesium Total Protein Albumin Urine Protein Urine Glucose (UA) Urine Blood Ur Leukocyte Esterase Urine RBC Urine WBC Urine Bacteria Urine Mucus Assessment and Plan Assessment: * Status post stroke code. Initial NIH stroke scale was 16, but now after patient returned from brain imaging, his NIH stroke scale is 0. Patient not a candidate for TNK due to resolved deficits. * Diabetes * Hyperlipidemia * Hypertension * Rheumatoid arthritis * Chronic bilateral leg weakness, wheelchair-bound * Pressure sores on the coccyx * Gram-negative bacteremia due to Proteus mirabilis. * Sepsis * UTI, on cefepime * Possible cellulitis * Acute kidney injury secondary to hypotension and sepsis * Anemia Plan: * Patient's neurological deficits have resolved. Current NIH stroke scale is 0. Patient not a candidate for TNK. No large vessel occlusion noted on CTA. * CTA revealed no evidence of dissection of the cervical internal carotid arteries or vertebral arteries. No evidence of significant stenosis at the carotid bifurcation. No evidence of intracranial high-grade stenosis or intracranial aneurysm. * 2-D echo performed 04/11/2025 revealed LV EF 50-55%. Mild concentric LVH. Mildly increased left atrial diameter. Severely increased left atrial volume. Mild MR. No evidence of vegetations. * Hemoglobin A1c 6.6. * Fasting a.m. lipid panel. Agree with starting Lipitor 40 mg daily. Patient was on gemfibrozil 600 mg twice a day outpatient. * Patient given aspirin 324 mg, agree with continuing on aspirin 81 mg daily. Patient was not on any antiplatelet medication at home. * Other medical management as per IM and other specialties on board. * Neurology will follow. Thank you for the consult. Time with Patient: Greater than 30
[2025-04-18 11:38] LABS: Glucose,Whole Blood 140 mg/dL (70-110)
--- NOTE | 2025-04-18 13:39 | P.PN ---
Subjective Progress Note Date: 04/18/25 Subjective: Patient seen and examined at bedside. He is still having episodes of delirium. Right-sided deficits not resolved. Pertinent positives and negatives as discussed above, a complete review of systems was performed and all other systems are negative. Vitals Signs Reviewed. General: Nontoxic, no distress, appears older than stated age, chronically ill- appearing, obese Derm: Warm, dry, bilateral lower extremity venous stasis dermatitis Head: Atraumatic, normocephalic, symmetric Eyes: EOMI, no lid lag, anicteric sclera Mouth: No lip lesion, mucus membranes moist Cardiovascular: S1S2 reg, no murmur Lungs: Bilateral rales, no accessory muscle use, supplemental oxygen Abdominal: Soft, nontender to palpation, no guarding, no appreciable organomegaly Ext: No gross muscle atrophy, 2+ pitting edema, no contractures Neuro: CN II-XI grossly intact, patient has difficulty following commands, 1/5 strength in bilateral lower extremities Psych: Alert, oriented x 2, appropriate affect Data Reviewed Today: Pertinent Labs: WBC 7.29, hemoglobin 8.2, platelet 142, sodium 135, potassium 4.3, creatinine 2.25, blood sugars range between 93-1 40, magnesium 1.8 Imaging: No new imaging Assessment and Plan: Active: TIA Acute metabolic encephalopathy - On aspirin 81 mg daily, atorvastatin 40 nightly - Deficits have mostly resolved - Neurology following - Continue telemetry monitoring, neuroassessment - Echocardiogram previously showed normal LV systolic function, mild mitral and tricuspid regurgitation, no evidence of vegetation - Consider MRI without contrast Proteus UTI Proteus bacteremia -Continued on cefepime 1 g every 12 hours - ID following - GENARO on CKD, improved Acute urinary retention Metabolic acidosis, resolved -Nephrology following, continue to hold torsemide and lisinopril - DC bicarb drip - Also on oral bicarb 650 3 times daily -Monitor urine output - Holding antihypertensives, on midodrine 10 3 times daily Acute on chronic hypoxic respiratory failure Chronic diastolic CHF - Discontinue bicarb drip - Continue to monitor for need for diuretics Type 2 diabetes - On glargine 40 daily, sliding scale insulin, monitor for hypoglycemia Resolved: Leukocytosis Thrombocytopenia Severe sepsis Hematuria secondary to traumatic East insertion Hypokalemia Hypomagnesemia Chronic: Dyslipidemia Hypertension BPH Rheumatoid arthritis DVT ppx: Subcu heparin Code status: Full code Anticipated discharge place: Pending clinical course Anticipated discharge time: Pending clinical course Objective - Vital Signs Vital signs: Vital Signs Temp 98.1 F 04/18/25 11:27 Pulse 80 04/18/25 11:27 Resp 20 04/18/25 11:27 BP 160/73 04/18/25 11:27 Pulse Ox 97 04/18/25 11:27 FiO2 Intake & Output 04/17/25 04/18/25 04/18/25 18:59 06:59 18:59 Intake Total 10 247 252 Output Total 1728 2125 800 Balance -0245 -1878 -548 Weight 143.5 kg Intake: IV 10 10 30 Invasive Line 3 10 10 20 Invasive Line 4 10 Oral 0 237 222 Output: Urine 1729 2123 800 Other: Voiding Method Indwelling Catheter Indwelling Catheter Indwelling Catheter - Labs CBC & Chem 7: 04/18/25 07:30 04/18/25 07:30 Labs: Abnormal Lab Results - Last 24 Hours (Table) 04/18/25 04/18/25 04/18/25 Range/Units 07:30 07:30 11:36 RBC 3.04 L (4.40-5.60) 10*6/uL Hgb 8.2 L (13.0-17.0) g/dL Hct 26.4 L (39.6-50.0) % MCHC 31.1 L (32.0-37.0) g/dL MPV 9.3 L (9.5-12.2) fL Sodium 135 L (137-145) mmol/L BUN 59 H (9-20) mg/dL Creatinine 2.25 H (0.66-1.25) mg/dL Glucose 105 H (74-99) mg/dL POC Glucose (mg/dL) 140 H (70-110) mg/dL Calcium 7.5 L (8.4-10.2) mg/dL
--- NOTE | 2025-04-18 14:28 | P.PN ---
Subjective Progress Note Date: 04/18/25 This is a morbidly obese 64-year-old male patient, snf resident who resides at the [facility]. The patient is essentially bedridden. He states that his legs have given up and the patient has not walked for the past 1 year at least. The patient is morbidly obese. The patient also has history of hypertension and hyperlipidemia and history of congestive heart failure in addition to significant diabetes mellitus and chronic stage III kidney disease.. He also suffers from chronic anemia and chronic lower extremity edema and urinary retention related to BPH and rheumatoid arthritis. The patient is essentially bedbound requiring a Jessi lift to be transferred around. The patient apparently had a East catheter inserted at the snf and this catheter was accidentally pulled out and the patient sustained some bleeding through his urethral meatus. He was still producing some urine with positive hematuria. Denies having any scrotal pain. His urine output was quite minimal. At the same time, the patient generalized weakness and fatigue and increased chills and shakiness and there was no documented temperature. The patient was found to be initially normotensive. Tachycardic. His chest x-ray showed mild pulm vascular congestion and his white cell count was elevated at 16 with a hemoglobin 10.1 and a platelet count of 148. Normal coagulation profile. He did have an acute on top of chronic kidney injury and initial creatinine was at 2.7 and this morning is up to 3.5. He also has an anion gap metabolic acidosis with serum bicarb of 14 and a gap of 12. Most recent sodium is at 142 and potassium is at 4.5. Initial lactic acid level was 1.6) of 2.6. UA is obviou sly abnormal consistent with blood and elevated white cells and there is also +3 protein, +3 glucose and occasional bacteria. I was involved in the patient's case as the patient became progressively more hypotensive and septic. Blood pressure is on the positive for Proteus mirabilis and the patient was started on IV Rocephin given 2 g. He was already given a liter of normal saline and liter of lactated Ringer. At time of arrival to the bedside, the patient had a blood pressure of 85/56. He was on room air oxygen. Heart rate was 109. He was afebrile. He was awake and alert and communicating. He did have increased edema lower extremity and some superficial wounds in his lower extremities with fluid seeping out and weeping skin. He had a stage II heel ulcer and a stage II coccygeal ulcer. His troponins were negative. Patient was seen by urology and recommendations were not to put a East catheter especially with his recent traumatic incidents with a East catheter removal. On 04/12/2025, the patient is being seen for a follow-up. On today's evaluation, the patient is arousable and awake. He remains overall lethargic and weak. Nevertheless, hemodynamically stable and the patient has not required any pressors. Most recent BP is 88/57 and a pulse ox 95% room air oxygen. The patient has a East catheter and the patient is producing urine output. BUN 61 with a creatinine of 3.4. Serum bicarbonate 12 with a sodium level of 130. Potassium is at 3.6. The white cell count of 5.4 with a hemoglobin of 8.1 and a platelet count of 72. The patient remains on IV cefepime. The patient remains on a bicarb infusion at rate of 75 cc an hour. He is afebrile. Urine culture is positive for Proteus mirabilis. Blood cultures also positive for Proteus mirabilis, sensitive to his IV cefepime. He continues to have increased edema lower extremities with weeping skin and wound care is being provided by infectious disease. Respiratory status is stable to the patient remains on room air oxygen with a pulse ox of 95%. He is afebrile. ID is on the case. Started on midodrine for a blood pressure between 80-90 systolic. Started on oral bicarb in addition. Urology is also on the case. He continues to have scrotal edema and a East catheter has been reinserted for accurate I's and O's. Urine is clear. On 04/13/2025, patient is being seen for a follow-up. The patient is awake and alert and communicating. The biggest sluggish in his response still. Continues to be an anion gap metabolic acidosis. Serum bicarb is 11 with a gap of 14. BUN is 64 with a creatinine of 3.5 and no significant improvement in renal function over the past 24 hours. Nephrology on the case. The white cell count 6.5 with a hemoglobin 8.4. Less tachycardic. Room air oxygen with a pulse ox of 93%. Most recent BP is 93/58. Continues to have edema lower extremities bilaterally. Continues to be on IV antibiotics for Proteus septicemia the patient is currently on IV cefepime. Rest of the medications remain unchanged. On midodrine 10 mg p.o. 3 times daily. He is also on oral bicarb. He is receiving bicarb infusion at rate of 75 cc an hour and rate will be increased 225 cc an hour. Tree Doctor on the case. Urine output is still cloudy. 04/14/2025, the patient is being seen for a follow-up. Hemodynamically stable. No fever or chills. Producing adequate amount of urine output. He remains on room air oxygen. No signs of any respiratory distress. 1 seconds at 9.6 with a hemoglobin 8.3 and a platelet count of 81. Sodium is at 130, potassium is 3.5, bicarb is at 16, BUN is 65 with a creatinine of 3.3. The urine culture in the blood patient was positive for Proteus mirabilis and the patient remains on IV cefepime. No other significant events overnight. He continues to produce adequate amount of urine output. Lower extremities are swollen and they are a ppropriately wrapped. Nephrology on the case. The patient is seen today April 15, 2025 in follow-up on the regular medical floor. He is currently awake and alert in no acute distress. He is maintaining O2 saturations in the 90s on 2 L/min per nasal cannula. His blood and urine cultures are positive for Proteus mirabilis. Follow-up blood culture pending. White count 10.2. Hemoglobin 8.7. Platelets 88,000. Sodium 131. Potassium 3.5. Bicarb 19. BUN 68. Creatinine 3.09. Glucose 153. He remains on cefepime. Continued on D5W with 1 amp of bicarb at 125 mL/h. Heparin for DVT prophylaxis. Sodium bicarbonate tablets. The patient is seen today April 16, 2025 in follow-up on the regular medical floor. He is currently resting in bed. Awake and alert in no acute distress. Maintaining good O2 saturations in the high 90s on 2 L/min per nasal cannula. He is afebrile. Hemodynamically stable. Chest x-ray shows cardiomegaly and mild pulmonary vascular congestion. Blood culture was positive for Proteus mirabilis. Urine culture positive for Proteus mirabilis follow-up blood culture reveals no growth. White count 8.4. Hemoglobin 7.9. Platelets 90,000. Sodium 133. Potassium 3.6. Bicarb 20. BUN 66. Creatinine 2.82. Glucose 145. He remains on cefepime. Heparin for DVT prophylaxis. Remains on D5W with 1 amp of sodium bicarbonate at 125 mL/h. Remains on sodium bicarbonate tablets. The patient is seen today April 17, 2025 in follow-up on the selective care unit. He is currently resting in bed. Awake and alert in no acute distress. Maintaining O2 saturations in the 90s on 2 L/min per nasal cannula. He is afebrile. Hemodynamically stable. White count 6.5. Hemoglobin 8.2. Platelets 119. Sodium 136. Potassium 3.3. Bicarb 22. BUN 61. Creatinine 2.63. Glucose 125. Blood culture positive for Proteus mirabilis. Urine culture positive for Proteus mirabilis. Follow-up blood cultures showing no growth. He remains on cefepime. Continued on D5W with 1 amp of bicarb at 125 mL/h. Heparin for DVT prophylaxis. Remains on sodium bicarbonate tablets. The patient is seen today April 18, 2025 in follow-up on the selective care unit. He is awake and alert in no acute distress. Resting fairly comfortably in bed. Maintaining good O2 saturations in the mid to upper 90s on 2 L/min per nasal cannula. Has been afebrile. Hemodynamically stable. He did have a code stroke called on him last evening. CT scan of the brain revealed no acute intracranial process. CT angiography revealed no evidence of dissection of the cervical internal carotid arteries or vertebral arteries. No evidence of significant stenosis at the carotid bifurcations. No evidence of intracranial high-grade stenosis or intracranial aneurysm. His initial right sided facial drooping and neurologic deficits resolved. Current NIH score scale was down to 0. He did not receive TNK. He is on Lipitor and aspirin. He is continued on cefepime. He remains on heparin for DVT prophylaxis. Bicarb drip was discontinued. White count 7.2. Hemoglobin 8.2. Platelets 142. Sodium 135. Potassium 4.3. Bicarb 23. BUN 59. Creatinine 2.25. Glucose 105. Objective - Vital Signs Vital signs: Vital Signs Temp 98.1 F 04/18/25 11:27 Pulse 80 04/18/25 11:27 Resp 20 04/18/25 11:27 BP 160/73 04/18/25 11:27 Pulse Ox 97 04/18/25 11:27 FiO2 Intake & Output 04/17/25 04/18/25 04/18/25 18:59 06:59 18:59 Intake Total 10 247 252 Output Total 1725 2125 800 Balance -4489 -5836 -098 Weight 143.5 kg Intake: IV 10 10 30 Invasive Line 3 10 10 20 Invasive Line 4 10 Oral 0 237 222 Output: Urine 1725 2125 800 Other: Voiding Method Indwelling Catheter Indwelling Catheter Indwelling Catheter - Exam GENERAL EXAM: Awake, 64-year-old male, resting in bed, on 2 L nasal cannula, in no apparent distress. HEAD: Normocephalic. EYES: Normal reaction of pupils, equal size. NOSE: Clear with pink turbinates. THROAT: No erythema or exudates. NECK: No masses, no JVD. CHEST: No chest wall deformity. LUNGS: Equal air entry with faint crackles in the posterior bases. CVS: S1 and S2 normal with no audible murmur, regular rhythm. ABDOMEN: No hepatosplenomegaly, normal bowel sounds, no guarding or rigidity. SPINE: No scoliosis or deformity SKIN: No rashes. Stage I-II sacral decubitus ulcer CENTRAL NERVOUS SYSTEM: No focal deficits, tone is normal in all 4 extremities. EXTREMITIES: Stage II left heel ulcer. There is 1-2+ peripheral edema. No clubbing, no cyanosis. Peripheral pulses are intact. - Labs CBC & Chem 7: 04/18/25 07:30 04/18/25 07:30 Labs: Abnormal Lab Results - Last 24 Hours (Table) 04/18/25 04/18/25 04/18/25 Range/Units 07:30 07:30 11:36 RBC 3.04 L (4.40-5.60) 10*6/uL Hgb 8.2 L (13.0-17.0) g/dL Hct 26.4 L (39.6-50.0) % MCHC 31.1 L (32.0-37.0) g/dL MPV 9.3 L (9.5-12.2) fL Sodium 135 L (137-145) mmol/L BUN 59 H (9-20) mg/dL Creatinine 2.25 H (0.66-1.25) mg/dL Glucose 105 H (74-99) mg/dL POC Glucose (mg/dL) 140 H (70-110) mg/dL Calcium 7.5 L (8.4-10.2) mg/dL Assessment and Plan Assessment: Acute gram-negative sepsis with Proteus secondary to urinary tract infection from Proteus mirabilis. The patient has positive blood culture with Proteus. The patient is currently on IV cefepime. The patient remains on IV fluid. East catheter is in place. Acute leukocytosis secondary to above, improved and the white cell count has normalized. Acute on top of chronic kidney disease, likely secondary to urinary retention and ultrasound of the kidneys obtained on 04/11/2025 showed no evidence of any hydronephrosis. East catheter was removed and the this was a traumatic East catheter insertion/removal complicated by some hematuria. Patient is currently oliguric. Nephrology on the case. Rule out underlying ATN secondary urine tract infection/sepsis, East catheter is in place and the patient has producing clear urine output and the patient is nonoliguric at this point. Nephrology and urology are both on the case. Renal function continues to be impaired and the patient continues to produce urine output, nonbloody. Mild anion gap metabolic acidosis secondary to above, currently on bicarb infusion, lactic acid level is improved and is currently down to 1.3 Anemia of chronic disease Thrombocytopenia Hematuria, due to complicated insertion/removal of East catheter. East catheter was reinserted. No active hematuria Acute TIA 04/17/2025 with complete resolution of neurologic deficits. No TNK Morbid obesity with a BMI of 45.0 kg/m Chronic lower extremity edema with lower extremity skin ulceration and weeping skin in addition to a stage II heel ulcer on the left and decub ulcer. Congestive heart failure, baseline left leg ejection fraction is unknown, echocardiogram is in progress Diabetes mellitus type 2 Chronic stage III kidney disease BPH Rheumatoid arthritis Hyperlipidemia Osteoarthritis Gout Obstructive sleep apnea Bedridden and the patient has been nonambulatory for the past 1 year and the patient is a snf resident Plan: The patient was seen and evaluated Labs and medications reviewed Neurology consult reviewed Remains on cefepime Remains on bicarbonate tablets Heparin for DVT prophylaxis Titrate down/off the FiO2 as tolerated Currently stable on 2 L nasal cannula Plan will be to return to [facility] at discharge I have personally seen and examined the patient, performed the documentation and the assessment and plan as written. Number of minutes spent on the visit: 10 Dictation was produced using [employer] dictation software. Please excuse any grammatical, word or spelling errors.
--- NOTE | 2025-04-18 15:05 | P.PN ---
Subjective Patient is seen for follow-up for acute kidney injury. Status post bicarb drip Blood pressure has improved. Blood cultures and urine cultures are growing Proteus Mirabillis Maintained on midodrine Urine output has improved. Serum creatinine improved to 2.25 today Objective - Vital Signs Vital signs: Vital Signs Temp 98.1 F 04/18/25 11:27 Pulse 80 04/18/25 11:27 Resp 20 04/18/25 11:27 BP 160/73 04/18/25 11:27 Pulse Ox 97 04/18/25 11:27 FiO2 Intake & Output 04/17/25 04/18/25 04/18/25 18:59 06:59 18:59 Intake Total 10 247 252 Output Total 1725 2125 800 Balance -9805 -6314 -438 Weight 143.5 kg Intake: IV 10 10 30 Invasive Line 3 10 10 20 Invasive Line 4 10 Oral 0 237 222 Output: Urine 1725 2125 800 Other: Voiding Method Indwelling Catheter Indwelling Catheter Indwelling Catheter - Exam Patient is awake, comfortable, no acute distress Obese Examination of the heart S1 and S2 Examination of the lungs decreased breath sounds at the bases Abdomen is soft obese Examination lower extremity shows chronic edema 3+ bilaterally with chronic skin changes and scrotal edema - Labs CBC & Chem 7: 04/18/25 07:30 04/18/25 07:30 Labs: Abnormal Lab Results - Last 24 Hours (Table) 04/18/25 04/18/25 04/18/25 Range/Units 07:30 07:30 11:36 RBC 3.04 L (4.40-5.60) 10*6/uL Hgb 8.2 L (13.0-17.0) g/dL Hct 26.4 L (39.6-50.0) % MCHC 31.1 L (32.0-37.0) g/dL MPV 9.3 L (9.5-12.2) fL Sodium 135 L (137-145) mmol/L BUN 59 H (9-20) mg/dL Creatinine 2.25 H (0.66-1.25) mg/dL Glucose 105 H (74-99) mg/dL POC Glucose (mg/dL) 140 H (70-110) mg/dL Calcium 7.5 L (8.4-10.2) mg/dL Assessment and Plan Assessment: 1. Acute kidney injury, ATN, oliguric secondary to hypotension and sepsis. UA suggestive of UTI. No obstruction noted on ultrasound of the kidneys 2. Gram-negative bacteremia from urinary tract infection maintained on IV antibiotics cultures are growing Proteus Mirabillis 3. Metabolic acidosis associated with acute kidney injury and lactic acidosis, status post bicarb drip 4. Hypomagnesemia 5. Anemia with no active bleeding noted, recent episode of hematuria after patient pulling out East catheter. Now resolved 6. Significant lower extremity edema and scrotal edema Plan: Continue off of IV fluids DC midodrine Continue oral sodium bicarb Continue with antibiotics Repeat labs in a.m.
[2025-04-18 16:32] LABS: Glucose,Whole Blood 142 mg/dL (70-110)
--- NOTE | 2025-04-18 16:36 | P.PN ---
Subjective Progress Note Date: 04/18/25 Principal diagnosis: Reason for follow-up is UTI/bacteremia Patient is a 64-year-old male with a past medical history significant for Diabetes Mellitus, GERD/Reflux, Hyperlipidemia, Hypertension, Osteoarthritis (OA), Prostate Disorder, Rheumatoid Arthritis (RA), Skin Disorder resident of the local custodial resident patient did have a chronic indwelling East cath eter brought to the hospital after accidentally pulling out his East with hematuria did have a positive blood culture with Proteus probably this consultation. On today's evaluation that is 04/18/2025,the patient remains to be afebrile, patient is on 2 L nasal cannula supplemental oxygen and denies any shortness of breath no chest pain or cough.Patient denies having any nausea or vomiting, no abdominal pain and no diarrhea has been reported. Patient white count 7.29, creatinine is 2.25 blood culture repeat has been negative Objective - Vital Signs Vital signs: Vital Signs Temp 98.1 F 04/18/25 11:27 Pulse 80 04/18/25 11:27 Resp 20 04/18/25 11:27 BP 160/73 04/18/25 11:27 Pulse Ox 97 04/18/25 11:27 FiO2 Intake & Output 04/17/25 04/18/25 04/18/25 18:59 06:59 18:59 Intake Total 10 247 252 Output Total 1725 2125 800 Balance -4043 -4847 -768 Weight 143.5 kg Intake: IV 10 10 30 Invasive Line 3 10 10 20 Invasive Line 4 10 Oral 0 237 222 Output: Urine 1725 2125 800 Other: Voiding Method Indwelling Catheter Indwelling Catheter Indwelling Catheter - Exam GENERAL DESCRIPTION: Middle-age male lying in bed in no distress RESPIRATORY SYSTEM: Unlabored breathing , decreased breath sounds at bases HEART: S1 S2 regular rate and rhythm , ABDOMEN: Soft , no tenderness EXTREMITIES: Diffuse swelling to bilateral lower extremity - Labs CBC & Chem 7: 04/18/25 07:30 04/18/25 07:30 Labs: Abnormal Lab Results - Last 24 Hours (Table) 04/18/25 04/18/25 04/18/25 Range/Units 07:30 07:30 11:36 RBC 3.04 L (4.40-5.60) 10*6/uL Hgb 8.2 L (13.0-17.0) g/dL Hct 26.4 L (39.6-50.0) % MCHC 31.1 L (32.0-37.0) g/dL MPV 9.3 L (9.5-12.2) fL Sodium 135 L (137-145) mmol/L BUN 59 H (9-20) mg/dL Creatinine 2.25 H (0.66-1.25) mg/dL Glucose 105 H (74-99) mg/dL POC Glucose (mg/dL) 140 H (70-110) mg/dL Calcium 7.5 L (8.4-10.2) mg/dL 04/18/25 Range/Units 16:31 RBC (4.40-5.60) 10*6/uL Hgb (13.0-17.0) g/dL Hct (39.6-50.0) % MCHC (32.0-37.0) g/dL MPV (9.5-12.2) fL Sodium (137-145) mmol/L BUN (9-20) mg/dL Creatinine (0.66-1.25) mg/dL Glucose (74-99) mg/dL POC Glucose (mg/dL) 142 H (70-110) mg/dL Calcium (8.4-10.2) mg/dL Assessment and Plan (1) Bacteremia Current Visit: Yes Status: Acute Code(s): R78.81 - BACTEREMIA SNOMED Code(s): 9999246 (2) Penicillin allergy Current Visit: Yes Status: Acute Code(s): Z88.0 - ALLERGY STATUS TO PENICILLIN SNOMED Code(s): 26266068 (3) Sepsis Current Visit: Yes Status: Acute Code(s): A41.9 - SEPSIS, UNSPECIFIED ORGANISM SNOMED Code(s): 42642170 (4) UTI (urinary tract infection) Current Visit: Yes Status: Acute Code(s): N39.0 - URINARY TRACT INFECTION, SITE NOT SPECIFIED SNOMED Code(s): 94325313 Plan: 1patient with sepsis in this patient who did have fever tachycardia hypotension elevated white count elevated lactic acid meeting currently//sepsis now with evidence of gram-negative bacteremia source likely urinary 2-penicillin allergy that we will limit number of antibiotic safe use 2-patient blood and urine culture have been finalized with more resistant Proteus 3-patient is afebrile white count has normalized, blood culture repeat has been negative 4patient currently being treated with cefepime and will need to continue on discharge for which midline should be placed Dictation was produced using [employer] dictation software. please excuse any grammatical, word or spelling errors. Time with Patient: Less than 30
--- NOTE | 2025-04-18 16:49 | P.PN ---
Subjective Progress Note Date: 04/18/25 Patient was seen for follow-up. Patient states his legs feels warm. He keeps seeing dots in the vision. He feels "weird". Patient states that it feels like "today is taking too long". Patient otherwise is laying in the bed appears comfortable. He is slightly short of breath. Objective - Vital Signs Vital signs: Vital Signs Temp 98.1 F 04/18/25 11:27 Pulse 80 04/18/25 11:27 Resp 20 04/18/25 11:27 BP 160/73 04/18/25 11:27 Pulse Ox 97 04/18/25 11:27 FiO2 Intake & Output 04/17/25 04/18/25 04/18/25 18:59 06:59 18:59 Intake Total 10 247 252 Output Total 1725 2125 1650 Balance -6675 -4151 -1398 Weight 143.5 kg Intake: IV 10 10 30 Invasive Line 3 10 10 20 Invasive Line 4 10 Oral 0 237 222 Output: Urine 1725 2125 1650 Other: Voiding Method Indwelling Catheter Indwelling Catheter Indwelling Catheter - Exam Examination remains unchanged, nonfocal. - Labs CBC & Chem 7: 04/18/25 07:30 04/18/25 07:30 Labs: Abnormal Lab Results - Last 24 Hours (Table) 04/18/25 04/18/25 04/18/25 Range/Units 07:30 07:30 11:36 RBC 3.04 L (4.40-5.60) 10*6/uL Hgb 8.2 L (13.0-17.0) g/dL Hct 26.4 L (39.6-50.0) % MCHC 31.1 L (32.0-37.0) g/dL MPV 9.3 L (9.5-12.2) fL Sodium 135 L (137-145) mmol/L BUN 59 H (9-20) mg/dL Creatinine 2.25 H (0.66-1.25) mg/dL Glucose 105 H (74-99) mg/dL POC Glucose (mg/dL) 140 H (70-110) mg/dL Calcium 7.5 L (8.4-10.2) mg/dL 04/18/25 Range/Units 16:31 RBC (4.40-5.60) 10*6/uL Hgb (13.0-17.0) g/dL Hct (39.6-50.0) % MCHC (32.0-37.0) g/dL MPV (9.5-12.2) fL Sodium (137-145) mmol/L BUN (9-20) mg/dL Creatinine (0.66-1.25) mg/dL Glucose (74-99) mg/dL POC Glucose (mg/dL) 142 H (70-110) mg/dL Calcium (8.4-10.2) mg/dL Assessment and Plan Assessment: * Status post stroke code. Initial NIH stroke scale was 16, but now after patient returned from brain imaging, his NIH stroke scale is 0. Patient not a candidate for TNK due to resolved deficits. * Diabetes * Hyperlipidemia * Hypertension * Rheumatoid arthritis * Chronic bilateral leg weakness, wheelchair-bound * Pressure sores on the coccyx * Gram-negative bacteremia due to Proteus mirabilis. * Sepsis * UTI, on cefepime * Possible cellulitis * Acute kidney injury secondary to hypotension and sepsis. Renal functions improving. * Anemia Plan: * Patient's neurological deficits have resolved. Current NIH stroke scale is 0. Patient not a candidate for TNK. No large vessel occlusion noted on CTA. * CTA revealed no evidence of dissection of the cervical internal carotid arteries or vertebral arteries. No evidence of significant stenosis at the carotid bifurcation. No evidence of intracranial high-grade stenosis or intracranial aneurysm. * 2-D echo performed 04/11/2025 revealed LV EF 50-55%. Mild concentric LVH. Mildly increased left atrial diameter. Severely increased left atrial volume. Mild MR. No evidence of vegetations. * Hemoglobin A1c 6.6. * Fasting a.m. lipid panel. Agree with starting Lipitor 40 mg daily. Patient was on gemfibrozil 600 mg twice a day outpatient. * Patient given aspirin 324 mg, agree with continuing on aspirin 81 mg daily. Patient was not on any antiplatelet medication at home. * Other medical management as per IM and other specialties on board. * Check B12, folate. * Neurologically no other workup indicated.
[2025-04-18 20:19] LABS: Glucose,Whole Blood 137 mg/dL (70-110)
[2025-04-19 05:53] LABS: Glucose,Whole Blood 88 mg/dL (70-110)
[2025-04-19] MEDS: FOLIC ACID 1 MG TAB PO SCH (09:49)
[2025-04-19 11:23] LABS: Glucose,Whole Blood 104 mg/dL (70-110)
[2025-04-19 13:00] LABS: HGB 8.2 g/dL (13.0-17.0); MCH 27.7 pg (27.0-32.0); MCHC 31.5 g/dL (32.0-37.0); MCV 87.8 fL (80.0-97.0); Mean Platelet Volume 8.9 fL (9.5-12.2); Platelet Count 146 10*3/uL (140-440); RBC 2.96 10*6/uL (4.40-5.60); RDW 14.8 % (11.5-14.5); WBC 6.79 10*3/uL (4.50-10.00)
[2025-04-19 13:15] LABS: African American GFR (CKD) 32 (>60 ml/min/1.73 sqM); Anion Gap 4 mmol/L; Blood Urea Nitrogen 50 mg/dL (9-20); Calcium 7.5 mg/dL (8.4-10.2); Carbon Dioxide 27 mmol/L (22-30); Chloride 108 mmol/L (98-107); Glucose 72 mg/dL (74-99); Non-African American GFR(CKD) 28 (>60 ml/min/1.73 sqM); Potassium 3.8 mmol/L (3.5-5.1); Sodium 139 mmol/L (137-145)
--- NOTE | 2025-04-19 13:18 | P.PN ---
Subjective Progress Note Date: 04/19/25 No new complaints. Patient does remain slightly confused. Gen: In NAD, non-toxic HEENT: normocephalic, atraumatic, hearing acuity is intant, mucous membranes moist CVS: perfusing all extremities well, no pitting edema, Respiratory: symmetric chest expansion, no accessory muscle use, GI: soft, NTTP, ND, : no suprapubic tenderness, no CVA tenderness MSK/Derm: no rashes, cyanosis Neuro: CN II-XII intact, no motor weakness, Psych: cooperative, euthymic mood, judgment and insight is intact Assessment and Plan: Active: TIA Acute metabolic encephalopathy - On aspirin 81 mg daily, atorvastatin 40 nightly - Deficits have mostly resolved - Neurology following - Continue telemetry monitoring, neuroassessment - Echocardiogram previously showed normal LV systolic function, mild mitral and tricuspid regurgitation, no evidence of vegetation - Consider MRI without contrast Proteus UTI Proteus bacteremia -Continued on cefepime 1 g every 12 hours - ID following - GENARO on CKD, improved Acute urinary retention Metabolic acidosis, resolved -Nephrology following, continue to hold torsemide and lisinopril - DC bicarb drip - Also on oral bicarb 650 3 times daily -Monitor urine output - Holding antihypertensives, on midodrine 10 3 times daily Acute on chronic hypoxic respiratory failure Chronic diastolic CHF - Discontinue bicarb drip - Continue to monitor for need for diuretics Type 2 diabetes - On glargine 40 daily, sliding scale insulin, monitor for hypoglycemia Resolved: Leukocytosis Thrombocytopenia Severe sepsis Hematuria secondary to traumatic East insertion Hypokalemia Hypomagnesemia Chronic: Dyslipidemia Hypertension BPH Rheumatoid arthritis DVT ppx: Subcu heparin Code status: Full code Anticipated discharge place: Pending clinical course Anticipated discharge time: Pending clinical course Objective - Vital Signs Vital signs: Vital Signs Temp 97.7 F 04/19/25 04:00 Pulse 75 04/19/25 04:00 Resp 18 04/19/25 04:00 BP 158/77 04/19/25 04:00 Pulse Ox 98 04/19/25 04:00 FiO2 Intake & Output 04/18/25 04/19/25 04/19/25 18:59 06:59 18:59 Intake Total 489 300 Output Total 1650 1800 Balance -1161 -1800 300 Weight 143.5 kg Intake: IV 30 Invasive Line 3 20 Invasive Line 4 10 Oral 459 300 Output: Urine 1650 1800 Other: Voiding Method Indwelling Catheter Indwelling Catheter - Labs CBC & Chem 7: 04/19/25 12:28 04/18/25 07:30 Labs: Abnormal Lab Results - Last 24 Hours (Table) 04/18/25 04/18/25 04/18/25 Range/Units 07:30 16:31 20:16 RBC (4.40-5.60) 10*6/uL Hgb (13.0-17.0) g/dL Hct (39.6-50.0) % MCHC (32.0-37.0) g/dL MPV (9.5-12.2) fL Immature Gran # (0.00-0.04) 10*3/uL POC Glucose (mg/dL) 142 H 137 H (70-110) mg/dL Folate 3.70 L (4.40-31.00) ng/mL 04/19/25 Range/Units 12:28 RBC 2.96 L (4.40-5.60) 10*6/uL Hgb 8.2 L (13.0-17.0) g/dL Hct 26.0 L (39.6-50.0) % MCHC 31.5 L (32.0-37.0) g/dL MPV 8.9 L (9.5-12.2) fL Immature Gran # 0.41 H (0.00-0.04) 10*3/uL POC Glucose (mg/dL) (70-110) mg/dL Folate (4.40-31.00) ng/mL Microbiology - Last 24 Hours (Table) 04/13/25 20:26 Blood Culture - Final Blood
[2025-04-19 13:32] LABS: Lymphocytes # (M) 1.43 k/uL (1.0-4.8); Monocytes # (M) 0.48 k/uL (0-1.0); Neutrophils # (M) 4.89 k/uL (1.3-7.7); Neutrophils % (M) 72 %; Nucleated Red Blood Cells 0 /100 WBC (0-0); Total Cells Counted 100
[2025-04-19 14:18] LABS: Magnesium 1.8 mg/dL (1.6-2.3)
--- NOTE | 2025-04-19 15:52 | P.PN ---
Subjective Progress Note Date: 04/19/25 Principal diagnosis: Acute gram-negative sepsis secondary to/Proteus mirabilis bacteremia and Proteus mirabilis urinary tract infection This is a morbidly obese 64-year-old male patient, [facility] resident who resides at the [facility]. The patient is essentially bedridden. He states that his legs have given up and the patient has not walked for the past 1 year at least. The patient is morbidly obese. The patient also has history of hypertension and hyperlipidemia and history of congestive heart failure in addition to significant diabetes mellitus and chronic stage III kidney disease.. He also suffers from chronic anemia and chronic lower extremity edema and ur inary retention related to BPH and rheumatoid arthritis. The patient is essentially bedbound requiring a Jessi lift to be transferred around. The patient apparently had a East catheter inserted at the [facility] and this catheter was accidentally pulled out and the patient sustained some bleeding through his urethral meatus. He was still producing some urine with positive hematuria. Denies having any scrotal pain. His urine output was quite minimal. At the same time, the patient generalized weakness and fatigue and increased chills and shakiness and there was no documented temperature. The patient was found to be initially normotensive. Tachycardic. His chest x-ray showed mild pulm vascular congestion and his white cell count was elevated at 16 with a hemoglobin 10.1 and a platelet count of 148. Normal coagulation profile. He did have an acute on top of chronic kidney injury and initial creatinine was at 2.7 and this morning is up to 3.5. He also has an anion gap metabolic acidosis with serum bicarb of 14 and a gap of 12. Most recent sodium is at 142 and potassium is at 4.5. Initial lactic acid level was 1.6) of 2.6. UA is obviously abnormal consistent with blood and elevated white cells and there is also +3 protein, +3 glucose and occasional bacteria. I was involved in the patient's case as the patient became progressively more hypotensive and septic. Blood pressure is on the positive for Proteus mirabilis and the patient was started on IV Rocephin given 2 g. He was already given a liter of normal saline and liter of lactated Ringer. At time of arrival to the bedside, the patient had a blood pressure of 85/56. He was on room air oxygen. Heart rate was 109. He was afebrile. He was awake and alert and communicating. He did have increased edema lower extremity and some superficial wounds in his lower extremities with fluid seeping out and weeping skin. He had a stage II heel ulcer and a stage II coccygeal ulcer. His troponins were negative. Patient was seen by urology and recommendations were not to put a East catheter especially with his recent traumatic incidents with a East catheter removal. On 04/12/2025, the patient is being seen for a follow-up. On today's evaluation, the patient is arousable and awake. He remains overall lethargic and weak. Nevertheless, hemodynamically stable and the patient has not required any presso rs. Most recent BP is 88/57 and a pulse ox 95% room air oxygen. The patient has a East catheter and the patient is producing urine output. BUN 61 with a creatinine of 3.4. Serum bicarbonate 12 with a sodium level of 130. Potassium is at 3.6. The white cell count of 5.4 with a hemoglobin of 8.1 and a platelet count of 72. The patient remains on IV cefepime. The patient remains on a bicarb infusion at rate of 75 cc an hour. He is afebrile. Urine culture is positive for Proteus mirabilis. Blood cultures also positive for Proteus mirabilis, sensitive to his IV cefepime. He continues to have increased edema lower extremities with weeping skin and wound care is being provided by [facility]. Respiratory status is stable to the patient remains on room air oxygen with a pulse ox of 95%. He is afebrile. ID is on the case. Started on midodrine for a blood pressure between 80-90 systolic. Started on oral bicarb in addition. Urology is also on the case. He continues to have scrotal edema and a East catheter has been reinserted for accurate I's and O's. Urine is clear. On 04/13/2025, patient is being seen for a follow-up. The patient is awake and alert and communicating. The biggest sluggish in his response still. Continues to be an anion gap metabolic acidosis. Serum bicarb is 11 with a gap of 14. BUN is 64 with a creatinine of 3.5 and no significant improvement in renal function over the past 24 hours. Nephrology on the case. The white cell count 6.5 with a hemoglobin 8.4. Less tachycardic. Room air oxygen with a pulse ox of 93%. Most recent BP is 93/58. Continues to have edema lower extremities bilaterally. Continues to be on IV antibiotics for Proteus septicemia the patient is currently on IV cefepime. Rest of the medications remain unchanged. On midodrine 10 mg p.o. 3 times daily. He is also on oral bicarb. He is receiving bicarb infusion at rate of 75 cc an hour and rate will be increased 225 cc an hour. [employer] on the case. Urine output is still cloudy. 04/14/2025, the patient is being seen for a follow-up. Hemodynamically stable. No fever or chills. Producing adequate amount of urine output. He remains on room air oxygen. No signs of any respiratory distress. 1 seconds at 9.6 with a hemoglobin 8.3 and a platelet count of 81. Sodium is at 130, potassium is 3.5, bicarb is at 16, BUN is 65 with a creatinine of 3.3. The urine culture in the blood patient was positive for Proteus mirabilis and the patient remains on IV cefepime. No other significant events overnight. He continues to produce adequate amount of urine output. Lower extremities are swollen and they are appropriately wrapped. Nephrology on the case. The patient is seen today April 15, 2025 in follow-up on the regular medical floor. He is currently awake and alert in no acute distress. He is maintaining O2 saturations in the 90s on 2 L/min per nasal cannula. His blood and urine cultures are positive for Proteus mirabilis. Follow-up blood culture pending. White count 10.2. Hemoglobin 8.7. Platelets 88,000. Sodium 131. Potassium 3.5. Bicarb 19. BUN 68. Creatinine 3.09. Glucose 153. He remains on cefepime. Continued on D5W with 1 amp of bicarb at 125 mL/h. Heparin for DVT prophylaxis. Sodium bicarbonate tablets. The patient is seen today April 16, 2025 in follow-up on the regular medical floor. He is currently resting in bed. Awake and alert in no acute distress. Maintaining good O2 saturations in the high 90s on 2 L/min per nasal cannula. He is afebrile. Hemodynamically stable. Chest x-ray shows cardiomegaly and mild pulmonary vascular congestion. Blood culture was positive for Proteus mirabilis. Urine culture positive for Proteus mirabilis follow-up blood culture reveals no growth. White count 8.4. Hemoglobin 7.9. Platelets 90,000. Sodium 133. Potassium 3.6. Bicarb 20. BUN 66. Creatinine 2.82. Glucose 145. He remains on cefepime. Heparin for DVT prophylaxis. Remains on D5W with 1 amp of sodium bicarbonate at 125 mL/h. Remains on sodium bicarbonate tablets. The patient is seen today April 17, 2025 in follow-up on the selective care unit. He is currently resting in bed. Awake and alert in no acute distress. Maintaining O2 saturations in the 90s on 2 L/min per nasal cannula. He is afebrile. Hemodynamically stable. White count 6.5. Hemoglobin 8.2. Platelets 119. Sodium 136. Potassium 3.3. Bicarb 22. BUN 61. Creatinine 2.63. Glucose 125. Blood culture positive for Proteus mirabilis. Urine culture positive for Proteus mirabilis. Follow-up blood cultures showing no growth. He remains on cefepime. Continued on D5W with 1 amp of bicarb at 125 mL/h. Hepar in for DVT prophylaxis. Remains on sodium bicarbonate tablets. The patient is seen today April 18, 2025 in follow-up on the selective care unit. He is awake and alert in no acute distress. Resting fairly comfortably in bed. Maintaining good O2 saturations in the mid to upper 90s on 2 L/min per nasal cannula. Has been afebrile. Hemodynamically stable. He did have a code stroke called on him last evening. CT scan of the brain revealed no acute intracranial process. CT angiography revealed no evidence of dissection of the cervical internal carotid arteries or vertebral arteries. No evidence of significant stenosis at the carotid bifurcations. No evidence of intracranial high-grade stenosis or intracranial aneurysm. His initial right sided facial drooping and neurologic deficits resolved. Current NIH score scale was down to 0. He did not receive TNK. He is on Lipitor and aspirin. He is continued on cefepime. He remains on heparin for DVT prophylaxis. Bicarb drip was discontinued. White count 7.2. Hemoglobin 8.2. Platelets 142. Sodium 135. Potassium 4.3. Bicarb 23. BUN 59. Creatinine 2.25. Glucose 105. Seen today on 04/19/2025, patient is basically the same, he has no specific complaints, patient denies any cough or wheezing, he just feels generally weak, and he is bedbound. WBC 6.7 hemoglobin 8.2 electrolytes are normal BUN is 50 creatinine of 2.38. Patient is being followed by so many consultants including neurology, nephrology, infectious disease, and internal medicine. Obviously the patient has significant multiple comorbidities. Objective - Vital Signs Vital signs: Vital Signs Temp 97.6 F 04/19/25 12:00 Pulse 68 04/19/25 12:00 Resp 18 04/19/25 12:00 BP 155/78 04/19/25 12:00 Pulse Ox 98 04/19/25 12:00 FiO2 Intake & Output 04/18/25 04/19/25 04/19/25 18:59 06:59 18:59 Intake Total 489 540 Output Total 1650 1800 950 Balance -1161 -1800 -410 Weight 143.5 kg Intake: IV 30 Invasive Line 3 20 Invasive Line 4 10 Oral 459 540 Output: Urine 1650 1800 950 Other: Voiding Method Indwelling Catheter Indwelling Catheter - Exam GENERAL EXAM: Awake, 64-year-old male, resting in bed, on 2 L nasal cannula, in no apparent distress. O2 saturation 98%. Patient is hemodynamically stable HEAD: Normocephalic. EYES: Normal reaction of pupils, equal size. NOSE: Clear with pink turbinates. THROAT: No erythema or exudates. NECK: No masses, no JVD. CHEST: No chest wall deformity. LUNGS: Equal air entry with faint crackles in the posterior bases. CVS: S1 and S2 normal with no audible murmur, regular rhythm. ABDOMEN: No hepatosplenomegaly, normal bowel sounds, no guarding or rigidity. SKIN: No rashes. Stage I-II sacral decubitus ulcer CENTRAL NERVOUS SYSTEM: No focal deficits, tone is normal in all 4 extremities. EXTREMITIES: Stage II left heel ulcer. There is 1-2+ peripheral edema. No clubbing, no cyanosis. Peripheral pulses are intact. - Labs CBC & Chem 7: 04/19/25 12:28 04/19/25 12:28 Labs: Abnormal Lab Results - Last 24 Hours (Table) 04/18/25 04/18/25 04/18/25 Range/Units 07:30 16:31 20:16 RBC (4.40-5.60) 10*6/uL Hgb (13.0-17.0) g/dL Hct (39.6-50.0) % MCHC (32.0-37.0) g/dL MPV (9.5-12.2) fL Immature Gran # (0.00-0.04) 10*3/uL Chloride (98-107) mmol/L BUN (9-20) mg/dL Creatinine (0.66-1.25) mg/dL Glucose (74-99) mg/dL POC Glucose (mg/dL) 142 H 137 H (70-110) mg/dL Calcium (8.4-10.2) mg/dL Folate 3.70 L (4.40-31.00) ng/mL 04/19/25 04/19/25 Range/Units 12:28 12:28 RBC 2.96 L (4.40-5.60) 10*6/uL Hgb 8.2 L (13.0-17.0) g/dL Hct 26.0 L (39.6-50.0) % MCHC 31.5 L (32.0-37.0) g/dL MPV 8.9 L (9.5-12.2) fL Immature Gran # 0.41 H (0.00-0.04) 10*3/uL Chloride 108 H (98-107) mmol/L BUN 50 H (9-20) mg/dL Creatinine 2.38 H (0.66-1.25) mg/dL Glucose 72 L (74-99) mg/dL POC Glucose (mg/dL) (70-110) mg/dL Calcium 7.5 L (8.4-10.2) mg/dL Folate (4.40-31.00) ng/mL Microbiology - Last 24 Hours (Table) 04/13/25 20:26 Blood Culture - Final Blood Assessment and Plan Assessment: Impression: Multiple comorbidities as listed. Acute gram-negative sepsis with Proteus secondary to urinary tract infection from Proteus mirabilis. The patient has positive blood culture with Proteus. The patient is currently on IV cefepime. The patient remains on IV fluid. East catheter is in place. Acute leukocytosis secondary to above, improved and the white cell count has normalized. Acute on top of chronic kidney disease, likely secondary to urinary retention and ultrasound of the kidneys obtained on 04/11/2025 showed no evidence of any hydronephrosis. East catheter was removed and the this was a traumatic East catheter insertion/removal complicated by some hematuria. Patient is currently oliguric. Nephrology on the case. Rule out underlying ATN secondary urine tract infection/sepsis, East catheter is in place and the patient has producing clear urine output and the patient is nonoliguric at this point. Nephrology and urology are both on the case. Renal function continues to be impaired and the patient continues to produce urine output, nonbloody. Mild anion gap metabolic acidosis secondary to above, currently on bicarb infusion, lactic acid level is improved and is currently down to 1.3 Anemia of chronic disease Thrombocytopenia Hematuria, due to complicated insertion/removal of East catheter. East catheter was reinserted. No active hematuria Acute TIA 04/17/2025 with complete resolution of neurologic deficits. No TNK Morbid obesity with a BMI of 45.0 kg/m Chronic lower extremity edema with lower extremity skin ulceration and weeping skin in addition to a stage II heel ulcer on the left and decub ulcer. Congestive heart failure, baseline left leg ejection fraction is unknown, echocardiogram is in progress Diabetes mellitus type 2 Chronic stage III kidney disease BPH Rheumatoid arthritis Hyperlipidemia OsteoarthritisGout Obstructive sleep apnea Bedridden and the patient has been nonambulatory for the past 1 year and the patient is a [facility] resident Recommendation: Continue present supportive care measures, Continue cefepime as per ID on the case, Continue GI DVT prophylaxis Continue to titrate oxygen Eventually the patient needs to be transferred to [facility] Not much to be added from our perspective Will follow as needed Time with Patient: Less than 30
--- NOTE | 2025-04-19 16:29 | P.PN ---
Subjective Patient is seen for follow-up for acute kidney injury. Status post bicarb drip Blood pressure has improved. Blood cultures and urine cultures are growing Proteus Mirabillis Maintained on midodrine Urine output has improved. Serum creatinine improved to 2.3 today. Currently off of IV fluids Objective - Vital Signs Vital signs: Vital Signs Temp 97.6 F 04/19/25 12:00 Pulse 68 04/19/25 12:00 Resp 18 04/19/25 12:00 BP 155/78 04/19/25 12:00 Pulse Ox 98 04/19/25 12:00 FiO2 Intake & Output 04/18/25 04/19/25 04/19/25 18:59 06:59 18:59 Intake Total 489 540 Output Total 1650 1800 950 Balance -1161 -1800 -410 Weight 143.5 kg Intake: IV 30 Invasive Line 3 20 Invasive Line 4 10 Oral 459 540 Output: Urine 1650 1800 950 Other: Voiding Method Indwelling Catheter Indwelling Catheter - Exam Patient is awake, comfortable, no acute distress Obese Examination of the heart S1 and S2 Examination of the lungs decreased breath sounds at the bases Abdomen is soft obese Examination lower extremity shows chronic edema 3+ bilaterally with chronic skin changes and scrotal edema - Labs CBC & Chem 7: 04/19/25 12:28 04/19/25 12:28 Labs: Abnormal Lab Results - Last 24 Hours (Table) 04/18/25 04/18/25 04/18/25 Range/Units 07:30 16:31 20:16 RBC (4.40-5.60) 10*6/uL Hgb (13.0-17.0) g/dL Hct (39.6-50.0) % MCHC (32.0-37.0) g/dL MPV (9.5-12.2) fL Immature Gran # (0.00-0.04) 10*3/uL Chloride (98-107) mmol/L BUN (9-20) mg/dL Creatinine (0.66-1.25) mg/dL Glucose (74-99) mg/dL POC Glucose (mg/dL) 142 H 137 H (70-110) mg/dL Calcium (8.4-10.2) mg/dL Folate 3.70 L (4.40-31.00) ng/mL 04/19/25 04/19/25 Range/Units 12:28 12:28 RBC 2.96 L (4.40-5.60) 10*6/uL Hgb 8.2 L (13.0-17.0) g/dL Hct 26.0 L (39.6-50.0) % MCHC 31.5 L (32.0-37.0) g/dL MPV 8.9 L (9.5-12.2) fL Immature Gran # 0.41 H (0.00-0.04) 10*3/uL Chloride 108 H (98-107) mmol/L BUN 50 H (9-20) mg/dL Creatinine 2.38 H (0.66-1.25) mg/dL Glucose 72 L (74-99) mg/dL POC Glucose (mg/dL) (70-110) mg/dL Calcium 7.5 L (8.4-10.2) mg/dL Folate (4.40-31.00) ng/mL Microbiology - Last 24 Hours (Table) 04/13/25 20:26 Blood Culture - Final Blood Assessment and Plan Assessment: 1. Acute kidney injury, ATN, oliguric secondary to hypotension and sepsis. UA suggestive of UTI. No obstruction noted on ultrasound of the kidneys 2. Gram-negative bacteremia from urinary tract infection maintained on IV antibiotics cultures are growing Proteus Mirabillis 3. Metabolic acidosis associated with acute kidney injury and lactic acidosis, status post bicarb drip 4. Hypomagnesemia 5. Anemia with no active bleeding noted, recent episode of hematuria after patient pulling out East catheter. Now resolved 6. Significant lower extremity edema and scrotal edema Plan: Continue off of IV fluids Decrease dose of sodium bicarb and possibly discontinue in 1 to 2 days Continue with antibiotics Repeat labs in a.m.
[2025-04-19 16:31] LABS: Glucose,Whole Blood 131 mg/dL (70-110)
[2025-04-19] MEDS: CEFEPIME 2 GM in SODIUM CHLORIDE 0.9% 100 ML IVPB SCH (17:04)
--- NOTE | 2025-04-19 19:29 | P.PN ---
Subjective Progress Note Date: 04/19/25 Principal diagnosis: Reason for follow-up is UTI/bacteremia Patient is a 64-year-old male with a past medical history significant for Diabetes Mellitus, GERD/Reflux, Hyperlipidemia, Hypertension, Osteoarthritis (OA), Prostate Disorder, Rheumatoid Arthritis (RA), Skin Disorder resident of the local alf resident patient did have a chronic indwelling East cath eter brought to the hospital after accidentally pulling out his East with hematuria did have a positive blood culture with Proteus probably this consultation. On today's evaluation that is 04/19/2025, the patient continues to be afebrile, the patient is on 2 L nasal cannula oxygen and breathing comfortably, the Pt denies having any chest pain or cough, the patient denies having any abdominal pain no vomiting or any diarrhea has been reported by the nursing staff. Patient white count is 6.7, creatinine is 2.38, blood culture repeat has been negative Objective - Vital Signs Vital signs: Vital Signs Temp 98.5 F 04/19/25 16:00 Pulse 78 04/19/25 16:00 Resp 18 04/19/25 16:00 BP 152/73 04/19/25 16:00 Pulse Ox 98 04/19/25 16:00 FiO2 Intake & Output 04/19/25 04/19/25 04/20/25 06:59 18:59 06:59 Intake Total 658 Output Total 1800 1750 Balance -1800 -1092 Weight 143.5 kg Intake: Oral 658 Output: Urine 1800 1750 Other: Voiding Method Indwelling Catheter Indwelling Catheter - Exam GENERAL DESCRIPTION: Middle-age male lying in bed in no distress RESPIRATORY SYSTEM: Unlabored breathing , decreased breath sounds at bases HEART: S1 S2 regular rate and rhythm , ABDOMEN: Soft , no tenderness EXTREMITIES: Diffuse swelling to bilateral lower extremity - Labs CBC & Chem 7: 04/19/25 12:28 04/19/25 12:28 Labs: Abnormal Lab Results - Last 24 Hours (Table) 04/18/25 04/18/25 04/19/25 Range/Units 07:30 20:16 12:28 RBC 2.96 L (4.40-5.60) 10*6/uL Hgb 8.2 L (13.0-17.0) g/dL Hct 26.0 L (39.6-50.0) % MCHC 31.5 L (32.0-37.0) g/dL MPV 8.9 L (9.5-12.2) fL Immature Gran # 0.41 H (0.00-0.04) 10*3/uL Chloride (98-107) mmol/L BUN (9-20) mg/dL Creatinine (0.66-1.25) mg/dL Glucose (74-99) mg/dL POC Glucose (mg/dL) 137 H (70-110) mg/dL Calcium (8.4-10.2) mg/dL Folate 3.70 L (4.40-31.00) ng/mL 04/19/25 04/19/25 Range/Units 12:28 16:30 RBC (4.40-5.60) 10*6/uL Hgb (13.0-17.0) g/dL Hct (39.6-50.0) % MCHC (32.0-37.0) g/dL MPV (9.5-12.2) fL Immature Gran # (0.00-0.04) 10*3/uL Chloride 108 H (98-107) mmol/L BUN 50 H (9-20) mg/dL Creatinine 2.38 H (0.66-1.25) mg/dL Glucose 72 L (74-99) mg/dL POC Glucose (mg/dL) 131 H (70-110) mg/dL Calcium 7.5 L (8.4-10.2) mg/dL Folate (4.40-31.00) ng/mL Microbiology - Last 24 Hours (Table) 04/13/25 20:26 Blood Culture - Final Blood Assessment and Plan (1) Bacteremia Current Visit: Yes Status: Acute Code(s): R78.81 - BACTEREMIA SNOMED Code(s): 9386989 (2) Penicillin allergy Current Visit: Yes Status: Acute Code(s): Z88.0 - ALLERGY STATUS TO PENICILLIN SNOMED Code(s): 61972025 (3) Sepsis Current Visit: Yes Status: Acute Code(s): A41.9 - SEPSIS, UNSPECIFIED ORGANISM SNOMED Code(s): 42891635 (4) UTI (urinary tract infection) Current Visit: Yes Status: Acute Code(s): N39.0 - URINARY TRACT INFECTION, SITE NOT SPECIFIED SNOMED Code(s): 03705604 Plan: 1patient with sepsis in this patient who did have fever tachycardia hypotension elevated white count elevated lactic acid meeting currently//sepsis now with evidence of gram-negative bacteremia source likely urinary 2-penicillin allergy that we will limit number of antibiotic safe use 2-patient blood and urine culture have been finalized with more resistant Proteus, blood culture repeat has been negative 3-patient remains to be afebrile white count has normalized, patient to continue cefepime and will need to continue cefepime to finish a total of 2-week course of therapy Dictation was produced using [employer] dictation software. please excuse any grammatical, word or spelling errors. Time with Patient: Less than 30
[2025-04-19 20:07] LABS: Glucose,Whole Blood 258 mg/dL (70-110)
--- NOTE | 2025-04-19 21:35 | P.PN ---
Subjective Progress Note Date: 04/19/25 Patient was seen for follow-up. Patient states he is feeling okay. He states his vision is fine. Offers no complaints. He continues to have delayed speech. Patient otherwise is laying in the bed appears comfortable. He is slightly short of breath. Objective - Vital Signs Vital signs: Vital Signs Temp 97.5 F L 04/19/25 19:47 Pulse 76 04/19/25 19:47 Resp 18 04/19/25 19:47 BP 155/83 04/19/25 19:47 Pulse Ox 100 04/19/25 19:47 FiO2 Intake & Output 04/19/25 04/19/25 04/20/25 06:59 18:59 06:59 Intake Total 658 100 Output Total 1800 1750 Balance -1800 -1092 100 Weight 143.5 kg Intake: IV 100 Cefepime 2 gm In Sodium 100 Chloride 0.9% 100 ml @ 25 mls/hr IVPB Q12H [facility] Rx# :[id number] Oral 658 Output: Urine 1800 1750 Other: Voiding Method Indwelling Catheter Indwelling Catheter Indwelling Catheter - Exam Examination remains unchanged, nonfocal. Continues to have lower extremity w eakness, chronic. - Labs CBC & Chem 7: 04/19/25 12:28 04/19/25 12:28 Labs: Abnormal Lab Results - Last 24 Hours (Table) 04/18/25 04/19/25 04/19/25 Range/Units 07:30 12:28 12:28 RBC 2.96 L (4.40-5.60) 10*6/uL Hgb 8.2 L (13.0-17.0) g/dL Hct 26.0 L (39.6-50.0) % MCHC 31.5 L (32.0-37.0) g/dL MPV 8.9 L (9.5-12.2) fL Immature Gran # 0.41 H (0.00-0.04) 10*3/uL Chloride 108 H (98-107) mmol/L BUN 50 H (9-20) mg/dL Creatinine 2.38 H (0.66-1.25) mg/dL Glucose 72 L (74-99) mg/dL POC Glucose (mg/dL) (70-110) mg/dL Calcium 7.5 L (8.4-10.2) mg/dL Folate 3.70 L (4.40-31.00) ng/mL 04/19/25 04/19/25 Range/Units 16:30 20:06 RBC (4.40-5.60) 10*6/uL Hgb (13.0-17.0) g/dL Hct (39.6-50.0) % MCHC (32.0-37.0) g/dL MPV (9.5-12.2) fL Immature Gran # (0.00-0.04) 10*3/uL Chloride (98-107) mmol/L BUN (9-20) mg/dL Creatinine (0.66-1.25) mg/dL Glucose (74-99) mg/dL POC Glucose (mg/dL) 131 H 258 H (70-110) mg/dL Calcium (8.4-10.2) mg/dL Folate (4.40-31.00) ng/mL Microbiology - Last 24 Hours (Table) 04/13/25 20:26 Blood Culture - Final Blood Assessment and Plan Assessment: * Status post stroke code. Initial NIH stroke scale was 16, but now after patient returned from brain imaging, his NIH stroke scale is 0. Patient not a candidate for TNK due to resolved deficits. * Diabetes * Hyperlipidemia * Hypertension * Rheumatoid arthritis * Chronic bilateral leg weakness, wheelchair-bound * Pressure sores on the coccyx * Gram-negative bacteremia due to Proteus mirabilis. * Sepsis * UTI, on cefepime * Possible cellulitis * Acute kidney injury secondary to hypotension and sepsis. Renal functions improving. * Anemia * Folate deficiency Plan: * Patient's neurological deficits have resolved. Current NIH stroke scale is 0. Patient not a candidate for TNK. No large vessel occlusion noted on CTA. * CTA revealed no evidence of dissection of the cervical internal carotid arteries or vertebral arteries. No evidence of significant stenosis at the carotid bifurcation. No evidence of intracranial high-grade stenosis or intracranial aneurysm. * 2-D echo performed 04/11/2025 revealed LV EF 50-55%. Mild concentric LVH. Mildly increased left atrial diameter. Severely increased left atrial volume. Mild MR. No evidence of vegetations. * Hemoglobin A1c 6.6. * Fasting a.m. lipid panel. Agree with starting Lipitor 40 mg daily. Patient was on gemfibrozil 600 mg twice a day outpatient. * Patient given aspirin 324 mg, agree with continuing on aspirin 81 mg daily. Patient was not on any antiplatelet medication at home. * Other medical management as per IM and other specialties on board. * B12 692, folate 3.70. He will start folate replacement. * Neurologically no other workup indicated. We will sign off. Please call neurology if any other concerns.
[2025-04-20 05:52] LABS: Glucose,Whole Blood 114 mg/dL (70-110)
--- NOTE | 2025-04-20 09:09 | P.PN ---
Subjective Progress Note Date: 04/20/25 Patient is seen for follow-up for acute kidney injury. Status post bicarb drip Blood pressure has improved. Blood cultures and urine cultures are growing Proteus Mirabillis Maintained on midodrine Urine output has improved. no labs today, Serum creatinine improved to 2.3 yesterday. Objective - Vital Signs Vital signs: Vital Signs Temp 98.3 F 04/20/25 04:00 Pulse 73 04/20/25 04:00 Resp 18 04/20/25 04:00 BP 165/76 04/20/25 04:00 Pulse Ox 99 04/20/25 04:00 FiO2 Intake & Output 04/19/25 04/20/25 04/20/25 18:59 06:59 18:59 Intake Total 658 100 Output Total 1750 700 Balance -1092 -600 Weight 143.5 kg Intake: IV 100 Cefepime 2 gm In Sodium 100 Chloride 0.9% 100 ml @ 25 mls/hr IVPB Q12H [facility] Rx# :[id number] Oral 658 Output: Urine 1750 700 Other: Voiding Method Indwelling Catheter Indwelling Catheter - Exam Patient is awake, comfortable, no acute distress Obese Examination of the heart S1 and S2 Examination of the lungs decreased breath sounds at the bases Abdomen is soft obese Examination lower extremity shows chronic edema 3+ bilaterally with chronic skin changes, legs are wrapped - Labs CBC & Chem 7: 04/19/25 12:28 04/19/25 12:28 Labs: Abnormal Lab Results - Last 24 Hours (Table) 04/19/25 04/19/25 04/19/25 Range/Units 12:28 12:28 16:30 RBC 2.96 L (4.40-5.60) 10*6/uL Hgb 8.2 L (13.0-17.0) g/dL Hct 26.0 L (39.6-50.0) % MCHC 31.5 L (32.0-37.0) g/dL MPV 8.9 L (9.5-12.2) fL Immature Gran # 0.41 H (0.00-0.04) 10*3/uL Chloride 108 H (98-107) mmol/L BUN 50 H (9-20) mg/dL Creatinine 2.38 H (0.66-1.25) mg/dL Glucose 72 L (74-99) mg/dL POC Glucose (mg/dL) 131 H (70-110) mg/dL Calcium 7.5 L (8.4-10.2) mg/dL 04/19/25 04/20/25 Range/Units 20:06 05:49 RBC (4.40-5.60) 10*6/uL Hgb (13.0-17.0) g/dL Hct (39.6-50.0) % MCHC (32.0-37.0) g/dL MPV (9.5-12.2) fL Immature Gran # (0.00-0.04) 10*3/uL Chloride (98-107) mmol/L BUN (9-20) mg/dL Creatinine (0.66-1.25) mg/dL Glucose (74-99) mg/dL POC Glucose (mg/dL) 258 H 114 H (70-110) mg/dL Calcium (8.4-10.2) mg/dL Assessment and Plan Assessment: 1. Acute kidney injury, ATN, oliguric secondary to hypotension and sepsis. UA suggestive of UTI. No obstruction noted on ultrasound of the kidneys 2. Gram-negative bacteremia from urinary tract infection maintained on IV antibiotics cultures are growing Proteus Mirabillis 3. Metabolic acidosis associated with acute kidney injury and lactic acidosis, status post bicarb drip 4. Hypomagnesemia 5. Anemia with no active bleeding noted, recent episode of hematuria after patient pulling out East catheter. Now resolved 6. Significant lower extremity edema and scrotal edema Plan: Today's labs pending, Decreased dose of sodium bicarb and possibly discontinue in 1 to 2 days Continue with antibiotics Repeat labs in a.m.
[2025-04-20 09:47] LABS: Basophils # (A) 0.04 10*3/uL (0.00-0.10); Basophils % (A) 0.6 %; Eosinophils # (A) 0.14 10*3/uL (0.04-0.35); Eosinophils % (A) 2.2 %; HCT 26.5 % (39.6-50.0); HGB 8.4 g/dL (13.0-17.0); Lymphocytes # (A) 1.26 10*3/uL (0.90-5.00); Lymphocytes % (A) 19.9 %; MCH 27.9 pg (27.0-32.0); MCHC 31.7 g/dL (32.0-37.0); Mean Platelet Volume 9.1 fL (9.5-12.2); Monocytes # (A) 0.33 10*3/uL (0.20-1.00); Monocytes % (A) 5.2 %; Neutrophils # (A) 4.17 10*3/uL (1.80-7.70); Neutrophils % (A) 65.9 %; Platelet Count 143 10*3/uL (140-440); RBC 3.01 10*6/uL (4.40-5.60); RDW 14.6 % (11.5-14.5); WBC 6.33 10*3/uL (4.50-10.00)
[2025-04-20] MEDS: SODIUM BICARBONATE TAB 650 MG TAB PO SCH (09:48)
[2025-04-20 10:05] LABS: African American GFR (CKD) 40 (>60 ml/min/1.73 sqM); Anion Gap 6 mmol/L; Blood Urea Nitrogen 46 mg/dL (9-20); Calcium 7.3 mg/dL (8.4-10.2); Carbon Dioxide 24 mmol/L (22-30); Chloride 109 mmol/L (98-107); Glucose 157 mg/dL (74-99); Magnesium 1.7 mg/dL (1.6-2.3); Non-African American GFR(CKD) 34 (>60 ml/min/1.73 sqM); Potassium 3.7 mmol/L (3.5-5.1); Sodium 139 mmol/L (137-145)
[2025-04-20 11:47] LABS: Glucose,Whole Blood 197 mg/dL (70-110)
--- NOTE | 2025-04-20 13:02 | P.PN ---
Subjective Progress Note Date: 04/20/25 No new complaints. Cr improving. Gen: In NAD, non-toxic HEENT: normocephalic, atraumatic, hearing acuity is intant, mucous membranes moist CVS: perfusing all extremities well, no pitting edema, Respiratory: symmetric chest expansion, no accessory muscle use, GI: soft, NTTP, ND, : no suprapubic tenderness, no CVA tenderness MSK/Derm: no rashes, cyanosis Neuro: CN II-XII intact, no motor weakness, Psych: cooperative, euthymic mood, judgment and insight is intact Assessment and Plan: Active: TIA Acute metabolic encephalopathy - On aspirin 81 mg daily, atorvastatin 40 nightly - Deficits have mostly resolved - Neurology following - Continue telemetry monitoring, neuroassessment - Echocardiogram previously showed normal LV systolic function, mild mitral and tricuspid regurgitation, no evidence of vegetation - Consider MRI without contrast Proteus UTI Proteus bacteremia -Continued on cefepime 1 g every 12 hours - ID following - GENARO on CKD, improved Acute urinary retention Metabolic acidosis, resolved -Nephrology following, continue to hold torsemide and lisinopril - DC bicarb drip - Also on oral bicarb 650 3 times daily -Monitor urine output - Holding antihypertensives, on midodrine 10 3 times daily Acute on chronic hypoxic respiratory failure Chronic diastolic CHF - Discontinue bicarb drip - Continue to monitor for need for diuretics Type 2 diabetes - On glargine 40 daily, sliding scale insulin, monitor for hypoglycemia Resolved: Leukocytosis Thrombocytopenia Severe sepsis Hematuria secondary to traumatic East insertion Hypokalemia Hypomagnesemia Chronic: Dyslipidemia Hypertension BPH Rheumatoid arthritis DVT ppx: Subcu heparin Code status: Full code Anticipated discharge place: Pending clinical course Anticipated discharge time: Pending clinical course Objective - Vital Signs Vital signs: Vital Signs Temp 97.8 F 04/20/25 09:56 Pulse 86 04/20/25 11:34 Resp 16 04/20/25 11:34 BP 153/76 04/20/25 11:34 Pulse Ox 94 L 04/20/25 11:34 FiO2 Intake & Output 04/19/25 04/20/25 04/20/25 18:59 06:59 18:59 Intake Total 658 100 118 Output Total 3098 826 1011 Balance -3188 -100 -595 Weight 143.5 kg Intake: IV 100 Cefepime 2 gm In Sodium 100 Chloride 0.9% 100 ml @ 25 mls/hr IVPB Q12H [facility] Rx# :[id number] Oral 658 118 Output: Urine 2578 875 9102 Other: Voiding Method Indwelling Catheter Indwelling Catheter Indwelling Catheter - Labs CBC & Chem 7: 04/20/25 09:03 04/20/25 09:03 Labs: Abnormal Lab Results - Last 24 Hours (Table) 04/19/25 04/19/25 04/19/25 Range/Units 12:28 12:28 16:30 RBC 2.96 L (4.40-5.60) 10*6/uL Hgb 8.2 L (13.0-17.0) g/dL Hct 26.0 L (39.6-50.0) % MCHC 31.5 L (32.0-37.0) g/dL MPV 8.9 L (9.5-12.2) fL Immature Gran # 0.41 H (0.00-0.04) 10*3/uL Chloride 108 H (98-107) mmol/L BUN 50 H (9-20) mg/dL Creatinine 2.38 H (0.66-1.25) mg/dL Glucose 72 L (74-99) mg/dL POC Glucose (mg/dL) 131 H (70-110) mg/dL Calcium 7.5 L (8.4-10.2) mg/dL 04/19/25 04/20/25 04/20/25 Range/Units 20:06 05:49 09:03 RBC 3.01 L (4.40-5.60) 10*6/uL Hgb 8.4 L (13.0-17.0) g/dL Hct 26.5 L (39.6-50.0) % MCHC 31.7 L (32.0-37.0) g/dL MPV 9.1 L (9.5-12.2) fL Immature Gran # 0.39 H (0.00-0.04) 10*3/uL Chloride (98-107) mmol/L BUN (9-20) mg/dL Creatinine (0.66-1.25) mg/dL Glucose (74-99) mg/dL POC Glucose (mg/dL) 258 H 114 H (70-110) mg/dL Calcium (8.4-10.2) mg/dL 04/20/25 04/20/25 Range/Units 09:03 11:46 RBC (4.40-5.60) 10*6/uL Hgb (13.0-17.0) g/dL Hct (39.6-50.0) % MCHC (32.0-37.0) g/dL MPV (9.5-12.2) fL Immature Gran # (0.00-0.04) 10*3/uL Chloride 109 H (98-107) mmol/L BUN 46 H (9-20) mg/dL Creatinine 2.01 H (0.66-1.25) mg/dL Glucose 157 H (74-99) mg/dL POC Glucose (mg/dL) 197 H (70-110) mg/dL Calcium 7.3 L (8.4-10.2) mg/dL
--- NOTE | 2025-04-20 15:07 | P.PN ---
Subjective Progress Note Date: 04/20/25 This is a morbidly obese 64-year-old male patient, [facility] resident who resides at the [facility]. The patient is essentially bedridden. He states that his legs have given up and the patient has not walked for the past 1 year at least. The patient is morbidly obese. The patient also has history of hypertension and hyperlipidemia and history of congestive heart failure in addition to significant diabetes mellitus and chronic stage III kidney disease.. He also suffers from chronic anemia and chronic lower extremity edema and urinary retention related to BPH and rheumatoid arthritis. The patient is essentially bedbound requiring a Jessi lift to be transferred around. The patient apparently had a East catheter inserted at the [facility] and this catheter was accidentally pulled out and the patient sustained some bleeding through his urethral meatus. He was still producing some urine with positive hematuria. Denies having any scrotal pain. His urine output was quite minimal. At the same time, the patient generalized weakness and fatigue and increased chills and shakiness and there was no documented temperature. The patient was found to be initially normotensive. Tachycardic. His chest x-ray showed mild pulm vascular congestion and his white cell count was elevated at 16 with a hemoglobin 10.1 and a platelet count of 148. Normal coagulation profile. He did have an acute on top of chronic kidney injury and initial creatinine was at 2.7 and this morning is up to 3.5. He also has an anion gap metabolic acidosis with serum bicarb of 14 and a gap of 12. Most recent sodium is at 142 and potassium is at 4.5. Initial lactic acid level was 1.6) of 2.6. UA is obviou sly abnormal consistent with blood and elevated white cells and there is also +3 protein, +3 glucose and occasional bacteria. I was involved in the patient's case as the patient became progressively more hypotensive and septic. Blood pressure is on the positive for Proteus mirabilis and the patient was started on IV Rocephin given 2 g. He was already given a liter of normal saline and liter of lactated Ringer. At time of arrival to the bedside, the patient had a blood pressure of 85/56. He was on room air oxygen. Heart rate was 109. He was afebrile. He was awake and alert and communicating. He did have increased edema lower extremity and some superficial wounds in his lower extremities with fluid seeping out and weeping skin. He had a stage II heel ulcer and a stage II coccygeal ulcer. His troponins were negative. Patient was seen by urology and recommendations were not to put a East catheter especially with his recent traumatic incidents with a East catheter removal. On 04/12/2025, the patient is being seen for a follow-up. On today's evaluation, the patient is arousable and awake. He remains overall lethargic and weak. Nevertheless, hemodynamically stable and the patient has not required any pressors. Most recent BP is 88/57 and a pulse ox 95% room air oxygen. The patient has a East catheter and the patient is producing urine output. BUN 61 with a creatinine of 3.4. Serum bicarbonate 12 with a sodium level of 130. Potassium is at 3.6. The white cell count of 5.4 with a hemoglobin of 8.1 and a platelet count of 72. The patient remains on IV cefepime. The patient remains on a bicarb infusion at rate of 75 cc an hour. He is afebrile. Urine culture is positive for Proteus mirabilis. Blood cultures also positive for Proteus mirabilis, sensitive to his IV cefepime. He continues to have increased edema lower extremities with weeping skin and wound care is being provided by infectious disease. Respiratory status is stable to the patient remains on room air oxygen with a pulse ox of 95%. He is afebrile. ID is on the case. Started on midodrine for a blood pressure between 80-90 systolic. Started on oral bicarb in addition. Urology is also on the case. He continues to have scrotal edema and a East catheter has been reinserted for accurate I's and O's. Urine is clear. On 04/13/2025, patient is being seen for a follow-up. The patient is awake and alert and communicating. The biggest sluggish in his response still. Continues to be an anion gap metabolic acidosis. Serum bicarb is 11 with a gap of 14. BUN is 64 with a creatinine of 3.5 and no significant improvement in renal function over the past 24 hours. Nephrology on the case. The white cell count 6.5 with a hemoglobin 8.4. Less tachycardic. Room air oxygen with a pulse ox of 93%. Most recent BP is 93/58. Continues to have edema lower extremities bilaterally. Continues to be on IV antibiotics for Proteus septicemia the patient is currently on IV cefepime. Rest of the medications remain unchanged. On midodrine 10 mg p.o. 3 times daily. He is also on oral bicarb. He is receiving bicarb infusion at rate of 75 cc an hour and rate will be increased 225 cc an hour. Furrier Apprentice on the case. Urine output is still cloudy. 04/14/2025, the patient is being seen for a follow-up. Hemodynamically stable. No fever or chills. Producing adequate amount of urine output. He remains on room air oxygen. No signs of any respiratory distress. 1 seconds at 9.6 with a hemoglobin 8.3 and a platelet count of 81. Sodium is at 130, potassium is 3.5, bicarb is at 16, BUN is 65 with a creatinine of 3.3. The urine culture in the blood patient was positive for Proteus mirabilis and the patient remains on IV cefepime. No other significant events overnight. He continues to produce adequate amount of urine output. Lower extremities are swollen and they are a ppropriately wrapped. Nephrology on the case. The patient is seen today April 15, 2025 in follow-up on the regular medical floor. He is currently awake and alert in no acute distress. He is maintaining O2 saturations in the 90s on 2 L/min per nasal cannula. His blood and urine cultures are positive for Proteus mirabilis. Follow-up blood culture pending. White count 10.2. Hemoglobin 8.7. Platelets 88,000. Sodium 131. Potassium 3.5. Bicarb 19. BUN 68. Creatinine 3.09. Glucose 153. He remains on cefepime. Continued on D5W with 1 amp of bicarb at 125 mL/h. Heparin for DVT prophylaxis. Sodium bicarbonate tablets. The patient is seen today April 16, 2025 in follow-up on the regular medical floor. He is currently resting in bed. Awake and alert in no acute distress. Maintaining good O2 saturations in the high 90s on 2 L/min per nasal cannula. He is afebrile. Hemodynamically stable. Chest x-ray shows cardiomegaly and mild pulmonary vascular congestion. Blood culture was positive for Proteus mirabilis. Urine culture positive for Proteus mirabilis follow-up blood culture reveals no growth. White count 8.4. Hemoglobin 7.9. Platelets 90,000. Sodium 133. Potassium 3.6. Bicarb 20. BUN 66. Creatinine 2.82. Glucose 145. He remains on cefepime. Heparin for DVT prophylaxis. Remains on D5W with 1 amp of sodium bicarbonate at 125 mL/h. Remains on sodium bicarbonate tablets. The patient is seen today April 17, 2025 in follow-up on the selective care unit. He is currently resting in bed. Awake and alert in no acute distress. Maintaining O2 saturations in the 90s on 2 L/min per nasal cannula. He is afebrile. Hemodynamically stable. White count 6.5. Hemoglobin 8.2. Platelets 119. Sodium 136. Potassium 3.3. Bicarb 22. BUN 61. Creatinine 2.63. Glucose 125. Blood culture positive for Proteus mirabilis. Urine culture positive for Proteus mirabilis. Follow-up blood cultures showing no growth. He remains on cefepime. Continued on D5W with 1 amp of bicarb at 125 mL/h. Heparin for DVT prophylaxis. Remains on sodium bicarbonate tablets. The patient is seen today April 18, 2025 in follow-up on the selective care unit. He is awake and alert in no acute distress. Resting fairly comfortably in bed. Maintaining good O2 saturations in the mid to upper 90s on 2 L/min per nasal cannula. Has been afebrile. Hemodynamically stable. He did have a code stroke called on him last evening. CT scan of the brain revealed no acute intracranial process. CT angiography revealed no evidence of dissection of the cervical internal carotid arteries or vertebral arteries. No evidence of significant stenosis at the carotid bifurcations. No evidence of intracranial high-grade stenosis or intracranial aneurysm. His initial right sided facial drooping and neurologic deficits resolved. Current NIH score scale was down to 0. He did not receive TNK. He is on Lipitor and aspirin. He is continued on cefepime. He remains on heparin for DVT prophylaxis. Bicarb drip was discontinued. White count 7.2. Hemoglobin 8.2. Platelets 142. Sodium 135. Potassium 4.3. Bicarb 23. BUN 59. Creatinine 2.25. Glucose 105. Seen today on 04/19/2025, patient is basically the same, he has no specific complaints, patient denies any cough or wheezing, he just feels generally weak, and he is bedbound. WBC 6.7 hemoglobin 8.2 electrolytes are normal BUN is 50 creatinine of 2.38. Patient is being followed by so many consultants including neurology, nephrology, infectious disease, and internal medicine. Obviously the patient has significant multiple comorbidities. The patient is seen today April 20, 2025 in follow-up on the selective care unit. He is more awake and alert today. Cooperative. Confused at times. He is maintaining good O2 saturations in the 90s on room air oxygen. He has been afebrile. Hemodynamically stable. Initial blood culture was positive for Proteus mirabilis. Follow-up culture reveals no growth. Urine culture was positive for Proteus mirabilis. White count 6.3. Hemoglobin 8.4. Platelets 143. Sodium 139. Potassium 3.7. Bicarb 24. BUN 46. Creatinine 2.01. Glucose 157. He remains on cefepime. Heparin for DVT prophylaxis. Remains on sodium bicarbonate tablets. Objective - Vital Signs Vital signs: Vital Signs Temp 97.8 F 04/20/25 09:56 Pulse 86 04/20/25 11:34 Resp 16 04/20/25 11:34 BP 153/76 04/20/25 11:34 Pulse Ox 94 L 04/20/25 11:34 FiO2 Intake & Output 04/19/25 04/20/25 04/20/25 18:59 06:59 18:59 Intake Total 658 100 118 Output Total 2180 238 7933 Balance -0396 -860 -307 Weight 143.5 kg Intake: IV 100 Cefepime 2 gm In Sodium 100 Chloride 0.9% 100 ml @ 25 mls/hr IVPB Q12H [facility] Rx# :[id number] Oral 658 118 Output: Urine 2963 462 6119 Other: Voiding Method Indwelling Catheter Indwelling Catheter Indwelling Catheter - Exam GENERAL EXAM: Awake, alert, confused at times, 64-year-old male, resting in bed, on room air oxygen, in no apparent distress. HEAD: Normocephalic. EYES: Normal reaction of pupils, equal size. NOSE: Clear with pink turbinates. THROAT: No erythema or exudates. NECK: No masses, no JVD. CHEST: No chest wall deformity. LUNGS: Equal air entry with faint crackles in the posterior bases. CVS: S1 and S2 normal with no audible murmur, regular rhythm. ABDOMEN: No hepatosplenomegaly, normal bowel sounds, no guarding or rigidity. SPINE: No scoliosis or deformity SKIN: No rashes. Stage I-II sacral decubitus ulcer CENTRAL NERVOUS SYSTEM: No focal deficits, tone is normal in all 4 extremities. EXTREMITIES: Stage II left heel ulcer. There is 1-2+ peripheral edema. No clubbing, no cyanosis. Peripheral pulses are intact. - Labs CBC & Chem 7: 04/20/25 09:03 04/20/25 09:03 Labs: Abnormal Lab Results - Last 24 Hours (Table) 04/19/25 04/19/25 04/20/25 Range/Units 16:30 20:06 05:49 RBC (4.40-5.60) 10*6/uL Hgb (13.0-17.0) g/dL Hct (39.6-50.0) % MCHC (32.0-37.0) g/dL MPV (9.5-12.2) fL Immature Gran # (0.00-0.04) 10*3/uL Chloride (98-107) mmol/L BUN (9-20) mg/dL Creatinine (0.66-1.25) mg/dL Glucose (74-99) mg/dL POC Glucose (mg/dL) 131 H 258 H 114 H (70-110) mg/dL Calcium (8.4-10.2) mg/dL 04/20/25 04/20/25 04/20/25 Range/Units 09:03 09:03 11:46 RBC 3.01 L (4.40-5.60) 10*6/uL Hgb 8.4 L (13.0-17.0) g/dL Hct 26.5 L (39.6-50.0) % MCHC 31.7 L (32.0-37.0) g/dL MPV 9.1 L (9.5-12.2) fL Immature Gran # 0.39 H (0.00-0.04) 10*3/uL Chloride 109 H (98-107) mmol/L BUN 46 H (9-20) mg/dL Creatinine 2.01 H (0.66-1.25) mg/dL Glucose 157 H (74-99) mg/dL POC Glucose (mg/dL) 197 H (70-110) mg/dL Calcium 7.3 L (8.4-10.2) mg/dL Assessment and Plan Assessment: Acute gram-negative sepsis with Proteus secondary to urinary tract infection from Proteus mirabilis. The patient has positive blood culture with Proteus. The patient is currently on IV cefepime. The patient remains on IV fluid. Aest catheter is in place. Acute leukocytosis secondary to above, improved and the white cell count has normalized. Acute on top of chronic kidney disease, likely secondary to urinary retention and ultrasound of the kidneys obtained on 04/11/2025 showed no evidence of any hydronephrosis. East catheter was removed and the this was a traumatic East catheter insertion/removal complicated by some hematuria. Patient is currently oliguric. Nephrology on the case. Rule out underlying ATN secondary urine tract infection/sepsis, East catheter is in place and the patient has producing clear urine output and the patient is nonoliguric at this point. Nephrology and urology are both on the case. Renal function continues to be impaired and the patient continues to produce urine output, nonbloody. Mild anion gap metabolic acidosis secondary to above, currently on bicarb infusion, lactic acid level is improved and is currently down to 1.3 Anemia of chronic disease Thrombocytopenia Hematuria, due to complicated insertion/removal of East catheter. East ca theter was reinserted. No active hematuria Acute TIA 04/17/2025 with complete resolution of neurologic deficits. No TNK Morbid obesity with a BMI of 45.0 kg/m Chronic lower extremity edema with lower extremity skin ulceration and weeping skin in addition to a stage II heel ulcer on the left and decub ulcer. Congestive heart failure, baseline left leg ejection fraction is unknown, echocardiogram is in progress Diabetes mellitus type 2 Chronic stage III kidney disease BPH Rheumatoid arthritis Hyperlipidemia Osteoarthritis Gout Obstructive sleep apnea Bedridden and the patient has been nonambulatory for the past 1 year and the patient is a [facility] resident Plan: The patient was seen and evaluated Labs and medications reviewed Stable and on room air oxygen Remains on cefepime Remains on bicarbonate tablets Heparin for DVT prophylaxis Plan is to return to [facility] at discharge I have personally seen and examined the patient, performed the documentation and the assessment and plan as written. Number of minutes spent on the visit: 10 Dictation was produced using [employer] software. Please excuse any grammatical, word or spelling errors.
[2025-04-20 16:29] LABS: Glucose,Whole Blood 144 mg/dL (70-110)
--- NOTE | 2025-04-20 19:52 | P.PN ---
Subjective Progress Note Date: 04/20/25 Principal diagnosis: Reason for follow-up is UTI/bacteremia Patient is a 64-year-old male with a past medical history significant for Diabetes Mellitus, GERD/Reflux, Hyperlipidemia, Hypertension, Osteoarthritis (OA), Prostate Disorder, Rheumatoid Arthritis (RA), Skin Disorder resident of the local custodial resident patient did have a chronic indwelling East cath eter brought to the hospital after accidentally pulling out his East with hematuria did have a positive blood culture with Proteus probably this consultation. On today's evaluation that is 04/20/2024, patient did have a temperature of 97.8 F this morning and denies having any chills, patient is on 2 L nasal cannula oxygen and breathing comfortably no chest pain or cough, the patient did not have any nausea vomiting abdominal pain or any diarrhea. Patient white count 6.33, creatinine is 2.01 blood culture repeat has been negative Objective - Vital Signs Vital signs: Vital Signs Temp 97.8 F 04/20/25 09:56 Pulse 83 04/20/25 15:13 Resp 16 04/20/25 15:13 BP 172/84 04/20/25 15:13 Pulse Ox 94 L 04/20/25 15:13 FiO2 Intake & Output 04/19/25 04/20/25 04/20/25 18:59 06:59 18:59 Intake Total 658 100 118 Output Total 1333 541 9227 Balance -1091 -600 -4049 Weight 143.5 kg Intake: IV 100 Cefepime 2 gm In Sodium 100 Chloride 0.9% 100 ml @ 25 mls/hr IVPB Q12H [facility] Rx# :[id number] Oral 658 118 Output: Urine 7163 [id number] 1119 Other: Voiding Method Indwelling Catheter Indwelling Catheter Indwelling Catheter - Exam GENERAL DESCRIPTION: Middle-age male lying in bed in no distress RESPIRATORY SYSTEM: Unlabored breathing , decreased breath sounds at bases HEART: S1 S2 regular rate and rhythm , ABDOMEN: Soft , no tenderness EXTREMITIES: Bilateral lower extremity currently wrapped in Silvestre wrap - Labs CBC & Chem 7: 04/20/25 09:03 04/20/25 09:03 Labs: Abnormal Lab Results - Last 24 Hours (Table) 04/19/25 04/20/25 04/20/25 Range/Units 20:06 05:49 09:03 RBC 3.01 L (4.40-5.60) 10*6/uL Hgb 8.4 L (13.0-17.0) g/dL Hct 26.5 L (39.6-50.0) % MCHC 31.7 L (32.0-37.0) g/dL MPV 9.1 L (9.5-12.2) fL Immature Gran # 0.39 H (0.00-0.04) 10*3/uL Chloride (98-107) mmol/L BUN (9-20) mg/dL Creatinine (0.66-1.25) mg/dL Glucose (74-99) mg/dL POC Glucose (mg/dL) 258 H 114 H (70-110) mg/dL Calcium (8.4-10.2) mg/dL 04/20/25 04/20/25 04/20/25 Range/Units 09:03 11:46 16:28 RBC (4.40-5.60) 10*6/uL Hgb (13.0-17.0) g/dL Hct (39.6-50.0) % MCHC (32.0-37.0) g/dL MPV (9.5-12.2) fL Immature Gran # (0.00-0.04) 10*3/uL Chloride 109 H (98-107) mmol/L BUN 46 H (9-20) mg/dL Creatinine 2.01 H (0.66-1.25) mg/dL Glucose 157 H (74-99) mg/dL POC Glucose (mg/dL) 197 H 144 H (70-110) mg/dL Calcium 7.3 L (8.4-10.2) mg/dL Assessment and Plan (1) Bacteremia Current Visit: Yes Status: Acute Code(s): R78.81 - BACTEREMIA SNOMED Code(s): 5648164 (2) Penicillin allergy Current Visit: Yes Status: Acute Code(s): Z88.0 - ALLERGY STATUS TO PENICILLIN SNOMED Code(s): 47291906 (3) Sepsis Current Visit: Yes Status: Acute Code(s): A41.9 - SEPSIS, UNSPECIFIED ORGANISM SNOMED Code(s): 95487991 (4) UTI (urinary tract infection) Current Visit: Yes Status: Acute Code(s): N39.0 - URINARY TRACT INFECTION, SITE NOT SPECIFIED SNOMED Code(s): 46920166 Plan: 1patient with sepsis in this patient who did have fever tachycardia hypotension elevated white count elevated lactic acid meeting currently//sepsis now with evidence of gram-negative bacteremia source likely urinary 2-penicillin allergy that we will limit number of antibiotic safe use 2-patient blood and urine culture have been finalized with more resistant Proteus, blood culture repeat has been negative 3-patient remains to be afebrile white count has normalized, 4- patient creatinine responded to and will continue cefepime to finish a total of 2-week course of therapy for his bacteremia Dictation was produced using [employer] dictation software. please excuse any grammatical, word or spelling errors. Time with Patient: Less than 30
[2025-04-20 21:07] LABS: Glucose,Whole Blood 257 mg/dL (70-110)
[2025-04-21 06:10] LABS: Glucose,Whole Blood 177 mg/dL (70-110)
--- NOTE | 2025-04-21 10:11 | P.PN ---
Subjective Progress Note Date: 04/21/25 Patient is seen for follow-up for acute kidney injury. Status post bicarb drip no new complaints, legs are wrapped, getting IV cefepime . Blood cultures and urine cultures are growing Proteus Mirabillis Urine output is good, + East's catheter no labs today, Serum creatinine improved to 2.1 yesterday. Objective - Vital Signs Vital signs: Vital Signs Temp 98.5 F 04/21/25 04:00 Pulse 74 04/21/25 04:00 Resp 18 04/21/25 04:00 BP 165/77 04/21/25 04:00 Pulse Ox 93 L 04/21/25 04:00 FiO2 Intake & Output 04/20/25 04/21/25 04/21/25 18:59 06:59 18:59 Intake Total 236 580 Output Total 1550 1200 Balance -1314 -620 Weight 143 kg Intake: IV 100 Cefepime 2 gm In Sodium 100 Chloride 0.9% 100 ml @ 25 mls/hr IVPB Q12H [facility] Rx# :[id number] Oral 236 480 Output: Urine 1550 1200 Other: Voiding Method Indwelling Catheter Indwelling Catheter - Exam Patient is awake, comfortable, no acute distress Obese Examination of the heart S1 and S2 Examination of the lungs decreased breath sounds at the bases Abdomen is soft obese Examination lower extremity shows chronic edema 3+ bilaterally with chronic skin changes, legs are wrapped - Labs CBC & Chem 7: 04/20/25 09:03 04/20/25 09:03 Labs: Abnormal Lab Results - Last 24 Hours (Table) 04/20/25 04/20/25 04/20/25 Range/Units 09:03 11:46 16:28 Chloride 109 H (98-107) mmol/L BUN 46 H (9-20) mg/dL Creatinine 2.01 H (0.66-1.25) mg/dL Glucose 157 H (74-99) mg/dL POC Glucose (mg/dL) 197 H 144 H (70-110) mg/dL Calcium 7.3 L (8.4-10.2) mg/dL 04/20/25 04/21/25 Range/Units 21:02 06:08 Chloride (98-107) mmol/L BUN (9-20) mg/dL Creatinine (0.66-1.25) mg/dL Glucose (74-99) mg/dL POC Glucose (mg/dL) 257 H 177 H (70-110) mg/dL Calcium (8.4-10.2) mg/dL Assessment and Plan Assessment: 1. Acute kidney injury, ATN, oliguric secondary to hypotension and sepsis. UA suggestive of UTI. No obstruction noted on ultrasound of the kidney. 2. Gram-negative bacteremia from urinary tract infection maintained on IV antibiotics cultures are growing Proteus Mirabillis 3. Metabolic acidosis associated with acute kidney injury and lactic acidosis, status post bicarb drip 4. Hypomagnesemia 5. Anemia with no active bleeding noted, recent episode of hematuria after patient pulling out East catheter. Now resolved 6. Significant lower extremity edema and scrotal edema Plan: stable renal function, cr. ~2.2 likely around baseline. continue to monitor renal function off IVF Continue with antibiotics Repeat labs in a.m.
[2025-04-21 12:05] LABS: Glucose,Whole Blood 108 mg/dL (70-110)
--- NOTE | 2025-04-21 14:34 | P.PN ---
Subjective Progress Note Date: 04/21/25 No new complaints. Gen: In NAD, non-toxic HEENT: normocephalic, atraumatic, hearing acuity is intant, mucous membranes moist CVS: perfusing all extremities well, no pitting edema, Respiratory: symmetric chest expansion, no accessory muscle use, GI: soft, NTTP, ND, : no suprapubic tenderness, no CVA tenderness MSK/Derm: no rashes, cyanosis Neuro: CN II-XII intact, no motor weakness, Psych: cooperative, euthymic mood, judgment and insight is intact Assessment and Plan: Active: TIA Acute metabolic encephalopathy - On aspirin 81 mg daily, atorvastatin 40 nightly - Deficits have mostly resolved - Neurology following - Continue telemetry monitoring, neuroassessment - Echocardiogram previously showed normal LV systolic function, mild mitral and tricuspid regurgitation, no evidence of vegetation - Consider MRI without contrast Proteus UTI Proteus bacteremia -Continued on cefepime 1 g every 12 hours - ID following - GENARO on CKD, improved Acute urinary retention Metabolic acidosis, resolved -Nephrology following, continue to hold torsemide and lisinopril - DC bicarb drip - Also on oral bicarb 650 3 times daily -Monitor urine output - Holding antihypertensives, on midodrine 10 3 times daily Acute on chronic hypoxic respiratory failure Chronic diastolic CHF - Discontinue bicarb drip - Continue to monitor for need for diuretics Type 2 diabetes - On glargine 40 daily, sliding scale insulin, monitor for hypoglycemia Resolved: Leukocytosis Thrombocytopenia Severe sepsis Hematuria secondary to traumatic East insertion Hypokalemia Hypomagnesemia Chronic: Dyslipidemia Hypertension BPH Rheumatoid arthritis DVT ppx: Subcu heparin Code status: Full code Anticipated discharge place: Pending clinical course Anticipated discharge time: Pending clinical course Objective - Vital Signs Vital signs: Vital Signs Temp 98.2 F 04/21/25 09:00 Pulse 80 04/21/25 11:34 Resp 15 04/21/25 11:34 BP 166/79 04/21/25 11:34 Pulse Ox 93 L 04/21/25 11:34 FiO2 Intake & Output 04/20/25 04/21/25 04/21/25 18:59 06:59 18:59 Intake Total 236 580 60 Output Total 1550 1200 750 Balance -5978 -943 -438 Weight 143 kg Intake: IV 100 Cefepime 2 gm In Sodium 100 Chloride 0.9% 100 ml @ 25 mls/hr IVPB Q12H [facility] Rx# :[id number] Oral 236 480 60 Output: Urine 1550 1200 750 Other: Voiding Method Indwelling Catheter Indwelling Catheter Indwelling Catheter - Labs CBC & Chem 7: 04/20/25 09:03 04/20/25 09:03 Labs: Abnormal Lab Results - Last 24 Hours (Table) 04/20/25 04/20/25 04/21/25 Range/Units 16:28 21:02 06:08 POC Glucose (mg/dL) 144 H 257 H 177 H (70-110) mg/dL
--- NOTE | 2025-04-21 15:25 | P.PN ---
Subjective Progress Note Date: 04/21/25 Principal diagnosis: Reason for follow-up is UTI/bacteremia Patient is a 64-year-old male with a past medical history significant for Diabetes Mellitus, GERD/Reflux, Hyperlipidemia, Hypertension, Osteoarthritis (OA), Prostate Disorder, Rheumatoid Arthritis (RA), Skin Disorder [facility] the [facility] resident patient did have a chronic indwelling East cath eter brought to the hospital after accidentally pulling out his East with hematuria did have a positive blood culture with Proteus probably this consultation. On today's evaluation that is 04/21/2025, Patient is afebrile patient is currently on room air and denies having any shortness of breath, the patient denies any chest pain or cough, the patient denies any nausea vomiting did not have any abdominal pain and no diarrhea, mention about feeling better. No new lab has been obtained today Objective - Vital Signs Vital signs: Vital Signs Temp 98.2 F 04/21/25 09:00 Pulse 80 04/21/25 11:34 Resp 15 04/21/25 11:34 BP 166/79 04/21/25 11:34 Pulse Ox 93 L 04/21/25 11:34 FiO2 Intake & Output 04/20/25 04/21/25 04/21/25 18:59 06:59 18:59 Intake Total 236 580 60 Output Total 1550 1200 750 Balance -9555 -216 -992 Weight 143 kg Intake: IV 100 Cefepime 2 gm In Sodium 100 Chloride 0.9% 100 ml @ 25 mls/hr IVPB Q12H PENDING SALE TO [facility] Rx# :[id number] Oral 236 480 60 Output: Urine 1550 1200 750 Other: Voiding Method Indwelling Catheter Indwelling Catheter Indwelling Catheter - Exam GENERAL DESCRIPTION: Middle-age male lying in bed in no distress RESPIRATORY SYSTEM: Unlabored breathing , decreased breath sounds at bases HEART: S1 S2 regular rate and rhythm , ABDOMEN: Soft , no tenderness EXTREMITIES: Bilateral lower extremity currently wrapped in Silvestre wrap - Labs CBC & Chem 7: 04/20/25 09:03 04/20/25 09:03 Labs: Abnormal Lab Results - Last 24 Hours (Table) 04/20/25 04/20/25 04/21/25 Range/Units 16:28 21:02 06:08 POC Glucose (mg/dL) 144 H 257 H 177 H (70-110) mg/dL Assessment and Plan (1) Bacteremia Current Visit: Yes Status: Acute Code(s): R78.81 - BACTEREMIA SNOMED Code(s): 1487160 (2) Penicillin allergy Current Visit: Yes Status: Acute Code(s): Z88.0 - ALLERGY STATUS TO PENICILLIN SNOMED Code(s): 60843245 (3) Sepsis Current Visit: Yes Status: Acute Code(s): A41.9 - SEPSIS, UNSPECIFIED ORGANISM SNOMED Code(s): 53982217 (4) UTI (urinary tract infection) Current Visit: Yes Status: Acute Code(s): N39.0 - URINARY TRACT INFECTION, SITE NOT SPECIFIED SNOMED Code(s): 03835395 Plan: 1patient with sepsis in this patient who did have fever tachycardia hypotension elevated white count elevated lactic acid meeting currently//sepsis now with evidence of gram-negative bacteremia source likely urinary 2-penicillin allergy that we will limit number of antibiotic safe use 2-patient blood and urine culture have been finalized with more resistant Proteus, blood culture repeat has been negative 3-patient remains to be afebrile white count has normalized, 4- patient patient did have clinical improvement and has improvement his creatinine is currently being treated with cefepime to finish a total of 2-week course of therapy for his bacteremia Dictation was produced using [employer] dictation software. please excuse any grammatical, word or spelling errors. Time with Patient: Less than 30
[2025-04-21 16:31] LABS: Glucose,Whole Blood 123 mg/dL (70-110)
[2025-04-21 20:32] LABS: Glucose,Whole Blood 172 mg/dL (70-110)
[2025-04-22 06:08] LABS: Glucose,Whole Blood 118 mg/dL (70-110)
[2025-04-22 07:11] LABS: African American GFR (CKD) 47 (>60 ml/min/1.73 sqM); Anion Gap 4 mmol/L; Blood Urea Nitrogen 40 mg/dL (9-20); Calcium 7.4 mg/dL (8.4-10.2); Carbon Dioxide 25 mmol/L (22-30); Chloride 110 mmol/L (98-107); Glucose 109 mg/dL (74-99); Magnesium 1.6 mg/dL (1.6-2.3); Non-African American GFR(CKD) 41 (>60 ml/min/1.73 sqM); Sodium 139 mmol/L (137-145)
--- NOTE | 2025-04-22 09:53 | P.DS ---
Providers Date of admission: 04/10/25 03:16 Expected date of discharge: 04/22/25 Attending physician: Cristiano Fuchs MD Consults: 04/10/25 08:09 Consult Physician Routine Consulting Provider: Josep Villagomez Consult Reason/Comments: scrotum edema, hematuria, penile trauma Do you want consulting provider notified?: Yes 04/11/25 08:28 Consult Physician Routine Consulting Provider: Fabienne Packer Consult Reason/Comments: GENARO on CKD Do you want consulting provider notified?: Yes 04/11/25 09:03 Consult Physician Routine Consulting Provider: Aminah Lee Consult Reason/Comments: sepsis, UTI, bacteremia Do you want consulting provider notified?: Yes 04/11/25 14:07 Consult Physician Routine Consulting Provider: Salomón Villar Consult Reason/Comments: critical care consult Do you want consulting provider notified?: Already Contacted 04/17/25 17:25 Consult Physician Routine Consulting Provider: Arthur Tierney Consult Reason/Comments: stroke code Do you want consulting provider notified?: Yes Primary care physician: Stated None Hospital Course: TIA Acute metabolic encephalopathy Sepsis secondary to Proteus UTI and Proteus bacteremia GENARO on CKD, improved Acute urinary retention Metabolic acidosis, resolved Acute on chronic hypoxic respiratory failure Chronic diastolic CHF Type 2 diabetes Leukocytosis Thrombocytopenia Severe sepsis Hematuria secondary to traumatic East insertion Hypokalemia Hypomagnesemia Dyslipidemia Hypertension BPH Rheumatoid arthritis Hospital Course: Patient is a pleasant 64-year-old male with a past medical history hypertension, hyperlipidemia, CHF on daily diuretic with torsemide, insulin-dependent diabetes mellitus, CKD stage IIIb, anemia, chronic diarrhea on daily Imodium, BPH with urinary incontinence, and rheumatoid arthritis. He is a resident of [facility] and is wheelchair/bedbound requiring Jessi lift for transfers at baseline. He presented to our facility secondary to reports of concerns of urinary tract infection, scrotal edema, and urinary retention. Per transfer documentation, a East catheter was placed and patient pulled out resulting in significant bleeding from meatus. Upon arrival to our facility, patient underwent evaluation in the emergency department. Vital signs upon arrival show blood pressure 140/69, heart rate 117, respiratory rate 20, temp 98.6 F, and SpO2 of 97% on room air. EKG completed showing sinus tachycardia 121 bpm. Chest x-ray showing mild pulmonary vascular congestion consistent with mild CHF. Labs completed and reviewed. CBC showing leukocytosis with WBC count of 16.08 and normocytic anemia with hemoglobin of 10.1. Coagulation profile unremarkable. BMP showing hyponatremia with sodium of 133 and high anion gap metabolic acidosis with chloride of 108, bicarb of 12, and anion gap of 13 and renal function consistent with known CKD with BUN of 49, creatinine 2.73, and GFR of 24 with baseline creatinine around 2.7. Blood glucose 199. Lactic acid 1.6. Liver profile unremarkable with exception of low total protein of 5.7 and albumin of 2.7. Troponin was negative at less than 0.012. Urinalysis red in color turbid appearance positive for protein, glucose, blood, leukocyte esterase, greater than 182 RBCs and 76 WBCs. Patient was started on IV antibiotics with Rocephin and admitted under services with consultation to uro logy. Urinary retention improved and bladder scans currently showing less than 30 cc. Patient reports continued urinary incontinence (but this is his baseline) and currently denies difficulties with urination or feeling as though he is retaining. Renal function worsening from yesterday with BUN of 49, creatinine 2.79 and today BUN of 55, creatinine 3.50, GFR of 18. Nephrology consulted. Blood culture preliminarily positive for Proteus mirabillis. Patient is on Rocephin 2 g daily. Infectious disease consulted. On 04/11/25 patient's sepsis worsening and he developed GENAOR on CKD with oliguria. His blood pressures also worsened with pt becoming significantly hypotensive with BP decreasing as low as 70/50. Pt was given fluid resuscitation, Orthodontic Band Maker consulted and pt started on Bicarb infusion. After discussion with urology, Coude East catheter inserted for strict monitoring of I's and O's with worsening sepsis, GENARO and oliguria. Code stroke called on patient shortly after 5 PM on 04/17. Arrived to bedside to find patient resting in bed with noted right sided facial droop and leaning towards the right. He was answering questions appropriately but showing some mild confusion. Nursing staff at bedside state initially NIH score 16 with patient found to have right sided weakness in upper extremities. Unable to evaluate lower extremities secondary to current bedridden status and significant swelling in lower extremities and patient unable to participate by lifting legs to assess strength or movement. Nursing staff report initially right arm drop was significantly positive and almost flaccid. On my assessment patient was able to hold up right arm with mild drop noted. Symptoms seem to be improving rapidly. Patient being taken down for CT head. Consult placed to neurologist. Order placed for NIH stroke scale along with neurochecks hourly x 4, every 2 hours x 12, then every 4 hours. Discussed events and patient in detail with neurologist, Dr. Tierney. Stroke interventional list was contacted by nursing staff at bedside. Pts CTH was negative from CVA, no LVO on CTA and NIHSS score returned to 0 upon return from scanner. Pt completed treatment for sepsis with complicated UTI and bacteremia and improved mentation back to baseline. he was returned back to [facility] in baseline condition. he should f/u with PCP and ID. I spent 45 min completing this discharge. Gen: In NAD, non-toxic HEENT: normocephalic, atraumatic, hearing acuity is intant, mucous membranes moist CVS: perfusing all extremities well, no pitting edema, Respiratory: symmetric chest expansion, no accessory muscle use, GI: soft, NTTP, ND, : no suprapubic tenderness, no CVA tenderness MSK/Derm: no rashes, cyanosis Neuro: CN II-XII intact, no motor weakness, Psych: cooperative, euthymic mood, judgment and insight is intact Patient Condition at Discharge: Good Plan - Discharge Summary Discharge Rx Participant: No New Discharge Prescriptions: New Tamsulosin [Flomax] 0.4 mg PO PC-SUPPER cap Folic Acid 1 mg PO DAILY tab Acetaminophen Tab [Tylenol] 650 mg PO Q6HR PRN tab PRN Reason: Mild Pain Or Fever > 100.5 Aspirin 81 mg PO DAILY tab Atorvastatin [Lipitor] 40 mg PO HS tab Magnesium Oxide [Mag-Ox] 400 mg PO DAILY tab Sodium Bicarbonate Tab 650 mg PO DAILY tab Continue Promethazine [Phenergan] 25 mg PO Q6H PRN PRN Reason: Nausea And Vomiting Phenyleph/Pramoxin/Glycr/W.pet [Preparation H Cream] 1 applic RECTAL Q6H PRN PRN Reason: Hemorrhoids Loratadine 10 mg PO DAILY Insulin Glargine,Hum.rec.anlog [Insulin Glargine Solostar] 40 unit SQ DAILY Dulaglutide [Trulicity] 4.5 mg SQ TH Loperamide [Imodium] 2 - 4 mg PO QID PRN PRN Reason: Diarrhea lisinopriL [Zestril] 20 mg PO DAILY gemfibroziL [Lopid] 600 mg PO BID Gabapentin [Neurontin] 100 mg PO TID Insulin Lispro-Aabc [Lyumjev Kwikpen U-100] See Protocol SQ ACHS Changed Torsemide [Demadex] 20 mg PO DAILY #0 Discontinued metFORMIN HCL [Glucophage] 1,000 mg PO BID Ibuprofen [Motrin] 600 mg PO Q8H PRN PRN Reason: Moderate Pain (Scale 4 To 6) Cephalexin [Keflex] 500 mg PO Q8H Discharge Medication List Dulaglutide [Trulicity] 4.5 mg SQ TH 04/10/25 [History] Gabapentin [Neurontin] 100 mg PO TID 04/10/25 [History] Insulin Glargine,Hum.rec.anlog [Insulin Glargine Solostar] 40 unit SQ DAILY 04/10/25 [History] Insulin Lispro-Aabc [Lyumjev Kwikpen U-100] See Protocol SQ ACHS 04/10/25 [History] Loperamide [Imodium] 2 - 4 mg PO QID PRN 04/10/25 [History] Loratadine 10 mg PO DAILY 04/10/25 [History] Phenyleph/Pramoxin/Glycr/W.pet [Preparation H Cream] 1 applic RECTAL Q6H PRN 04/10/25 [History] Promethazine [Phenergan] 25 mg PO Q6H PRN 04/10/25 [History] gemfibroziL [Lopid] 600 mg PO BID 04/10/25 [History] lisinopriL [Zestril] 20 mg PO DAILY 04/10/25 [History] Acetaminophen Tab [Tylenol] 650 mg PO Q6HR PRN tab 04/22/25 [Rx] Aspirin 81 mg PO DAILY tab 04/22/25 [Rx] Atorvastatin [Lipitor] 40 mg PO HS tab 04/22/25 [Rx] Folic Acid 1 mg PO DAILY tab 04/22/25 [Rx] Magnesium Oxide [Mag-Ox] 400 mg PO DAILY tab 04/22/25 [Rx] Sodium Bicarbonate Tab 650 mg PO DAILY tab 04/22/25 [Rx] Tamsulosin [Flomax] 0.4 mg PO PC-SUPPER cap 04/22/25 [Rx] Torsemide [Demadex] 20 mg PO DAILY #0 04/22/25 [Rx] Follow up Appointment(s)/Referral(s): None,Stated [Primary Care Provider] - 1-2 days Aminah Lee MD [STAFF PHYSICIAN] - 1 Week Discharge Disposition: TRANSFER TO SNF/ECF
--- NOTE | 2025-04-22 11:12 | P.PN ---
Subjective Patient is seen in follow-up for acute kidney injury on chronic kidney disease. Renal function improving. Has East catheter. Nonoliguric. Vital signs are stable. General: No acute distress. HEENT: Head exam is unremarkable. LUNGS: No audible rhonchi or wheezes. HEART: Rate and Rhythm are regular. ABDOMEN: Nontender. EXTREMITITES: No edema. Objective - Vital Signs Vital signs: Vital Signs Temp 97.9 F 04/21/25 23:22 Pulse 80 04/22/25 03:28 Resp 17 04/22/25 03:28 BP 145/92 04/22/25 03:28 Pulse Ox 95 04/22/25 03:28 FiO2 Intake & Output 04/21/25 04/22/25 04/22/25 18:59 06:59 18:59 Intake Total 60 280 360 Output Total 925 1125 Balance -865 -845 360 Weight 143.5 kg Intake: Oral 60 280 360 Output: Urine 925 1125 Other: Voiding Method Indwelling Catheter Indwelling Catheter # Bowel Movements 1 - Labs CBC & Chem 7: 04/20/25 09:03 04/22/25 05:58 Labs: Abnormal Lab Results - Last 24 Hours (Table) 04/21/25 04/21/25 04/22/25 Range/Units 16:29 20:30 05:58 Chloride 110 H (98-107) mmol/L BUN 40 H (9-20) mg/dL Creatinine 1.75 H (0.66-1.25) mg/dL Glucose 109 H (74-99) mg/dL POC Glucose (mg/dL) 123 H 172 H (70-110) mg/dL Calcium 7.4 L (8.4-10.2) mg/dL 04/22/25 Range/Units 06:00 Chloride (98-107) mmol/L BUN (9-20) mg/dL Creatinine (0.66-1.25) mg/dL Glucose (74-99) mg/dL POC Glucose (mg/dL) 118 H (70-110) mg/dL Calcium (8.4-10.2) mg/dL Assessment and Plan Plan: Assessment: 1. Acute kidney injury secondary to ATN secondary to severe sepsis. No hydronephrosis noted on ultrasound. Renal function improving. Creatinine 1.75 today. 2. Severe sepsis secondary to Proteus UTI and bacteremia on antibiotics. 3. Diabetes mellitus. 4. Chronic kidney disease stage IIIa with baseline creatinine of 1.3-1.4 from May 2024. Etiology is likely diabetic kidney disease. 5. Metabolic acidosis secondary to acute kidney injury and lactic acidosis. Improved. Now on oral bicarb. Plan: Encouraged oral intake. Avoid nephrotoxins. Increase frequency of magnesium oxide to twice daily. Follow-up outpatient 1 to 2 weeks postdischarge. Repeat BMP and magnesium level 2 to 3 days postdischarge.
[2025-04-22 13:10] VITALS: RESP 18
[2025-04-22 13:13] VITALS: BP 161/83; PULSE 78; TEMP 98.4
[2025-04-22] MEDS ORDERED: MAGNESIUM OXIDE 400 MG TAB PO SCH (21:00)
== END 2025-04-22 12:02 | DRG 871 ==
LOC: EC 20:53 → 4SSUR 04-10 03:16 → 3SCARD 04-10 16:59
PROVIDERS: ADMIT Student in an Organized Health Care Education/Training Program; ATTEND Student in an Organized Health Care Education/Training Program
DX: A41.59 Other Gram-negative sepsis (principal); G93.41 Metabolic encephalopathy; L89.153 Pressure ulcer of sacral region, stage 3; N17.0 Acute kidney failure with tubular necrosis; J96.21 Acute and chronic respiratory failure with hypoxia; E87.20 Acidosis, unspecified; D63.1 Anemia in chronic kidney disease; L89.622 Pressure ulcer of left heel, stage 2; I13.0 Hypertensive heart and chronic kidney disease with heart failure and stage 1 through stage 4 chronic kidney disease, or unspecified chronic kidney disease; G45.9 Transient cerebral ischemic attack, unspecified; E11.22 Type 2 diabetes mellitus with diabetic chronic kidney disease; E66.01 Morbid (severe) obesity due to excess calories; M06.9 Rheumatoid arthritis, unspecified; N18.32 Chronic kidney disease, stage 3b; D69.6 Thrombocytopenia, unspecified; I50.32 Chronic diastolic (congestive) heart failure; Z68.42 Body mass index [BMI] 45.0-49.9, adult; N39.0 Urinary tract infection, site not specified; E87.1 Hypo-osmolality and hyponatremia; L03.115 Cellulitis of right lower limb; L03.116 Cellulitis of left lower limb; T83.83XA Hemorrhage due to genitourinary prosthetic devices, implants and grafts, initial encounter; E11.621 Type 2 diabetes mellitus with foot ulcer; R65.20 Severe sepsis without septic shock; Z79.4 Long term (current) use of insulin; R29.716 NIHSS score 16; Y65.8 Other specified misadventures during surgical and medical care; E78.5 Hyperlipidemia, unspecified; E53.8 Deficiency of other specified B group vitamins; E83.42 Hypomagnesemia; E87.6 Hypokalemia; F80.9 Developmental disorder of speech and language, unspecified; G47.33 Obstructive sleep apnea (adult) (pediatric); I87.2 Venous insufficiency (chronic) (peripheral); M10.9 Gout, unspecified; M19.90 Unspecified osteoarthritis, unspecified site; N40.1 Benign prostatic hyperplasia with lower urinary tract symptoms; N50.89 Other specified disorders of the male genital organs; K21.9 Gastro-esophageal reflux disease without esophagitis; N39.498 Other specified urinary incontinence; D50.9 Iron deficiency anemia, unspecified; I95.9 Hypotension, unspecified; M62.50 Muscle wasting and atrophy, not elsewhere classified, unspecified site; R29.700 NIHSS score 0; R29.810 Facial weakness; R31.0 Gross hematuria; R33.8 Other retention of urine; Z79.84 Long term (current) use of oral hypoglycemic drugs; Z79.85 Long-term (current) use of injectable non-insulin antidiabetic drugs; Z74.01 Bed confinement status; Z79.82 Long term (current) use of aspirin; Z79.899 Other long term (current) drug therapy; Z88.0 Allergy status to penicillin; Z99.3 Dependence on wheelchair
CPT/HCPCS: 36415; 51702; 70450; 70496; 70498; 71045; 76770; 80048; 80053; 81001; 82607; 82746; 83036; 83605; 83735; 84484; 85025; 85027; 85610; 85730; 87040; 87077; 87086; 87186; 93005; 93306; 94760; 96361; 96365; 96366; 96368; 99291

== ENCOUNTER 2025-04-22 17:08 | Emergency (ER) | payer MEDICARE, OTHER ==
--- NOTE | 2025-04-22 17:17 | ED ---
Male Urogenital HPI - General Chief complaint: Recheck/Abnormal Lab/Rx Stated complaint: Bleeding Time Seen by Provider: 04/22/25 17:15 Source: EMS, RN notes reviewed, old records reviewed Mode of arrival: EMS Limitations: altered mental status - History of Present Illness Initial comments: This is a 64-year-old male presenting with bleeding from penis recent inpatient hospital admission for similar issue patient also complaining of hematuria and persistent hematuria here in the ER MD Complaint: other (Hematuria bleeding from the penis) -: days(s) Location: penis Radiation: none Severity: mild Consistency: constant Improves with: none Reports: denies other symptoms - Related Data Home Medications Medication Instructions Recorded Confirmed Dulaglutide [Trulicity] 4.5 mg SQ TH 04/10/25 04/10/25 Gabapentin [Neurontin] 100 mg PO TID 04/10/25 04/10/25 Insulin Glargine,Hum.rec.anlog 40 unit SQ DAILY 04/10/25 04/10/25 [Insulin Glargine Solostar] Insulin Lispro-Aabc [Lyumjev See Protocol SQ ACHS 04/10/25 04/10/25 Kwikpen U-100] Loperamide [Imodium] 2 - 4 mg PO QID PRN 04/10/25 04/10/25 Loratadine 10 mg PO DAILY 04/10/25 04/10/25 Phenyleph/Pramoxin/Glycr/W.pet 1 applic RECTAL Q6H PRN 04/10/25 04/10/25 [Preparation H Cream] Promethazine [Phenergan] 25 mg PO Q6H PRN 04/10/25 04/10/25 gemfibroziL [Lopid] 600 mg PO BID 04/10/25 04/10/25 lisinopriL [Zestril] 20 mg PO DAILY 04/10/25 04/10/25 Previous Rx's Medication Instructions Recorded Acetaminophen Tab [Tylenol] 650 mg PO Q6HR PRN tab 04/22/25 Aspirin 81 mg PO DAILY tab 04/22/25 Atorvastatin [Lipitor] 40 mg PO HS tab 04/22/25 Folic Acid 1 mg PO DAILY tab 04/22/25 Magnesium Oxide [Mag-Ox] 400 mg PO DAILY tab 04/22/25 Sodium Bicarbonate Tab 650 mg PO DAILY tab 04/22/25 Tamsulosin [Flomax] 0.4 mg PO PC-SUPPER cap 04/22/25 Torsemide [Demadex] 20 mg PO DAILY #0 04/22/25 Allergies Allergy/AdvReac Type Severity Reaction Status Date / Time Penicillins Allergy Unknown Verified 04/22/25 17:11 Review of Systems ROS Statement: Those systems with pertinent positive or pertinent negative responses have been documented in the HPI. ROS Other: All systems not noted in ROS Statement are negative. Past Medical History Past Medical History: Diabetes Mellitus, GERD/Reflux, Hyperlipidemia, Hypertension, Osteoarthritis (OA), Prostate Disorder, Rheumatoid Arthritis (RA), Skin Disorder Additional Past Medical History / Comment(s): NO BP MEDS., GOUT., IRON DEFICIENCY ANEMIA, OPEN AREA ON COCCYX (SUPERFICIAL)., INCONTINENT, NEEDS LORENE LIFT FOR TRANSFERS. , RESIDES AT [facility] History of Any Multi-Drug Resistant Organisms: None Reported Past Surgical History: Ear Surgery, Joint Replacement Additional Past Surgical History / Comment(s): 10/12/21 TOTAL RIGHT HIP ANTERIOR APPROACH, 11/10/21 I & D RIGHT HIP INCISION. Past Anesthesia/Blood Transfusion Reactions: Unable to Obtain Past Psychological History: No Psychological Hx Reported Smoking Status: Never smoker Past Alcohol Use History: Unable to Obtain Past Drug Use History: None Reported General Exam General appearance: alert, in no apparent distress Head exam: Present: atraumatic, normocephalic, normal inspection Eye exam: Present: normal appearance, PERRL, EOMI. Absent: scleral icterus, conjunctival injection, periorbital swelling ENT exam: Present: normal exam, mucous membranes moist Neck exam: Present: normal inspection. Absent: tenderness, meningismus, lymphadenopathy Respiratory exam: Present: normal lung sounds bilaterally. Absent: respiratory distress, wheezes, rales, rhonchi, stridor Cardiovascular Exam: Present: regular rate, normal rhythm, normal heart sounds. Absent: systolic murmur, diastolic murmur, rubs, gallop, clicks GI/Abdominal exam: Present: soft, normal bowel sounds. Absent: distended, tenderness, guarding, rebound, rigid Extremities exam: Present: normal inspection, full ROM, normal capillary refill. Absent: tenderness, pedal edema, joint swelling, calf tenderness Back exam: Present: normal inspection Neurological exam: Present: alert, oriented X3, CN II-XII intact Psychiatric exam: Present: normal affect, normal mood Skin exam: Present: warm, dry, intact, normal color. Absent: rash Course Vital Signs 04/22/25 17:09 Temperature 98.1 F Pulse Rate 71 Respiratory 16 Rate Blood Pressure 157/80 O2 Sat by Pulse 97 Oximetry - Reevaluation(s) Reevaluation #1: 04/22/25 17:20 Medical records reviewed Reevaluation #2: 04/22/25 19:14 Patient has East placed with adequate placement Reevaluation #3: 04/22/25 19:14 Patient informed of results questions answered Reevaluation #4: Was pt. sent in by a medical professional or institution (, NANCY, [employer]K [employer]ER INST[employer]ER, urgent care, hospital, or intermediate...) When possible be specific @ -no Did you speak to anyone other than the patient for history (EMS, parent, family, police, friend...)? What history was obtained from this source @ -no Did you review nursing and triage notes (agree or disagree)? Why? @ -agree Are old charts reviewed (outside hosp., previous admission, EMS record, old EKG, old radiological studies, urgent care reports/EKG's, intermediate records)? Report findings @ -yes Differential Diagnosis (chest pain, altered mental status, abdominal pain women, abdominal pain men, vaginal bleeding, weakness, fever, dyspnea, syncope, headache, dizziness, GI bleed, back pain, seizure, CVA, palpatations, mental health, musculoskeletal)? @ -prior EKG interpreted by me (3pts min.). @ -yes X-rays interpreted by me (1pt min.). @ -yes negative for acute disease CT interpreted by me (1pt min.). @ -no U/S interpreted by me (1pt. min.). @ -no What testing was considered but not performed or refused? (CT, X-rays, U/S, labs)? Why? @ -none What meds were considered but not given or refused? Why? @ -none Did you discuss the management of the patient with other professionals (professionals i.e. NANCY Mcnulty, B[employer]K [employer]ER INSTALLER, lab, RT, psych nurse, social security assessor, senior systems developer, teacher, guest services officer, family preservation caseworker)? Give summary @ -no Was smoking cessation discussed for >3mins.? @ -no Was critical care preformed (if so, how long)? @ -no Were there social determinants of health that impacted care today? How? (Homelessness, low income, unemployed, alcoholism, drug addiction, transportation, low edu. Level, literacy, decrease access to med. care, shelter, rehab)? @ -none Was there de-escalation of care discussed even if they declined (Discuss DNR or withdrawal of care, Hospice)? DNR status @ -no What co-morbidities impacted this encounter? (DM, HTN, Smoking, COPD, CAD, Cancer, CVA, ARF, Chemo, Hep., AIDS, mental health diagnosis, sleep apnea, morbid obesity)? @ -none Was patient admitted / discharged? Hospital course, mention meds given and route, prescriptions, significant lab abnormalities, going to OR and other pertinent info. @ - Undiagnosed new problem with uncertain prognosis? @ -no Drug Therapy requiring intensive monitoring for toxicity (Heparin, Nitro, Insulin, Cardizem)? @ -no Were any procedures done? @ -no Diagnosis/symptom? @ - Acute, or Chronic, or Acute on Chronic? @ -Acute Uncomplicated (without systemic symptoms) or Complicated (systemic symptoms)? @ -Complicated Side effects of treatment? @ -no Exacerbation, Progression, or Severe Exacerbation? @ -exacerbation Poses a threat to life or bodily function? How? (Chest pain, [place], [place], pneumonia, PE, COPD, DKA, ARF, appy, cholecystitis, CVA, Diverticulitis, Homicidal, Suicidal, threat to staff... and all critical care pts) @ -yes Medical Decision Making - Medical Decision Making 64 male to ER for evaluation patient with significant hematuria here in the ER, patient does have East catheter placed no clotting noted blood flow flowing clean, patient will be discharged back to facility - Lab Data Result diagrams: 04/22/25 18:22 04/22/25 18:22 Lab Results 04/22/25 04/22/25 04/22/25 Range/Units 18:22 18:22 18:22 WBC 7.67 (4.50-10.00) 10*3/uL RBC 3.14 L (4.40-5.60) 10*6/uL Hgb 8.6 L (13.0-17.0) g/dL Hct 27.5 L (39.6-50.0) % MCV 87.6 (80.0-97.0) fL MCH 27.4 (27.0-32.0) pg MCHC 31.3 L (32.0-37.0) g/dL Plt Count 121 L (140-440) 10*3/uL MPV 9.6 (9.5-12.2) fL Immature Gran % (Auto) 3.3 % Neutrophils % 72.0 % Lymphocytes % 15.9 % Monocytes % 5.7 % Eosinophils % 2.7 % Basophils % 0.4 % Immature Gran # 0.25 H (0.00-0.04) 10*3/uL Neutrophils # 5.52 (1.80-7.70) 10*3/uL Lymphocytes # 1.22 (0.90-5.00) 10*3/uL Monocytes # 0.44 (0.20-1.00) 10*3/uL Eosinophils # 0.21 (0.04-0.35) 10*3/uL Basophils # 0.03 (0.00-0.10) 10*3/uL PT 12.1 (10.0-12.5) sec INR 1.1 (<1.2) APTT 25.1 (22.0-30.0) sec Sodium (137-145) mmol/L Potassium (3.5-5.1) mmol/L Chloride (98-107) mmol/L Carbon Dioxide (22-30) mmol/L Anion Gap mmol/L BUN (9-20) mg/dL Creatinine (0.66-1.25) mg/dL Est GFR (CKD-EPI)AfAm (>60 ml/min/1.73 sqM) Est GFR (CKD-EPI)NonAf (>60 ml/min/1.73 sqM) Glucose (74-99) mg/dL Plasma Lactic Acid Jose (0.7-2.0) mmol/L Calcium (8.4-10.2) mg/dL Phosphorus (2.5-4.5) mg/dL Magnesium (1.6-2.3) mg/dL Total Bilirubin (0.2-1.3) mg/dL AST (17-59) U/L ALT (4-49) U/L Alkaline Phosphatase (38-126) U/L Troponin I (0.000-0.034) ng/mL Total Protein (6.3-8.2) g/dL Albumin (3.5-5.0) g/dL Urine Color Light Brown Urine Appearance Cloudy (Clear) Urine pH 7.5 (5.0-8.0) Ur Specific [place] 1.017 (1.001-1.035) Urine Protein 3+ H (Negative) Urine Glucose (UA) 1+ H (Negative) Urine Ketones Negative (Negative) Urine Blood Large H (Negative) Urine Nitrite Negative (Negative) Urine Bilirubin Negative (Negative) Urine Urobilinogen <2.0 (<2.0) mg/dL Ur Leukocyte Esterase Negative (Negative) Urine RBC >182 H (0-5) /hpf Urine WBC 9 H (0-5) /hpf 04/22/25 04/22/25 04/22/25 Range/Units 18:22 18:22 18:22 WBC (4.50-10.00) 10*3/uL RBC (4.40-5.60) 10*6/uL Hgb (13.0-17.0) g/dL Hct (39.6-50.0) % MCV (80.0-97.0) fL MCH (27.0-32.0) pg MCHC (32.0-37.0) g/dL Plt Count (140-440) 10*3/uL MPV (9.5-12.2) fL Immature Gran % (Auto) % Neutrophils % % Lymphocytes % % Monocytes % % Eosinophils % % Basophils % % Immature Gran # (0.00-0.04) 10*3/uL Neutrophils # (1.80-7.70) 10*3/uL Lymphocytes # (0.90-5.00) 10*3/uL Monocytes # (0.20-1.00) 10*3/uL Eosinophils # (0.04-0.35) 10*3/uL Basophils # (0.00-0.10) 10*3/uL PT (10.0-12.5) sec INR (<1.2) APTT (22.0-30.0) sec Sodium 139 (137-145) mmol/L Potassium 4.1 (3.5-5.1) mmol/L Chloride 110 H (98-107) mmol/L Carbon Dioxide 21 L (22-30) mmol/L Anion Gap 8 mmol/L BUN 38 H (9-20) mg/dL Creatinine 1.52 H (0.66-1.25) mg/dL Est GFR (CKD-EPI)AfAm 56 (>60 ml/min/1.73 sqM) Est GFR (CKD-EPI)NonAf 48 (>60 ml/min/1.73 sqM) Glucose 62 L (74-99) mg/dL Plasma Lactic Acid Jose 0.9 (0.7-2.0) mmol/L Calcium 7.5 L (8.4-10.2) mg/dL Phosphorus 3.6 (2.5-4.5) mg/dL Magnesium 1.5 L (1.6-2.3) mg/dL Total Bilirubin 0.5 (0.2-1.3) mg/dL AST 21 (17-59) U/L ALT 6 (4-49) U/L Alkaline Phosphatase 60 (38-126) U/L Troponin I <0.012 (0.000-0.034) ng/mL Total Protein 5.8 L (6.3-8.2) g/dL Albumin 2.4 L (3.5-5.0) g/dL Urine Color Urine Appearance (Clear) Urine pH (5.0-8.0) Ur Specific [place] (1.001-1.035) Urine Protein (Negative) Urine Glucose (UA) (Negative) Urine Ketones (Negative) Urine Blood (Negative) Urine Nitrite (Negative) Urine Bilirubin (Negative) Urine Urobilinogen (<2.0) mg/dL Ur Leukocyte Esterase (Negative) Urine RBC (0-5) /hpf Urine WBC (0-5) /hpf Disposition Clinical Impression: Hematuria Disposition: HOME SELF-CARE Condition: Good Instructions (If sedation given, give patient instructions): Hematuria (ED) Is patient prescribed a controlled substance at d/c from ED?: No Referrals: None,Stated [REFERRING] - 1-2 days Time of Disposition: 19:00
[2025-04-22] MEDS: SODIUM CHLORIDE 0.9% 1,000 ML IV ONE (18:19)
[2025-04-22 18:35] LABS: Basophils # (A) 0.03 10*3/uL (0.00-0.10); Basophils % (A) 0.4 %; Eosinophils # (A) 0.21 10*3/uL (0.04-0.35); Eosinophils % (A) 2.7 %; HCT 27.5 % (39.6-50.0); HGB 8.6 g/dL (13.0-17.0); Lymphocytes # (A) 1.22 10*3/uL (0.90-5.00); Lymphocytes % (A) 15.9 %; MCH 27.4 pg (27.0-32.0); MCHC 31.3 g/dL (32.0-37.0); MCV 87.6 fL (80.0-97.0); Mean Platelet Volume 9.6 fL (9.5-12.2); Monocytes # (A) 0.44 10*3/uL (0.20-1.00); Monocytes % (A) 5.7 %; Neutrophils # (A) 5.52 10*3/uL (1.80-7.70); Platelet Count 121 10*3/uL (140-440); RBC 3.14 10*6/uL (4.40-5.60); RDW 14.1 % (11.5-14.5); WBC 7.67 10*3/uL (4.50-10.00)
[2025-04-22 18:41] LABS: Appearance,Urine Cloudy (Clear); Bilirubin,Urine Negative (Negative); Blood,Urine Large (Negative); Color,Urine Light Brown; Glucose,Urine (UA) 1+ (Negative); Ketones,Urine Negative (Negative); Leukocyte Esterase,Urine Negative (Negative); Nitrite,Urine Negative (Negative); PH, Urine 7.5 (5.0-8.0); Protein,Urine 3+ (Negative); RBC,Urine >182 /hpf (0-5); Specific Gravity,Urine 1.017 (1.001-1.035); Urobilinogen,Urine <2.0 mg/dL (<2.0); WBC,Urine 9 /hpf (0-5)
[2025-04-22 18:44] LABS: INR 1.1 (<1.2); Partial Thromboplastin Time 25.1 sec (22.0-30.0); Prothrombin Time 12.1 sec (10.0-12.5)
[2025-04-22 18:47] LABS: ALT 6 U/L (4-49); AST 21 U/L (17-59); African American GFR (CKD) 56 (>60 ml/min/1.73 sqM); Albumin 2.4 g/dL (3.5-5.0); Alkaline Phosphatase 60 U/L (38-126); Anion Gap 8 mmol/L; Blood Urea Nitrogen 38 mg/dL (9-20); Calcium 7.5 mg/dL (8.4-10.2); Carbon Dioxide 21 mmol/L (22-30); Chloride 110 mmol/L (98-107); Glucose 62 mg/dL (74-99); Magnesium 1.5 mg/dL (1.6-2.3); Non-African American GFR(CKD) 48 (>60 ml/min/1.73 sqM); Phosphorus 3.6 mg/dL (2.5-4.5); Potassium 4.1 mmol/L (3.5-5.1); Sodium 139 mmol/L (137-145); Total Bilirubin 0.5 mg/dL (0.2-1.3); Total Protein 5.8 g/dL (6.3-8.2)
[2025-04-22 19:38] VITALS: BP 116/73; PULSE 80; RESP 18; TEMP 97.9
== END 2025-04-22 21:36 | disposition home or self-care (01) ==
LOC: EC 17:08
DX: R31.9 Hematuria, unspecified (principal); Z88.0 Allergy status to penicillin
CPT/HCPCS: 36415; 80053; 83605; 83735; 84100; 84484; 85025; 85610; 85730; 81001; 99283; 96374; 96361; J0696